=== PATIENT | female | born 1955 | race Caucasian/White ===

== ENCOUNTER 2016-04-13 15:11 | Outpatient (RCR) | payer BC ==
--- OUTSIDE RECORDS SUMMARY | 2016-02-01 15:46 | XMS REPORT | Continuity of Care Document ---
Author Author [facility] Organization [facility] Address Unknown Phone Unavailable Care Team Providers Care Wastewater Design Engineer Name Role Phone POOJA STRINGER MD PCP Insurance Providers Payer Name Policy Number Subscriber Name Relationship [facility] [id number] [place] Advance Directives Directive Response Recorded Date/Time Advance Directives Yes 12/15/15 8:12am Health Care Power of Staple Side Laster Yes 12/15/15 8:12am Organ Donor No 12/15/15 8:12am Resuscitation Status Full Code 12/15/15 8:12am Problems No problem information available. Medications Current Home Medications Medication Dose Units Route Directions Days/Qty Instructions Start Date Cholecalciferol 400 Unit 400 Unit Oral Daily 12/25/12 Meloxicam (Mobic) 15 Mg 15 Mg Oral Daily 12/25/12 Omeprazole 40 Mg 40 Mg Oral Daily 12/25/12 Levothyroxine Sodium (Levothroid) 50 Mcg 50 Mcg Oral Daily 12/25/12 Triamterene/Hydrochlorothiazid 1 Each 1 Tab Oral Daily 37.5-25 MG TABLET 12/25/12 Metformin Hcl (Glucophage) 500 Mg 500 Mg Oral Daily 12/25/12 Estrogen,Alannah/Me-Testosterone 1 Each 1 Each Oral Daily 12/15/15 Multivitamin 1 Each 1 Each Oral Daily 12/15/15 Past Home Medications Medication Directions Ordered Status Cyanocobalamin (Vitamin B-12) 250 Mcg Lozenge, 250 Mcg Oral Daily 12/25/12 Discontinued [Estratest] , 2 Tab Oral Daily 12/25/12 Discontinued Acetaminophen/Hydrocodone Bitart 1 Tab Tablet, 1 - 2 Tab Oral Q3hr From Start Time as needed 12/28/12 Discontinued Social History Social History Problem Response Recorded Date/Time Alcohol Use Denies Use 12/15/2015 8:17am Recreational Drug Use No 12/15/2015 8:17am Recent Foreign Travel No 12/15/2015 8:12am Recent Infectious Disease Exposure No 12/15/2015 8:12am Hospitalization with Isolation Denies 12/15/2015 8:17am HIV/AIDS No 12/15/2015 8:17am Smoking Status Former Smoker 12/15/2015 8:13am Recent Hopitalizations No 12/15/2015 8:17am Hospitalization with Isolation Denies 12/15/2015 8:17am Query Response Start Date Stop Date Smoking Status Former Smoker Hospital Discharge Instructions No hospital discharge instructions. Plan of Care Discharge Date 12/15/15 1:24pm Prescriptions See Medication Section Functional Status No functional status results. Allergies, Adverse Reactions, Alerts Allergen Type Severity Reaction Status Last Updated Sulfa (Sulfonamide Antibiotics) ([id number]) Allergy Intermediate RASH Active 12/15/15 amoxicillin ([id number]) Allergy Unknown RASH Active 12/15/15 Immunizations No immunization records. Vital Signs Acute Vital Signs Vital Response Date/Time Pulse Rate (adult) 62 bpm (60 - 90) 12/15/2015 8:15am Respiratory Rate 16 bpm (12 - 24) 12/15/2015 8:15am O2 Sat by Pulse Oximetry 97 % (88 - 100) 12/15/2015 8:15am Blood Pressure 120/78 mm Hg 12/15/2015 8:15am Blood Pressure Mean 92 mm Hg 12/15/2015 8:15am Pain Numeric Pain Scale 2 12/15/2015 8:15am Height (Feet) 5 feet 12/15/2015 8:09am Height (Inches) 3.00 inches 12/15/2015 8:09am Height (Calculated Centimeters) 160.706454 cm 12/15/2015 8:09am Weight (Pounds) 177 pounds 12/15/2015 8:09am Weight (Ounces) 8.0 oz 12/15/2015 8:09am Weight (Calculated Grams) 51529.65 gm 12/15/2015 8:09am Weight (Calculated Kilograms) 80.406376 kilograms 12/15/2015 8:09am Calculated BMI 31.4 12/15/2015 8:09am Results Laboratory Results Test Name Result Units Flags Reference Collection Date/Time Result Date/ Time Comments White Blood Count 6.1 10^3/uL 4.3-11.0 12/15/2015 8:35am 12/15/2015 8: 53am Red Blood Count 4.88 10^6/uL 4.35-5.85 12/15/2015 8:35am 12/15/2015 8: 53am Hemoglobin 15.7 G/DL 11.5-16.0 12/15/2015 8:35am 12/15/2015 8:53am Hematocrit 45 % 35-52 12/15/2015 8:35am 12/15/2015 8:53am Mean Corpuscular Volume 92 FL 80-99 12/15/2015 8:35am 12/15/2015 8: 53am Mean Corpuscular Hemoglobin 32 PG 25-34 12/15/2015 8:35am 12/15/2015 8: 53am Mean Corpuscular Hemoglobin Concent 35 G/DL 32-36 12/15/2015 8:35am 8:53am Red Cell Distribution Width 12.8 % 10.0-14.5 12/15/2015 8:35am 2015 8:53am Platelet Count 265 10^3/uL 130-400 12/15/2015 8:35am 12/15/2015 8:53am Mean Platelet Volume 10.3 FL 7.4-10.4 12/15/2015 8:35am 12/15/2015 8: 53am Neutrophils (%) (Auto) 58 % 42-75 12/15/2015 8:35am 12/15/2015 8:53am Lymphocytes (%) (Auto) 28 % 12-44 12/15/2015 8:35am 12/15/2015 8:53am Monocytes (%) (Auto) 10 % 0-12 12/15/2015 8:35am 12/15/2015 8:53am Eosinophils (%) (Auto) 3 % 0-10 12/15/2015 8:35am 12/15/2015 8:53am Basophils (%) (Auto) 0 % 0-10 12/15/2015 8:35am 12/15/2015 8:53am Neutrophils # (Auto) 3.6 X 10^3 1.8-7.8 12/15/2015 8:35am 12/15/2015 8: 53am Lymphocytes # (Auto) 1.7 X 10^3 1.0-4.0 12/15/2015 8:35am 12/15/2015 8: 53am Monocytes # (Auto) 0.6 X 10^3 0.0-1.0 12/15/2015 8:35am 12/15/2015 8: 53am Eosinophils # (Auto) 0.2 10^3/uL 0.0-0.3 12/15/2015 8:35am 12/15/2015 8 :53am Basophils # (Auto) 0.0 10^3/uL 0.0-0.1 12/15/2015 8:35am 12/15/2015 8: 53am Erythrocyte Sedimentation Rate 4 MM/HR 0-30 12/15/2015 8:35am 2015 10:36am Prothrombin Time 12.5 SEC 12.2-14.7 12/15/2015 8:35am 12/15/2015 9: 18am INR Comment 1.0 0.8-1.4 12/15/2015 8:35am 12/15/2015 9:18am INTERPRETIVE DATA SUGGESTED THERAPEUTIC RANGE FOR INR'S: VENOUS THROMBOSIS, PULMONARY EMBOLISM, OR PREVENTION OF SYSTEMIC EMBOLISM (EG. IN ATRIAL FIBRILLATION): 2.0 - 3.0 MECHANICAL PROSTHETIC HEART VALVES: 2.5 - 3.5* *NOTE: INR'S UP TO 4.5 MAY BE NECESSARY IN SELECTED GROUPS OF HIGH RISK PATIENTS. [employer] [place] COLLEGE OF CHEST PHYSICIANS CONSENSUS CONFERENCE ON ANTITHROMBOTIC THERAPY (2000). Urine Color YELLOW 12/15/2015 8:40am 12/15/2015 9:03am Urine Clarity CLEAR 12/15/2015 8:40am 12/15/2015 9:03am Urine pH 6 5-9 12/15/2015 8:40am 12/15/2015 9:03am Urine Specific [place] 1.015 * 1.016-1.022 12/15/2015 8:40am 2015 9:03am Urine Protein NEGATIVE NEGATIVE 12/15/2015 8:40am 12/15/2015 9:03am Urine Glucose (UA) NEGATIVE NEGATIVE 12/15/2015 8:40am 12/15/2015 9: 03am Urine RBC (Auto) NEGATIVE NEGATIVE 12/15/2015 8:40am 12/15/2015 9: 03am Urine Ketones NEGATIVE NEGATIVE 12/15/2015 8:40am 12/15/2015 9:03am Urine Nitrite NEGATIVE NEGATIVE 12/15/2015 8:40am 12/15/2015 9:03am Urine Bilirubin NEGATIVE NEGATIVE 12/15/2015 8:40am 12/15/2015 9: 03am Urine Urobilinogen 1 MG/DL NORMAL 12/15/2015 8:40am 12/15/2015 9:03am Urine Leukocyte Esterase 2+ * NEGATIVE 12/15/2015 8:40am 12/15/2015 9: 03am Urine RBC NONE /HPF 12/15/2015 8:40am 12/15/2015 9:03am Urine WBC 10-25 /HPF * 12/15/2015 8:40am 12/15/2015 9:03am Urine Bacteria FEW /HPF * 12/15/2015 8:40am 12/15/2015 9:03am Urine Squamous Epithelial Cells 25-50 /HPF * 12/15/2015 8:40am 2015 9:03am Urine Crystals NONE /LPF 12/15/2015 8:40am 12/15/2015 9:03am Urine Casts NONE /LPF 12/15/2015 8:40am 12/15/2015 9:03am Urine Mucus SMALL /LPF * 12/15/2015 8:40am 12/15/2015 9:03am Urine Culture Indicated YES 12/15/2015 8:40am 12/15/2015 9:03am Sodium Level 140 MMOL/L 135-145 12/15/2015 8:35am 12/15/2015 9:12am Potassium Level 3.8 MMOL/L 3.6-5.0 12/15/2015 8:35am 12/15/2015 9:12am Chloride Level 105 MMOL/L 98-107 12/15/2015 8:35am 12/15/2015 9:12am Carbon Dioxide Level 25 MMOL/L 21-32 12/15/2015 8:35am 12/15/2015 9: 12am Anion Gap 10 MMOL/L 5-14 12/15/2015 8:35am 12/15/2015 9:12am Blood Urea Nitrogen 16 MG/DL 7-18 12/15/2015 8:35am 12/15/2015 9:12am Creatinine 0.95 MG/DL 0.60-1.30 12/15/2015 8:35am 12/15/2015 9:12am BUN/Creatinine Ratio 17 12/15/2015 8:35am 12/15/2015 9:12am Estimat Glomerular Filtration Rate 60 12/15/2015 8:35am 12/15/2015 9:12am GFR INTERPRETIVE DATA UNITS FOR ESTIMATED GFR (eGFR): mL/min/1.73 M2 REFERENCE RANGE FOR ESTIMATED GFR (eGFR) eGFR NORMAL eGFR >60 MODERATELY DECREASED eGFR 30-59 SEVERLY DECREASED eGFR 15-29 KIDNEY FAILURE <15 (OR DIALYSIS) Glucose Level 105 MG/DL 70-105 12/15/2015 8:35am 12/15/2015 9:12am Calcium Level 9.4 MG/DL 8.5-10.1 12/15/2015 8:35am 12/15/2015 9:12am Total Bilirubin 0.8 MG/DL 0.1-1.0 12/15/2015 8:35am 12/15/2015 9:12am Alkaline Phosphatase 53 U/L 40-136 12/15/2015 8:35am 12/15/2015 9:12am Aspartate Amino Transf (AST/SGOT) 23 U/L 5-34 12/15/2015 8:35am 2015 9:12am Alanine Aminotransferase (ALT/SGPT) 29 U/L 0-55 12/15/2015 8:35am 12/14 9:12am Total Protein 6.7 G/DL 6.4-8.2 12/15/2015 8:35am 12/15/2015 9:12am Albumin 4.4 G/DL 3.2-4.5 12/15/2015 8:35am 12/15/2015 9:12am Procedures Procedure Status Date Provider(s) Tracing only of electrocardiogram Active 12/15/15 REYMUNDO JIMENEZ MD Encounters Encounter Location Arrival/Admit Date Discharge/Depart Date Attending Provider Registered Clinic [facility] 12/15/15 7:49am REYMUNDO JIMENEZ MD Registered Clinic [facility] 12/15/15 7:29am WILMAN RODRIGUEZ MD
[~2016-04-13 15:11] MED LIST: ACHYD1T PO; ATOR10TA66 PO; CYAN250L PO; ERGO400C PO; ESTR-33 PO; ESTR1TAB37 PO; ESTRATEST PO; LVT.05T PO; MEDR5TAB4 PO; MELO-195 PO; MTF500T PO; MULT-301 PO; OMEP40CA36 PO; OXYC-197 PO; TRIA1TAB3 PO; UBID1CAP53 PO
== END 2016-05-01 | disposition home or self-care (01) ==
PROVIDERS: ATTEND Nurse Practitioner
DX: Z47.1 Aftercare following joint replacement surgery (principal); Z96.653 Presence of artificial knee joint, bilateral

== ENCOUNTER 2016-06-23 15:45 | Outpatient (RCR) | payer BC ==
--- OUTSIDE RECORDS SUMMARY | 2016-05-04 16:00 | XMS REPORT | Continuity of Care Document ---
Author Author [facility] Organization [facility] Address Unknown Phone Unavailable Care Team Providers Care Forming Department End Finder Name Role Phone POOJA STRINGER MD PCP Insurance Providers Payer Name Policy Number Subscriber Name Relationship [facility] [id number] [place] 01 Advance Directives Directive Response Recorded Date/Time Advance Directives Yes 12/15/15 8:12am Health Care Power of Diet Kitchen Cook Yes 12/15/15 8:12am Organ Donor No 12/15/15 [...] Reaction Status Last Updated Sulfa (Sulfonamide Antibiotics) ([id number]) Allergy Intermediate RASH Active 12/15/15 amoxicillin ([id number]) Allergy Unknown RASH Active 12/15/15 Immunizations No [...] 3.00 inches 12/15/2015 8:09am Height (Calculated Centimeters) 160.586728 cm 12/15/2015 8:09am Weight (Pounds) 177 pounds 12/15/2015 8:09am Weight (Ounces) 8.0 oz 12/15/2015 8:09am Weight (Calculated Grams) 40951.65 gm 12/15/2015 8:09am Weight (Calculated Kilograms) 80.287246 kilograms 12/15/2015 8:09am Calculated BMI 31.4 12/15/2015 [...] SELECTED GROUPS OF HIGH RISK PATIENTS. [employer] [place] [employer] CHEST PHYSICIANS CONSENSUS CONFERENCE ON ANTITHROMBOTIC THERAPY (2000). Urine Color YELLOW 12/15/2015 8:40am 12/15/2015 9:03am Urine Clarity CLEAR 12/15/2015 8:40am 12/15/2015 9:03am Urine pH 6 5-9 12/15/2015 8:40am 12/15/2015 9:03am Urine Specific [place] 1.015 * 1.016-1.022 12/15/2015 8:40am 2015 9:03am [...] Provider(s) Tracing only of electrocardiogram Active 12/15/15 REYUMNDO JIMENEZ MD Encounters Encounter Location Arrival/Admit Date Discharge/Depart Date Attending Provider Registered Clinic [facility] 12/15/15 7:49am REYMUNDO JIMENEZ MD Registered Clinic [facility] 12/15/15 7:29am WILMAN RODRIGUEZ MD
== END 2016-06-23 16:40 | disposition home or self-care (01) ==
PROVIDERS: ATTEND Nurse Practitioner
DX: Z47.1 Aftercare following joint replacement surgery (principal); Z96.653 Presence of artificial knee joint, bilateral

== ENCOUNTER → 2016-09-14 | Outpatient (CLI) | payer BC ==
[2016-09-14 11:57] LABS: BASOPHILS % (AUTO) 0 % (0-10); EOSINOPHILS # (AUTO) 0.2 10^3/uL (0.0-0.3); EOSINOPHILS % (AUTO) 3 % (0-10); LYMPHOCYTES # (AUTO) 2.4 X 10^3 (1.0-4.0); LYMPHOCYTES % (AUTO) 34 % (12-44); MEAN CORPUSCULAR HEMOGLOBIN 31 PG (25-34); MEAN CORPUSCULAR HGB CONC 35 G/DL (32-36); MEAN CORPUSCULAR VOLUME 91 FL (80-99); MONOCYTES # (AUTO) 0.6 X 10^3 (0.0-1.0); MONOCYTES % (AUTO) 9 % (0-12); NEUTROPHILS % (AUTO) 55 % (42-75); PLATELET COUNT 267 10^3/uL (130-400); RED BLOOD COUNT 4.56 10^6/uL (4.35-5.85); RED CELL DISTRIBUTION WIDTH 13.3 % (10.0-14.5); WHITE BLOOD COUNT 7.3 10^3/uL (4.3-11.0)
[2016-09-14 12:29] LABS: ERYTHROCYTE SEDIMENTATION RATE 9 MM/HR (0-30)
== END ==
LOC: LAB 11:43
PROVIDERS: ATTEND Orthopaedic Surgery
DX: M25.461 Effusion, right knee (principal); M25.462 Effusion, left knee; Z96.659 Presence of unspecified artificial knee joint
CPT/HCPCS: 36415; 85025; 85652; 86141

== ENCOUNTER 2017-01-04 15:30 | Outpatient (RCR) | payer BC | END 2017-01-04 16:11 | disposition home or self-care (01) | PROVIDERS: ATTEND Orthopaedic Surgery | DX: Z47.1 Aftercare following joint replacement surgery (principal); Z96.652 Presence of left artificial knee joint ==

== ENCOUNTER → 2017-02-22 | Outpatient (CLI) | payer BC ==
--- NOTE | 2017-02-22 19:42 | Diagnostic Imaging Report ---
Bilateral screening mammogram 2D views with tomosynthesis The current study was also evaluated with a Computer Aided Detection (CAD) system. Indication: Screening. No current complaints stated on the questionnaire. COMPARISON: 12/15/15. FINDINGS: The breasts are composed of heterogeneously dense parenchyma which may decrease mammographic sensitivity. Occasional benign-appearing calcifications are seen. Allowing for technique and positional differences, no suspicious change is seen. IMPRESSION: Dense breasts with no definite change. ACR BI-RADS Category 2: Benign findings. Result letter will be mailed to the patient. Note: At least 10% of breast cancer is not imaged by mammography. Dictated by: Dictated on workstation # [id number]
== END ==
LOC: RAD 08:36
PROVIDERS: ATTEND Obstetrics & Gynecology
DX: Z12.31 Encounter for screening mammogram for malignant neoplasm of breast (principal)
CPT/HCPCS: 77067

== ENCOUNTER 2017-03-27 13:03 | Outpatient (CLI) | payer BC ==
[~2017-03-27] VITALS: Ht 160 cm; Wt 88.5 kg
[2017-03-27 13:11] VITALS: BP 152/80
[2017-03-27] MEDS ORDERED: OMEP40CA36 PO (13:21)
[2017-03-27] MEDS ORDERED: TRIA1CAP4 PO (13:21)
[2017-03-27] MEDS ORDERED: MULT1TAB69 PO (13:21)
[2017-03-27] MEDS ORDERED: CHOL10007 PO (13:21)
[2017-03-27] MEDS ORDERED: ASPI-586 PO (13:21)
[2017-03-27] MEDS ORDERED: ESTR2TAB PO (13:21)
[2017-03-27] MEDS ORDERED: ATOR10TA66 PO (13:21)
[2017-03-27] MEDS ORDERED: MELO15TA39 PO (13:21)
[2017-03-27] MEDS ORDERED: LEVO50TA6 PO (13:21)
[2017-03-27] MEDS ORDERED: METF500T4 PO (13:21)
== END 2017-03-27 13:26 | disposition home or self-care (01) ==
LOC: PREOP 13:03
PROVIDERS: ATTEND Obstetrics & Gynecology
DX: Z01.818 Encounter for other preprocedural examination (principal); Z11.2 Encounter for screening for other bacterial diseases; N93.8 Other specified abnormal uterine and vaginal bleeding; N95.0 Postmenopausal bleeding; R19.09 Other intra-abdominal and pelvic swelling, mass and lump; D64.9 Anemia, unspecified
CPT/HCPCS: 87081

== ENCOUNTER 2017-03-31 10:56 | Day surgery (SDC) | payer BC ==
[~2017-03-31] VITALS: Ht 160 cm; Wt 88.5 kg
[~2017-03-31 10:56] MED LIST changes: +ASPI-586 PO; +CHOL10007 PO; +ESTR2TAB PO; +LEVO50TA6 PO; +MELO15TA39 PO; +METF500T4 PO; +MULT1TAB69 PO; +TRIA1CAP4 PO
[2017-03-31] MEDS ORDERED: SEVOFLURANE (ULTANE) 15 ML INHAL SOLN ONE ×2 (11:18→12:09)
[2017-03-31] MEDS ORDERED: ONDANSETRON 4 MG/2 ML (SDV) Z0FRAN ONE (11:18)
[2017-03-31] MEDS ORDERED: LIDOCAINE PF 2% 5 ML (XYLOCAINE) VIAL ONE (11:18)
[2017-03-31] MEDS ORDERED: proPOfol 200 MG/20 ML (DIPRIVAN) VIAL IV ONE (11:18)
[2017-03-31] MEDS ORDERED: MIDAZOLAM 2 MG/2 ML (VERSED) VIAL ONE (11:19)
[2017-03-31] MEDS ORDERED: LACTATED RINGERS 1,000 ML IV PRN (11:19)
[2017-03-31] MEDS ORDERED: fentaNYL INJECTION 100 MCG/2 ML AMP ONE (11:19)
[2017-03-31 11:36] VITALS: BP 143/78
[2017-03-31] MEDS ORDERED: NS (IVPB) 50 ML ONE (12:02)
[2017-03-31] MEDS ORDERED: ceFAZolin 1,000 MG (ANCEF) VIAL ONE (12:02)
--- NOTE | 2017-03-31 12:10 | Progress Note-Pre Operative ---
Pre-Operative Progress Note H&P Reviewed The H&P was reviewed, patient examined and no changes noted. Date Seen by Provider: Mar 31, 2017 Time Seen by Provider: 12:10 Date H&P Reviewed: Mar 31, 2017 Time H&P Reviewed: 12:10 Pre-Operative Diagnosis: TINO/postmenopausal bleeding/intrauterine mass WILMAN RODRIGUEZ MD Mar 31, 2017 12:10 pm
[2017-03-31] MEDS ORDERED: D5 LR IV SOLUTION 1,000 ML IV SCH (12:11)
--- NOTE | 2017-03-31 12:11 | Progress Note-Post Operative ---
Post-Operative Progess Note Surgeon (s)/Passenger Train Braker (s) Surgeon WILMAN RODRIGUEZ MD Passenger Train Braker: none Pre-Operative Diagnosis DUB/postmenopausal bleeding/intrauterine mass Post-Operative Diagnosis same with polypoid endometrial lesions and with pathology pending Procedure & Operative Findings Date of Procedure 03/31/17 Procedure Performed/Findings hhysteroscopy with directed biopsy and D&C with pathology pending Anesthesia Type Gen. Estimated Blood Loss Estimated blood loss (mL): minimal Specimens/Packing Specimens Removed directed biopsy from endometrial mass and endometrial curettings Packing: none WILMAN RODRIGUEZ MD Mar 31, 2017 12:11
[2017-03-31] MEDS ORDERED: OXYC-202 PO (12:13)
--- NOTE | 2017-03-31 12:14 | Discharge Instructions ---
Discharge Instructions Discharge Medications New, Converted or Re-Newed RX: RX on Chart Patient Instructions Patient Instructions: as directed Return to The Hospital For: as directed Activity & Diet Discharge Diet: No Restrictions Activity as Tolerated: No Orders-Post D/C & Referrals Follow Up Appt: return for post op follow-up as scheduled Activity: Rest for 24 hours, than as tolerated. Diet: As tolerated-Clear Liquids only if nauseated. May shower or tub bathe as desired. No driving for 24 hours, no alcoholic beverages for 24 hours, and nothing per vagina (no tampons, douching, or intercourse) for 2 weeks. Patient to return to the clinic as soon as possible for: Temperature greater than 101F, Severe Pain, Foul discharge from incision or vagina, Excessive Bleeding (more than a period). WILMAN RODRIGUEZ MD Mar 31, 2017 12:14 pm
[2017-03-31] MEDS ORDERED: KETOROLAC 30 MG/ML VIAL IVP ONE (12:15)
[2017-03-31] MEDS ORDERED: MEPERIDINE (DEMEROL) INJ 100 MG/ML IM ONE (12:15)
[2017-03-31] MEDS ORDERED: PROMETHAZINE INJ 25 MG/ML (PHENERGAN) AMP IM ONE (12:15)
[2017-03-31] MEDS ORDERED: oxyCODONE/APAP 10/325MG (PERCOCET 10) TABLET PO PRN (12:15)
[2017-03-31] MEDS ORDERED: ceFAZolin 1 GM/NS 50 ML IVPB IV ONE ×2 (12:15)
[2017-03-31] MEDS ORDERED: ONDANSETRON 4 MG/2 ML (SDV) Z0FRAN IVP PRN (12:15)
[2017-03-31] MEDS ORDERED: ESTROGENS CONJ IV 25 MG/5 ML (PREMARIN) VIAL IVP ONE (12:15)
[2017-03-31] MEDS ORDERED: WATER (STERILE) FOR INJECTION 10 ML ONE (13:00)
[2017-03-31 13:50] VITALS: BP 113/69
[2017-03-31 14:20] VITALS: BP 120/75
[2017-03-31 14:50] VITALS: BP 141/83
[2017-03-31 15:00] VITALS: BP 141/83
--- NOTE | 2017-03-31 17:44 | OPERATIVE REPORT ---
DATE OF SERVICE: 03/31/2017 PREOPERATIVE DIAGNOSES: Dysfunctional uterine bleeding, mets/menorrhagia with ultrasound findings of intrauterine mass. POSTOPERATIVE DIAGNOSES: Dysfunctional uterine bleeding, mets/menorrhagia with ultrasound findings of intrauterine mass with pathology pending. OPERATIVE PROCEDURE: Hysteroscopy with directed biopsy and D and C. OPERATIVE DESCRIPTION: With the patient in supine position under satisfactory general anesthesia, she was repositioned in the dorsal lithotomy position in the Dexter stirrups and prepped and draped in the usual fashion for vaginal surgery. The urinary bladder was emptied with a straight catheter. A weighted speculum placed in the posterior fornix of the vagina and the cervix exposed and grasped anteriorly with single tooth tenaculum. The uterus was sounded to 11 cm with the uterine sound. The cervix was then serially dilated with Stepan dilators to accommodate a hysteroscope, which was introduced and using LR as a distending medium, the endometrial cavity was examined. There were multiple polypoid appearing lesions essentially cooperating the endometrial cavity. Extrusion Machine Operator biopsies were taken from 4 of these areas and sent to pathology labeled as directed biopsies and endometrial polypoid lesions. The hysteroscope was removed. The endometrial cavity sharply curettaged in all 4 quadrants to a good uterine cry with removal of an additional aliquot of endometrial appearing and decidual appearing tissue with some polypoid structure appearance as well. The hysteroscope was reintroduced, endometrial cavity was examined. There was no significant bleeding. There was no significant remaining abnormal tissue. The procedure was terminated at this point. The hysteroscope was removed as was the tenaculum. There was no bleeding from the puncture sites from the tenaculum and no bleeding from the cervical os. The sponge and needle counts were correct on completion of the procedure. Estimated blood loss for the procedure was very minimal. The patient tolerated the procedure well and was uneventfully awakened from general anesthesia and transferred to the recovery room in stable condition with plans for discharge home PAR. Job ID: [id number] DocumentID: [id number] Dictated Date: 03/31/2017 12:49:04 Loading Dock Helper Date: 03/31/2017 17:43:35 Dictated By: WILMAN RODRIGUEZ MD
== END 2017-03-31 15:00 | disposition home or self-care (01) ==
LOC: SDC 10:56
PROVIDERS: ATTEND Obstetrics & Gynecology
DX: N84.1 Polyp of cervix uteri (principal); N92.0 Excessive and frequent menstruation with regular cycle; Z96.652 Presence of left artificial knee joint; Z96.651 Presence of right artificial knee joint; I10 Essential (primary) hypertension; E78.5 Hyperlipidemia, unspecified; G47.33 Obstructive sleep apnea (adult) (pediatric); K21.9 Gastro-esophageal reflux disease without esophagitis; E11.9 Type 2 diabetes mellitus without complications; E03.9 Hypothyroidism, unspecified; Z79.82 Long term (current) use of aspirin; Z79.899 Other long term (current) drug therapy; Z79.84 Long term (current) use of oral hypoglycemic drugs; Z88.1 Allergy status to other antibiotic agents; Z88.2 Allergy status to sulfonamides
CPT/HCPCS: 82962

== ENCOUNTER → 2018-03-20 | Outpatient (CLI) | payer BC ==
[~2018-03-20] MED LIST changes: -ESTR-33 PO; +METF-397 PO; -METF500T4 PO; -OXYC-197 PO; +OXYC1TAB12 PO; +OXYC1TAB87 PO; +[UNRECOGNIZED DRUG - CODE] PO
--- NOTE | 2018-03-21 20:29 | Diagnostic Imaging Report ---
INDICATION: Screening. EXAMINATION: Digital mammogram bilateral screening with 3-D tomosynthesis. The current study was also evaluated with a Computer Aided Detection (CAD) system. This study was compared to the prior exams of 02/22/2017, 12/15/2015, and 04/18/2014. At this time, there are no current complaints. FINDINGS: The fibroglandular tissue in both breasts is heterogeneously dense. This does limit the sensitivity of this exam. Overall, there does not appear to have been any significant change when compared to the prior study. No primary or secondary sign of malignancy is noted. 3D tomographic images fail to show any sign of malignancy. IMPRESSION: There is no radiographic evidence for malignancy. ACR BI-RADS Category 1: Negative. Result letter will be mailed to the patient. Note: At least 10% of breast cancer is not imaged by mammography. Dictated on workstation # [id number]
== END ==
LOC: RAD 07:55
PROVIDERS: ATTEND Obstetrics & Gynecology
DX: Z12.31 Encounter for screening mammogram for malignant neoplasm of breast (principal)
CPT/HCPCS: 77067

== ENCOUNTER → 2019-05-24 | Outpatient (CLI) | payer MEDICARE, OTHER ==
[~2019-05-24] MED LIST changes: +OMEP40CA27 PO
--- NOTE | 2019-05-24 13:09 | Diagnostic Imaging Report ---
Digital mammogram. INDICATION: Bilateral screening. The study was compared to the prior exam of 03/20/2018, 02/22/2017 and 12/15/2015. At this time, there are no current complaints. The current study was also evaluated with a Computer Aided Detection (CAD) system. FINDINGS: The fibroglandular tissue in both breasts is heterogeneously dense. This does limit the sensitivity of this exam. Overall, there does not appear to have been any significant change when compared to the prior study. No primary or secondary sign of malignancy is noted. IMPRESSION: There is no radiographic evidence for malignancy. ACR BI-RADS Category 1: Negative. Result letter will be mailed to the patient. Note: At least 10% of breast cancer is not imaged by mammography. Dictated by: Dictated on workstation # [id number]
== END ==
LOC: RAD 10:47
PROVIDERS: ATTEND Obstetrics & Gynecology
DX: Z12.31 Encounter for screening mammogram for malignant neoplasm of breast (principal)
CPT/HCPCS: 77067

== ENCOUNTER 2019-11-28 05:33 | Outpatient (RCR) | payer MEDICARE, OTHER ==
[~2019-11-28] VITALS: Ht 160 cm; Wt 79.5 kg
[~2019-11-28 05:33] MED LIST changes: +ASPI-999 PO; +ESTR1TAB24 PO; +FAMO-144 PO; +MELO7.5T46 PO; +MULT-567 PO; -MULT1TAB69 PO; +RUTI1TAB PO
== END 2019-11-28 10:04 | disposition home or self-care (01) ==
LOC: PREOP 05:33
PROVIDERS: ATTEND Surgery
DX: Z01.812 Encounter for preprocedural laboratory examination (principal); Z12.11 Encounter for screening for malignant neoplasm of colon; Z86.010 Personal history of colon polyps; K21.9 Gastro-esophageal reflux disease without esophagitis; Z20.828 Contact with and (suspected) exposure to other viral communicable diseases
CPT/HCPCS: 87635

== ENCOUNTER 2019-12-03 09:27 | Day surgery (SDC) | payer MEDICARE, OTHER ==
[~2019-12-03] VITALS: Ht 160 cm; Wt 79.5 kg
[2019-12-03] MEDS ORDERED: HURRICAINE EXT TUBE (BENZOCAINE) XX PRN (09:30)
[2019-12-03 09:34] VITALS: BP 141/79
[2019-12-03] MEDS ORDERED: LACTATED RINGERS 1,000 ML IV ONE (09:34)
[2019-12-03] MEDS ORDERED: proPOfol 200 MG/20 ML (DIPRIVAN) VIAL IV ONE (09:50)
[2019-12-03] MEDS ORDERED: MIDAZOLAM 2 MG/2 ML (VERSED) VIAL ONE (09:50)
[2019-12-03] MEDS ORDERED: CLINDAMYCIN 600 MG/50 ML IVPB 50 ML IV ONE (09:55)
--- NOTE | 2019-12-03 09:56 | Progress Note-Pre Operative ---
Pre-Operative Progress Note H&P Reviewed The H&P was reviewed, patient examined and no changes noted. Date Seen by Provider: Dec 03, 2019 Time Seen by Provider: 09:56 Date H&P Reviewed: Dec 03, 2019 Time H&P Reviewed: 09:56 Pre-Operative Diagnosis: epigastric abd pain, gerd, history of polyps DARINEL HAYS DO Dec 03, 2019 09:56
[2019-12-03] MEDS ORDERED: LACTATED RINGERS 1,000 ML IV SCH (10:15)
[2019-12-03 10:40] VITALS: BP 157/84
[2019-12-03 10:45] VITALS: BP 140/72
[2019-12-03 10:50] VITALS: BP 140/72
--- NOTE | 2019-12-03 10:52 | Discharge Inst-Simple/Standard ---
Discharge Inst-Standard Patient Instructions/Follow Up Plan of Care/Instructions/FU: 2-3 weeks Hernan Activity as Tolerated: Yes Discharge Diet: Regular Diet DARINEL HAYS DO Dec 03, 2019 10:52
--- NOTE | 2019-12-03 10:53 | Progress Note-Post Operative ---
Post-Operative Progess Note Surgeon (s)/Ball Warper Tender (s) Surgeon DARINEL HAYS DO Ball Warper Tender: na Pre-Operative Diagnosis epigastric abd pain, gerd, history of polyps Post-Operative Diagnosis diverticulosis, moderate hiatal hernia Procedure & Operative Findings Date of Procedure 12/03/19 Procedure Performed/Findings egd c biopsies, colonoscopy Anesthesia Type per [facility] Estimated Blood Loss Estimated blood loss (mL): none Specimens/Packing Specimens Removed antrum ,ge DARINEL HAYS DO Dec 03, 2019 10:53
[2019-12-03 11:15] VITALS: BP 138/72
--- OUTSIDE RECORDS SUMMARY | 2019-12-03 12:35 | XMS REPORT ---
Author Author Danni CARR Organization [facility] Address [address] [place] [address] Care Team Providers Care Regulator Pin Inserter Name Role Phone BOWEN CARR Unavailable PROBLEMS Type Condition ICD9-CM Code SZV73-NC Code Onset Dates Condition S tatus SNOMED Code Problem Essential hypertension I10 Active 75494284 Problem Obstructive sleep apnea G47.33 Active 13761366 Problem Controlled type 2 diabetes m ellitus without complication, without long- term current use of insulin E11.9 Active 433597877 Problem Insomnia, unspecified type G47.00 Act cheryl 326567844 Problem Hyperlipidemia, unspecified hyperlipidemia type E7 8.5 Active 49676229 ALLERGIES Substance Reaction Event Type Date Status Sulfacet-R vomitting Drug Allergy Oct, Active Amoxicillin hives Drug Allergy Oct, Active ENCOUNTERS Encounter Location Date Diagnosis [facility] [id number] [place] [id number] Nov, Right foot pain M79.671 [facility] [address] [facility] [id number] [address] [place] [id number] Oct, Obstructive sleep apnea G47. 33 ; Essential hypertension I10 ; Insomnia, unspecified type G47.00 and Hyperlipidemia, unspecified hyperlipidemia type E78.5 IMMUNIZATIONS No Known Immunizations SOCIAL HISTORY Never Assessed REASON FOR VISIT Establish Care, pt states that she is "foggy" in the mornings and is having increased confusion at work. also says that she is having trouble with her sinus., pt states that she is also very irritable and cannot control blood surgars.-[place]woods PLAN OF CARE Activity Details Follow Up 3 months Reason: VITAL SIGNS Weight 190.7 lbs 2017-11-10 Temperature 98 degrees Fahrenheit 2017-11-10 Heart Rate 68 bpm 2017-11-10 Respiratory Rate 18 2017-11-10 Blood pressure systolic 128 mmHg 2017-11-10 Blood pressure diastolic 72 mmHg 2017-11-10 MEDICATIONS Medication Instructions Dosage Frequency Start Date End Date Duration S eva Meloxicam 15 MG Orally Once a day 1 tablet 24h Active Levothyroxine Sodium 50 MCG Orally Once a day 1 tablet on an empty stomach in the morning 24h Active Metformin HCl 500 MG Orally Once a day 1 tablet with a meal 24h Active Atorvastatin Calcium 10 MG Orally Once a day 1 tablet 24h Active MedroxyPROGESTERone Acetate 5 MG Orally Once a day 1 tablet with food 24 h Active Estradiol 2 MG Orally Once a day 1 tablet 24h Active Omeprazole 40 MG Orally Once a day 1 capsule 24h Active Triamterene-HCTZ 37.5-25 MG Orally Once a day 1 tablet in the morning 24 h Active RESULTS No Results PROCEDURES Procedure Date Ordered Result Body Site LIPID PANEL November 10, 2017 VENIPUNCT, ROUTINE* November 10, 2017 INSTRUCTIONS MEDICATIONS ADMINISTERED No Known Medications MEDICAL (GENERAL) HISTORY Type Description Date Medical History DMII Medical History thyroiditis Medical History HTN Medical History arthritis Medical History sleep apnea-CPAP Surgical History partial thyroidectomy Surgical History bilateral knee replacement Surgical History carpel tunnel surgery Hospitalization History surgeries
--- OUTSIDE RECORDS SUMMARY | 2019-12-03 12:35 | XMS REPORT ---
Author Author Danni CARR Organization [facility] Address [address] [place] [address] Care Team Providers Care Airborne Electronics Analyst Name Role Phone BOWEN CARR Unavailable PROBLEMS Type Condition ICD9-CM Code [id number] Code Onset Dates Condition S tatus SNOMED Code Problem Essential hypertension I10 Active 45348136 Problem Obstructive sleep apnea G47.33 Active 27444571 Problem Controlled type 2 diabetes m ellitus without complication, without long- term current use of insulin E11.9 Active 384959498 Problem Insomnia, unspecified type G47.00 Act cheryl 584144577 Problem Hyperlipidemia, unspecified hyperlipidemia type E7 8.5 Active 73914226 ALLERGIES Substance Reaction Event Type Date Status Sulfacet-R vomitting Drug Allergy Nov, Active Amoxicillin hives Drug Allergy Nov, Active ENCOUNTERS Encounter Location Date Diagnosis [facility] [address] [id number] [place] [id number] Nov, Right foot pain M79.671 [facility] [address] [id number] [address] [place] [id number] Oct, Obstructive sleep apnea G47. 33 ; Essential hypertension I10 ; Insomnia, unspecified type G47.00 and Hyperlipidemia, unspecified hyperlipidemia type E78.5 IMMUNIZATIONS No Known Immunizations SOCIAL HISTORY Never Assessed REASON FOR VISIT Right foot pain x 1 month. No self-treatment. [email or web address] PLAN OF CARE Activity Details Follow Up prn if not improving and nex t scheduled f/u Reason: VITAL SIGNS Height 62.20 in 2017-12-14 Weight 193.3 lbs 2017-12-14 Temperature 98.3 degrees Fahrenheit 2017-12-14 Heart Rate 76 bpm 2017-12-14 Respiratory Rate 20 2017-12-14 BMI 35.12 kg/m2 2017-12-14 Blood pressure systolic 130 mmHg 2017-12-14 Blood pressure diastolic 70 mmHg 2017-12-14 MEDICATIONS Medication Instructions Dosage Frequency Start Date End Date Duration S eva Meloxicam 15 MG Orally Once a day 1 tablet 24h Active Atorvastatin Calcium 10 MG Orally Once a day 1 tablet 24h Active MedroxyPROGESTERone Acetate 5 MG Orally Once a day 1 tablet with food 24 h Active Omeprazole 40 MG Orally Once a day 1 capsule 24h Active Estradiol 2 MG Orally Once a day 1 tablet 24h Active Triamterene-HCTZ 37.5-25 MG Orally Once a day 1 tablet in the morning 24 h Active Metformin HCl 500 MG Orally Once a day 1 tablet with a meal 24h Active Levothyroxine Sodium 50 MCG Orally Once a day 1 tablet on an empty stomach in the morning 24h Active RESULTS No Results PROCEDURES No Known procedures INSTRUCTIONS MEDICATIONS ADMINISTERED No Known Medications MEDICAL (GENERAL) HISTORY Type Description Date Medical History DMII Medical History thyroiditis Medical History HTN Medical History arthritis Medical History sleep apnea-CPAP Surgical History partial thyroidectomy Surgical History bilateral knee replacement Surgical History carpel tunnel surgery Hospitalization History surgeries
--- OUTSIDE RECORDS SUMMARY | 2019-12-03 12:36 | XMS REPORT | CCD ---
Author Author Danni Ballard Organization Katty Ballard MD, [facility] Address [address] [place] [address] Phone Care Team Providers Care Financial Internship Name Role Phone PP Unavailable CCM Unavailable Summary Purpose Interface Exchange Insurance Providers Payer name Policy type / Coverage type Covered constitution party ID Effective Begin Date Effective End Date WPS Medicare Part B Medicare Part B [id number] 2018 Unknown [employer] [place] [employer] Medicare Part B [id number] Unknown Family history Father Diagnosis Age At Onset Cancer Unknown Mother Diagnosis Age At Onset Diabetes mellitus Type 2 Unknown Stroke Unknown Hypertension Unknown Arthritis Unknown Osteoporosis Unknown kidney disease Unknown Coronary Artery Disease Unknown Social History Social History Element Codes Description Effective Dates Marital status Unknown M chiki Peter 10/09/2014 Number of children Unknown 2 10/09/[address]: 6451426 Quit over 10 years ago 10/09/[address]: 073003944 Never drinks alcohol 10/09/2014 Allergies, Adverse Reactions, Alerts Substance Reaction Codes Entered Date Inactivated Date Status amoxicillin RxNorm: 723 10/09/2014 N o Inactive Date Active SULFA (SULFONAMIDE A NTIBIOTICS) Unknown 10/09/2014 No Inactive Date Active Past Medical History Illness Codes Condition Status Onset Date Resolved Date Acute recurrent maxi llary sinusitis ICD-9: 461.0 ICD-10: J01.01 Active 12/25/2018 Unknown Cough ICD-9: 786.2 ICD-10: R05 Active 12/25/2018 Unknown Essential (primary) hypertension ICD-9: 401.9 ICD-10: I10 Active 10/08/2014 Unknown Other allergic rhinitis ICD-9: 477.8 ICD-10: J30.89 Active 12/13/2015 Unknown Type 2 diabetes lalito itus without complications ICD-9: 250.00 ICD-10: E11.9 Active 10/08/2014 Unknown Acute upper respirat ory infection, unspecified ICD-9: 465.9 ICD-10: J06.9 Active 05/18/2018 Unknown Hypothyroidism, unsp ecified ICD-9: 244.9 ICD-10: E03.9 Active 05/18/2018 Unknown Mixed hyperlipidemia ICD-9: 272.4 ICD-10: E78.2 Active 05/18/2018 Unknown Other obesity due to excess calories ICD-9: 278.00 ICD-10: E66.09 Active 02/16/2017 Unknown Other acute sinusitis ICD-9: 461.8 ICD-10: J01.80 Active 12/13/2015 Unknown Pain in left knee ICD-9: 719.46 ICD-10: M25.562 Active 07/08/2015 Unknown Pain in right knee ICD- 9: 719.46 ICD-10: M25.561 Active 07/08/2015 Unknown Localized edema ICD-9: 782.3 ICD-10: R60.0 Active 05/22/2016 Unknown Shortness of breath ICD- 9: 786.05 ICD-10: R06.02 Active 05/22/2016 Unknown Chronic idiopathic c onstipation ICD-9: 564.00 ICD-10: K59.04 Active 01/11/2016 Unknown Diabetes Unknown Active 10/09/2014 Unknow n Hyperlipidemia Unknown Active 10/09/2014 Unknow n Hypertension Unknown Active 10/09/2014 Unknow n Hypothryroidism Unknown Active 10/09/2014 Unknow n DIABETES TYPE II ICD-9: 250.00 Active 10/08/2014 Unknown ESSENTIAL HYPERTENSION ICD-9: 401.9 Active 10/08/2014 Unknown HYPERLIPIDEMIA ICD-9: 272.4 Active 10/08/2014 Unknown HYPOTHYROIDISM ICD-9: 244.9 Active 10/08/2014 Unknown Problems Condition Codes Effectiv e Dates Condition Status Acute recurrent maxi llary sinusitis ICD-9: 461.0 ICD-10: J01.01 12/25/2018 Active Cough ICD-9: 786.2 ICD-10: R05 12/25/2018 Active Essential (primary) hypertension ICD-9: 401.9 ICD-10: I10 10/08/2014 Active Other allergic rhinitis ICD-9: 477.8 ICD-10: J30.89 12/13/2015 Active Type 2 diabetes lalito itus without complications ICD-9: 250.00 ICD-10: E11.9 10/08/2014 Active Acute upper respirat ory infection, unspecified ICD-9: 465.9 ICD-10: J06.9 05/18/2018 Active Hypothyroidism, unsp ecified ICD-9: 244.9 ICD-10: E03.9 05/18/2018 Active Mixed hyperlipidemia ICD-9: 272.4 ICD-10: E78.2 05/18/2018 Active Other obesity due to excess calories ICD-9: 278.00 ICD-10: E66.09 02/16/2017 Active Other acute sinusitis ICD-9: 461.8 ICD-10: J01.80 12/13/2015 Active Pain in left knee ICD-9: 719.46 ICD-10: M25.562 07/08/2015 Active Pain in right knee ICD- 9: 719.46 ICD-10: M25.561 07/08/2015 Active Localized edema ICD-9: 782.3 ICD-10: R60.0 05/22/2016 Active Shortness of breath ICD- 9: 786.05 ICD-10: R06.02 05/22/2016 Active Chronic idiopathic c onstipation ICD-9: 564.00 ICD-10: K59.04 01/11/2016 Active Diabetes Unknown 10/09/2014 Active Hyperlipidemia Unknown 10/09/2014 Active Hypertension Unknown 10/09/2014 Active Hypothryroidism Unknown 10/09/2014 Active DIABETES TYPE II ICD-9: 250.00 10/08/2014 Active ESSENTIAL HYPERTENSION ICD-9: 401.9 10/08/2014 Active HYPERLIPIDEMIA ICD-9: 272.4 10/08/2014 Active HYPOTHYROIDISM ICD-9: 244.9 10/08/2014 Active Medications Medication Codes Instruc tions Start Date Stop Date Sta tus Fill Instructions Voltaren 1 % topical gel RxNorm: 388366 4 Gram(s) TOP QID - a pply 4 times daily to bilateral knees 01/07/2019 03/07/2019 Active triamterene 37.5 mg- hydrochlorothiazide 25 mg tablet RxNorm: 746630 TAKE 1 TABLET BY MOUTH ONCE DAILY 01/03/2019 07/01/2019 Active 01/03/2019 12:46:39 PM meloxicam 15 mg tablet RxNorm: 071560 TAKE 1 TABLET BY MOUTH ONCE DAILY 01/03/2019 11/28/2019 Ac tive Generic For:MOBIC 15MG 01/03/2019 12:46 :32 PM Lipitor 10 mg tablet RxNorm: 349131 TAKE 1 TABLET BY MOUTH DAILY 01/03/2019 11/28/2019 Active Generic For:LIPITOR 10MG 01/03/2019 12: 46:19 PM levothyroxine 50 mcg tablet RxNorm: 371306 TAKE 1 TABLET BY MOUT H DAILY 01/03/2019 06/01/2019 Ac tive Generic For:SYNTHROID 50MCG TAB 019 12:46:25 PM Kenalog 40 mg/mL reese pension for injection RxNorm: 6949249 Milliliter(s) Inj 12/25/2018 12/25/2018 In active doxycycline hyclate 100 mg tablet RxNorm: 6282949 1 Tablet(s) PO BID 12/25/2018 12/31/2018 Inactive meloxicam 15 mg tablet RxNorm: 226523 TAKE 1 TABLET BY MOUTH ONCE DAILY 07/09/2018 01/02/2019 In active Generic For:MOBIC 15MG 07/07/2018 11:11 :46 AM triamterene 37.5 mg- hydrochlorothiazide 25 mg tablet RxNorm: 363170 TAKE 1 TABLET BY MOUTH ONCE DAILY 07/09/2018 01/02/2019 Inactive 07/07/2018 11:12:05 AM levothyroxine 50 mcg tablet RxNorm: 822552 TAKE 1 TABLET BY MOUT H DAILY 07/09/2018 01/02/2019 In active Generic For:SYNTHROID 50MCG TAB 019 11:12:00 AM omeprazole 40 mg cap betty,delayed release RxNorm: 805936 TAKE 1 CAPSULE BY MACKENZIE TH DAILY 07/09/2018 01/04/2019 Inactive Generic For:PRILOSEC 40MG 07/07/2018 11 :11:38 AM Lipitor 10 mg tablet RxNorm: 928450 TAKE 1 TABLET BY MOUTH DAILY 07/09/2018 01/02/2019 Inactive Generic For:LIPITOR 10MG 07/07/2018 11: 12:19 AM Zithromax Z-Taj 250 mg tablet RxNorm: 328620 1 Tablet(s) PO UD 05/18/2018 05/22/2018 Inactive metformin 500 mg tablet RxNorm: 950179 TAKE 1 TABLET BY MOUTH ONCE DAILY 02/07/2018 05/21/2018 In active Generic For:GLUCOPHAGE 500MG 02/07/2018 9:07:34 AM levothyroxine 50 mcg tablet RxNorm: 957504 TAKE 1 TABLET BY MOUT H DAILY 02/07/2018 06/06/2018 In active Generic For:SYNTHROID 50MCG TAB 9:07:42 AM meloxicam 15 mg tablet RxNorm: 016923 TAKE 1 TABLET BY MOUTH ONCE DAILY 02/07/2018 07/06/2018 In active Generic For:MOBIC 15MG 02/07/2018 9:07: 30 AM omeprazole 40 mg cap betty,delayed release RxNorm: 040263 TAKE 1 CAPSULE BY MACKENZIE TH DAILY 02/07/2018 07/06/2018 Inactive Generic For:PRILOSEC 40MG 02/07/2018 9: 07:37 AM Lipitor 10 mg tablet RxNorm: 188423 TAKE 1 TABLET BY MOUTH DAILY 11/09/2017 06/06/2018 Inactive Generic For:LIPITOR 10MG 11/09/2017 9:0 1:12 AM triamterene 37.5 mg- hydrochlorothiazide 25 mg tablet RxNorm: 192175 TAKE 1 TABLET BY MOUTH ONCE DAILY 11/09/2017 06/06/2018 Inactive 11/09/2017 9:01:09 AM levothyroxine 50 mcg tablet RxNorm: 712294 TAKE 1 TABLET BY MOUT H DAILY 10/10/2017 02/06/2018 In active Generic For:SYNTHROID 50MCG TAB 018 8:57:50 AM omeprazole 40 mg cap betty,delayed release RxNorm: 868840 TAKE 1 CAPSULE BY MACKENZIE TH DAILY 10/10/2017 02/06/2018 Inactive Generic For:PRILOSEC 40MG 10/10/2017 8: 57:46 AM Voltaren 1 % topical gel RxNorm: 932424 4 Gram(s) TOP QID - a pply 4 times daily to bilateral knees 09/13/2017 11/11/2017 Inactive levothyroxine 50 mcg tablet RxNorm: 003025 TAKE 1 TABLET BY MOUT H DAILY 09/11/2017 10/09/2017 In active Generic For:SYNTHROID 50MCG TAB 018 9:04:26 AM metformin 500 mg tablet RxNorm: 901725 TAKE 1 TABLET BY MOUTH ONCE DAILY 08/11/2017 02/06/2018 In active Generic For:GLUCOPHAGE 500MG 08/11/2017 8:56:05 AM meloxicam 15 mg tablet RxNorm: 577392 TAKE 1 TABLET BY MOUTH ONCE DAILY 08/11/2017 02/06/2018 In active Generic For:MOBIC 15MG 08/11/2017 8:56: 02 AM omeprazole 40 mg cap betty,delayed release RxNorm: 526902 TAKE 1 CAPSULE BY MACKENZIE TH DAILY 06/12/2017 10/09/2017 Inactive Generic For:PRILOSEC 40MG 06/12/2017 8: 56:49 AM Lipitor 10 mg tablet RxNorm: 082833 TAKE 1 TABLET BY MOUTH DAILY 2017 11/08/2017 Inactive Generic For:LIPITOR 10MG 2017 9:0 4:16 AM triamterene 37.5 mg- hydrochlorothiazide 25 mg tablet RxNorm: 736552 TAKE 1 TABLET BY MOUTH ONCE DAILY 2017 04/12/2017 Inactive 2017 9:04:19 AM triamterene 37.5 mg- hydrochlorothiazide 25 mg tablet RxNorm: 749536 TAKE 1 TABLET BY MOUTH ONCE DAILY 2017 10/09/2017 Inactive 2017 9:04:19 AM metformin 500 mg tablet RxNorm: 217704 TAKE 1 TABLET BY MOUTH ONCE DAILY 03/14/2017 08/10/2017 In active Generic For:GLUCOPHAGE 500MG 03/14/2017 9:16:18 AM levothyroxine 50 mcg tablet RxNorm: 441875 TAKE 1 TABLET BY MOUT H DAILY 03/14/2017 09/09/2017 In active Generic For:SYNTHROID 50MCG TAB 017 9:16:23 AM Zithromax Z-Taj 250 mg tablet RxNorm: 019356 1 Tablet(s) PO daily 02/16/2017 02/20/2017 Inactive omeprazole 40 mg cap betty,delayed release RxNorm: 797593 TAKE 1 CAPSULE BY MACKENZIE TH DAILY 02/13/2017 06/11/2017 Inactive Generic For:PRILOSEC 40MG 02/13/2017 8: 55:14 AM meloxicam 15 mg tablet RxNorm: 526287 TAKE 1 TABLET BY MOUTH ONCE DAILY 02/13/2017 08/10/2017 In active Generic For:MOBIC 15MG 02/13/2017 8:55: 10 AM levothyroxine 50 mcg tablet RxNorm: 436619 TAKE 1 TABLET BY MOUT H DAILY-- NEED TO GET LABS CHECKED FOR FURTHER REFILLS 01/05/2017 03/05/2017 Inactive Generic For:SYNTHROID 50MCG TAB 01/05/2017 4:36:06 PM levothyroxine 50 mcg tablet RxNorm: 565679 TAKE 1 TABLET BY MOUT H DAILY 12/14/2016 01/04/2017 In active Generic For:SYNTHROID 50MCG TAB 017 9:02:20 AM triamterene 37.5 mg- hydrochlorothiazide 25 mg tablet RxNorm: 669877 TAKE 1 TABLET BY MOUTH ONCE DAILY 11/14/2016 04/12/2017 Inactive 11/14/2016 9:13:26 AM metformin 500 mg tablet RxNorm: 723540 1 Tablet(s) PO daily 10/17/2016 03/13/2017 Inactive Generic For:GLUCOPHAGE 500MG 10/29/2014 9:02:36 AM omeprazole 40 mg cap betty,delayed release RxNorm: 614796 TAKE 1 CAPSULE BY MACKENZIE TH DAILY 10/17/2016 02/12/2017 Inactive Generic For:PRILOSEC 40MG 10/15/2016 8: 56:40 AM meloxicam 15 mg tablet RxNorm: 962574 1 Tablet(s) PO daily TAKE 1 TABLET BY MO UTH ONCE DAILY 09/19/2016 02/12/2017 Inactive Generic For:MOBIC 15MG 9:09:45 AM levothyroxine 50 mcg tablet RxNorm: 900552 TAKE 1 TABLET BY MOUT H DAILY 09/16/2016 12/13/2016 In active Generic For:SYNTHROID 50MCG TAB 017 10:22:07 AM 09/15/2016 9:01:47 AM Lipitor 10 mg tablet RxNorm: 021875 TAKE 1 TABLET BY MOUTH DAILY 09/16/2016 04/12/2017 Inactive Generic For:LIPITOR 10MG 09/16/2016 10: 22:13 AM 09/15/2016 9:01:42 AM [email or web address] Ultra Test strips RxNorm: 1 Miscellaneous daily 09/08/2016 09/02/2017 Inactive Voltaren 1 % topical gel RxNorm: 557202 2 Gram(s) TOP QID 09/08/2016 11/06/2016 Inactive meloxicam 15 mg tablet RxNorm: 759644 TAKE 1 TABLET BY MOUTH ONCE DAILY 08/16/2016 09/18/2016 In active Generic For:MOBIC 15MG 08/16/2016 9:09: 45 AM triamterene 37.5 mg- hydrochlorothiazide 25 mg tablet RxNorm: 471652 TAKE 1 TABLET BY MOUTH ONCE DAILY 07/18/2016 11/13/2016 Inactive 07/18/2016 8:57:50 AM omeprazole 40 mg cap betty,delayed release RxNorm: 949477 TAKE 1 CAPSULE BY MACKENZIE TH DAILY 06/17/2016 10/14/2016 Inactive Generic For:PRILOSEC 40MG 06/17/2016 9: 30:36 AM levothyroxine 50 mcg tablet RxNorm: 462476 TAKE 1 TABLET BY MOUT H DAILY 06/17/2016 09/14/2016 In active Generic For:SYNTHROID 50MCG TAB 017 9:10:49 AM metformin 500 mg tablet RxNorm: 068402 1 Tablet(s) PO daily 05/24/2016 10/16/2016 Inactive Generic For:GLUCOPHAGE 500MG 10/29/2014 9:02:36 AM Lasix 20 mg tablet RxNorm: 190330 1 Tablet(s) PO daily 05/24/2016 05/26/2016 Inactive metformin 500 mg tablet RxNorm: 801129 1 Tablet(s) PO daily 05/23/2016 05/23/2016 Inactive Generic For:GLUCOPHAGE 500MG 10/29/2014 9:02:36 AM Lasix 20 mg tablet RxNorm: 779240 1 Tablet(s) PO daily 05/23/2016 05/23/2016 Inactive potassium chloride E R 10 mEq tablet,extended release RxNorm: 375743 1 Tablet(s) PO daily 05/23/2016 05/25/2016 Inactive meloxicam 15 mg tablet RxNorm: 564822 1 Tablet(s) PO daily 04/18/2016 08/15/2016 Inactive Lipitor 10 mg tablet RxNorm: 550637 TAKE 1 TABLET BY MOUTH DAILY 04/18/2016 08/15/2016 Inactive Generic For:LIPITOR 10MG 04/18/2016 9:1 5:59 AM triamterene 37.5 mg- hydrochlorothiazide 25 mg tablet RxNorm: 121680 TAKE 1 TABLET BY MOUTH ONCE DAILY 03/21/2016 07/17/2016 Inactive 03/19/2016 9:02:10 AM levothyroxine 50 mcg tablet RxNorm: 518336 TAKE 1 TABLET BY MOUT H DAILY 02/18/2016 06/16/2016 In active Generic For:SYNTHROID 50MCG TAB 016 9:03:15 AM omeprazole 40 mg cap betyt,delayed release RxNorm: 280124 TAKE 1 CAPSULE BY MACKENZIE TH DAILY 02/18/2016 06/16/2016 Inactive Generic For:PRILOSEC 40MG 02/18/2016 9: 03:12 AM Movantik 25 mg tablet RxNorm: 7195283 1 Tablet(s) PO QAM with breakfast or sean ch 01/12/2016 09/07/2016 In active Flonase Allergy Reli ef 50 mcg/actuation nasal spray,suspension RxNorm: 9552170 1 [place] NASAL BID 12/14/2015 09/07/2016 Inactive Zithromax Z-Taj 250 mg tablet RxNorm: 201579 Tablet(s) PO UD 12/14/2015 01/11/2016 Inactive Lipitor 10 mg tablet RxNorm: 426602 TAKE 1 TABLET BY MOUTH DAILY 11/20/2015 04/17/2016 Inactive Generic For:LIPITOR 10MG 11/20/2015 9:1 1:10 AM triamterene 37.5 mg- hydrochlorothiazide 25 mg tablet RxNorm: 059346 TAKE 1 TABLET BY MOUTH ONCE DAILY 11/19/2015 03/17/2016 Inactive 11/18/2015 9:06:12 AM meloxicam 15 mg tablet RxNorm: 708223 1 Tablet(s) PO daily 10/21/2015 04/17/2016 Inactive levothyroxine 50 mcg tablet RxNorm: 857020 TAKE 1 TABLET BY MOUT H DAILY 10/21/2015 02/17/2016 In active Generic For:SYNTHROID 50MCG TAB 016 9:06:41 AM omeprazole 40 mg cap betty,delayed release RxNorm: 596968 TAKE 1 CAPSULE BY MACKENZIE TH DAILY 10/21/2015 02/17/2016 Inactive Generic For:PRILOSEC 40MG 10/21/2015 9: 06:53 AM triamterene 37.5 mg- hydrochlorothiazide 25 mg tablet RxNorm: 817785 Tablet(s) 1 Tablet(s) PO daily 07/23/2015 11/18/2015 Inactive [SAVINGS FOR NON-COVERED DR FLOYD -- BIN:[id number], PCN: ASPROD1, Group: XXXXX, ID# XXXXXXX, Questions: . THIS IS NOT INSURANCE.] metformin 500 mg tablet RxNorm: 252903 1 Tablet(s) PO daily 07/10/2015 12/06/2015 Inactive Generic For:GLUCOPHAGE 500MG 10/29/2014 9:02:36 AM Voltaren 1 % topical gel RxNorm: 526431 4 Gram(s) TOP QID 07/09/2015 09/07/2016 Inactive bilateral knees metformin 500 mg tablet RxNorm: 340337 1 Tablet(s) PO daily TAKE 1 TABLET BY MO [facility] TWICE DAILY 07/09/2015 07/09/2015 Inactive Generic For:GLUCOPHAGE 500M G 10/29/2014 9:02:36 AM Lipitor 10 mg tablet RxNorm: 174800 1 Tablet(s) PO daily 06/26/2015 11/19/2015 Inactive metformin 500 mg tablet RxNorm: 742186 1 Tablet(s) PO BID TAKE 1 TABLET BY MOUT H TWICE DAILY 06/26/2015 07/08/2015 Inactive Generic For:GLUCOPHAGE 500M G 10/29/2014 9:02:36 AM omeprazole 40 mg cap betty,delayed release RxNorm: 017035 TAKE 1 CAPSULE BY MACKENZIE TH DAILY 04/27/2015 10/20/2015 Inactive Generic For:PRILOSEC 40MG meloxicam 15 mg tablet RxNorm: 189329 1 Tablet(s) PO daily 03/30/2015 10/20/2015 Inactive triamterene 37.5 mg- hydrochlorothiazide 25 mg tablet RxNorm: 022364 Tablet(s) 1 Tablet(s) PO daily 03/30/2015 07/22/2015 Inactive [SAVINGS FOR NON-COVERED DR UGS -- BIN:[id number], PCN: ASPROD1, Group: XXXXX, ID# [id number], Questions: . THIS IS NOT INSURANCE.] metformin 500 mg tablet RxNorm: 892885 1 Tablet(s) PO BID 02/26/2015 06/25/2015 Inactive levothyroxine 50 mcg tablet RxNorm: 877129 TAKE 1 TABLET BY MOUT H DAILY 02/26/2015 10/20/2015 In active Generic For:SYNTHROID 50MCG TAB 015 2:41:48 PM N O T I C E PRESCRIPTION PREVIOUSLY AUTHORIZED BY DOCTOR:RUFINO LIAO Lipitor 10 mg tablet RxNorm: 058997 1 Tablet(s) PO daily 02/26/2015 06/25/2015 Inactive omeprazole 40 mg cap betty,delayed release RxNorm: 139111 1 Capsule(s) PO 01/01/2015 04/26/2015 In active [SAVINGS FOR NON-COVERED DRUGS -- BIN:00 3585, PCN: ASPROD1, Group: XXXXX, ID# XXXXXXX, Questions: . THIS IS NOT INSURANCE.] triamterene 37.5 mg- hydrochlorothiazide 25 mg tablet RxNorm: 835904 1 Tablet(s) PO daily 12/02/2014 03/29/2015 Inactive [SAVINGS FOR NON-COVERED DR UGS -- BIN:[id number], PCN: ASPROD1, Group: XXXXX, ID# XXXXXXX, Questions: . THIS IS NOT INSURANCE.] metformin 500 mg tablet RxNorm: 271707 1 Tablet(s) PO BID TAKE 1 TABLET BY MOUT H TWICE DAILY 10/29/2014 06/25/2015 Inactive Generic For:GLUCOPHAGE 500M G 10/29/2014 9:02:36 AM metformin 500 mg tablet RxNorm: 423364 1 Tablet(s) PO BID 10/29/2014 10/29/2014 Inactive Lipitor 10 mg tablet RxNorm: 274738 1 Tablet(s) PO daily 10/27/2014 10/26/2014 Inactive Lipitor 10 mg tablet RxNorm: 546071 1 Tablet(s) PO daily 10/27/2014 02/23/2015 Inactive omeprazole 40 mg cap betty,delayed release RxNorm: 041506 1 Capsule(s) PO 09/02/2014 12/30/2014 In active [SAVINGS FOR NON-COVERED DRUGS -- BIN:00 3585, PCN: ASPROD1, Group: XXXXX, ID# [id number], Questions: . THIS IS NOT INSURANCE.] omeprazole 40 mg cap betty,delayed release RxNorm: 991446 1 Capsule(s) PO 09/02/2014 09/01/2014 In active triamterene 37.5 mg- hydrochlorothiazide 25 mg tablet RxNorm: 267373 1 Tablet(s) PO daily 08/27/2014 08/26/2014 Inactive triamterene 37.5 mg- hydrochlorothiazide 25 mg tablet RxNorm: 067306 1 Tablet(s) PO daily 08/27/2014 12/01/2014 Inactive [SAVINGS FOR NON-COVERED DR UGS -- BIN:[id number], PCN: ASPROD1, Group: XXXXX, ID# [id number], Questions: . THIS IS NOT INSURANCE.] Multi Vitamin oral RxNorm: oral No Start Date Active Aspirin Low Dose 81 mg tablet,delayed release RxNorm: 159620 1 Tablet(s) PO daily No Start Date Active estradiol 2 mg tablet RxNorm: 425364 1 Tablet(s) PO daily No Start Date Active Vitamin D (with calc ium) oral RxNorm: 2418 oral No Sta rt Date Active medroxyprogesterone 5 mg tablet RxNorm: 2065906 1 Tablet(s) PO daily No Start Date Active meloxicam 15 mg tablet RxNorm: 610449 1 Tablet(s) PO daily No Start Date 02/06/2018 Inactive metformin 500 mg tablet RxNorm: 549048 1 Tablet(s) PO daily No Start Date 10/28/2014 Inactive Osteo Bi-Flex oral RxNorm: 1532960 oral No Start Date 02/15/2017 Inactive levothyroxine 50 mcg tablet RxNorm: 741554 1 Tablet(s) PO daily No Start Date 02/25/2015 Inactive Medication Administered Medication Codes Instruc tions Start Date Status Kenalog 40 mg/mL suspension for injection RxNorm: 4164013 Milliliter 12/25/2018 No longer Active Immunizations Vaccine Codes Date Status SHINGARIX CVX: 121 06/01 completed Influenza CVX: 141 03/02 completed Assessments Condition Codes Effectiv e Dates Cough ICD-10: R05 ICD-9: 786.2 12/25/2018 Acute recurrent maxillary sinusitis ICD-10: J01.01 ICD-9: 461.0 12/25/2018 Type 2 diabetes mellitus without complications ICD-10: E11.9 ICD-9: 250.00 11/16/2018 Other allergic rhinitis ICD-10: J30. 89 ICD-9: 477.8 11/16/2018 Essential (primary) hypertension ICD -10: I10 ICD-9: 401.9 11/16/2018 Mixed hyperlipidemia ICD-10: E78.2 ICD-9: 272.4 05/18/2018 Hypothyroidism, unspecified ICD-10: E03.9 ICD-9: 244.9 05/18/2018 Acute upper respiratory infection, unspecified ICD-10: J06.9 ICD-9: 465.9 05/18/2018 Other obesity due to excess calories ICD-10: E66.09 ICD-9: 278.00 09/13/2017 Other acute sinusitis ICD-10: J01.80 ICD-9: 461.8 02/16/2017 Pain in left knee ICD-10: M25.562 ICD-9: 719.46 09/08/2016 Pain in right knee ICD-10: M25.561 ICD-9: 719.46 09/08/2016 Shortness of breath ICD-10: R06.02 ICD-9: 786.05 05/23/2016 Localized edema ICD-10: R60.0 ICD-9: 782.3 05/23/2016 Chronic idiopathic constipation ICD- 10: K59.04 ICD-9: 564.00 01/12/2016 DIABETES TYPE II ICD-9: 250.00 10/09/2014 HYPOTHYROIDISM ICD-9: 244.9 10/09/2014 HYPERLIPIDEMIA ICD-9: 272.4 10/09/2014 ESSENTIAL HYPERTENSION ICD-9: 401.9 10/09/2014 Reason For Visit Reason For Visit Effective Dates Notes sinus congestion 12/25/2018 hypertension 11/16/2018 cough 05/18/2018 hypertension 09/13/2017 hypertension 02/16/2017 edema 09/08/2016 edema 05/23/2016 knee pain 01/12/2016 sinus congestion 12/14/2015 knee pain 07/09/2015 diabetes mellitus 10/09/2014 Results Observation Observation Code Item Item Code Result Date Comp Metabolic Piq984 NA 139 mEq/L 11/16/2018 Comp Metabolic Akt541 K 3.9 mEq/L 11/16/2018 Comp Metabolic Lpf267 CL 103 mEq/L 11/16/2018 Comp Metabolic Vba753 CO2 27.0 mEq/L 11/16/2018 Comp Metabolic Pyd462 AN ION GAP 13 11/16/2018 Comp Metabolic Tag009 GL UCOSE 107 mg/dL 11/16/2018 Comp Metabolic Llo445 Cr eat 1.0 mg/dL 11/16/2018 Comp Metabolic Fzj098 eG FR 56 ml/min/1.73m2 11/16 Comp Metabolic Dxm087 BUN 18 mg/dL 11/16/2018 Comp Metabolic Xbp624 B/ C Ratio 17.3 Ratio 11/16/2018 Comp Metabolic Gmn817 CA LCIUM 9.6 mg/dL 11/16/2018 Comp Metabolic Gqd863 AL K PHOS 75 U/L 11/16/2018 Comp Metabolic Yny853 T(SGOT) 16 U/L 11/16/2018 Comp Metabolic Who410 AL T(SGPT) 16 U/L 11/16/2018 Comp Metabolic Hxs062 BI LI T 0.6 mg/dL 11/16/2018 Comp Metabolic Wve066 AL BUMIN 4.1 g/dL 11/16/2018 Comp Metabolic Rfa836 TP RO 6.5 g/dL 11/16/2018 Comp Metabolic Sme903 GL OB 2.4 g/dL 11/16/2018 Comp Metabolic Goj809 A/ G Ratio 1.7 Ratio 11/16/2018 Comp Metabolic Sgv457 Os mo 280 mOsmo 11/16/2018 %Hba1C Lya920 % HbA1c 09582-0 6.5 % 11/16/2018 %Hba1C Vuy569 Gluc Ave 140 mg/dL 11/16/2018 Free T4 Ptq786 FREE T4 1.09 ng/dL 05/18/2018 Lipid Ord30 CHOL 179 mg/dL 05/18/2018 Lipid Ord30 HDL 49.0 mg/dl 05/18/2018 Lipid Ord30 TRIG 138 mg/dL 05/18/2018 Lipid Ord30 LDL 102 mg/dL 05/18/2018 Lipid Ord30 C/HDL 3.7 Ratio 05/18/2018 Tsh Ord6 TSH (3rd IS) 2.60 uIU/mL 05/18/2018 Cbc With Differential Ord2 WBC 6.43 K/ul 05/18/2018 Cbc With Differential Ord2 RBC 4.43 M/ul 05/18/2018 Cbc With Differential Ord2 HGB 13.8 g/dl 05/18/2018 Cbc With Differential Ord2 HCT 40.8 % 05/18/2018 Cbc With Differential Ord2 Neut% 55.8 % 05/18/2018 Cbc With Differential Ord2 MCV 92.1 fl 05/18/2018 Cbc With Differential Ord2 Lymph% 31.1 % 05/18/2018 Cbc With Differential Ord2 MCH 31.2 pg 05/18/2018 Cbc With Differential Ord2 [place]% 9.2 % 05/18/2018 Cbc With Differential Ord2 MCHC 33.8 pg 05/18/2018 Cbc With Differential Ord2 Eos% 3.4 % 05/18/2018 Cbc With Differential Ord2 PLT 326 K/ul 05/18/2018 Cbc With Differential Ord2 Baso% 0.5 % 05/18/2018 Cbc With Differential Ord2 RDW 13.5 % 05/18/2018 Cbc With Differential Ord2 Neut ABS# 3.59 K/ul 05/18/2018 Cbc With Differential Ord2 Lymph ABS# 2.00 K/ul 05/18/2018 Cbc With Differential Ord2 [place] ABS# 0.6 K/ul 05/18/2018 Cbc With Differential Ord2 Eos ABS# 0.2 K/ul 05/18/2018 Cbc With Differential Ord2 Baso ABS# 0.0 K/ul 05/18/2018 %Hba1C Kvj933 % HbA1c 76743-5 6.1 % 05/18/2018 %Hba1C Fxl019 Gluc Ave 128 mg/dL 05/18/2018 Comp Metabolic Uqm848 NA 139 mEq/L 05/18/2018 Comp Metabolic Puz394 K 3.8 mEq/L 05/18/2018 Comp Metabolic Awe377 CL 100 mEq/L 05/18/2018 Comp Metabolic Mdj352 CO2 29.0 mEq/L 05/18/2018 Comp Metabolic Gyr355 AN ION GAP 14 05/18/2018 Comp Metabolic Fpi880 GL UCOSE 100 mg/dL 05/18/2018 Comp Metabolic Wsj088 Cr eat 1.2 mg/dL 05/18/2018 Comp Metabolic Eea937 eG FR 49 ml/min/1.73m2 05/18 Comp Metabolic Tfp371 BUN 17 mg/dL 05/18/2018 Comp Metabolic Nmw496 B/ C Ratio 14.5 Ratio 05/18/2018 Comp Metabolic Mjz596 CA LCIUM 10.0 mg/dL 05/18/2018 Comp Metabolic Tbo889 AL K PHOS 75 U/L 05/18/2018 Comp Metabolic Cnh415 T(SGOT) 16 U/L 05/18/2018 Comp Metabolic Xaf078 AL T(SGPT) 15 U/L 05/18/2018 Comp Metabolic Uvl237 BI LI T 0.7 mg/dL 05/18/2018 Comp Metabolic Dxb020 AL BUMIN 4.4 g/dL 05/18/2018 Comp Metabolic Ybp470 TP RO 6.8 g/dL 05/18/2018 Comp Metabolic Fav755 GL OB 2.4 g/dL 05/18/2018 Comp Metabolic Rhw965 A/ G Ratio 1.8 Ratio 05/18/2018 Comp Metabolic Cos442 Os mo 279 mOsmo 05/18/2018 Comp Metabolic Udr973 NA 138 mEq/L 09/14/2017 Comp Metabolic Mti821 K 3.8 mEq/L 09/14/2017 Comp Metabolic Kwh450 CL 101 mEq/L 09/14/2017 Comp Metabolic Pwg892 CO2 26.0 mEq/L 09/14/2017 Comp Metabolic Cky535 AN ION GAP 15 09/14/2017 Comp Metabolic Pvl946 GL UCOSE 120 mg/dL 09/14/2017 Comp Metabolic Lrf618 Cr eat 1.0 mg/dL 09/14/2017 Comp Metabolic Btl874 eG FR 61 ml/min/1.73m2 09/14 Comp Metabolic Hsd113 BUN 18 mg/dL 09/14/2017 Comp Metabolic Iia363 B/ C Ratio 18.6 Ratio 09/14/2017 Comp Metabolic Xlx401 CA LCIUM 9.7 mg/dL 09/14/2017 Comp Metabolic Vbq564 AL K PHOS 63 U/L 09/14/2017 Comp Metabolic Ikc814 T(SGOT) 18 U/L 09/14/2017 Comp Metabolic Wny770 AL T(SGPT) 20 U/L 09/14/2017 Comp Metabolic Yjc783 BI LI T 0.5 mg/dL 09/14/2017 Comp Metabolic Gwk367 AL BUMIN 4.3 g/dL 09/14/2017 Comp Metabolic Mhy890 TP RO 6.7 g/dL 09/14/2017 Comp Metabolic Yam482 GL OB 2.4 g/dL 09/14/2017 Comp Metabolic Vfs444 A/ G Ratio 1.8 Ratio 09/14/2017 Comp Metabolic Gve707 Os mo 279 mOsmo 09/14/2017 Lipid Ord30 CHOL 180 mg/dL 09/14/2017 Lipid Ord30 HDL 53.0 mg/dl 09/14/2017 Lipid Ord30 TRIG 126 mg/dL 09/14/2017 Lipid Ord30 LDL 102 mg/dL 09/14/2017 Lipid Ord30 C/HDL 3.4 Ratio 09/14/2017 Microalbumin Lja759 Micr oAlb <0.7 mg/dL 09/14/2017 %Hba1C Rhy998 % HbA1c 29073-6 6.0 % 09/14/2017 %Hba1C Iyq615 Gluc Ave 126 mg/dL 09/14/2017 Free T4 Eci941 FREE T4 0.98 ng/dL 09/14/2017 Cbc With Differential Ord2 WBC 7.14 K/ul 09/14/2017 Cbc With Differential Ord2 RBC 4.44 M/ul 09/14/2017 Cbc With Differential Ord2 HGB 13.9 g/dl 09/14/2017 Cbc With Differential Ord2 HCT 41.8 % 09/14/2017 Cbc With Differential Ord2 Neut% 59.6 % 09/14/2017 Cbc With Differential Ord2 MCV 94.1 fl 09/14/2017 Cbc With Differential Ord2 Lymph% 27.2 % 09/14/2017 Cbc With Differential Ord2 MCH 31.3 pg 09/14/2017 Cbc With Differential Ord2 [place]% 9.4 % 09/14/2017 Cbc With Differential Ord2 MCHC 33.3 pg 09/14/2017 Cbc With Differential Ord2 Eos% 3.4 % 09/14/2017 Cbc With Differential Ord2 PLT 333 K/ul 09/14/2017 Cbc With Differential Ord2 Baso% 0.4 % 09/14/2017 Cbc With Differential Ord2 RDW 13.2 % 09/14/2017 Cbc With Differential Ord2 Neut ABS# 4.26 K/ul 09/14/2017 Cbc With Differential Ord2 Lymph ABS# 1.94 K/ul 09/14/2017 Cbc With Differential Ord2 [place] ABS# 0.7 K/ul 09/14/2017 Cbc With Differential Ord2 Eos ABS# 0.2 K/ul 09/14/2017 Cbc With Differential Ord2 Baso ABS# 0.0 K/ul 09/14/2017 Tsh Ord6 TSH (3rd IS) 2.64 uIU/mL 09/14/2017 Comp Metabolic Oze201 NA 138 mEq/L 05/23/2016 Comp Metabolic Uqa436 K 4.0 mEq/L 05/23/2016 Comp Metabolic Vhy229 CL 105 mEq/L 05/23/2016 Comp Metabolic Uly680 CO2 25.0 mEq/L 05/23/2016 Comp Metabolic Ffr722 AN ION GAP 12 05/23/2016 Comp Metabolic Yuv077 GL UCOSE 89 mg/dL 05/23/2016 Comp Metabolic Uwv085 Cr eat 1.0 mg/dL 05/23/2016 Comp Metabolic Osp888 eG FR 63 ml/min/1.73m2 05/23 Comp Metabolic Zgd432 BUN 18 mg/dL 05/23/2016 Comp Metabolic Mcp678 B/ C Ratio 18.9 Ratio 05/23/2016 Comp Metabolic Mmz878 CA LCIUM 9.1 mg/dL 05/23/2016 Comp Metabolic Abu569 AL K PHOS 67 U/L 05/23/2016 Comp Metabolic Czg988 T(SGOT) 26 U/L 05/23/2016 Comp Metabolic Rpw168 AL T(SGPT) 39 U/L 05/23/2016 Comp Metabolic Msu970 BI LI T 0.5 mg/dL 05/23/2016 Comp Metabolic Lwf169 AL BUMIN 3.9 g/dL 05/23/2016 Comp Metabolic Gcm953 TP RO 5.9 g/dL 05/23/2016 Comp Metabolic Gev689 GL OB 2.0 g/dL 05/23/2016 Comp Metabolic Cuh447 A/ G Ratio 2.0 Ratio 05/23/2016 Comp Metabolic Boh354 Os mo 277 mOsmo 05/23/2016 Cbc With Differential Ord2 WBC 7.23 K/ul 05/23/2016 Cbc With Differential Ord2 RBC 3.74 M/ul 05/23/2016 Cbc With Differential Ord2 HGB 11.4 g/dl 05/23/2016 Cbc With Differential Ord2 HCT 35.2 % 05/23/2016 Cbc With Differential Ord2 Neut% 65.0 % 05/23/2016 Cbc With Differential Ord2 MCV 94.1 fl 05/23/2016 Cbc With Differential Ord2 Lymph% 23.2 % 05/23/2016 Cbc With Differential Ord2 MCH 30.5 pg 05/23/2016 Cbc With Differential Ord2 [place]% 10.0 % 05/23/2016 Cbc With Differential Ord2 MCHC 32.4 pg 05/23/2016 Cbc With Differential Ord2 Eos% 1.5 % 05/23/2016 Cbc With Differential Ord2 PLT 245 K/ul 05/23/2016 Cbc With Differential Ord2 Baso% 0.3 % 05/23/2016 Cbc With Differential Ord2 RDW 14.4 % 05/23/2016 Cbc With Differential Ord2 Neut ABS# 4.70 K/ul 05/23/2016 Cbc With Differential Ord2 Lymph ABS# 1.68 K/ul 05/23/2016 Cbc With Differential Ord2 [place] ABS# 0.7 K/ul 05/23/2016 Cbc With Differential Ord2 Eos ABS# 0.1 K/ul 05/23/2016 Cbc With Differential Ord2 Baso ABS# 0.0 K/ul 05/23/2016 B Type Natriuretic Peptide [id number] B-FOOT DRILL OPERATOR 340.00 pg/ml 7 Lipid Ord30 CHOL 117 mg/dL 07/07/2015 Lipid Ord30 HDL 39.0 mg/dl 07/07/2015 Lipid Ord30 TRIG 67 mg/dL 07/07/2015 Lipid Ord30 LDL 65 mg/dL 07/07/2015 Lipid Ord30 C/HDL 3.0 Ratio 07/07/2015 Cbc With Differential Ord2 WBC 5.13 K/ul 07/07/2015 Cbc With Differential Ord2 RBC 4.47 M/ul 07/07/2015 Cbc With Differential Ord2 HGB 14.2 g/dl 07/07/2015 Cbc With Differential Ord2 HCT 42.2 % 07/07/2015 Cbc With Differential Ord2 Neut% 54.8 % 07/07/2015 Cbc With Differential Ord2 MCV 94.4 fl 07/07/2015 Cbc With Differential Ord2 Lymph% 29.8 % 07/07/2015 Cbc With Differential Ord2 MCH 31.8 pg 07/07/2015 Cbc With Differential Ord2 [place]% 11.3 % 07/07/2015 Cbc With Differential Ord2 MCHC 33.6 pg 07/07/2015 Cbc With Differential Ord2 Eos% 3.5 % 07/07/2015 Cbc With Differential Ord2 PLT 307 K/ul 07/07/2015 Cbc With Differential Ord2 Baso% 0.6 % 07/07/2015 Cbc With Differential Ord2 RDW 13.4 % 07/07/2015 Cbc With Differential Ord2 Neut ABS# 2.81 K/ul 07/07/2015 Cbc With Differential Ord2 Lymph ABS# 1.53 K/ul 07/07/2015 Cbc With Differential Ord2 [place] ABS# 0.6 K/ul 07/07/2015 Cbc With Differential Ord2 Eos ABS# 0.2 K/ul 07/07/2015 Cbc With Differential Ord2 Baso ABS# 0.0 K/ul 07/07/2015 Cbc With Differential Ord2 New Analyzer Notice Please note new ref ranges s tarting 05-13-2015 due to implemntation of new five part differential hematolgy analyzer. 07/07/2015 Free T4 Fll478 FREE T4 1.17 ng/dL 07/07/2015 Comp Metabolic Zea604 NA 137 mEq/L 07/07/2015 Comp Metabolic Ter201 K 4.0 mEq/L 07/07/2015 Comp Metabolic Cjc761 CL 100 mEq/L 07/07/2015 Comp Metabolic Psm530 CO2 29.0 mEq/L 07/07/2015 Comp Metabolic Ihj006 AN ION GAP 12 07/07/2015 Comp Metabolic Kpp631 GL UCOSE 98 mg/dL 07/07/2015 Comp Metabolic Fkl261 Cr eat 1.0 mg/dL 07/07/2015 Comp Metabolic Tbt811 eG FR 62 ml/min/1.73m2 07/06 Comp Metabolic Ter905 BUN 16 mg/dL 07/07/2015 Comp Metabolic Pcw871 B/ C Ratio 16.5 Ratio 07/07/2015 Comp Metabolic Qtw881 CA LCIUM 9.5 mg/dL 07/07/2015 Comp Metabolic Lfp716 AL K PHOS 47 U/L 07/07/2015 Comp Metabolic Qlo385 T(SGOT) 18 U/L 07/07/2015 Comp Metabolic Nny146 AL T(SGPT) 22 U/L 07/07/2015 Comp Metabolic Znq937 BI LI T 0.5 mg/dL 07/07/2015 Comp Metabolic Ava671 AL BUMIN 4.2 g/dL 07/07/2015 Comp Metabolic Jrv713 TP RO 6.5 g/dL 07/07/2015 Comp Metabolic Kdv937 GL OB 2.3 g/dL 07/07/2015 Comp Metabolic Jye705 A/ G Ratio 1.8 Ratio 07/07/2015 Comp Metabolic Fql180 Os mo 275 mOsmo 07/07/2015 %Hba1C Gpe114 % HbA1c 66682-2 5.7 % 07/07/2015 %Hba1C Fnc912 Gluc Ave 117 mg/dL 07/07/2015 Tsh Ord6 hTSH II 2.32 uIU/mL 07/07/2015 Review of Systems System Result Effective Dates Constitutional recent illness 12/25/2018 Constitutional No anorexia 12/25/2018 Constitutional No night sweats 12/25/2018 Constitutional No chills 12/25/2018 Constitutional No diaphoresis 12/25/2018 Constitutional fatigue 0 12/25/2018 Constitutional No fever 12/25/2018 Constitutional No insomnia 12/25/2018 Constitutional No malaise 12/25/2018 Constitutional No weight loss 12/25/2018 Constitutional No weight gain 12/25/2018 Eyes No eye discharge Eyes No eye erythema Ears/Nose/Throat/Neck nasal allergies 12/25/2018 Ears/Nose/Throat/Neck nasal discharge 12/25/2018 Ears/Nose/Throat/Neck otalgia 12/25/2018 Ears/Nose/Throat/Neck sinus congestion 12/25/2018 Cardiovascular No chest pain/pressure 12/25/2018 Cardiovascular No dyspnea 12/25/2018 Respiratory cough 2018 Gastrointestinal No vomiting 12/25/2018 Gastrointestinal No nausea 12/25/2018 Musculoskeletal No joint complaint 12/25/2018 Dermatologic No rash Neurologic No alteration of consciousness 12/25/2018 Constitutional recent illness 11/16/2018 Constitutional No anorexia 11/16/2018 Constitutional No night sweats 11/16/2018 Constitutional No chills 11/16/2018 Constitutional No diaphoresis 11/16/2018 Constitutional No fatigue 11/16/2018 Constitutional No fever 11/16/2018 Constitutional No insomnia 11/16/2018 Constitutional No malaise 11/16/2018 Constitutional No weight loss 11/16/2018 Constitutional No weight gain 11/16/2018 Eyes No eye discharge Eyes No eye erythema Ears/Nose/Throat/Neck No headache 11/16/2018 Ears/Nose/Throat/Neck nasal allergies 11/16/2018 Ears/Nose/Throat/Neck nasal discharge 11/16/2018 Ears/Nose/Throat/Neck sinus congestion 11/16/2018 Ears/Nose/Throat/Neck No sore throat 11/16/2018 Cardiovascular No chest pain/pressure 11/16/2018 Cardiovascular No dyspnea 11/16/2018 Cardiovascular No edema 11/16/2018 Gastrointestinal No abdominal pain 11/16/2018 Gastrointestinal No diarrhea 11/16/2018 Gastrointestinal No nausea 11/16/2018 Gastrointestinal No vomiting 11/16/2018 Genitourinary/Nephrology No dysuria 11/16/2018 Musculoskeletal No joint complaint 11/16/2018 Dermatologic No rash Neurologic No alteration of consciousness 11/16/2018 Psychiatric No anxiety 0 11/16/2018 Endocrine No dry or coarse skin 11/16/2018 Constitutional recent illness 05/18/2018 Constitutional No anorexia 05/18/2018 Constitutional No night sweats 05/18/2018 Constitutional No chills 05/18/2018 Constitutional No diaphoresis 05/18/2018 Constitutional No fatigue 05/18/2018 Constitutional No fever 05/18/2018 Constitutional No insomnia 05/18/2018 Constitutional No malaise 05/18/2018 Constitutional No weight loss 05/18/2018 Constitutional No weight gain 05/18/2018 Eyes No eye erythema Eyes No eye discharge Ears/Nose/Throat/Neck nasal allergies 05/18/2018 Ears/Nose/Throat/Neck nasal discharge 05/18/2018 Ears/Nose/Throat/Neck No headache 05/18/2018 Ears/Nose/Throat/Neck sinus congestion 05/18/2018 Ears/Nose/Throat/Neck No sore throat 05/18/2018 Cardiovascular No chest pain/pressure 05/18/2018 Cardiovascular No dyspnea 05/18/2018 Cardiovascular No edema 05/18/2018 Respiratory productive sputum 05/18/2018 Respiratory cough 2018 Gastrointestinal No abdominal pain 05/18/2018 Gastrointestinal No vomiting 05/18/2018 Gastrointestinal No nausea 05/18/2018 Gastrointestinal No diarrhea 05/18/2018 Genitourinary/Nephrology No dysuria 05/18/2018 Musculoskeletal No joint complaint 05/18/2018 Dermatologic No rash Neurologic No alteration of consciousness 05/18/2018 Psychiatric No anxiety 0 05/18/2018 Endocrine No dry or coarse skin 05/18/2018 Constitutional No recent illness 09/13/2017 Constitutional No anorexia 09/13/2017 Constitutional No night sweats 09/13/2017 Constitutional No chills 09/13/2017 Constitutional No diaphoresis 09/13/2017 Constitutional No fatigue 09/13/2017 Constitutional No fever 09/13/2017 Constitutional No insomnia 09/13/2017 Constitutional No malaise 09/13/2017 Eyes No vision change Ears/Nose/Throat/Neck No headache 09/13/2017 Ears/Nose/Throat/Neck No otalgia 09/13/2017 Ears/Nose/Throat/Neck No otitis media 09/13/2017 Cardiovascular No chest pain/pressure 09/13/2017 Cardiovascular No dyspnea 09/13/2017 Cardiovascular No edema 09/13/2017 Respiratory No chest congestion 09/13/2017 Respiratory No chest tightness 09/13/2017 Respiratory No cough Gastrointestinal No constipation 09/13/2017 Gastrointestinal No diarrhea 09/13/2017 Musculoskeletal stiffness 09/13/2017 Musculoskeletal No muscle weakness 09/13/2017 Musculoskeletal No myalgias 09/13/2017 Dermatologic No rash Dermatologic No sores Psychiatric No anxiety 0 09/13/2017 Psychiatric No depression 09/13/2017 Constitutional recent illness 02/16/2017 Constitutional No anorexia 02/16/2017 Constitutional No night sweats 02/16/2017 Constitutional No chills 02/16/2017 Constitutional No diaphoresis 02/16/2017 Constitutional No fatigue 02/16/2017 Constitutional No fever 02/16/2017 Constitutional No insomnia 02/16/2017 Constitutional No malaise 02/16/2017 Eyes No vision change Ears/Nose/Throat/Neck headache 02/16/2017 Ears/Nose/Throat/Neck No otalgia 02/16/2017 Ears/Nose/Throat/Neck No otitis media 02/16/2017 Cardiovascular No chest pain/pressure 02/16/2017 Cardiovascular No dyspnea 02/16/2017 Cardiovascular No edema 02/16/2017 Respiratory No chest congestion 02/16/2017 Respiratory No chest tightness 02/16/2017 Respiratory No cough Gastrointestinal No constipation 02/16/2017 Gastrointestinal No diarrhea 02/16/2017 Musculoskeletal joint complaint 02/16/2017 Musculoskeletal No muscle weakness 02/16/2017 Musculoskeletal No myalgias 02/16/2017 Dermatologic No rash Dermatologic No sores Psychiatric No anxiety 1 Psychiatric No depression 02/16/2017 Constitutional No weight loss 02/16/2017 Constitutional weight gain 02/16/2017 Ears/Nose/Throat/Neck nasal discharge 02/16/2017 Ears/Nose/Throat/Neck sinus congestion 02/16/2017 Neurologic No alteration of consciousness 02/16/2017 Constitutional No recent illness 09/08/2016 Constitutional No anorexia 09/08/2016 Constitutional No night sweats 09/08/2016 Constitutional No chills 09/08/2016 Constitutional No diaphoresis 09/08/2016 Constitutional No fatigue 09/08/2016 Constitutional No fever 09/08/2016 Constitutional No insomnia 09/08/2016 Constitutional No malaise 09/08/2016 Eyes No vision change Ears/Nose/Throat/Neck No headache 09/08/2016 Ears/Nose/Throat/Neck No otalgia 09/08/2016 Ears/Nose/Throat/Neck No otitis media 09/08/2016 Cardiovascular No chest pain/pressure 09/08/2016 Cardiovascular No dyspnea 09/08/2016 Cardiovascular No edema 09/08/2016 Respiratory No chest congestion 09/08/2016 Respiratory No chest tightness 09/08/2016 Respiratory No cough 03/2017 Gastrointestinal No constipation 09/08/2016 Gastrointestinal No diarrhea 09/08/2016 Musculoskeletal No muscle weakness 09/08/2016 Musculoskeletal No myalgias 09/08/2016 Dermatologic No rash 03/2017 Dermatologic No sores Psychiatric No anxiety 0 09/08/2016 Psychiatric No depression 09/08/2016 Musculoskeletal stiffness 09/08/2016 Musculoskeletal swelling 09/08/2016 Musculoskeletal joint complaint 09/08/2016 Constitutional No recent illness 05/23/2016 Constitutional No chills 05/23/2016 Eyes No vision change Cardiovascular No chest pain/pressure 05/23/2016 Respiratory No chest congestion 05/23/2016 Respiratory No cough Gastrointestinal No constipation 05/23/2016 Gastrointestinal No diarrhea 05/23/2016 Dermatologic No rash Constitutional No fever 05/23/2016 Ears/Nose/Throat/Neck No nasal allergies 05/23/2016 Ears/Nose/Throat/Neck No nasal discharge 05/23/2016 Respiratory No productive sputum 05/23/2016 Cardiovascular edema Cardiovascular dyspnea 0 05/23/2016 Gastrointestinal No nausea 05/23/2016 Gastrointestinal No vomiting 05/23/2016 Neurologic No alteration of consciousness 05/23/2016 Neurologic No mental status change 05/23/2016 Constitutional No recent illness 01/12/2016 Constitutional No anorexia 01/12/2016 Constitutional No night sweats 01/12/2016 Constitutional No chills 01/12/2016 Constitutional No diaphoresis 01/12/2016 Constitutional No fatigue 01/12/2016 Constitutional No fever 01/12/2016 Constitutional No insomnia 01/12/2016 Constitutional No malaise 01/12/2016 Eyes No vision change Ears/Nose/Throat/Neck No headache 01/12/2016 Ears/Nose/Throat/Neck nasal allergies 01/12/2016 Ears/Nose/Throat/Neck nasal discharge 01/12/2016 Ears/Nose/Throat/Neck No otalgia 01/12/2016 Ears/Nose/Throat/Neck No otitis media 01/12/2016 Cardiovascular No chest pain/pressure 01/12/2016 Cardiovascular No dyspnea 01/12/2016 Cardiovascular No edema 01/12/2016 Respiratory No chest congestion 01/12/2016 Respiratory No chest tightness 01/12/2016 Respiratory No cough Gastrointestinal No constipation 01/12/2016 Gastrointestinal No diarrhea 01/12/2016 Genitourinary/Nephrology No dysuria 01/12/2016 Musculoskeletal No muscle weakness 01/12/2016 Musculoskeletal No myalgias 01/12/2016 Dermatologic No rash Dermatologic No sores Psychiatric No anxiety 0 01/12/2016 Psychiatric No depression 01/12/2016 Constitutional No recent illness 12/14/2015 Constitutional No chills 12/14/2015 Constitutional No diaphoresis 12/14/2015 Constitutional No fatigue 12/14/2015 Constitutional No fever 12/14/2015 Constitutional No malaise 12/14/2015 Eyes No vision change Ears/Nose/Throat/Neck nasal allergies 12/14/2015 Cardiovascular No chest pain/pressure 12/14/2015 Cardiovascular No dyspnea 12/14/2015 Cardiovascular No edema 12/14/2015 Respiratory No chest congestion 12/14/2015 Respiratory cough 2015 Gastrointestinal No constipation 12/14/2015 Gastrointestinal No diarrhea 12/14/2015 Dermatologic No rash Dermatologic No sores Eyes No eye erythema Ears/Nose/Throat/Neck nasal discharge 12/14/2015 Ears/Nose/Throat/Neck sinus congestion 12/14/2015 Respiratory No dyspnea 0 12/14/2015 Musculoskeletal No joint complaint 12/14/2015 Neurologic No alteration of consciousness 12/14/2015 Neurologic No mental status change 12/14/2015 Constitutional No recent illness 07/09/2015 Constitutional No anorexia 07/09/2015 Constitutional No night sweats 07/09/2015 Constitutional No chills 07/09/2015 Constitutional No diaphoresis 07/09/2015 Constitutional No fatigue 07/09/2015 Constitutional No fever 07/09/2015 Constitutional No insomnia 07/09/2015 Constitutional No malaise 07/09/2015 Constitutional No weight loss 07/09/2015 Constitutional No weight gain 07/09/2015 Constitutional No obesity 07/09/2015 Musculoskeletal arthralgia(s) 07/09/2015 Musculoskeletal joint complaint 07/09/2015 Musculoskeletal No muscle weakness 07/09/2015 Musculoskeletal No myalgias 07/09/2015 Ears/Nose/Throat/Neck nasal allergies 07/09/2015 Ears/Nose/Throat/Neck nasal discharge 07/09/2015 Ears/Nose/Throat/Neck No otalgia 07/09/2015 Ears/Nose/Throat/Neck No otitis media 07/09/2015 Ears/Nose/Throat/Neck No headache 07/09/2015 Cardiovascular No chest pain/pressure 07/09/2015 Cardiovascular No edema 07/09/2015 Cardiovascular No dyspnea 07/09/2015 Respiratory No cough 01/2016 Respiratory No chest tightness 07/09/2015 Respiratory No chest congestion 07/09/2015 Gastrointestinal No constipation 07/09/2015 Gastrointestinal No diarrhea 07/09/2015 Genitourinary/Nephrology No dysuria 07/09/2015 Psychiatric No depression 07/09/2015 Psychiatric No anxiety 0 07/09/2015 Dermatologic No sores Dermatologic No rash 01/2016 Eyes No vision change Constitutional No recent illness 10/09/2014 Constitutional No chills 10/09/2014 Constitutional No fatigue 10/09/2014 Constitutional No fever 10/09/2014 Constitutional No insomnia 10/09/2014 Constitutional No malaise 10/09/2014 Eyes No blindness 2014 Eyes No vision change Ears/Nose/Throat/Neck No dental pain 10/09/2014 Ears/Nose/Throat/Neck No dizziness 10/09/2014 Ears/Nose/Throat/Neck No dysphagia 10/09/2014 Ears/Nose/Throat/Neck No headache 10/09/2014 Ears/Nose/Throat/Neck No hearing loss 10/09/2014 Ears/Nose/Throat/Neck No nasal allergies 10/09/2014 Ears/Nose/Throat/Neck No sore throat 10/09/2014 Ears/Nose/Throat/Neck No postnasal drip 10/09/2014 Ears/Nose/Throat/Neck No sinus congestion 10/09/2014 Cardiovascular No chest pain/pressure 10/09/2014 Cardiovascular No dyspnea 10/09/2014 Cardiovascular No edema 10/09/2014 Cardiovascular No exercise intolerance 10/09/2014 Cardiovascular No fatigue 10/09/2014 Cardiovascular No near-syncope/dizziness 10/09/2014 Respiratory No chest tightness 10/09/2014 Respiratory No cough 03/2015 Respiratory No dyspnea 0 10/09/2014 Respiratory No pedal edema 10/09/2014 Gastrointestinal No abdominal pain 10/09/2014 Gastrointestinal No constipation 10/09/2014 Gastrointestinal No diarrhea 10/09/2014 Gastrointestinal gastroesophageal reflux 10/09/2014 Gastrointestinal No nausea 10/09/2014 Gastrointestinal No vomiting 10/09/2014 Genitourinary/Nephrology No dysuria 10/09/2014 Genitourinary/Nephrology No nocturia 10/09/2014 Genitourinary/Nephrology No urinary incontinence 10/09/2014 Musculoskeletal No stiffness 10/09/2014 Musculoskeletal No swelling 10/09/2014 Musculoskeletal No muscle weakness 10/09/2014 Musculoskeletal No myalgias 10/09/2014 Dermatologic No rash 03/2015 Dermatologic No sores Dermatologic No scar 03/2015 Neurologic No dizziness 10/09/2014 Neurologic No headache 0 10/09/2014 Neurologic No neck pain 10/09/2014 Neurologic No syncope Psychiatric No anxiety 0 10/09/2014 Psychiatric No depression 10/09/2014 Cardiovascular hypertension 10/09/2014 Physical Exam Exam Name System Name It em Name Status Result Effective Dates Notes Full Exam - ENT Constitutional general appearance Overall: well nourished 12/25/2018 None Full Exam - ENT Constitutional general appearance Overall: well developed 12/25/2018 None Full Exam - ENT Constitutional general appearance Overall: in no acute distress 12/25/2018 None Full Exam - ENT Neurologic orientation Overall: oriented to person, place a nd time 12/25/2018 None Full Exam - ENT Integument inspection of skin Overall: no rash, lesions 12/25/2018 None Full Exam - ENT Lymphatic palpation of lymph nodes Overall: anterior cervical chain benign 12/25/2018 None Full Exam - ENT Lymphatic palpation of lymph nodes Overall: posterior cervical chain benign 12/25/2018 None Full Exam - ENT Cardiovascular auscultation of heart Overall: regular rate 12/25/2018 None Full Exam - ENT Cardiovascular auscultation of heart Overall: normal heart sounds 12/25/2018 None Full Exam - ENT Respiratory auscultation Overall: breath sounds clear bilater ally 12/25/2018 None Full Exam - ENT Respiratory inspection Overall: no retractions 12/25/2018 None Full Exam - ENT Respiratory inspection Overall: normal rate None Full Exam - ENT Ears/Nose/Throat otoscopic exam Overall: external auditory canals normal 12/25/2018 None Full Exam - ENT Ears/Nose/Throat otoscopic exam Overall: tympanic membranes normal 12/25/2018 None Full Exam - ENT Face and Head palpation Left maxillary sinus: tender 12/25/2018 None Full Exam - ENT Face and Head palpation Right maxillary sinus: tender 12/25/2018 None Full Exam - ENT Ears/Nose/Throat oropharynx Overall: oral mucosa clear 12/25/2018 None Full Exam - General 1994 Constitutional general appearance Development: well developed 11/16/2018 None Full Exam - General 1994 Constitutional general appearance Development: appears stated age 0711/16/2018 None Full Exam - General 1994 Constitutional general appearance Hygiene/Attention to Grooming: good hygiene 11/16/2018 None Full Exam - General 1994 Eyes conjunctiva/eyelids Overall: conjunctiva clear 11/16/2018 None Full Exam - General 1994 Eyes conjunctiva/eyelids Overall: cornea clear 11/16/2018 None Full Exam - General 1994 Eyes conjunctiva/eyelids Overall: eyelids normal 11/16/2018 None Full Exam - General 1994 Eyes pupils and irises Overall: pupils equal, round, reactive to light and accomodation 11/16/2018 None Full Exam - General 1995 Ears/Nose/Throat otoscopic exam Overall: external auditory canals clear 11/16/2018 None Full Exam - General 1995 Ears/Nose/Throat otoscopic exam Overall: tympanic membranes clear 11/16/2018 None Full Exam - General 1995 Ears/Nose/Throat lips/teeth/gingiva Overall: benign lips 11/16/2018 None Full Exam - General 1995 Ears/Nose/Throat lips/teeth/gingiva Overall: normal dentition 11/16/2018 None Full Exam - General 1995 Ears/Nose/Throat oral cavity/pharynx/larynx Overall: oral mucosa clear 11/16/2018 None Full Exam - General 1995 Ears/Nose/Throat oral cavity/pharynx/larynx Overall: oropharyngeal mucosa clear 11/16/2018 None Full Exam - General 1994 Ears/Nose/Throat oral cavity/pharynx/larynx Overall: hypopharynx benign 11/16/2018 None Full Exam - General 1994 Ears/Nose/Throat oral cavity/pharynx/larynx Overall: no masses 11/16/2018 None Full Exam - General 1994 Respiratory auscultation Overall: breath sounds clear bilaterally 11/16/2018 None Full Exam - General 1994 Respiratory respiratory effort/rhythm Overall: no retractions 11/16/2018 None Full Exam - General 1994 Respiratory respiratory effort/rhythm Overall: normal rate 11/16/2018 None Full Exam - General 1994 Cardiovascular extremities Overall: no clubbing 11/16/2018 None Full Exam - General 1994 Cardiovascular auscultation of heart Overall: regular rate 11/16/2018 None Full Exam - General 1994 Cardiovascular auscultation of heart Overall: normal heart sounds 11/16/2018 None Full Exam - General 1994 Abdomen abdominal exam Overall: no tenderness 11/16/2018 None Full Exam - General 1994 Abdomen abdominal exam Overall: normal bowel sounds 11/16/2018 None Full Exam - General 1994 Lymphatic neck nodes Overall: anterior cervical chain benign 11/16/2018 None Full Exam - General 1994 Lymphatic neck nodes Overall: posterior cervical chain benign 11/16/2018 None Full Exam - General 1994 Musculoskeletal spine, ribs and pelvis Overall: spine benign 11/16/2018 None Full Exam - General 1994 Musculoskeletal spine, ribs and pelvis Overall: sacroiliac joint benign 11/16/2018 None Full Exam - General 1994 Musculoskeletal spine, ribs and pelvis Overall: good posture 11/16/2018 None Full Exam - General 1994 Musculoskeletal head and neck Overall: head atraumatic 11/16/2018 None Full Exam - General 1994 Musculoskeletal head and neck Overall: cervical spine benign 11/16/2018 None Full Exam - General 1994 Integument inspection of skin Overall: few scattered moles, no gross abnormalities 11/16/2018 None Full Exam - General 1994 Neurologic deep tendon reflexes Overall: deep tendon reflexes intact 11/16/2018 None Full Exam - General 1994 Neurologic cranial nerves Overall: crainial nerves 2 - 12 grossly intact 11/16/2018 None Full Exam - General 1994 Psychiatric orientation/consciousness Overall: oriented to person, place and time 11/16/2018 None Full Exam - General 1994 Psychiatric mood and affect Overall: normal mood and affect 11/16/2018 None Full Exam - General 1994 Constitutional general appearance Development: well developed 05/18/2018 None Full Exam - General 1994 Constitutional general appearance Development: appears stated age 0105/18/2018 None Full Exam - General 1994 Constitutional general appearance Hygiene/Attention to Grooming: good hygiene 05/18/2018 None Full Exam - General 1994 Eyes conjunctiva/eyelids Overall: conjunctiva clear 05/18/2018 None Full Exam - General 1994 Eyes conjunctiva/eyelids Overall: cornea clear 05/18/2018 None Full Exam - General 1994 Eyes conjunctiva/eyelids Overall: eyelids normal 05/18/2018 None Full Exam - General 1994 Eyes pupils and irises Overall: pupils equal, round, reactive to light and accomodation 05/18/2018 None Full Exam - General 1994 Ears/Nose/Throat otoscopic exam Overall: external auditory canals clear 05/18/2018 None Full Exam - General 1994 Ears/Nose/Throat otoscopic exam Overall: tympanic membranes clear 05/18/2018 None Full Exam - General 1994 Ears/Nose/Throat lips/teeth/gingiva Overall: benign lips 05/18/2018 None Full Exam - General 1994 Ears/Nose/Throat lips/teeth/gingiva Overall: normal dentition 05/18/2018 None Full Exam - General 1994 Ears/Nose/Throat oral cavity/pharynx/larynx Overall: oral mucosa clear 05/18/2018 None Full Exam - General 1994 Ears/Nose/Throat oral cavity/pharynx/larynx Overall: oropharyngeal mucosa clear 05/18/2018 None Full Exam - General 1994 Ears/Nose/Throat oral cavity/pharynx/larynx Overall: hypopharynx benign 05/18/2018 None Full Exam - General 1994 Ears/Nose/Throat oral cavity/pharynx/larynx Overall: no masses 05/18/2018 None Full Exam - General 1994 Respiratory auscultation Overall: breath sounds clear bilaterally 05/18/2018 None Full Exam - General 1994 Respiratory respiratory effort/rhythm Overall: no retractions 05/18/2018 None Full Exam - General 1994 Respiratory respiratory effort/rhythm Overall: normal rate 05/18/2018 None Full Exam - General 1994 Cardiovascular extremities Overall: no clubbing 05/18/2018 None Full Exam - General 1994 Cardiovascular auscultation of heart Overall: regular rate 05/18/2018 None Full Exam - General 1994 Cardiovascular auscultation of heart Overall: normal heart sounds 05/18/2018 None Full Exam - General 1994 Abdomen abdominal exam Overall: no tenderness 05/18/2018 None Full Exam - General 1994 Abdomen abdominal exam Overall: normal bowel sounds 05/18/2018 None Full Exam - General 1994 Lymphatic neck nodes Overall: anterior cervical chain benign 05/18/2018 None Full Exam - General 1994 Lymphatic neck nodes Overall: posterior cervical chain benign 05/18/2018 None Full Exam - General 1994 Musculoskeletal spine, ribs and pelvis Overall: spine benign 05/18/2018 None Full Exam - General 1994 Musculoskeletal spine, ribs and pelvis Overall: sacroiliac joint benign 05/18/2018 None Full Exam - General 1994 Musculoskeletal spine, ribs and pelvis Overall: good posture 05/18/2018 None Full Exam - General 1994 Musculoskeletal head and neck Overall: head atraumatic 05/18/2018 None Full Exam - General 1994 Musculoskeletal head and neck Overall: cervical spine benign 05/18/2018 None Full Exam - General 1994 Integument inspection of skin Overall: few scattered moles, no gross abnormalities 05/18/2018 None Full Exam - General 1994 Neurologic deep tendon reflexes Overall: deep tendon reflexes intact 05/18/2018 None Full Exam - General 1994 Neurologic cranial nerves Overall: crainial nerves 2 - 12 grossly intact 05/18/2018 None Full Exam - General 1994 Psychiatric orientation/consciousness Overall: oriented to person, place and time 05/18/2018 None Full Exam - General 1994 Psychiatric mood and affect Overall: normal mood and affect 05/18/2018 None Full Exam - General 1994 Constitutional general appearance Development: well developed 09/13/2017 None Full Exam - General 1994 Constitutional general appearance Development: appears stated age 0509/13/2017 None Full Exam - General 1994 Constitutional general appearance Hygiene/Attention to Grooming: good hygiene 09/13/2017 None Full Exam - General 1994 Eyes conjunctiva/eyelids Overall: conjunctiva clear 09/13/2017 None Full Exam - General 1994 Eyes conjunctiva/eyelids Overall: cornea clear 09/13/2017 None Full Exam - General 1994 Eyes conjunctiva/eyelids Overall: eyelids normal 09/13/2017 None Full Exam - General 1994 Eyes pupils and irises Overall: pupils equal, round, reactive to light and accomodation 09/13/2017 None Full Exam - General 1994 Ears/Nose/Throat otoscopic exam Overall: external auditory canals clear 09/13/2017 None Full Exam - General 1994 Ears/Nose/Throat otoscopic exam Overall: tympanic membranes clear 09/13/2017 None Full Exam - General 1994 Ears/Nose/Throat lips/teeth/gingiva Overall: benign lips 09/13/2017 None Full Exam - General 1994 Ears/Nose/Throat lips/teeth/gingiva Overall: normal dentition 09/13/2017 None Full Exam - General 1994 Ears/Nose/Throat oral cavity/pharynx/larynx Overall: oral mucosa clear 09/13/2017 None Full Exam - General 1994 Ears/Nose/Throat oral cavity/pharynx/larynx Overall: oropharyngeal mucosa clear 09/13/2017 None Full Exam - General 1994 Ears/Nose/Throat oral cavity/pharynx/larynx Overall: hypopharynx benign 09/13/2017 None Full Exam - General 1994 Ears/Nose/Throat oral cavity/pharynx/larynx Overall: no masses 09/13/2017 None Full Exam - General 1994 Respiratory auscultation Overall: breath sounds clear bilaterally 09/13/2017 None Full Exam - General 1994 Respiratory respiratory effort/rhythm Overall: no retractions 09/13/2017 None Full Exam - General 1994 Respiratory respiratory effort/rhythm Overall: normal rate 09/13/2017 None Full Exam - General 1994 Cardiovascular extremities Overall: no clubbing 09/13/2017 None Full Exam - General 1994 Cardiovascular auscultation of heart Overall: regular rate 09/13/2017 None Full Exam - General 1994 Cardiovascular auscultation of heart Overall: normal heart sounds 09/13/2017 None Full Exam - General 1994 Abdomen abdominal exam Overall: no tenderness 09/13/2017 None Full Exam - General 1994 Abdomen abdominal exam Overall: normal bowel sounds 09/13/2017 None Full Exam - General 1994 Lymphatic neck nodes Overall: anterior cervical chain benign 09/13/2017 None Full Exam - General 1994 Lymphatic neck nodes Overall: posterior cervical chain benign 09/13/2017 None Full Exam - General 1994 Musculoskeletal lower extremity Palpation - knee: warm 09/13/2017 None Full Exam - General 1994 Musculoskeletal lower extremity Palpation - knee: tender joint line 09/13/2017 None Full Exam - General 1994 Musculoskeletal spine, ribs and pelvis Overall: spine benign 09/13/2017 None Full Exam - General 1994 Musculoskeletal spine, ribs and pelvis Overall: sacroiliac joint benign 09/13/2017 None Full Exam - General 1994 Musculoskeletal spine, ribs and pelvis Overall: good posture 09/13/2017 None Full Exam - General 1994 Musculoskeletal head and neck Overall: head atraumatic 09/13/2017 None Full Exam - General 1994 Musculoskeletal head and neck Overall: cervical spine benign 09/13/2017 None Full Exam - General 1994 Integument inspection of skin Overall: few scattered moles, no gross abnormalities 09/13/2017 None Full Exam - General 1994 Neurologic deep tendon reflexes Overall: deep tendon reflexes intact 09/13/2017 None Full Exam - General 1994 Neurologic cranial nerves Overall: crainial nerves 2 - 12 grossly intact 09/13/2017 None Full Exam - General 1994 Psychiatric orientation/consciousness Overall: oriented to person, place and time 09/13/2017 None Full Exam - General 1994 Psychiatric mood and affect Overall: normal mood and affect 09/13/2017 None Full Exam - General 1994 Constitutional general appearance Development: well developed 02/16/2017 None Full Exam - General 1994 Constitutional general appearance Development: appears stated age 1002/16/2017 None Full Exam - General 1994 Constitutional general appearance Hygiene/Attention to Grooming: good hygiene 02/16/2017 None Full Exam - General 1994 Eyes conjunctiva/eyelids Overall: conjunctiva clear 02/16/2017 None Full Exam - General 1994 Eyes conjunctiva/eyelids Overall: cornea clear 02/16/2017 None Full Exam - General 1994 Eyes conjunctiva/eyelids Overall: eyelids normal 02/16/2017 None Full Exam - General 1994 Eyes pupils and irises Overall: pupils equal, round, reactive to light and accomodation 02/16/2017 None Full Exam - General 1994 Ears/Nose/Throat otoscopic exam Overall: external auditory canals clear 02/16/2017 None Full Exam - General 1994 Ears/Nose/Throat otoscopic exam Overall: tympanic membranes clear 02/16/2017 None Full Exam - General 1994 Ears/Nose/Throat lips/teeth/gingiva Overall: benign lips 02/16/2017 None Full Exam - General 1994 Ears/Nose/Throat lips/teeth/gingiva Overall: normal dentition 02/16/2017 None Full Exam - General 1994 Ears/Nose/Throat oral cavity/pharynx/larynx Overall: oral mucosa clear 02/16/2017 None Full Exam - General 1994 Ears/Nose/Throat oral cavity/pharynx/larynx Overall: oropharyngeal mucosa clear 02/16/2017 None Full Exam - General 1994 Ears/Nose/Throat oral cavity/pharynx/larynx Overall: hypopharynx benign 02/16/2017 None Full Exam - General 1994 Ears/Nose/Throat oral cavity/pharynx/larynx Overall: no masses 02/16/2017 None Full Exam - General 1994 Respiratory auscultation Overall: breath sounds clear bilaterally 02/16/2017 None Full Exam - General 1994 Respiratory respiratory effort/rhythm Overall: no retractions 02/16/2017 None Full Exam - General 1994 Respiratory respiratory effort/rhythm Overall: normal rate 02/16/2017 None Full Exam - General 1994 Cardiovascular extremities Overall: no clubbing 02/16/2017 None Full Exam - General 1994 Cardiovascular auscultation of heart Overall: regular rate 02/16/2017 None Full Exam - General 1994 Cardiovascular auscultation of heart Overall: normal heart sounds 02/16/2017 None Full Exam - General 1994 Abdomen abdominal exam Overall: no tenderness 02/16/2017 None Full Exam - General 1994 Abdomen abdominal exam Overall: normal bowel sounds 02/16/2017 None Full Exam - General 1994 Lymphatic neck nodes Overall: anterior cervical chain benign 02/16/2017 None Full Exam - General 1994 Lymphatic neck nodes Overall: posterior cervical chain benign 02/16/2017 None Full Exam - General 1994 Musculoskeletal spine, ribs and pelvis Overall: spine benign 02/16/2017 None Full Exam - General 1994 Musculoskeletal spine, ribs and pelvis Overall: sacroiliac joint benign 02/16/2017 None Full Exam - General 1994 Musculoskeletal spine, ribs and pelvis Overall: good posture 02/16/2017 None Full Exam - General 1994 Musculoskeletal head and neck Overall: head atraumatic 02/16/2017 None Full Exam - General 1994 Musculoskeletal head and neck Overall: cervical spine benign 02/16/2017 None Full Exam - General 1994 Integument inspection of skin Overall: few scattered moles, no gross abnormalities 02/16/2017 None Full Exam - General 1994 Neurologic deep tendon reflexes Overall: deep tendon reflexes intact 02/16/2017 None Full Exam - General 1994 Neurologic cranial nerves Overall: crainial nerves 2 - 12 grossly intact 02/16/2017 None Full Exam - General 1994 Psychiatric orientation/consciousness Overall: oriented to person, place and time 02/16/2017 None Full Exam - General 1994 Psychiatric mood and affect Overall: normal mood and affect 02/16/2017 None Full Exam - General 1994 Constitutional general appearance Development: well developed 09/08/2016 None Full Exam - General 1994 Constitutional general appearance Development: appears stated age 0509/08/2016 None Full Exam - General 1994 Constitutional general appearance Hygiene/Attention to Grooming: good hygiene 09/08/2016 None Full Exam - General 1994 Eyes conjunctiva/eyelids Overall: conjunctiva clear 09/08/2016 None Full Exam - General 1994 Eyes conjunctiva/eyelids Overall: cornea clear 09/08/2016 None Full Exam - General 1994 Eyes conjunctiva/eyelids Overall: eyelids normal 09/08/2016 None Full Exam - General 1994 Eyes pupils and irises Overall: pupils equal, round, reactive to light and accomodation 09/08/2016 None Full Exam - General 1994 Ears/Nose/Throat otoscopic exam Overall: external auditory canals clear 09/08/2016 None Full Exam - General 1994 Ears/Nose/Throat otoscopic exam Overall: tympanic membranes clear 09/08/2016 None Full Exam - General 1994 Ears/Nose/Throat lips/teeth/gingiva Overall: benign lips 09/08/2016 None Full Exam - General 1994 Ears/Nose/Throat lips/teeth/gingiva Overall: normal dentition 09/08/2016 None Full Exam - General 1994 Ears/Nose/Throat oral cavity/pharynx/larynx Overall: oral mucosa clear 09/08/2016 None Full Exam - General 1994 Ears/Nose/Throat oral cavity/pharynx/larynx Overall: oropharyngeal mucosa clear 09/08/2016 None Full Exam - General 1994 Ears/Nose/Throat oral cavity/pharynx/larynx Overall: hypopharynx benign 09/08/2016 None Full Exam - General 1994 Ears/Nose/Throat oral cavity/pharynx/larynx Overall: no masses 09/08/2016 None Full Exam - General 1994 Respiratory auscultation Overall: breath sounds clear bilaterally 09/08/2016 None Full Exam - General 1994 Respiratory respiratory effort/rhythm Overall: no retractions 09/08/2016 None Full Exam - General 1994 Respiratory respiratory effort/rhythm Overall: normal rate 09/08/2016 None Full Exam - General 1994 Cardiovascular extremities Overall: no clubbing 09/08/2016 None Full Exam - General 1994 Cardiovascular auscultation of heart Overall: regular rate 09/08/2016 None Full Exam - General 1994 Cardiovascular auscultation of heart Overall: normal heart sounds 09/08/2016 None Full Exam - General 1994 Abdomen abdominal exam Overall: no tenderness 09/08/2016 None Full Exam - General 1994 Abdomen abdominal exam Overall: normal bowel sounds 09/08/2016 None Full Exam - General 1994 Lymphatic neck nodes Overall: anterior cervical chain benign 09/08/2016 None Full Exam - General 1994 Lymphatic neck nodes Overall: posterior cervical chain benign 09/08/2016 None Full Exam - General 1994 Musculoskeletal spine, ribs and pelvis Overall: spine benign 09/08/2016 None Full Exam - General 1994 Musculoskeletal spine, ribs and pelvis Overall: sacroiliac joint benign 09/08/2016 None Full Exam - General 1994 Musculoskeletal spine, ribs and pelvis Overall: good posture 09/08/2016 None Full Exam - General 1994 Musculoskeletal head and neck Overall: head atraumatic 09/08/2016 None Full Exam - General 1994 Musculoskeletal head and neck Overall: cervical spine benign 09/08/2016 None Full Exam - General 1994 Integument inspection of skin Overall: few scattered moles, no gross abnormalities 09/08/2016 None Full Exam - General 1994 Neurologic deep tendon reflexes Overall: deep tendon reflexes intact 09/08/2016 None Full Exam - General 1994 Neurologic cranial nerves Overall: crainial nerves 2 - 12 grossly intact 09/08/2016 None Full Exam - General 1994 Psychiatric orientation/consciousness Overall: oriented to person, place and time 09/08/2016 None Full Exam - General 1994 Psychiatric mood and affect Overall: normal mood and affect 09/08/2016 None Full Exam - General 1994 Musculoskeletal lower extremity Palpation - knee: warm 09/08/2016 None Full Exam - General 1994 Musculoskeletal lower extremity Palpation - knee: tender joint line 09/08/2016 None Full Exam - General 1994 Constitutional general appearance Hygiene/Attention to Grooming: good hygiene 05/23/2016 None Full Exam - General 1994 Eyes conjunctiva/eyelids Overall: conjunctiva clear 05/23/2016 None Full Exam - General 1994 Eyes conjunctiva/eyelids Overall: eyelids normal 05/23/2016 None Full Exam - General 1994 Ears/Nose/Throat lips/teeth/gingiva Overall: benign lips 05/23/2016 None Full Exam - General 1994 Ears/Nose/Throat lips/teeth/gingiva Overall: normal dentition 05/23/2016 None Full Exam - General 1994 Ears/Nose/Throat oral cavity/pharynx/larynx Overall: oral mucosa clear 05/23/2016 None Full Exam - General 1994 Respiratory auscultation Overall: breath sounds clear bilaterally 05/23/2016 None Full Exam - General 1994 Respiratory respiratory effort/rhythm Overall: no retractions 05/23/2016 None Full Exam - General 1994 Respiratory respiratory effort/rhythm Overall: normal rate 05/23/2016 None Full Exam - General 1994 Cardiovascular auscultation of heart Overall: regular rate 05/23/2016 None Full Exam - General 1994 Cardiovascular auscultation of heart Overall: normal heart sounds 05/23/2016 None Full Exam - General 1994 Musculoskeletal spine, ribs and pelvis Overall: good posture 05/23/2016 None Full Exam - General 1994 Musculoskeletal head and neck Overall: head atraumatic 05/23/2016 None Full Exam - General 1994 Neurologic cranial nerves Overall: crainial nerves 2 - 12 grossly intact 05/23/2016 None Full Exam - General 1994 Psychiatric orientation/consciousness Overall: oriented to person, place and time 05/23/2016 None Full Exam - General 1994 Psychiatric mood and affect Overall: normal mood and affect 05/23/2016 None Full Exam - General 1994 Constitutional general appearance Overall: well developed 05/23/2016 None Full Exam - General 1994 Constitutional general appearance Overall: in no acute distress 05/23/2016 None Full Exam - General 1994 Constitutional general appearance Overall: well nourished 05/23/2016 None Full Exam - General 1994 Cardiovascular extremities Edema present: pitting 05/23/2016 None Full Exam - General 1994 Cardiovascular extremities Edema present: severity 1+ - 4+: 2+ 05/23/2016 None Full Exam - General 1994 Cardiovascular extremities Edema present: bilateral 05/23/2016 None Full Exam - General 1994 Cardiovascular extremities Edema present: to leg 05/23/2016 None Full Exam - General 1994 Integument inspection of skin Location: right leg 05/23/2016 knee Full Exam - General 1994 Integument inspection of skin Location: left leg 05/23/2016 knee Full Exam - General 1994 Integument inspection of skin Rash/Lesions: surgical site 05/23/2016 well healed Full Exam - General 1994 Psychiatric appearance Overall: well-groomed, good eye contact 05/23/2016 None Full Exam - General 1994 Constitutional general appearance Development: well developed 01/12/2016 None Full Exam - General 1994 Constitutional general appearance Development: appears stated age 0901/12/2016 None Full Exam - General 1994 Constitutional general appearance Hygiene/Attention to Grooming: good hygiene 01/12/2016 None Full Exam - General 1994 Eyes conjunctiva/eyelids Overall: conjunctiva clear 01/12/2016 None Full Exam - General 1994 Eyes conjunctiva/eyelids Overall: cornea clear 01/12/2016 None Full Exam - General 1994 Eyes conjunctiva/eyelids Overall: eyelids normal 01/12/2016 None Full Exam - General 1994 Eyes pupils and irises Overall: pupils equal, round, reactive to light and accomodation 01/12/2016 None Full Exam - General 1994 Ears/Nose/Throat otoscopic exam Overall: external auditory canals clear 01/12/2016 None Full Exam - General 1994 Ears/Nose/Throat otoscopic exam Overall: tympanic membranes clear 01/12/2016 None Full Exam - General 1994 Ears/Nose/Throat lips/teeth/gingiva Overall: benign lips 01/12/2016 None Full Exam - General 1994 Ears/Nose/Throat lips/teeth/gingiva Overall: normal dentition 01/12/2016 None Full Exam - General 1994 Ears/Nose/Throat oral cavity/pharynx/larynx Overall: oral mucosa clear 01/12/2016 None Full Exam - General 1994 Ears/Nose/Throat oral cavity/pharynx/larynx Overall: oropharyngeal mucosa clear 01/12/2016 None Full Exam - General 1994 Ears/Nose/Throat oral cavity/pharynx/larynx Overall: hypopharynx benign 01/12/2016 None Full Exam - General 1994 Ears/Nose/Throat oral cavity/pharynx/larynx Overall: no masses 01/12/2016 None Full Exam - General 1994 Respiratory auscultation Overall: breath sounds clear bilaterally 01/12/2016 None Full Exam - General 1994 Respiratory respiratory effort/rhythm Overall: no retractions 01/12/2016 None Full Exam - General 1994 Respiratory respiratory effort/rhythm Overall: normal rate 01/12/2016 None Full Exam - General 1994 Cardiovascular extremities Overall: no clubbing 01/12/2016 None Full Exam - General 1994 Cardiovascular auscultation of heart Overall: regular rate 01/12/2016 None Full Exam - General 1994 Cardiovascular auscultation of heart Overall: normal heart sounds 01/12/2016 None Full Exam - General 1994 Abdomen abdominal exam Overall: no tenderness 01/12/2016 None Full Exam - General 1994 Abdomen abdominal exam Overall: normal bowel sounds 01/12/2016 None Full Exam - General 1994 Lymphatic neck nodes Overall: anterior cervical chain benign 01/12/2016 None Full Exam - General 1994 Lymphatic neck nodes Overall: posterior cervical chain benign 01/12/2016 None Full Exam - General 1994 Musculoskeletal spine, ribs and pelvis Overall: spine benign 01/12/2016 None Full Exam - General 1994 Musculoskeletal spine, ribs and pelvis Overall: sacroiliac joint benign 01/12/2016 None Full Exam - General 1994 Musculoskeletal spine, ribs and pelvis Overall: good posture 01/12/2016 None Full Exam - General 1994 Musculoskeletal head and neck Overall: head atraumatic 01/12/2016 None Full Exam - General 1994 Musculoskeletal head and neck Overall: cervical spine benign 01/12/2016 None Full Exam - General 1994 Integument inspection of skin Overall: few scattered moles, no gross abnormalities 01/12/2016 None Full Exam - General 1994 Neurologic deep tendon reflexes Overall: deep tendon reflexes intact 01/12/2016 None Full Exam - General 1994 Neurologic cranial nerves Overall: crainial nerves 2 - 12 grossly intact 01/12/2016 None Full Exam - General 1994 Psychiatric orientation/consciousness Overall: oriented to person, place and time 01/12/2016 None Full Exam - General 1994 Psychiatric mood and affect Overall: normal mood and affect 01/12/2016 None Full Exam - General 1994 Constitutional general appearance Development: well developed 12/14/2015 None Full Exam - General 1994 Constitutional general appearance Development: appears stated age 0812/14/2015 None Full Exam - General 1994 Constitutional general appearance Hygiene/Attention to Grooming: good hygiene 12/14/2015 None Full Exam - General 1994 Eyes conjunctiva/eyelids Overall: conjunctiva clear 12/14/2015 None Full Exam - General 1994 Eyes conjunctiva/eyelids Overall: cornea clear 12/14/2015 None Full Exam - General 1994 Eyes conjunctiva/eyelids Overall: eyelids normal 12/14/2015 None Full Exam - General 1994 Eyes pupils and irises Overall: pupils equal, round, reactive to light and accomodation 12/14/2015 None Full Exam - General 1994 Ears/Nose/Throat otoscopic exam Overall: external auditory canals clear 12/14/2015 None Full Exam - General 1994 Ears/Nose/Throat lips/teeth/gingiva Overall: benign lips 12/14/2015 None Full Exam - General 1994 Ears/Nose/Throat lips/teeth/gingiva Overall: normal dentition 12/14/2015 None Full Exam - General 1994 Ears/Nose/Throat oral cavity/pharynx/larynx Overall: oral mucosa clear 12/14/2015 None Full Exam - General 1994 Respiratory auscultation Overall: breath sounds clear bilaterally 12/14/2015 None Full Exam - General 1994 Respiratory respiratory effort/rhythm Overall: no retractions 12/14/2015 None Full Exam - General 1994 Respiratory respiratory effort/rhythm Overall: normal rate 12/14/2015 None Full Exam - General 1994 Cardiovascular extremities Overall: no clubbing 12/14/2015 None Full Exam - General 1994 Cardiovascular auscultation of heart Overall: regular rate 12/14/2015 None Full Exam - General 1994 Cardiovascular auscultation of heart Overall: normal heart sounds 12/14/2015 None Full Exam - General 1994 Lymphatic neck nodes Overall: anterior cervical chain benign 12/14/2015 None Full Exam - General 1994 Lymphatic neck nodes Overall: posterior cervical chain benign 12/14/2015 None Full Exam - General 1994 Musculoskeletal spine, ribs and pelvis Overall: good posture 12/14/2015 None Full Exam - General 1994 Musculoskeletal head and neck Overall: head atraumatic 12/14/2015 None Full Exam - General 1994 Neurologic cranial nerves Overall: crainial nerves 2 - 12 grossly intact 12/14/2015 None Full Exam - General 1994 Psychiatric orientation/consciousness Overall: oriented to person, place and time 12/14/2015 None Full Exam - General 1994 Psychiatric mood and affect Overall: normal mood and affect 12/14/2015 None Full Exam - General 1994 Ears/Nose/Throat otoscopic exam Tympanic membrane: air-fluid level 12/14/2015 None Full Exam - General 1994 Ears/Nose/Throat oral cavity/pharynx/larynx Posterior Pharynx: clear post nasal drainage 12/14/2015 None Full Exam - General 1994 Ears/Nose/Throat internal nose Sinus tenderness: right maxillary 12/14/2015 None Full Exam - General 1994 Ears/Nose/Throat internal nose Sinus tenderness: left maxillary 12/14/2015 None Full Exam - General 1994 Ears/Nose/Throat internal nose Sinus tenderness: right frontal 12/14/2015 None Full Exam - General 1994 Ears/Nose/Throat internal nose Sinus tenderness: left frontal 12/14/2015 None Full Exam - General 1994 Constitutional general appearance Development: well developed 07/09/2015 None Full Exam - General 1994 Constitutional general appearance Development: appears stated age 0307/09/2015 None Full Exam - General 1994 Constitutional general appearance Hygiene/Attention to Grooming: good hygiene 07/09/2015 None Full Exam - General 1994 Eyes conjunctiva/eyelids Overall: conjunctiva clear 07/09/2015 None Full Exam - General 1994 Eyes conjunctiva/eyelids Overall: cornea clear 07/09/2015 None Full Exam - General 1994 Eyes conjunctiva/eyelids Overall: eyelids normal 07/09/2015 None Full Exam - General 1994 Eyes pupils and irises Overall: pupils equal, round, reactive to light and accomodation 07/09/2015 None Full Exam - General 1994 Ears/Nose/Throat otoscopic exam Overall: external auditory canals clear 07/09/2015 None Full Exam - General 1994 Ears/Nose/Throat otoscopic exam Overall: tympanic membranes clear 07/09/2015 None Full Exam - General 1994 Ears/Nose/Throat lips/teeth/gingiva Overall: benign lips 07/09/2015 None Full Exam - General 1994 Ears/Nose/Throat lips/teeth/gingiva Overall: normal dentition 07/09/2015 None Full Exam - General 1994 Ears/Nose/Throat oral cavity/pharynx/larynx Overall: oral mucosa clear 07/09/2015 None Full Exam - General 1994 Ears/Nose/Throat oral cavity/pharynx/larynx Overall: oropharyngeal mucosa clear 07/09/2015 None Full Exam - General 1994 Ears/Nose/Throat oral cavity/pharynx/larynx Overall: hypopharynx benign 07/09/2015 None Full Exam - General 1994 Ears/Nose/Throat oral cavity/pharynx/larynx Overall: no masses 07/09/2015 None Full Exam - General 1994 Respiratory auscultation Overall: breath sounds clear bilaterally 07/09/2015 None Full Exam - General 1994 Respiratory respiratory effort/rhythm Overall: no retractions 07/09/2015 None Full Exam - General 1994 Respiratory respiratory effort/rhythm Overall: normal rate 07/09/2015 None Full Exam - General 1994 Cardiovascular extremities Overall: no clubbing 07/09/2015 None Full Exam - General 1994 Cardiovascular auscultation of heart Overall: regular rate 07/09/2015 None Full Exam - General 1994 Cardiovascular auscultation of heart Overall: normal heart sounds 07/09/2015 None Full Exam - General 1994 Abdomen abdominal exam Overall: no tenderness 07/09/2015 None Full Exam - General 1994 Abdomen abdominal exam Overall: normal bowel sounds 07/09/2015 None Full Exam - General 1994 Lymphatic neck nodes Overall: anterior cervical chain benign 07/09/2015 None Full Exam - General 1994 Lymphatic neck nodes Overall: posterior cervical chain benign 07/09/2015 None Full Exam - General 1994 Musculoskeletal spine, ribs and pelvis Overall: spine benign 07/09/2015 None Full Exam - General 1994 Musculoskeletal spine, ribs and pelvis Overall: sacroiliac joint benign 07/09/2015 None Full Exam - General 1994 Musculoskeletal spine, ribs and pelvis Overall: good posture 07/09/2015 None Full Exam - General 1994 Musculoskeletal head and neck Overall: head atraumatic 07/09/2015 None Full Exam - General 1994 Musculoskeletal head and neck Overall: cervical spine benign 07/09/2015 None Full Exam - General 1994 Integument inspection of skin Overall: few scattered moles, no gross abnormalities 07/09/2015 None Full Exam - General 1994 Neurologic deep tendon reflexes Overall: deep tendon reflexes intact 07/09/2015 None Full Exam - General 1994 Neurologic cranial nerves Overall: crainial nerves 2 - 12 grossly intact 07/09/2015 None Full Exam - General 1994 Psychiatric orientation/consciousness Overall: oriented to person, place and time 07/09/2015 None Full Exam - General 1994 Psychiatric mood and affect Overall: normal mood and affect 07/09/2015 None Full Exam - General 1994 Constitutional general appearance Development: well developed 10/09/2014 None Full Exam - General 1994 Constitutional general appearance Development: appears stated age 0610/09/2014 None Full Exam - General 1994 Constitutional general appearance Hygiene/Attention to Grooming: good hygiene 10/09/2014 None Full Exam - General 1994 Eyes conjunctiva/eyelids Overall: conjunctiva clear 10/09/2014 None Full Exam - General 1994 Eyes conjunctiva/eyelids Overall: cornea clear 10/09/2014 None Full Exam - General 1994 Eyes conjunctiva/eyelids Overall: eyelids normal 10/09/2014 None Full Exam - General 1994 Eyes pupils and irises Overall: pupils equal, round, reactive to light and accomodation 10/09/2014 None Full Exam - General 1994 Ears/Nose/Throat otoscopic exam Overall: external auditory canals clear 10/09/2014 None Full Exam - General 1994 Ears/Nose/Throat otoscopic exam Overall: tympanic membranes clear 10/09/2014 None Full Exam - General 1994 Ears/Nose/Throat lips/teeth/gingiva Overall: benign lips 10/09/2014 None Full Exam - General 1994 Ears/Nose/Throat lips/teeth/gingiva Overall: normal dentition 10/09/2014 None Full Exam - General 1994 Ears/Nose/Throat oral cavity/pharynx/larynx Overall: oral mucosa clear 10/09/2014 None Full Exam - General 1994 Ears/Nose/Throat oral cavity/pharynx/larynx Overall: oropharyngeal mucosa clear 10/09/2014 None Full Exam - General 1994 Ears/Nose/Throat oral cavity/pharynx/larynx Overall: hypopharynx benign 10/09/2014 None Full Exam - General 1994 Ears/Nose/Throat oral cavity/pharynx/larynx Overall: no masses 10/09/2014 None Full Exam - General 1994 Respiratory auscultation Overall: breath sounds clear bilaterally 10/09/2014 None Full Exam - General 1994 Respiratory respiratory effort/rhythm Overall: no retractions 10/09/2014 None Full Exam - General 1994 Respiratory respiratory effort/rhythm Overall: normal rate 10/09/2014 None Full Exam - General 1994 Cardiovascular extremities Overall: no clubbing 10/09/2014 None Full Exam - General 1994 Cardiovascular auscultation of heart Overall: regular rate 10/09/2014 None Full Exam - General 1994 Cardiovascular auscultation of heart Overall: normal heart sounds 10/09/2014 None Full Exam - General 1994 Abdomen abdominal exam Overall: no tenderness 10/09/2014 None Full Exam - General 1994 Abdomen abdominal exam Overall: normal bowel sounds 10/09/2014 None Full Exam - General 1994 Lymphatic neck nodes Overall: anterior cervical chain benign 10/09/2014 None Full Exam - General 1994 Lymphatic neck nodes Overall: posterior cervical chain benign 10/09/2014 None Full Exam - General 1994 Musculoskeletal spine, ribs and pelvis Overall: spine benign 10/09/2014 None Full Exam - General 1994 Musculoskeletal spine, ribs and pelvis Overall: sacroiliac joint benign 10/09/2014 None Full Exam - General 1994 Musculoskeletal spine, ribs and pelvis Overall: good posture 10/09/2014 None Full Exam - General 1994 Musculoskeletal head and neck Overall: head atraumatic 10/09/2014 None Full Exam - General 1994 Musculoskeletal head and neck Overall: cervical spine benign 10/09/2014 None Full Exam - General 1994 Integument inspection of skin Overall: few scattered moles, no gross abnormalities 10/09/2014 None Full Exam - General 1994 Neurologic deep tendon reflexes Overall: deep tendon reflexes intact 10/09/2014 None Full Exam - General 1994 Neurologic cranial nerves Overall: crainial nerves 2 - 12 grossly intact 10/09/2014 None Full Exam - General 1994 Psychiatric orientation/consciousness Overall: oriented to person, place and time 10/09/2014 None Full Exam - General 1994 Psychiatric mood and affect Overall: normal mood and affect 10/09/2014 None Procedures Procedure Codes Date TRIAMCINOLONE ACET I [place] NOS CPT-4: J3301 12/25/2018 Vital Signs Date Vital 12/25/2018 Blood Pressure 1: 134/72 Code: 8480-6 BMI: 35.1 Code: 54901-7 Heart Rate 1: 72 bpm Height: 5'3" SpO2: 98% Weight: 198 lbs 11/16/2018 Blood Pressure 1: 106/60 Code: 8480-6 BMI: 34.7 Code: 44197-9 Heart Rate 1: 65 bpm Height: 5'3" SpO2: 99% Weight: 196 lbs 05/18/2018 Blood Pressure 1: 128/76 Code: 8480-6 BMI: 34.4 Code: 07206-5 Heart Rate 1: 67 bpm Height: 5'3" SpO2: 97% Temperature: 37.0 (C ) / 98.6 (F) Weight: 194 lbs 09/13/2017 Blood Pressure 1: 140/78 Code: 8480-6 BMI: 35.4 Code: 76130-8 Heart Rate 1: 71 bpm Height: 5'3" SpO2: 97% Weight: 200 lbs 02/16/2017 Blood Pressure 1: 138/76 Code: 8480-6 BMI: 34.4 Code: 66573-1 Heart Rate 1: 66 bpm Height: 5'3" SpO2: 99% Weight: 194 lbs 09/08/2016 Blood Pressure 1: 138/86 Code: 8480-6 BMI: 32.2 Code: 94650-5 Heart Rate 1: 69 bpm Height: 5'3" SpO2: 99% Weight: 182 lbs 05/23/2016 Blood Pressure 1: 126/70 Code: 8480-6 BMI: 30.8 Code: 62176-8 Heart Rate 1: 63 bpm Height: 5'3" SpO2: 98% Weight: 174 lbs 01/12/2016 Blood Pressure 1: 140/72 Code: 8480-6 BMI: 29.8 Code: 02302-5 Heart Rate 1: 82 bpm Height: 5'3" SpO2: 97% Weight: 168 lbs 12/14/2015 Blood Pressure 1: 132/78 Code: 8480-6 BMI: 31.5 Code: 76547-4 Heart Rate 1: 71 bpm Height: 5'3" SpO2: 98% Weight: 178 lbs 07/09/2015 Blood Pressure 1: 128/80 Code: 8480-6 BMI: 30.6 Code: 18948-4 Heart Rate 1: 71 bpm Height: 5'3" SpO2: 99% Weight: 173 lbs 10/09/2014 Blood Pressure 1: 120/70 Code: 8480-6 BMI: 29.1 Code: 59146-5 Heart Rate 1: 68 bpm Height: 5'3" Weight: 164 lbs Functional Status No Functional Status data History of Present Illness Symptom Name Status Resu lt Effective Date Notes Onset and Resolution g radual in onset 12/25/2018 None Onset of Symptom 1 wee ks ago 12/25/2018 None Severity moderate 12/25/2018 None Frequency of Episodes increasing 12/25/2018 None Significant Medical Conditions allergic rhinitis 12/25/2018 None Triggers allergens 12/25/2018 None Pertinent Findings cough 12/25/2018 None Pertinent Findings Den ies fever 12/25/2018 None Pertinent Findings dec reased energy level 12/25/2018 None Pertinent Findings Den ies vomiting 12/25/2018 None Location on both sides 12/25/2018 None Quality Denies acute 12/25/2018 None Quality chronic 11/16/2018 None Quality primary hypert ension 11/16/2018 None Onset and Resolution o ngoing 11/16/2018 None Onset of Symptom durin g adulthood 11/16/2018 None Blood Pressure Values not checking blood pressure at home 11/16/2018 None Alleviating Factors me dication 11/16/2018 None Pertinent Findings Den ies dizziness 11/16/2018 None Pertinent Findings Den ies dyspnea 11/16/2018 None Pertinent Findings edema 11/16/2018 None Quality non-insulin de pendent 11/16/2018 None Quality chronic 11/16/2018 None Alleviating Factors me dication 11/16/2018 None Exacerbating Factors d iet 11/16/2018 None Pertinent Findings Den ies nausea 11/16/2018 None Quality chronic 11/16/2018 None Onset and Resolution o ngoing 11/16/2018 None Alleviating Factors me dication 11/16/2018 None Severity not consisten tly severe symptoms, the symptoms fluctuate from no symptoms to anxiety and headaches 11/16/2018 None Frequency of Episodes unchanged 11/16/2018 None Location in the throat 05/18/2018 None Quality dry 05/18/2018 None Onset and Resolution g radual in onset 05/18/2018 None Onset of Symptom 3 wee ks ago 05/18/2018 None Pertinent Findings Den ies chest discomfort 05/18/2018 None Pertinent Findings Den ies fever 05/18/2018 None Limitation on Activities does not limit activities 05/18/2018 None Frequency of Episodes unchanged 05/18/2018 None Triggers ill contacts 05/18/2018 None hypertension Quality elvi heena hypertension 09/13/2017 None hypertension Onset and Resolution ongoing 09/13/2017 None hypertension Onset of Symptom during adulthood 09/13/2017 None hypertension Blood Pressure Values not checking blood pressure at home 09/13/2017 None hypertension Alleviating Factors medication 09/13/2017 None hypertension Pertinent Findings Denies dizziness 09/13/2017 None hypertension Pertinent Findings Denies dyspnea 09/13/2017 None hypertension Pertinent Findings edema 09/13/2017 None diabetes mellitus Quality non-insulin dependent 09/13/2017 None diabetes mellitus Alleviating Factors medication 09/13/2017 None diabetes mellitus Exacerbating Factors diet 09/13/2017 None diabetes mellitus Pertinent Findings Denies nausea 09/13/2017 None hypothyroid Onset and Resolution ongoing 09/13/2017 None hypothyroid Alleviating Factors medication 09/13/2017 None hypertension Quality chr onic 09/13/2017 None diabetes mellitus Quality chronic 09/13/2017 None hypothyroid Quality chronic 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 09/13/2017 None diabetes mellitus Glucose monitoring occasional glucose testing 09/13/2017 (once or twice a week) diabetes mellitus Test results Pt checking blood glucose readings, did not bring results to clinic 09/13/2017 None hypertension Quality elvi heena hypertension 02/16/2017 None hypertension Onset and Resolution ongoing 02/16/2017 None hypertension Onset of Symptom during adulthood 02/16/2017 None hypertension Blood Pressure Values not checking blood pressure at home 02/16/2017 None hypertension Alleviating Factors medication 02/16/2017 None hypertension Pertinent Findings Denies dizziness 02/16/2017 None hypertension Pertinent Findings Denies dyspnea 02/16/2017 None hypertension Pertinent Findings edema 02/16/2017 "a little bit" after her bilateral knee replacement diabetes mellitus Quality non-insulin dependent 02/16/2017 None diabetes mellitus Alleviating Factors medication 02/16/2017 None diabetes mellitus Exacerbating Factors diet 02/16/2017 None diabetes mellitus Pertinent Findings Denies nausea 02/16/2017 None hypothyroid Onset and Resolution ongoing 02/16/2017 None hypothyroid Alleviating Factors medication 02/16/2017 None diabetes mellitus Test results Pt checking blood glucose readings, did not bring results to clinic 02/16/2017 None diabetes mellitus Glucose monitoring occasional glucose testing 02/16/2017 (3-4 times weekly) sinus congestion Onset of Symptom 2 months ago 02/16/2017 None sinus congestion Quality acute 02/16/2017 None sinus congestion Quality pain 02/16/2017 None sinus congestion Quality fullness 02/16/2017 None sinus congestion Location on both sides 02/16/2017 None sinus congestion Pertinent Findings cough 02/16/2017 None sinus congestion Pertinent Findings Denies fever 02/16/2017 None sinus congestion Pertinent Findings facial pain 02/16/2017 None sinus congestion Triggers allergens 02/16/2017 None sinus congestion Onset and Resolution ongoing 02/16/2017 None hypertension Severity no t consistently severe symptoms, the symptoms fluctuate from no symptoms to anxiety and headaches 02/16/2017 None hypertension Frequency of Episodes unchanged 02/16/2017 None hypertension Triggers no known associated factors 02/16/2017 None edema Onset and Resolution ongoing 09/08/2016 None edema Alleviating Factors recumbency 09/08/2016 None edema Exacerbating Factors standing 09/08/2016 None edema Pertinent Findings Denies dyspnea 09/08/2016 None edema Pertinent Findings Denies lightheadedness 09/08/2016 None edema Pertinent Findings Denies nausea 09/08/2016 None edema Location on both l egs 09/08/2016 None hypertension Onset and Resolution ongoing 09/08/2016 None hypertension Onset of Symptom during adulthood 09/08/2016 None hypertension Blood Pressure Values not checking blood pressure at home 09/08/2016 None hypertension Alleviating Factors medication 09/08/2016 None hypertension Pertinent Findings Denies dizziness 09/08/2016 None hypertension Pertinent Findings Denies dyspnea 09/08/2016 None hypertension Pertinent Findings edema 09/08/2016 bilateral legs diabetes mellitus Quality non-insulin dependent 09/08/2016 None diabetes mellitus Test results Pt checking blood glucose readings, did not bring results to clinic 09/08/2016 None diabetes mellitus Glucose monitoring occasional glucose testing 09/08/2016 (once or twice weekly) diabetes mellitus Alleviating Factors medication 09/08/2016 None diabetes mellitus Exacerbating Factors diet 09/08/2016 None diabetes mellitus Pertinent Findings Denies nausea 09/08/2016 None edema Quality intermitte nt 09/08/2016 None edema Onset of Symptom months ago 09/08/2016 since her bilateral knee replacement edema Exacerbating Factors activity 09/08/2016 None edema Alleviating Factors rest 09/08/2016 None hypertension Quality elvi heena hypertension 09/08/2016 None edema Onset and Resolution gradual in onset 05/23/2016 None edema Onset and Resolution ongoing 05/23/2016 None edema Onset of Symptom 5 months ago 05/23/2016 None edema Pertinent Findings dyspnea 05/23/2016 None edema Pertinent Findings Denies nausea 05/23/2016 None edema Pertinent Findings Denies lightheadedness 05/23/2016 None edema Pertinent Findings Denies palpitations 05/23/2016 None edema Location on the le ft leg 05/23/2016 None edema Location on both l egs 05/23/2016 None edema Quality pitting 05/23/2016 None edema Exacerbating Factors salty foods 05/23/2016 None edema Exacerbating Factors standing 05/23/2016 None edema Alleviating Factors recumbency 05/23/2016 None knee pain Location on th e left 01/12/2016 None knee pain Location on th e right 01/12/2016 None knee pain Onset of Symptom years ago 01/12/2016 None knee pain Limitation on Activities allows weight bearing activity 01/12/2016 None knee pain Severity moder ate 01/12/2016 None knee pain Significant Medical Conditions degenerative joint disease 01/12/2016 None knee pain Significant Medical Conditions prior history of meniscal tear 01/12/2016 None knee pain Pertinent Findings pain with movement 01/12/2016 None knee pain Pertinent Findings swelling 01/12/2016 None hypertension Onset and Resolution ongoing 01/12/2016 None hypertension Onset of Symptom during adulthood 01/12/2016 None hypertension Blood Pressure Values not checking blood pressure at home 01/12/2016 None hypertension Alleviating Factors medication 01/12/2016 None hypertension Pertinent Findings Denies dizziness 01/12/2016 None hypertension Pertinent Findings Denies dyspnea 01/12/2016 None diabetes mellitus Quality non-insulin dependent 01/12/2016 None diabetes mellitus Test results Pt checking blood glucose readings, did not bring results to clinic 01/12/2016 - she cannot remember for sure - but th inks it is in the 115-130 range on average. diabetes mellitus Glucose monitoring occasional glucose testing 01/12/2016 None diabetes mellitus Alleviating Factors medication 01/12/2016 None diabetes mellitus Exacerbating Factors diet 01/12/2016 None knee pain Quality chronic 01/12/2016 None sinus congestion Location on both sides 12/14/2015 None sinus congestion Quality fullness 12/14/2015 None sinus congestion Quality pressure 12/14/2015 None sinus congestion Quality pain 12/14/2015 None sinus congestion Onset and Resolution sudden in onset 12/14/2015 None sinus congestion Onset of Symptom 4 days ago 12/14/2015 None sinus congestion Frequency of Episodes daily 12/14/2015 None sinus congestion Pertinent Findings cough 12/14/2015 None sinus congestion Pertinent Findings facial pain 12/14/2015 None knee pain Location on th e left 07/09/2015 None knee pain Location on th e right 07/09/2015 None knee pain Onset of Symptom _ years ago 07/09/2015 None knee pain Pertinent Findings pain with movement 07/09/2015 None knee pain Pertinent Findings swelling 07/09/2015 None medication follow up Additional Comments medication use 07/09/2015 None knee pain Quality chronic 07/09/2015 None knee pain Onset and Resolution worse during the day 07/09/2015 None knee pain Frequency of Episodes increasing 07/09/2015 None knee pain Limitation on Activities allows weight bearing activity 07/09/2015 None knee pain Severity moder ate 07/09/2015 None knee pain Significant Medical Conditions degenerative joint disease 07/09/2015 None knee pain Significant Medical Conditions prior history of meniscal tear 07/09/2015 None knee pain Sports Participation not significant 07/09/2015 None diabetes mellitus Quality NIDDM 10/09/2014 None diabetes mellitus Test results Pt checking blood glucose readings, did not bring results to clinic 10/09/2014 pt reports that FSBS runs in the 90's us ually - but this morning her FSBS was in the 140's diabetes mellitus Glucose monitoring occasional glucose testing 10/09/2014 2x per week diabetes mellitus Pertinent Findings dizziness 10/09/2014 None diabetes mellitus Pertinent Findings dyspnea 10/09/2014 None hypertension Quality int ermittent 10/09/2014 None hypertension Onset and Resolution ongoing 10/09/2014 None hypertension Blood Pressure Values not checking blood pressure at home 10/09/2014 None hypertension Pertinent Findings Denies dizziness 10/09/2014 None hypertension Pertinent Findings Denies dyspnea 10/09/2014 None hypertension Pertinent Findings Denies edema 10/09/2014 None gastroesophageal reflux Quality stable 10/09/2014 None gastroesophageal reflux Pertinent Findings Denies emesis 10/09/2014 None Advance Directives No Advance Directive data Encounters Encounter Performer Loca tion Codes Date [phone]) [id number] EST. P ATIENT, LEVEL III Diagnosis: Acute recurrent maxillary sinusitis[ICD10: J01.01] Diagnosis: Cough[ICD10: R05] Asha Ballard MD, [facility] CPT-4: 62203 12/25/2018 [id number] EST. P ATIENT, LEVEL IV Diagnosis: Type 2 diabetes mellitus without complications[ICD10: E11.9] Diagnosis: Essential (primary) hypertension[ICD10: I10] Diagnosis: Other allergic rhinitis[ICD10: J30.89] Asha Ballard MD, [facility] CPT-4: 61302 11/16/2018 [id number] EST. P ATIENT, LEVEL IV Diagnosis: Essential (primary) hypertension[ICD10: I10] Diagnosis: Acute upper respiratory infection, unspecified[ICD10: J06.9] Diagnosis: Mixed hyperlipidemia[ICD10: E78.2] Diagnosis: Hypothyroidism, unspecified[ICD10: E03.9] Diagnosis: Type 2 diabetes mellitus without complications[ICD10: E11.9] Asha Ballard MD, [facility] CPT-4: 61459 05/18/2018 [id number] EST. P ATIENT, LEVEL IV Diagnosis: Type 2 diabetes mellitus without complications[ICD10: E11.9] Diagnosis: Essential (primary) hypertension[ICD10: I10] Diagnosis: Other obesity due to excess calories[ICD10: E66.09] Katty Ballard MD, [facility] CPT-4: 02621 09/13/2017 [id number]) [id number] EST. P ATIENT, LEVEL IV Diagnosis: Type 2 diabetes mellitus without complications[ICD10: E11.9] Diagnosis: Essential (primary) hypertension[ICD10: I10] Diagnosis: Other acute sinusitis[ICD10: J01.80] Diagnosis: Other obesity due to excess calories[ICD10: E66.09] Asha Ballard MD, [facility] CPT-4: 02104 02/16/2017 ([id number]) [id number] EST. P ATIENT, LEVEL IV Diagnosis: Type 2 diabetes mellitus without complications[ICD10: E11.9] Diagnosis: Essential (primary) hypertension[ICD10: I10] Diagnosis: Pain in right knee[ICD10: M25.561] Diagnosis: Pain in left knee[ICD10: M25.562] Katty Ballard MD, [facility] CPT-4: 28455 09/08/2016 [id number] EST. PATIENT, LEVEL IV Diagnosis: Localized edema[ICD10: R60.0] Diagnosis: Shortness of breath[ICD10: R06.02] Salma Ballard MD, [facility] CPT-4: 64788 05/23/2016 ([id number]) [id number] EST. P ATIENT, LEVEL IV Diagnosis: Type 2 diabetes mellitus without complications[ICD10: E11.9] Diagnosis: Essential (primary) hypertension[ICD10: I10] Diagnosis: Chronic idiopathic constipation[ICD10: K59.04] Katty Ballard MD, [facility] CPT-4: 43191 01/12/2016 [id number] EST. PATIENT, LEVEL IV Diagnosis: Other acute sinusitis[ICD10: J01.80] Diagnosis: Other allergic rhinitis[ICD10: J30.89] Salma Ballard MD, [facility] CPT-4: 55522 12/14/2015 ([id number]) [id number] EST. P ATIENT, LEVEL IV Diagnosis: Essential (primary) hypertension[ICD10: I10] Diagnosis: Type 2 diabetes mellitus without complications[ICD10: E11.9] Diagnosis: Pain in right knee[ICD10: M25.561] Diagnosis: Pain in left knee[ICD10: M25.562] [facility] CPT- 4: 87559 07/09/2015 ([id number]) [facility] - LEVEL 4 Diagnosis: ESSENTIAL HYPERTENSION[ICD9: 401.9] Diagnosis: DIABETES TYPE II[ICD9: 250.00] Diagnosis: HYPERLIPIDEMIA[ICD9: 272.4] Diagnosis: HYPOTHYROIDISM[ICD9: 244.9] [facility] CPT-4: 55933 10/09/2014 Plan of Care Planned Activity Notes C odes Status Date Visit Plan: Sinusitis - Pt has acut e infection - pain in face, maxillary region, Pt informed to use decongestant, RX given to patient, sinus rinses also recommended. Call if symptoms do not show improvement. 12/25/2018 Appointment: Asha Bernstein WPtel: [facility] [place] [address] (30 min) Complex 12/25/2018 Patient Education: Patient Medication Summary Completed 12/25/2018 Visit Plan: DM-stopped metformin du e to renal function - repeat labs today Hypertension - well controlled - continue with current medications, continue with no added salt diet. Pt has been encouraged to exercise daily. The pt has been advised to call the office if there are any acute concerns about change in blood pressure readings at home. Allergies - chronic - recommended pt to use allergy medication as prescribed. Pt has been counseled as to the appropriate use of the medication. Pt to call if allergy symptoms are not controlled with the medication. If using nasal spray, instructions as follows: Nasal spray- use twice daily, one spray per nostril twice daily, after 30 minutes, rinse out nose with saline spray.. Use opposite hand per nostril to spray in the nasal steroid allergy spray. 11/16/2018 Appointment: Asha Bernstein WPtel: [facility] [place] [place] [phone] (30 min) Complex 11/16/2018 Patient Education: Patient Medication Summary Completed 11/16/2018 Patient Education: Diabetes Completed 11/16/2018 Patient Education: Hypertension Completed 11/16/2018 Visit Plan: Hypertension - well con trolled - continue with current medications, continue with no added salt diet. Pt has been encouraged to exercise daily. The pt has been advised to call the office if there are any acute concerns about change in blood pressure readings at home. URI - Pt advised to increase fluids, vitamin C. Discussed natural and expected course of this diagnosis and need to alert me if symptoms do not follow expected course, or if any worse. RX sent to patient's pharmacy. Hyperlipidemia-check labs DM-due for hgb a1c -continue current treatment 05/18/2018 Patient Education: Patient Medication Summary Completed 05/18/2018 Patient Education: Hypertension Completed 05/18/2018 Patient Education: Diabetes Completed 05/18/2018 Visit Plan: Hypertension - well con trolled - continue with current medications, continue with no added salt diet. Pt has been encouraged to exercise daily. The pt has been advised to call the office if there are any acute concerns about change in blood pressure readings at home. Diabetes Mellitus - not optimally controlled per pt - she would like a referral to [facility] for diabetic education. Knee pain - post operative still with swelling - continue with current management. 09/13/2017 Appointment: Katty Ballard WPtel: [address] [place], [place] [id number] (15 min) Moderate 09/13/2017 Patient Education: Patient Medication Summary Completed 09/13/2017 Visit Plan: Diabetes Mellitus - con trolled - per recent FSBS reports. I have recommended for the patient to have follow up labs prior to the next office visit. The patient has been instructed to continue with current medications as previously directed, continue with regular FSBS monitoring to assure continued control of diabetes. Pt to call for any acute concerns, complaints, or if the blood glucose readings are starting to become less controlled. Hypertension - well controlled - continue with current medications, continue with no added salt diet. Pt has been encouraged to exercise daily. The pt has been advised to call the office if there are any acute concerns about change in blood pressure readings at home. Sinusitis - Pt has acute infection - pain in face, maxillary region, Pt informed to use decongestant, RX given to patient, sinus rinses also recommended. Call if symptoms do not show improvement. Obesity - chronic issue with this patient. The pt has been counseled about diet changes, calorie restriction, and need to exercise. Pt will RTC in one month for weight check. 02/16/2017 Appointment: [facility] Bernstein [facility]el[facility] [phone] [phone] [place] (15 min) Moderate 02/16/2017 Patient Education: Patient Medication Summary Completed 02/16/2017 Patient Education: Obesity Completed 02/16/2017 Care Plan: BMI Above normal followup [facility] F-MGMT EDUC & TRAIN 1 PT Pending 02/16/2017 Visit Plan: Hypertension - well con trolled - continue with current medications, continue with no added salt diet. Pt has been encouraged to exercise daily. The pt has been advised to call the office if there are any acute concerns about change in blood pressure readings at home. Diabetes Mellitus - controlled - per recent FSBS reports. I have recommended for the patient to have follow up labs prior to the next office visit. The patient has been instructed to continue with current medications as previously directed, continue with regular FSBS monitoring to assure continued control of diabetes. Pt to call for any acute concerns, complaints, or if the blood glucose readings are starting to become less controlled. Knee pain - post operatively still with swelling - recommended changing meloxicam to 1/2 pill twice daily and start on voltaren gel - rx sent to pharmacy 09/08/2016 [facility]ment: [facility] [phone] [facility] ([facility] min) Moderate 09/08/2016 Patient Education: Patient Medication Summary Completed 09/08/2016 Patient Education: Obesity Completed 09/08/2016 Patient Education: Hypertension Completed 09/08/2016 Visit Plan: Edema/intermittent shor tness of breath - will check labs - pt has been advised to elevate legs to prevent dependent edema, compression has been recommended to help to naturally decrease peripheral edema. Diuretic use has been discussed and pt has been instructed in appropriate use of such medication as necessary to further attempt to reduce peripheral edema. 05/23/2016 Appointment: Salma Garay [facility]Ptel[facility] [phone] [facility] (30 min) Complex 05/23/2016 Patient Education: Patient Medication Summary Completed 05/23/2016 Patient Education: Obesity Completed 05/23/2016 Appointment: Katty Ballard WPtel: [phone] [facility] [place] (15 min) Moderate 01/13/2016 Visit Plan: Hypertension - well con trolled - continue with current medications, continue with no added salt diet. Pt has been encouraged to exercise daily. The pt has been advised to call the office if there are any acute concerns about change in blood pressure readings at home. Diabetes Mellitus - controlled - per recent FSBS reports. I have recommended for the patient to have follow up labs prior to the next office visit. The patient has been instructed to continue with current medications as previously directed, continue with regular FSBS monitoring to assure continued control of diabetes. Pt to call for any acute concerns, complaints, or if the blood glucose readings are starting to become less controlled. Chronic constipation from narcotic use - rx for movantik given to patient. 01/12/2016 Patient Education: Patient Medication Summary Completed 01/12/2016 Patient Education: Obesity Completed 01/12/2016 Patient Education: Hypertension Completed 01/12/2016 Visit Plan: Sinusitis - Pt has acut e infection - pain in face, maxillary region, Pt informed to use decongestant, RX given to patient, sinus rinses also recommended. Call if symptoms do not show improvement. Allerg ies - chronic - recommended pt to use allergy medication as prescribed. Pt has been counseled as to the appropriate use of the medication. Pt to call if allergy symptoms are not controlled with the medication. If using nasal spray, instructions as follows: Nasal spray- use twice daily, one spray per nostril twice daily, after 30 minutes, rinse out nose with saline spray.. Use opposite hand per nostril to spray in the nasal steroid allergy spray. 12/14/2015 Patient Education: Patient Medication Summary Completed 12/14/2015 Patient Education: Obesity Completed 12/14/2015 Visit Plan: Hypertension - well con trolled - continue with current medications, continue with no added salt diet. Pt has been encouraged to exercise daily. The pt has been advised to call the office if there are any acute concerns about change in blood pressure readings at home. Diabetes Mellitus - controlled - per recent FSBS reports. I have recommended for the patient to have follow up labs prior to the next office visit. The patient has been instructed to continue with current medications as previously directed, continue with regular FSBS monitoring to assure continued control of diabetes. Pt to call for any acute concerns, complaints, or if the blood glucose readings are starting to become less controlled. OA knees-RX for voltaren gel to use as directed 07/09/2015 Appointment: (30 min) Complex 07/09/2015 Patient Education: Patient Medication Summary Completed 07/09/2015 Patient Education: Obesity Completed 07/09/2015 Patient Education: Hypertension Completed 07/09/2015 Visit Plan: Hypertension - soo aguillon - continue with current medications, continue with no added salt diet. Pt has been encouraged to exercise daily. The pt has been advised to call the office if there are any acute concerns about change in blood pressure readings at home. Diabetes Mellitus - controlled - per recent FSBS reports. I have recommended for the patient to have follow up labs prior to the next office visit. The patient has been instructed to continue with current medications as previously directed, continue with regular FSBS monitoring to assure continued control of diabetes. Pt to call for any acute concerns, complaints, or if the blood glucose readings are starting to become less controlled. Hypothyroidism - pt with chronic hypothyroidism, continue with current medication, will monitor pt to signs or symptoms of lack of adequate supplementation. Pt is to continue with current dose of medication unless directed otherwise. Check labs at regular intervals wither q 3 months or q 6 months based on previous levels of control. Esophageal Reflux - the patient has been counseled against excessive intake of caffeine, spicy foods, peppermint, and cinnamon - all of which can exacerbate esophageal r eflux. The patient is to take medications as prescribed and call the office if the symptoms are not improving. 10/09/2014 Appointment: Katty Ballard WPtel: [address] [place], [place] [id number] [place] (S) New Patient 10/09/2014 Patient Education: Patient Medication Summary Completed 10/09/2014 Patient Education: Hypertension Completed 10/09/2014 Care Plan: MICROALBUMIN QUANTITATIVE LOINC : 97272-8 Ordered 10/09/2014 Care Plan: COMPLETE CBC AUTOMATED LOINC : 49877-1 Ordered 10/09/2014 Instructions Comment . Sinusitis - Pt has acute infection - pain in face, maxillary region, Pt informed to use decongestant, RX given to patient, sinus rinses also recommended. Call if symptoms do not show improvement. Allergies - chronic - recommended pt to use allergy medication as prescribed. Pt has been counseled as to the appropriate use of the medication. Pt to call if allergy symptoms are not controlled with the medication. If using nasal spray, instructions as follows: Nasal spray- use twice daily, one spray per nostril twice daily, after 30 minutes, rinse out nose with saline spray.. Use opposite hand per nostril to spray in the nasal steroid allergy spray. . Edema/intermittent shortness of breath - will check labs - pt has been advised to elevate legs to prevent dependent edema, compression has been recommended to help to naturally decrease peripheral edema. Diuretic use has been discussed and pt has been instructed in appropriate use of such medication as necessary to further attempt to reduce peripheral edema. salonpas Lidocaine 4 % patches - apply to painful area and leave on for 12 hours.. Hypertension - well controlled - continue with current medications, continue with no added salt diet. Pt has been encouraged to exercise daily. The pt has been advised to call the office if there are any acute concerns about change in blood pressure readings at home. Diabetes Mellitus - not optimally controlled per pt - she would like a referral to [facility] for diabetic education. Knee pain - post operative still with swelling - continue with current management. . Hypertension - wel l controlled - continue with current medications, continue with no added salt diet. Pt has been encouraged to exercise daily. The pt has been advised to call the office if there are any acute concerns about change in blood pressure readings at home. URI - Pt advised to increase fluids, vitamin C. Discussed natural and expected course of this diagnosis and need to alert me if symptoms do not follow expected course, or if any worse. RX sent to patient's pharmacy. Hyperlipidemia-check labs DM-due for hgb a1c -continue current treatment KENALOG START ANTIBIOTIC IF SYMPTOMS DO NOT IMPROVE . Sinusitis - Pt has acute infection - p ain in face, maxillary region, Pt informed to use decongestant, RX given to patient, sinus rinses also recommended. Call if symptoms do not show improvement. . Hypertension - wel l controlled - continue with current medications, continue with no added salt diet. Pt has been encouraged to exercise daily. The pt has been advised to call the office if there are any acute concerns about change in blood pressure readings at home. Diabetes Mellitus - controlled - per recent FSBS reports. I have recommended for the patient to have follow up labs prior to the next office visit. The patient has been instructed to continue with current medications as previously directed, continue with regular FSBS monitoring to assure continued control of diabetes. Pt to call for any acute concerns, complaints, or if the blood glucose readings are starting to become less controlled. Hypothyroidism - pt with chronic hypothyroidism, continue with current medication, will monitor pt to signs or symptoms of lack of adequate supplementation. Pt is to continue with current dose of medication unless directed otherwise. Check labs at regular intervals wither q 3 months or q 6 months based on previous levels of control. Esophageal Reflux - the patient has been counseled against excessive intake of caffeine, spicy foods, peppermint, and cinnamon - all of which can exacerbate esophageal reflux. The patient is to take medications as prescribed and call the office if the symptoms are not improving. . Diabetes Mellitus - controlled - per recent FSBS reports. I have recommended for the patient to have follow up labs prior to the next office visit. The patient has been instructed to continue with current medications as previously directed, continue with regular FSBS monitoring to assure continued control of diabetes. Pt to call for any acute concerns, complaints, or if the blood glucose readings are starting to become less controlled. Hypertension - well controlled - continue with current medications, continue with no added salt diet. Pt has been encouraged to exercise daily. The pt has been advised to call the office if there are any acute concerns about change in blood pressure readings at home. Sinusitis - Pt has acute infection - pain in face, maxillary region, Pt informed to use decongestant, RX given to patient, sinus rinses also recommended. Call if symptoms do not show improvement. Obesity - chronic issue with this patient. The pt has been counseled about diet changes, calorie restriction, and need to exercise. Pt will RTC in one month for weight check. . Hypertension - wel l controlled - continue with current medications, continue with no added salt diet. Pt has been encouraged to exercise daily. The pt has been advised to call the office if there are any acute concerns about change in blood pressure readings at home. Diabetes Mellitus - controlled - per recent FSBS reports. I have recommended for the patient to have follow up labs prior to the next office visit. The patient has been instructed to continue with current medications as previously directed, continue with regular FSBS monitoring to assure continued control of diabetes. Pt to call for any acute concerns, complaints, or if the blood glucose readings are starting to become less controlled. Knee pain - post operatively still with swelling - recommended changing meloxicam to 1/2 pill twice daily and start on voltaren gel - rx sent to pharmacy . Hypertension - wel l controlled - continue with current medications, continue with no added salt diet. Pt has been encouraged to exercise daily. The pt has been advised to call the office if there are any acute concerns about change in blood pressure readings at home. Diabetes Mellitus - controlled - per recent FSBS reports. I have recommended for the patient to have follow up labs prior to the next office visit. The patient has been instructed to continue with current medications as previously directed, continue with regular FSBS monitoring to assure continued control of diabetes. Pt to call for any acute concerns, complaints, or if the blood glucose readings are starting to become less controlled. Chronic constipation from narcotic use - rx for movantik given to patient. NASAL SALINE RINSES . DM-stopped metformin due to renal function -repeat labs today Hypertension - well controlled - continue with current medications, continue with no added salt diet. Pt has been encouraged to exercise daily. The pt has been advised to call the office if there are any acute concerns about change in blood pressure readings at home. Allergies - chronic - recommended pt to use allergy medication as prescribed. Pt has been counseled as to the appropriate use of the medication. Pt to call if allergy symptoms are not controlled with the medication. If using nasal spray, instructions as follows: Nasal spray- use twice daily, one spray per nostril twice daily, after 30 minutes, rinse out nose with saline spray.. Use opposite hand per nostril to spray in the nasal steroid allergy spray. . Hypertension - wel l controlled - continue with current medications, continue with no added salt diet. Pt has been encouraged to exercise daily. The pt has been advised to call the office if there are any acute concerns about change in blood pressure readings at home. Diabetes Mellitus - controlled - per recent FSBS reports. I have recommended for the patient to have follow up labs prior to the next office visit. The patient has been instructed to continue with current medications as previously directed, continue with regular FSBS monitoring to assure continued control of diabetes. Pt to call for any acute concerns, complaints, or if the blood glucose readings are starting to become less controlled. OA knees-RX for voltaren gel to use as directed
--- OUTSIDE RECORDS SUMMARY | 2019-12-03 12:38 | XMS REPORT | CCD ---
Author Author Danni Ballard Organization Katty Ballard MD, [facility] Address [address] [place] [address] Phone Care Team Providers Care Assistant Paralegal Name Role Phone PP Unavailable CCM Unavailable Summary Purpose Interface Exchange Insurance Providers Payer name Policy type / Coverage type Covered republican ID Effective Begin Date Effective End Date WPS Medicare Part B Medicare Part B [id number] 2018 Unknown [employer] [place] Medicare Part B [id number] Unknown Family history Father Diagnosis Age At Onset Cancer Unknown Mother Diagnosis Age At Onset Diabetes mellitus Type 2 Unknown Stroke Unknown Hypertension Unknown Arthritis Unknown Osteoporosis Unknown kidney disease Unknown Coronary Artery Disease Unknown Social History Social History Element Codes Description Effective Dates Marital status Unknown M chiki Peter 10/09/2014 Number of children Unknown 2 10/09/[address]: 3892673 Quit over 10 years ago 10/09/[address]: 147551871 Never drinks alcohol 10/09/2014 Allergies, Adverse Reactions, [...] Date Stop Date Sta tus Fill Instructions triamterene 37.5 mg- hydrochlorothiazide 25 mg tablet RxNorm: 962124 TAKE 1 TABLET BY MOUTH ONCE DAILY 01/03/2019 07/01/2019 Active 01/03/2019 12:46:39 PM Lipitor 10 mg tablet RxNorm: 361144 TAKE 1 TABLET BY MOUTH DAILY 01/03/2019 11/28/2019 Active Generic For:LIPITOR 10MG 01/03/2019 12: 46:19 PM levothyroxine 50 mcg tablet RxNorm: 065436 TAKE 1 TABLET BY MOUT H DAILY 01/03/2019 06/01/2019 Ac tive Generic For:SYNTHROID 50MCG TAB 019 12:46:25 PM Kenalog 40 mg/mL reese pension for injection RxNorm: 4815184 Milliliter(s) Inj 12/25/2018 12/25/2018 In active doxycycline hyclate 100 mg tablet RxNorm: 7224357 1 Tablet(s) PO BID 12/25/2018 12/31/2018 Inactive meloxicam 15 mg tablet RxNorm: 095711 TAKE 1 TABLET BY MOUTH ONCE DAILY 07/09/2018 01/04/2019 Ac tive Generic For:MOBIC 15MG 07/07/2018 11:11 :46 AM omeprazole 40 mg cap betty,delayed release RxNorm: 569490 TAKE 1 CAPSULE BY MACKENZIE TH DAILY 07/09/2018 01/04/2019 Ac tive Generic For:PRILOSEC 40MG 07/07/2018 11 :11:38 AM triamterene 37.5 mg- hydrochlorothiazide 25 mg tablet RxNorm: 425766 TAKE 1 TABLET BY MOUTH ONCE DAILY 07/09/2018 01/02/2019 Inactive 07/07/2018 11:12:05 AM levothyroxine 50 mcg tablet RxNorm: 593637 TAKE 1 TABLET BY MOUT H DAILY 07/09/2018 01/02/2019 In active Generic For:SYNTHROID 50MCG TAB 11:12:00 AM Lipitor 10 mg tablet RxNorm: 695650 TAKE 1 TABLET BY MOUTH DAILY 07/09/2018 01/02/2019 Inactive Generic For:LIPITOR 10MG 07/07/2018 11: 12:19 AM Zithromax Z-Taj 250 mg tablet RxNorm: 923115 1 Tablet(s) PO UD 05/18/2018 05/22/2018 Inactive metformin 500 mg tablet RxNorm: 169737 TAKE 1 TABLET BY MOUTH ONCE DAILY 02/07/2018 05/21/2018 In active Generic For:GLUCOPHAGE 500MG 02/07/2018 9:07:34 AM levothyroxine 50 mcg tablet RxNorm: 561685 TAKE 1 TABLET BY MOUT H DAILY 02/07/2018 06/06/2018 In active Generic For:SYNTHROID 50MCG TAB 018 9:07:42 AM meloxicam 15 mg tablet RxNorm: 322161 TAKE 1 TABLET BY MOUTH ONCE DAILY 02/07/2018 07/06/2018 In active Generic For:MOBIC 15MG 02/07/2018 9:07: 30 AM omeprazole 40 mg cap betty,delayed release RxNorm: 181739 TAKE 1 CAPSULE BY MACKENZIE TH DAILY 02/07/2018 07/06/2018 Inactive Generic For:PRILOSEC 40MG 02/07/2018 9: 07:37 AM Lipitor 10 mg tablet RxNorm: 393194 TAKE 1 TABLET BY MOUTH DAILY 11/09/2017 06/06/2018 Inactive Generic For:LIPITOR 10MG 11/09/2017 9:0 1:12 AM triamterene 37.5 mg- hydrochlorothiazide 25 mg tablet RxNorm: 214484 TAKE 1 TABLET BY MOUTH ONCE DAILY 11/09/2017 06/06/2018 Inactive 11/09/2017 9:01:09 AM levothyroxine 50 mcg tablet RxNorm: 684550 TAKE 1 TABLET BY MOUT H DAILY 10/10/2017 02/06/2018 In active Generic For:SYNTHROID 50MCG TAB 018 8:57:50 AM omeprazole 40 mg cap betty,delayed release RxNorm: 215744 TAKE 1 CAPSULE BY MACKENZIE TH DAILY 10/10/2017 02/06/2018 Inactive Generic For:PRILOSEC 40MG 10/10/2017 8: 57:46 AM Voltaren 1 % topical gel RxNorm: 161124 4 Gram(s) TOP QID - a pply 4 times daily to bilateral knees 09/13/2017 11/11/2017 Inactive levothyroxine 50 mcg tablet RxNorm: 101325 TAKE 1 TABLET BY MOUT H DAILY 09/11/2017 10/09/2017 In active Generic For:SYNTHROID 50MCG TAB 018 9:04:26 AM metformin 500 mg tablet RxNorm: 151111 TAKE 1 TABLET BY MOUTH ONCE DAILY 08/11/2017 02/06/2018 In active Generic For:GLUCOPHAGE 500MG 08/11/2017 8:56:05 AM meloxicam 15 mg tablet RxNorm: 235406 TAKE 1 TABLET BY MOUTH ONCE DAILY 08/11/2017 02/06/2018 In active Generic For:MOBIC 15MG 08/11/2017 8:56: 02 AM omeprazole 40 mg cap betty,delayed release RxNorm: 616332 TAKE 1 CAPSULE BY MACKENZIE TH DAILY 06/12/2017 10/09/2017 Inactive Generic For:PRILOSEC 40MG 06/12/2017 8: 56:49 AM Lipitor 10 mg tablet RxNorm: 264914 TAKE 1 TABLET BY MOUTH DAILY 2017 11/08/2017 Inactive Generic For:LIPITOR 10MG 2017 9:0 4:16 AM triamterene 37.5 mg- hydrochlorothiazide 25 mg tablet RxNorm: 192268 TAKE 1 TABLET BY MOUTH ONCE DAILY 2017 04/12/2017 Inactive 2017 9:04:19 AM triamterene 37.5 mg- hydrochlorothiazide 25 mg tablet RxNorm: 483978 TAKE 1 TABLET BY MOUTH ONCE DAILY 2017 10/09/2017 Inactive 2017 9:04:19 AM metformin 500 mg tablet RxNorm: 068323 TAKE 1 TABLET BY MOUTH ONCE DAILY 03/14/2017 08/10/2017 In active Generic For:GLUCOPHAGE 500MG 03/14/2017 9:16:18 AM levothyroxine 50 mcg tablet RxNorm: 899990 TAKE 1 TABLET BY MOUT H DAILY 03/14/2017 09/09/2017 In active Generic For:SYNTHROID 50MCG TAB 017 9:16:23 AM Zithromax Z-Taj 250 mg tablet RxNorm: 876211 1 Tablet(s) PO daily 02/16/2017 02/20/2017 Inactive omeprazole 40 mg cap betty,delayed release RxNorm: 303964 TAKE 1 CAPSULE BY MACKENZIE TH DAILY 02/13/2017 06/11/2017 Inactive Generic For:PRILOSEC 40MG 02/13/2017 8: 55:14 AM meloxicam 15 mg tablet RxNorm: 474663 TAKE 1 TABLET BY MOUTH ONCE DAILY 02/13/2017 08/10/2017 In active Generic For:MOBIC 15MG 02/13/2017 8:55: 10 AM levothyroxine 50 mcg tablet RxNorm: 732963 TAKE 1 TABLET BY MOUT H DAILY-- NEED TO GET LABS CHECKED FOR FURTHER REFILLS 01/05/2017 03/05/2017 Inactive Generic For:SYNTHROID 50MCG TAB 01/05/2017 4:36:06 PM levothyroxine 50 mcg tablet RxNorm: 619544 TAKE 1 TABLET BY MOUT H DAILY 12/14/2016 01/04/2017 In active Generic For:SYNTHROID 50MCG TAB 017 9:02:20 AM triamterene 37.5 mg- hydrochlorothiazide 25 mg tablet RxNorm: 407410 TAKE 1 TABLET BY MOUTH ONCE DAILY 11/14/2016 04/12/2017 Inactive 11/14/2016 9:13:26 AM metformin 500 mg tablet RxNorm: 578707 1 Tablet(s) PO daily 10/17/2016 03/13/2017 Inactive Generic For:GLUCOPHAGE 500MG 10/29/2014 9:02:36 AM omeprazole 40 mg cap betty,delayed release RxNorm: 098282 TAKE 1 CAPSULE BY MACKENZIE TH DAILY 10/17/2016 02/12/2017 Inactive Generic For:PRILOSEC 40MG 10/15/2016 8: 56:40 AM meloxicam 15 mg tablet RxNorm: 525637 1 Tablet(s) PO daily TAKE 1 TABLET BY MO UTH ONCE DAILY 09/19/2016 02/12/2017 Inactive Generic For:MOBIC 15MG 9:09:45 AM levothyroxine 50 mcg tablet RxNorm: 119514 TAKE 1 TABLET BY MOUT H DAILY 09/16/2016 12/13/2016 In active Generic For:SYNTHROID 50MCG TAB 017 10:22:07 AM 09/15/2016 9:01:47 AM Lipitor 10 mg tablet RxNorm: 190272 TAKE 1 TABLET BY MOUTH DAILY 09/16/2016 04/12/2017 Inactive Generic For:LIPITOR 10MG 09/16/2016 10: 22:13 AM 09/15/2016 9:01:42 AM AlticastTouch Ultra Test strips RxNorm: 1 Miscellaneous daily 09/08/2016 09/02/2017 Inactive Voltaren 1 % topical gel RxNorm: 765134 2 Gram(s) TOP QID 09/08/2016 11/06/2016 Inactive meloxicam 15 mg tablet RxNorm: 249289 TAKE 1 TABLET BY MOUTH ONCE DAILY 08/16/2016 09/18/2016 In active Generic For:MOBIC 15MG 08/16/2016 9:09: 45 AM triamterene 37.5 mg- hydrochlorothiazide 25 mg tablet RxNorm: 448002 TAKE 1 TABLET BY MOUTH ONCE DAILY 07/18/2016 11/13/2016 Inactive 07/18/2016 8:57:50 AM omeprazole 40 mg cap betty,delayed release RxNorm: 773137 TAKE 1 CAPSULE BY MACKENZIE TH DAILY 06/17/2016 10/14/2016 Inactive Generic For:PRILOSEC 40MG 06/17/2016 9: 30:36 AM levothyroxine 50 mcg tablet RxNorm: 579754 TAKE 1 TABLET BY MOUT H DAILY 06/17/2016 09/14/2016 In active Generic For:SYNTHROID 50MCG TAB 017 9:10:49 AM metformin 500 mg tablet RxNorm: 538388 1 Tablet(s) PO daily 05/24/2016 10/16/2016 Inactive Generic For:GLUCOPHAGE 500MG 10/29/2014 9:02:36 AM Lasix 20 mg tablet RxNorm: 126502 1 Tablet(s) PO daily 05/24/2016 05/26/2016 Inactive metformin 500 mg tablet RxNorm: 187235 1 Tablet(s) PO daily 05/23/2016 05/23/2016 Inactive Generic For:GLUCOPHAGE 500MG 10/29/2014 9:02:36 AM Lasix 20 mg tablet RxNorm: 047357 1 Tablet(s) PO daily 05/23/2016 05/23/2016 Inactive potassium chloride E R 10 mEq tablet,extended release RxNorm: 823526 1 Tablet(s) PO daily 05/23/2016 05/25/2016 Inactive meloxicam 15 mg tablet RxNorm: 160902 1 Tablet(s) PO daily 04/18/2016 08/15/2016 Inactive Lipitor 10 mg tablet RxNorm: 060140 TAKE 1 TABLET BY MOUTH DAILY 04/18/2016 08/15/2016 Inactive Generic For:LIPITOR 10MG 04/18/2016 9:1 5:59 AM triamterene 37.5 mg- hydrochlorothiazide 25 mg tablet RxNorm: 420180 TAKE 1 TABLET BY MOUTH ONCE DAILY 03/21/2016 07/17/2016 Inactive 03/19/2016 9:02:10 AM levothyroxine 50 mcg tablet RxNorm: 965560 TAKE 1 TABLET BY MOUT H DAILY 02/18/2016 06/16/2016 In active Generic For:SYNTHROID 50MCG TAB 016 9:03:15 AM omeprazole 40 mg cap betty,delayed release RxNorm: 021533 TAKE 1 CAPSULE BY MACKENZIE TH DAILY 02/18/2016 06/16/2016 Inactive Generic For:PRILOSEC 40MG 02/18/2016 9: 03:12 AM Movantik 25 mg tablet RxNorm: 0735180 1 Tablet(s) PO QAM with breakfast or sean ch 01/12/2016 09/07/2016 In active Flonase Allergy Reli ef 50 mcg/actuation nasal spray,suspension RxNorm: 2828173 1 [place] NASAL BID 12/14/2015 09/07/2016 Inactive Zithromax Z-Taj 250 mg tablet RxNorm: 469616 Tablet(s) PO UD 12/14/2015 01/11/2016 Inactive Lipitor 10 mg tablet RxNorm: 208440 TAKE 1 TABLET BY MOUTH DAILY 11/20/2015 04/17/2016 Inactive Generic For:LIPITOR 10MG 11/20/2015 9:1 1:10 AM triamterene 37.5 mg- hydrochlorothiazide 25 mg tablet RxNorm: 552292 TAKE 1 TABLET BY MOUTH ONCE DAILY 11/19/2015 03/17/2016 Inactive 11/18/2015 9:06:12 AM meloxicam 15 mg tablet RxNorm: 280532 1 Tablet(s) PO daily 10/21/2015 04/17/2016 Inactive levothyroxine 50 mcg tablet RxNorm: 034816 TAKE 1 TABLET BY MOUT H DAILY 10/21/2015 02/17/2016 In active Generic For:SYNTHROID 50MCG TAB 016 9:06:41 AM omeprazole 40 mg cap betty,delayed release RxNorm: 388919 TAKE 1 CAPSULE BY MACKENZIE TH DAILY 10/21/2015 02/17/2016 Inactive Generic For:PRILOSEC 40MG 10/21/2015 9: 06:53 AM triamterene 37.5 mg- hydrochlorothiazide 25 mg tablet RxNorm: 580189 Tablet(s) 1 Tablet(s) PO daily 07/23/2015 11/18/2015 Inactive [SAVINGS FOR NON-COVERED DR BARRIENTOS -- BIN:[id number], PCN: ASPROD1, Group: XXXXX, ID# XXXXXXX, Questions: . THIS IS NOT INSURANCE.] metformin 500 mg tablet RxNorm: 735017 1 Tablet(s) PO daily 07/10/2015 12/06/2015 Inactive Generic For:GLUCOPHAGE 500MG 10/29/2014 9:02:36 AM Voltaren 1 % topical gel RxNorm: 444282 4 Gram(s) TOP QID 07/09/2015 09/07/2016 Inactive bilateral knees metformin 500 mg tablet RxNorm: 356990 1 Tablet(s) PO daily TAKE 1 TABLET BY MO [facility] TWICE DAILY 07/09/2015 07/09/2015 Inactive Generic For:GLUCOPHAGE 500M G 10/29/2014 9:02:36 AM Lipitor 10 mg tablet RxNorm: 191270 1 Tablet(s) PO daily 06/26/2015 11/19/2015 Inactive metformin 500 mg tablet RxNorm: 161490 1 Tablet(s) PO BID TAKE 1 TABLET BY MOUT TWICE DAILY 06/26/2015 07/08/2015 Inactive Generic For:GLUCOPHAGE 500M G 10/29/2014 9:02:36 AM omeprazole 40 mg cap betty,delayed release RxNorm: 879971 TAKE 1 CAPSULE BY MACKENZIE TH DAILY 04/27/2015 10/20/2015 Inactive Generic For:PRILOSEC 40MG meloxicam 15 mg tablet RxNorm: 837757 1 Tablet(s) PO daily 03/30/2015 10/20/2015 Inactive triamterene 37.5 mg- hydrochlorothiazide 25 mg tablet RxNorm: 493968 Tablet(s) 1 Tablet(s) PO daily 03/30/2015 07/22/2015 Inactive [SAVINGS FOR NON-COVERED DR BARRIENTOS -- BIN:[id number], PCN: ASPROD1, Group: XXXXX, ID# XXXXXXX, Questions: . THIS IS NOT INSURANCE.] metformin 500 mg tablet RxNorm: 186799 1 Tablet(s) PO BID 02/26/2015 06/25/2015 Inactive levothyroxine 50 mcg tablet RxNorm: 422992 TAKE 1 TABLET BY MOUT H DAILY 02/26/2015 10/20/2015 In active Generic For:SYNTHROID 50MCG TAB 015 2:41:48 PM N O T I C E PRESCRIPTION PREVIOUSLY AUTHORIZED BY DOCTOR:RUFINO LIAO Lipitor 10 mg tablet RxNorm: 668604 1 Tablet(s) PO daily 02/26/2015 06/25/2015 Inactive omeprazole 40 mg cap betty,delayed release RxNorm: 20020609 1 Capsule(s) PO 01/01/2015 04/26/2015 In active [SAVINGS FOR NON-COVERED DRUGS -- BIN: 3585, PCN: ASPROD1, Group: XXXXX, ID# XXXXXXX, Questions: . THIS IS NOT INSURANCE.] triamterene 37.5 mg- hydrochlorothiazide 25 mg tablet RxNorm: 852243 1 Tablet(s) PO daily 12/02/2014 03/29/2015 Inactive [SAVINGS FOR NON-COVERED DR UGS -- BIN:[id number], PCN: ASPROD1, Group: XXXXX, ID# XXXXXXX, Questions: . THIS IS NOT INSURANCE.] metformin 500 mg tablet RxNorm: 566532 1 Tablet(s) PO BID TAKE 1 TABLET BY MOUT H TWICE DAILY 10/29/2014 06/25/2015 Inactive Generic For:GLUCOPHAGE 500M G 10/29/2014 9:02:36 AM metformin 500 mg tablet RxNorm: 357396 1 Tablet(s) PO BID 10/29/2014 10/29/2014 Inactive Lipitor 10 mg tablet RxNorm: 492138 1 Tablet(s) PO daily 10/27/2014 10/26/2014 Inactive Lipitor 10 mg tablet RxNorm: 997786 1 Tablet(s) PO daily 10/27/2014 02/23/2015 Inactive omeprazole 40 mg cap betty,delayed release RxNorm: 393595 1 Capsule(s) PO 09/02/2014 12/30/2014 In active [SAVINGS FOR NON-COVERED DRUGS -- BIN: 3585, PCN: ASPROD1, Group: XXXXX, ID# XXXXXXX, Questions: . THIS IS NOT INSURANCE.] omeprazole 40 mg cap betty,delayed release RxNorm: 922261 1 Capsule(s) PO 09/02/2014 09/01/2014 In active triamterene 37.5 mg- hydrochlorothiazide 25 mg tablet RxNorm: 632770 1 Tablet(s) PO daily 08/27/2014 08/26/2014 Inactive triamterene 37.5 mg- hydrochlorothiazide 25 mg tablet RxNorm: 306911 1 Tablet(s) PO daily 08/27/2014 12/01/2014 Inactive [SAVINGS FOR NON-COVERED DR BARRIENTOS -- BIN:[id number], PCN: ASPROD1, Group: XXXXX, ID# [id number], Questions: . THIS IS NOT INSURANCE.] Multi Vitamin oral RxNorm: oral No Start Date Active Aspirin Low Dose 81 mg tablet,delayed release RxNorm: 264370 1 Tablet(s) PO daily No Start Date Active estradiol 2 mg tablet RxNorm: 442368 1 Tablet(s) PO daily No Start Date Active Vitamin D (with calc ium) oral RxNorm: 2418 oral No Sta rt Date Active medroxyprogesterone 5 mg tablet RxNorm: 3169406 1 Tablet(s) PO daily No Start Date Active meloxicam 15 mg tablet RxNorm: 553236 1 Tablet(s) PO daily No Start Date 02/06/2018 Inactive metformin 500 mg tablet RxNorm: 557582 1 Tablet(s) PO daily No Start Date 10/28/2014 Inactive Osteo Bi-Flex oral RxNorm: 1896933 oral No Start Date 02/15/2017 Inactive levothyroxine 50 mcg tablet RxNorm: 664902 1 Tablet(s) PO daily No Start Date 02/25/2015 Inactive Medication Administered Medication Codes Instruc tions Start Date Status Kenalog 40 mg/mL suspension for injection RxNorm: 0379653 Milliliter 12/25/2018 No longer Active Immunizations Vaccine [...] Item Item Code Result Date Comp Metabolic Hxy623 NA 139 mEq/L 11/16/2018 Comp Metabolic Mhb068 K 3.9 mEq/L 11/16/2018 Comp Metabolic Eit827 CL 103 mEq/L 11/16/2018 Comp Metabolic Rtu078 CO2 27.0 mEq/L 11/16/2018 Comp Metabolic Swh736 AN ION GAP 13 11/16/2018 Comp Metabolic Mfb486 GL UCOSE 107 mg/dL 11/16/2018 Comp Metabolic Fgb493 Cr eat 1.0 mg/dL 11/16/2018 Comp Metabolic Evh144 eG FR 56 ml/min/1.73m2 11/16 Comp Metabolic Wok962 BUN 18 mg/dL 11/16/2018 Comp Metabolic Ipj848 B/ C Ratio 17.3 Ratio 11/16/2018 Comp Metabolic Rjz005 CA LCIUM 9.6 mg/dL 11/16/2018 Comp Metabolic Yvy580 AL K PHOS 75 U/L 11/16/2018 Comp Metabolic Pue785 T(SGOT) 16 U/L 11/16/2018 Comp Metabolic Fvu713 AL T(SGPT) 16 U/L 11/16/2018 Comp Metabolic Tgf528 BI LI T 0.6 mg/dL 11/16/2018 Comp Metabolic Svb709 AL BUMIN 4.1 g/dL 11/16/2018 Comp Metabolic Npf462 TP RO 6.5 g/dL 11/16/2018 Comp Metabolic Xqc863 GL OB 2.4 g/dL 11/16/2018 Comp Metabolic Wdt562 A/ G Ratio 1.7 Ratio 11/16/2018 Comp Metabolic Heb162 Os mo 280 mOsmo 11/16/2018 %Hba1C Hjk628 % HbA1c 93654-6 6.5 % 11/16/2018 %Hba1C Wiv429 Gluc Ave 140 mg/dL 11/16/2018 Free T4 Cja750 FREE T4 1.09 ng/dL 05/18/2018 Lipid Ord30 [...] 31.2 pg 05/18/2018 Cbc With Differential Ord2 [place]% 9.2 % 05/18/2018 Cbc With Differential Ord2 [...] 2.00 K/ul 05/18/2018 Cbc With Differential Ord2 [place] ABS# 0.6 K/ul 05/18/2018 Cbc With Differential Ord2 Eos ABS# 0.2 K/ul 05/18/2018 Cbc With Differential Ord2 Baso ABS# 0.0 K/ul 05/18/2018 %Hba1C Xis259 % HbA1c 58184-5 6.1 % 05/18/2018 %Hba1C Tbf715 Gluc Ave 128 mg/dL 05/18/2018 Comp Metabolic Zsv311 NA 139 mEq/L 05/18/2018 Comp Metabolic Tub175 K 3.8 mEq/L 05/18/2018 Comp Metabolic Lkd751 CL 100 mEq/L 05/18/2018 Comp Metabolic Odp141 CO2 29.0 mEq/L 05/18/2018 Comp Metabolic Lua800 AN ION GAP 14 05/18/2018 Comp Metabolic Knz952 GL UCOSE 100 mg/dL 05/18/2018 Comp Metabolic Psw994 Cr eat 1.2 mg/dL 05/18/2018 Comp Metabolic Dqa029 eG FR 49 ml/min/1.73m2 05/18 Comp Metabolic Bdz107 BUN 17 mg/dL 05/18/2018 Comp Metabolic Hty501 B/ C Ratio 14.5 Ratio 05/18/2018 Comp Metabolic Kpy391 CA LCIUM 10.0 mg/dL 05/18/2018 Comp Metabolic Fwc448 AL K PHOS 75 U/L 05/18/2018 Comp Metabolic Nck042 T(SGOT) 16 U/L 05/18/2018 Comp Metabolic Han688 AL T(SGPT) 15 U/L 05/18/2018 Comp Metabolic Nhl809 BI LI T 0.7 mg/dL 05/18/2018 Comp Metabolic Ppe851 AL BUMIN 4.4 g/dL 05/18/2018 Comp Metabolic Kpk777 TP RO 6.8 g/dL 05/18/2018 Comp Metabolic Lsy092 GL OB 2.4 g/dL 05/18/2018 Comp Metabolic Kar474 A/ G Ratio 1.8 Ratio 05/18/2018 Comp Metabolic Krx084 Os mo 279 mOsmo 05/18/2018 Comp Metabolic Gmf073 NA 138 mEq/L 09/14/2017 Comp Metabolic Mzg465 K 3.8 mEq/L 09/14/2017 Comp Metabolic Bqv200 CL 101 mEq/L 09/14/2017 Comp Metabolic Pcv561 CO2 26.0 mEq/L 09/14/2017 Comp Metabolic Fbb582 AN ION GAP 15 09/14/2017 Comp Metabolic Ecb907 GL UCOSE 120 mg/dL 09/14/2017 Comp Metabolic Rhd336 Cr eat 1.0 mg/dL 09/14/2017 Comp Metabolic Ixk120 eG FR 61 ml/min/1.73m2 09/14 Comp Metabolic Vdv068 BUN 18 mg/dL 09/14/2017 Comp Metabolic Xwt074 B/ C Ratio 18.6 Ratio 09/14/2017 Comp Metabolic Tex529 CA LCIUM 9.7 mg/dL 09/14/2017 Comp Metabolic Hvi194 AL K PHOS 63 U/L 09/14/2017 Comp Metabolic Zpo049 T(SGOT) 18 U/L 09/14/2017 Comp Metabolic Vhs981 AL T(SGPT) 20 U/L 09/14/2017 Comp Metabolic Wbs571 BI LI T 0.5 mg/dL 09/14/2017 Comp Metabolic Xhj688 AL BUMIN 4.3 g/dL 09/14/2017 Comp Metabolic Bha289 TP RO 6.7 g/dL 09/14/2017 Comp Metabolic Wbu409 GL OB 2.4 g/dL 09/14/2017 Comp Metabolic Nph301 A/ G Ratio 1.8 Ratio 09/14/2017 Comp Metabolic Qyd408 Os mo 279 mOsmo 09/14/2017 Lipid Ord30 CHOL 180 mg/dL 09/14/2017 Lipid Ord30 HDL 53.0 mg/dl 09/14/2017 Lipid Ord30 TRIG 126 mg/dL 09/14/2017 Lipid Ord30 LDL 102 mg/dL 09/14/2017 Lipid Ord30 C/HDL 3.4 Ratio 09/14/2017 Microalbumin Fzi373 Micr oAlb <0.7 mg/dL 09/14/2017 %Hba1C Ipw887 % HbA1c 04315-0 6.0 % 09/14/2017 %Hba1C Yof699 Gluc Ave 126 mg/dL 09/14/2017 Free T4 Yjm678 FREE T4 0.98 ng/dL 09/14/2017 Cbc With [...] 31.3 pg 09/14/2017 Cbc With Differential Ord2 [place]% 9.4 % 09/14/2017 Cbc With Differential Ord2 [...] 1.94 K/ul 09/14/2017 Cbc With Differential Ord2 [place] ABS# 0.7 K/ul 09/14/2017 Cbc With Differential Ord2 Eos ABS# 0.2 K/ul 09/14/2017 Cbc With Differential Ord2 Baso ABS# 0.0 K/ul 09/14/2017 Tsh Ord6 TSH (3rd IS) 2.64 uIU/mL 09/14/2017 Comp Metabolic Fsu067 NA 138 mEq/L 05/23/2016 Comp Metabolic Vxz249 K 4.0 mEq/L 05/23/2016 Comp Metabolic Iqp449 CL 105 mEq/L 05/23/2016 Comp Metabolic Kgn445 CO2 25.0 mEq/L 05/23/2016 Comp Metabolic Mmc028 AN ION GAP 12 05/23/2016 Comp Metabolic Iqh084 GL UCOSE 89 mg/dL 05/23/2016 Comp Metabolic Icb850 Cr eat 1.0 mg/dL 05/23/2016 Comp Metabolic Igz085 eG FR 63 ml/min/1.73m2 05/23 Comp Metabolic Vly070 BUN 18 mg/dL 05/23/2016 Comp Metabolic Gxb603 B/ C Ratio 18.9 Ratio 05/23/2016 Comp Metabolic Mjo865 CA LCIUM 9.1 mg/dL 05/23/2016 Comp Metabolic Rja663 AL K PHOS 67 U/L 05/23/2016 Comp Metabolic Nop333 T(SGOT) 26 U/L 05/23/2016 Comp Metabolic Fdy595 AL T(SGPT) 39 U/L 05/23/2016 Comp Metabolic Hqx346 BI LI T 0.5 mg/dL 05/23/2016 Comp Metabolic Gcm919 AL BUMIN 3.9 g/dL 05/23/2016 Comp Metabolic Xlj212 TP RO 5.9 g/dL 05/23/2016 Comp Metabolic Mmw138 GL OB 2.0 g/dL 05/23/2016 Comp Metabolic Lcd046 A/ G Ratio 2.0 Ratio 05/23/2016 Comp Metabolic Rhs658 Os mo 277 mOsmo 05/23/2016 Cbc With [...] 30.5 pg 05/23/2016 Cbc With Differential Ord2 [place]% 10.0 % 05/23/2016 Cbc With Differential Ord2 [...] 1.68 K/ul 05/23/2016 Cbc With Differential Ord2 [place] ABS# 0.7 K/ul 05/23/2016 Cbc With Differential Ord2 Eos ABS# 0.1 K/ul 05/23/2016 Cbc With Differential Ord2 Baso ABS# 0.0 K/ul 05/23/2016 B Type Natriuretic Peptide Mdn5611 B-RACE STEWARD 340.00 pg/ml 7 Lipid Ord30 CHOL 117 [...] 31.8 pg 07/07/2015 Cbc With Differential Ord2 [place]% 11.3 % 07/07/2015 Cbc With Differential Ord2 [...] 1.53 K/ul 07/07/2015 Cbc With Differential Ord2 [place] ABS# 0.6 K/ul 07/07/2015 Cbc With Differential Ord2 Eos ABS# 0.2 K/ul 07/07/2015 Cbc With Differential Ord2 Baso ABS# 0.0 K/ul 07/07/2015 Cbc With Differential Ord2 New Analyzer Notice Please note new ref ranges s tarting 05-13-2015 due to implemntation of new five part differential hematolgy analyzer. 07/07/2015 Free T4 Vne120 FREE T4 1.17 ng/dL 07/07/2015 Comp Metabolic Eyv750 NA 137 mEq/L 07/07/2015 Comp Metabolic Kcf299 K 4.0 mEq/L 07/07/2015 Comp Metabolic Lgr974 CL 100 mEq/L 07/07/2015 Comp Metabolic Qcr093 CO2 29.0 mEq/L 07/07/2015 Comp Metabolic Doh344 AN ION GAP 12 07/07/2015 Comp Metabolic Bxv040 GL UCOSE 98 mg/dL 07/07/2015 Comp Metabolic Qyf020 Cr eat 1.0 mg/dL 07/07/2015 Comp Metabolic Mci883 eG FR 62 ml/min/1.73m2 07/06 Comp Metabolic Ahh080 BUN 16 mg/dL 07/07/2015 Comp Metabolic Iah158 B/ C Ratio 16.5 Ratio 07/07/2015 Comp Metabolic Jlf753 CA LCIUM 9.5 mg/dL 07/07/2015 Comp Metabolic Sze653 AL K PHOS 47 U/L 07/07/2015 Comp Metabolic Hbi813 T(SGOT) 18 U/L 07/07/2015 Comp Metabolic Xmp394 AL T(SGPT) 22 U/L 07/07/2015 Comp Metabolic Hdw430 BI LI T 0.5 mg/dL 07/07/2015 Comp Metabolic Edf519 AL BUMIN 4.2 g/dL 07/07/2015 Comp Metabolic Qrw116 TP RO 6.5 g/dL 07/07/2015 Comp Metabolic Hcm549 GL OB 2.3 g/dL 07/07/2015 Comp Metabolic Slz760 A/ G Ratio 1.8 Ratio 07/07/2015 Comp Metabolic Fej523 Os mo 275 mOsmo 07/07/2015 %Hba1C Mlk954 % HbA1c 59656-6 5.7 % 07/07/2015 %Hba1C Qjd640 Gluc Ave 117 mg/dL 07/07/2015 Tsh Ord6 [...] accomodation 11/16/2018 None Full Exam - General 1994 Ears/Nose/Throat otoscopic exam Overall: external auditory canals clear 11/16/2018 None Full Exam - General 1994 Ears/Nose/Throat otoscopic exam Overall: tympanic membranes clear 11/16/2018 None Full Exam - General 1994 Ears/Nose/Throat lips/teeth/gingiva Overall: benign lips 11/16/2018 None Full Exam - General 1995 Ears/Nose/Throat lips/teeth/gingiva Overall: normal dentition 11/16/2018 None Full Exam - General 1994 [...] 1: 134/72 Code: 8480-6 BMI: 35.1 Code: 16644-1 Heart Rate 1: 72 bpm Height: 5'3" SpO2: 98% Weight: 198 lbs 11/16/2018 Blood Pressure 1: 106/60 Code: 8480-6 BMI: 34.7 Code: 57100-7 Heart Rate 1: 65 bpm Height: 5'3" SpO2: 99% Weight: 196 lbs 05/18/2018 Blood Pressure 1: 128/76 Code: 8480-6 BMI: 34.4 Code: 07533-2 Heart Rate 1: 67 bpm Height: 5'3" SpO2: 97% Temperature: 37.0 (C ) / 98.6 (F) Weight: 194 lbs 09/13/2017 Blood Pressure 1: 140/78 Code: 8480-6 BMI: 35.4 Code: 27253-2 Heart Rate 1: 71 bpm Height: 5'3" SpO2: 97% Weight: 200 lbs 02/16/2017 Blood Pressure 1: 138/76 Code: 8480-6 BMI: 34.4 Code: 78182-4 Heart Rate 1: 66 bpm Height: 5'3" SpO2: 99% Weight: 194 lbs 09/08/2016 Blood Pressure 1: 138/86 Code: 8480-6 BMI: 32.2 Code: 12358-5 Heart Rate 1: 69 bpm Height: 5'3" SpO2: 99% Weight: 182 lbs 05/23/2016 Blood Pressure 1: 126/70 Code: 8480-6 BMI: 30.8 Code: 40488-0 Heart Rate 1: 63 bpm Height: 5'3" SpO2: 98% Weight: 174 lbs 01/12/2016 Blood Pressure 1: 140/72 Code: 8480-6 BMI: 29.8 Code: 04876-9 Heart Rate 1: 82 bpm Height: 5'3" SpO2: 97% Weight: 168 lbs 12/14/2015 Blood Pressure 1: 132/78 Code: 8480-6 BMI: 31.5 Code: 95847-5 Heart Rate 1: 71 bpm Height: 5'3" SpO2: 98% Weight: 178 lbs 07/09/2015 Blood Pressure 1: 128/80 Code: 8480-6 BMI: 30.6 Code: 39301-5 Heart Rate 1: 71 bpm Height: 5'3" SpO2: 99% Weight: 173 lbs 10/09/2014 Blood Pressure 1: 120/70 Code: 8480-6 BMI: 29.1 Code: 47499-9 Heart Rate 1: 68 bpm Height: 5'3" [...] ill contacts 05/18/2018 None hypertension Quality elvi naik hypertension 09/13/2017 None hypertension Onset and Resolution [...] mellitus Quality chronic 09/13/2017 None hypothyroid Quality director of cath lab marie 09/13/2017 None diabetes mellitus Glucose monitoring occasional glucose testing 09/13/2017 (once or twice a week) diabetes mellitus Test results Pt checking blood glucose readings, did not bring results to clinic 09/13/2017 None hypertension Quality elvi naik hypertension 02/16/2017 None hypertension Onset and Resolution [...] Encounters Encounter Performer Loca tion Codes Date ([id number]) [id number] EST. P ATIENT, LEVEL III Diagnosis: Acute recurrent maxillary sinusitis[ICD10: J01.01] Diagnosis: Cough[ICD10: R05] Asha Ballard MD, [facility] CPT-4: 85619 12/25/2018 ([id number]) [id number] EST. P ATIENT, LEVEL IV Diagnosis: Type 2 diabetes mellitus without complications[ICD10: E11.9] Diagnosis: Essential (primary) hypertension[ICD10: I10] Diagnosis: Other allergic rhinitis[ICD10: J30.89] Asha Ballard MD, [facility] CPT-4: 17309 11/16/2018 ([id number]) [id number] EST. P ATIENT, LEVEL IV Diagnosis: Essential (primary) hypertension[ICD10: I10] Diagnosis: Acute upper respiratory infection, unspecified[ICD10: J06.9] Diagnosis: Mixed hyperlipidemia[ICD10: E78.2] Diagnosis: Hypothyroidism, unspecified[ICD10: E03.9] Diagnosis: Type 2 diabetes mellitus without complications[ICD10: E11.9] Asha Ballard MD, [facility] CPT-4: 63015 05/18/2018 ([id number]) 66319 EST. P ATIENT, LEVEL IV Diagnosis: Type 2 diabetes mellitus without complications[ICD10: E11.9] Diagnosis: Essential (primary) hypertension[ICD10: I10] Diagnosis: Other obesity due to excess calories[ICD10: E66.09] Katty Ballard MD, [facility] CPT-4: 89978 09/13/2017 ([id number]) 05883 EST. P ATIENT, LEVEL IV Diagnosis: Type 2 diabetes mellitus without complications[ICD10: E11.9] Diagnosis: Essential (primary) hypertension[ICD10: I10] Diagnosis: Other acute sinusitis[ICD10: J01.80] Diagnosis: Other obesity due to excess calories[ICD10: E66.09] Asha Ballard MD, [facility] CPT-4: 15484 02/16/2017 ([id number]) 05670 EST. P ATIENT, LEVEL IV Diagnosis: Type 2 diabetes mellitus without complications[ICD10: E11.9] Diagnosis: Essential (primary) hypertension[ICD10: I10] Diagnosis: Pain in right knee[ICD10: M25.561] Diagnosis: Pain in left knee[ICD10: M25.562] Katty Ballard MD, [facility] CPT-4: 78158 09/08/2016 74487 EST. PATIENT, LEVEL IV Diagnosis: Localized edema[ICD10: R60.0] Diagnosis: Shortness of breath[ICD10: R06.02] Salma Ballard MD, [facility] CPT-4: 63709 05/23/2016 ([id number]) 44848 EST. P ATIENT, LEVEL IV Diagnosis: Type 2 diabetes mellitus without complications[ICD10: E11.9] Diagnosis: Essential (primary) hypertension[ICD10: I10] Diagnosis: Chronic idiopathic constipation[ICD10: K59.04] Katty Ballard MD, [facility] CPT-4: 28616 01/12/2016 80111 EST. PATIENT, LEVEL IV Diagnosis: Other acute sinusitis[ICD10: J01.80] Diagnosis: Other allergic rhinitis[ICD10: J30.89] Salma Ballard MD, [facility] CPT-4: 67039 12/14/2015 ([id number]) 76027 EST. P ATIENT, LEVEL IV Diagnosis: Essential (primary) hypertension[ICD10: I10] Diagnosis: Type 2 diabetes mellitus without complications[ICD10: E11.9] Diagnosis: Pain in right knee[ICD10: M25.561] Diagnosis: Pain in left knee[ICD10: M25.562] Asha Ballard MD, [facility] CPT- 4: 71195 07/09/2015 ([id number]) [facility], [facility] - LEVEL 4 Diagnosis: ESSENTIAL HYPERTENSION[ICD9: 401.9] Diagnosis: DIABETES TYPE II[ICD9: 250.00] Diagnosis: HYPERLIPIDEMIA[ICD9: 272.4] Diagnosis: HYPOTHYROIDISM[ICD9: 244.9] [facility] CPT-4: 63861 10/09/2014 Plan of Care Planned Activity Notes C odes Status Date Visit Plan: Sinusitis - Pt has acut e infection - pain in face, maxillary region, Pt informed to use decongestant, RX given to patient, sinus rinses also recommended. Call if symptoms do not show improvement. 12/25/2018 Appointment: Asha Bernstein WPtel: [facility]5 [facility] [place] [address] (30 min) Complex 12/25/2018 Patient Education: Patient [...] allergy spray. 11/16/2018 Appointment: Asha Bernstein WPtel: [facility]5 [phone] (30 min) Complex 11/16/2018 Patient Education: Patient [...] - she would like a referral to [facility] for diabetic education. Knee pain - post operative still with swelling - continue with current management. 09/13/2017 [facility]ment[phone] (15 min) Moderate 09/13/2017 Patient Education: Patient [...] weight check. 02/16/2017 [phone] [place] (15 min) Moderate 02/16/2017 Patient Education: [...] to pharmacy 09/08/2016 Appointment: Katty Ballard WPtel: [facility]5 [facility] (15 min) Moderate 09/08/2016 Patient Education: Patient [...] peripheral edema. 05/23/2016 Appointment: Salma Garay WPtel: [facility]5 [facility] (30 min) Complex 05/23/2016 Patient Education: Patient Medication Summary Completed 05/23/2016 Patient Education: Obesity Completed 05/23/2016 Appointment: Katty Ballard WPtel: [facility] (15 min) Moderate 01/13/2016 Visit Plan: Hypertension [...] Hypertension Completed 07/09/2015 Visit Plan: Hypertension - well con trolled [...] not improving. 10/09/2014 Appointment: Katty Ballard WPtel: [phone] [place] ([place] New Patient 10/09/2014 Patient Education: Patient Medication Summary Completed 10/09/2014 Patient Education: Hypertension Completed 10/09/2014 Care Plan: MICROALBUMIN QUANTITATIVE LOINC : 23971-1 Ordered 10/09/2014 Care Plan: COMPLETE CBC AUTOMATED LOINC : 02777-8 Ordered 10/09/2014 Instructions Comment . Sinusitis - [...] - she would like a referral to [facility] for diabetic education. Knee pain - post [...]
--- OUTSIDE RECORDS SUMMARY | 2019-12-03 12:39 | XMS REPORT | CCD ---
Author Author Danni Ballard Organization Katty Ballard MD, [facility] Address [address] [place] [address] Phone Care Team Providers Care Rn Trauma Name Role Phone PP Unavailable CCM Unavailable Summary Purpose Interface Exchange Insurance Providers Payer name Policy type / Coverage type Covered green party ID Effective Begin Date Effective End Date WPS Medicare Part B Medicare Part B [id number] 2018 Unknown [employer] Medicare Part B [id number] Unknown Family history Father Diagnosis Age At Onset Cancer Unknown Mother Diagnosis Age At Onset Diabetes mellitus Type 2 Unknown Stroke Unknown Hypertension Unknown Arthritis Unknown Osteoporosis Unknown kidney disease Unknown Coronary Artery Disease Unknown Social History Social History Element Codes Description Effective Dates Marital status Unknown M chiki Peter 10/09/2014 Number of children Unknown 2 10/09/[address]: 8322389 Quit over 10 years ago 10/09/[address]: 188019320 Never drinks alcohol 10/09/2014 Allergies, Adverse Reactions, [...] 37.5 mg- hydrochlorothiazide 25 mg tablet RxNorm: 808088 TAKE 1 TABLET BY MOUTH ONCE DAILY 01/03/2019 07/01/2019 Active 01/03/2019 12:46:39 PM Lipitor 10 mg tablet RxNorm: 169178 TAKE 1 TABLET BY MOUTH DAILY 01/03/2019 11/28/2019 Active Generic For:LIPITOR 10MG 01/03/2019 12: 46:19 PM Kenalog 40 mg/mL reese pension for injection RxNorm: 9381215 Milliliter(s) Inj 12/25/2018 12/25/2018 In active doxycycline hyclate 100 mg tablet RxNorm: 6401487 1 Tablet(s) PO BID 12/25/2018 12/31/2018 Inactive meloxicam 15 mg tablet RxNorm: 681914 TAKE 1 TABLET BY MOUTH ONCE DAILY 07/09/2018 01/04/2019 Ac tive Generic For:MOBIC 15MG 07/07/2018 11:11 :46 AM levothyroxine 50 mcg tablet RxNorm: 663681 TAKE 1 TABLET BY MOUT H DAILY 07/09/2018 01/04/2019 Ac tive Generic For:SYNTHROID 50MCG TAB 019 11:12:00 AM omeprazole 40 mg cap betty,delayed release RxNorm: 583045 TAKE 1 CAPSULE BY MACKENZIE TH DAILY 07/09/2018 01/04/2019 Ac tive Generic For:PRILOSEC 40MG 07/07/2018 11 :11:38 AM triamterene 37.5 mg- hydrochlorothiazide 25 mg tablet RxNorm: 479043 TAKE 1 TABLET BY MOUTH ONCE DAILY 07/09/2018 01/02/2019 Inactive 07/07/2018 11:12:05 AM Lipitor 10 mg tablet RxNorm: 727365 TAKE 1 TABLET BY MOUTH DAILY 07/09/2018 01/02/2019 Inactive Generic For:LIPITOR 10MG 07/07/2018 11: 12:19 AM Zithromax Z-Taj 250 mg tablet RxNorm: 323624 1 Tablet(s) PO UD 05/18/2018 05/22/2018 Inactive metformin 500 mg tablet RxNorm: 881831 TAKE 1 TABLET BY MOUTH ONCE DAILY 02/07/2018 05/21/2018 In active Generic For:GLUCOPHAGE 500MG 02/07/2018 9:07:34 AM levothyroxine 50 mcg tablet RxNorm: 187631 TAKE 1 TABLET BY MOUT H DAILY 02/07/2018 06/06/2018 In active Generic For:SYNTHROID 50MCG TAB 018 9:07:42 AM meloxicam 15 mg tablet RxNorm: 460705 TAKE 1 TABLET BY MOUTH ONCE DAILY 02/07/2018 07/06/2018 In active Generic For:MOBIC 15MG 02/07/2018 9:07: 30 AM omeprazole 40 mg cap betty,delayed release RxNorm: 400113 TAKE 1 CAPSULE BY MACKENZIE TH DAILY 02/07/2018 07/06/2018 Inactive Generic For:PRILOSEC 40MG 02/07/2018 9: 07:37 AM Lipitor 10 mg tablet RxNorm: 055204 TAKE 1 TABLET BY MOUTH DAILY 11/09/2017 06/06/2018 Inactive Generic For:LIPITOR 10MG 11/09/2017 9:0 1:12 AM triamterene 37.5 mg- hydrochlorothiazide 25 mg tablet RxNorm: 864435 TAKE 1 TABLET BY MOUTH ONCE DAILY 11/09/2017 06/06/2018 Inactive 11/09/2017 9:01:09 AM levothyroxine 50 mcg tablet RxNorm: 405234 TAKE 1 TABLET BY MOUT H DAILY 10/10/2017 02/06/2018 In active Generic For:SYNTHROID 50MCG TAB 018 8:57:50 AM omeprazole 40 mg cap betty,delayed release RxNorm: 253711 TAKE 1 CAPSULE BY MACKENZIE TH DAILY 10/10/2017 02/06/2018 Inactive Generic For:PRILOSEC 40MG 10/10/2017 8: 57:46 AM Voltaren 1 % topical gel RxNorm: 454759 4 Gram(s) TOP QID - a pply 4 times daily to bilateral knees 09/13/2017 11/11/2017 Inactive levothyroxine 50 mcg tablet RxNorm: 839615 TAKE 1 TABLET BY MOUT H DAILY 09/11/2017 10/09/2017 In active Generic For:SYNTHROID 50MCG TAB 018 9:04:26 AM metformin 500 mg tablet RxNorm: 896186 TAKE 1 TABLET BY MOUTH ONCE DAILY 08/11/2017 02/06/2018 In active Generic For:GLUCOPHAGE 500MG 08/11/2017 8:56:05 AM meloxicam 15 mg tablet RxNorm: 102180 TAKE 1 TABLET BY MOUTH ONCE DAILY 08/11/2017 02/06/2018 In active Generic For:MOBIC 15MG 08/11/2017 8:56: 02 AM omeprazole 40 mg cap betty,delayed release RxNorm: 322243 TAKE 1 CAPSULE BY MACKENZIE TH DAILY 06/12/2017 10/09/2017 Inactive Generic For:PRILOSEC 40MG 06/12/2017 8: 56:49 AM Lipitor 10 mg tablet RxNorm: 341132 TAKE 1 TABLET BY MOUTH DAILY 2017 11/08/2017 Inactive Generic For:LIPITOR 10MG 2017 9:0 4:16 AM triamterene 37.5 mg- hydrochlorothiazide 25 mg tablet RxNorm: 100016 TAKE 1 TABLET BY MOUTH ONCE DAILY 2017 04/12/2017 Inactive 2017 9:04:19 AM triamterene 37.5 mg- hydrochlorothiazide 25 mg tablet RxNorm: 200352 TAKE 1 TABLET BY MOUTH ONCE DAILY 2017 10/09/2017 Inactive 2017 9:04:19 AM metformin 500 mg tablet RxNorm: 133980 TAKE 1 TABLET BY MOUTH ONCE DAILY 03/14/2017 08/10/2017 In active Generic For:GLUCOPHAGE 500MG 03/14/2017 9:16:18 AM levothyroxine 50 mcg tablet RxNorm: 120628 TAKE 1 TABLET BY MOUT H DAILY 03/14/2017 09/09/2017 In active Generic For:SYNTHROID 50MCG TAB 017 9:16:23 AM Zithromax Z-Taj 250 mg tablet RxNorm: 579910 1 Tablet(s) PO daily 02/16/2017 02/20/2017 Inactive omeprazole 40 mg cap betty,delayed release RxNorm: 460775 TAKE 1 CAPSULE BY MACKENZIE TH DAILY 02/13/2017 06/11/2017 Inactive Generic For:PRILOSEC 40MG 02/13/2017 8: 55:14 AM meloxicam 15 mg tablet RxNorm: 847832 TAKE 1 TABLET BY MOUTH ONCE DAILY 02/13/2017 08/10/2017 In active Generic For:MOBIC 15MG 02/13/2017 8:55: 10 AM levothyroxine 50 mcg tablet RxNorm: 280336 TAKE 1 TABLET BY MOUT H DAILY-- NEED TO GET LABS CHECKED FOR FURTHER REFILLS 01/05/2017 03/05/2017 Inactive Generic For:SYNTHROID 50MCG TAB 01/05/2017 4:36:06 PM levothyroxine 50 mcg tablet RxNorm: 002088 TAKE 1 TABLET BY MOUT H DAILY 12/14/2016 01/04/2017 In active Generic For:SYNTHROID 50MCG TAB 017 9:02:20 AM triamterene 37.5 mg- hydrochlorothiazide 25 mg tablet RxNorm: 118919 TAKE 1 TABLET BY MOUTH ONCE DAILY 11/14/2016 04/12/2017 Inactive 11/14/2016 9:13:26 AM metformin 500 mg tablet RxNorm: 504902 1 Tablet(s) PO daily 10/17/2016 03/13/2017 Inactive Generic For:GLUCOPHAGE 500MG 10/29/2014 9:02:36 AM omeprazole 40 mg cap betty,delayed release RxNorm: 345666 TAKE 1 CAPSULE BY MACKENZIE TH DAILY 10/17/2016 02/12/2017 Inactive Generic For:PRILOSEC 40MG 10/15/2016 8: 56:40 AM meloxicam 15 mg tablet RxNorm: 584402 1 Tablet(s) PO daily TAKE 1 TABLET BY MO UTH ONCE DAILY 09/19/2016 02/12/2017 Inactive Generic For:MOBIC 15MG 9:09:45 AM levothyroxine 50 mcg tablet RxNorm: 600532 TAKE 1 TABLET BY MOUT H DAILY 09/16/2016 12/13/2016 In active Generic For:SYNTHROID 50MCG TAB 017 10:22:07 AM 09/15/2016 9:01:47 AM Lipitor 10 mg tablet RxNorm: 540279 TAKE 1 TABLET BY MOUTH DAILY 09/16/2016 04/12/2017 Inactive Generic For:LIPITOR 10MG 09/16/2016 10: 22:13 AM 09/15/2016 9:01:42 AM KeepsafeTouch Ultra Test strips RxNorm: 1 Miscellaneous daily 09/08/2016 09/02/2017 Inactive Voltaren 1 % topical gel RxNorm: 328031 2 Gram(s) TOP QID 09/08/2016 11/06/2016 Inactive meloxicam 15 mg tablet RxNorm: 056542 TAKE 1 TABLET BY MOUTH ONCE DAILY 08/16/2016 09/18/2016 In active Generic For:MOBIC 15MG 08/16/2016 9:09: 45 AM triamterene 37.5 mg- hydrochlorothiazide 25 mg tablet RxNorm: 373048 TAKE 1 TABLET BY MOUTH ONCE DAILY 07/18/2016 11/13/2016 Inactive 07/18/2016 8:57:50 AM omeprazole 40 mg cap betty,delayed release RxNorm: 681451 TAKE 1 CAPSULE BY MACKENZIE TH DAILY 06/17/2016 10/14/2016 Inactive Generic For:PRILOSEC 40MG 06/17/2016 9: 30:36 AM levothyroxine 50 mcg tablet RxNorm: 016452 TAKE 1 TABLET BY MOUT H DAILY 06/17/2016 09/14/2016 In active Generic For:SYNTHROID 50MCG TAB 017 9:10:49 AM metformin 500 mg tablet RxNorm: 631084 1 Tablet(s) PO daily 05/24/2016 10/16/2016 Inactive Generic For:GLUCOPHAGE 500MG 10/29/2014 9:02:36 AM Lasix 20 mg tablet RxNorm: 302001 1 Tablet(s) PO daily 05/24/2016 05/26/2016 Inactive metformin 500 mg tablet RxNorm: 336407 1 Tablet(s) PO daily 05/23/2016 05/23/2016 Inactive Generic For:GLUCOPHAGE 500MG 10/29/2014 9:02:36 AM Lasix 20 mg tablet RxNorm: 019806 1 Tablet(s) PO daily 05/23/2016 05/23/2016 Inactive potassium chloride E R 10 mEq tablet,extended release RxNorm: 129456 1 Tablet(s) PO daily 05/23/2016 05/25/2016 Inactive meloxicam 15 mg tablet RxNorm: 464743 1 Tablet(s) PO daily 04/18/2016 08/15/2016 Inactive Lipitor 10 mg tablet RxNorm: 329306 TAKE 1 TABLET BY MOUTH DAILY 04/18/2016 08/15/2016 Inactive Generic For:LIPITOR 10MG 04/18/2016 9:1 5:59 AM triamterene 37.5 mg- hydrochlorothiazide 25 mg tablet RxNorm: 506221 TAKE 1 TABLET BY MOUTH ONCE DAILY 03/21/2016 07/17/2016 Inactive 03/19/2016 9:02:10 AM levothyroxine 50 mcg tablet RxNorm: 351481 TAKE 1 TABLET BY MOUT H DAILY 02/18/2016 06/16/2016 In active Generic For:SYNTHROID 50MCG TAB 016 9:03:15 AM omeprazole 40 mg cap betty,delayed release RxNorm: 508077 TAKE 1 CAPSULE BY MACKENZIE TH DAILY 02/18/2016 06/16/2016 Inactive Generic For:PRILOSEC 40MG 02/18/2016 9: 03:12 AM Movantik 25 mg tablet RxNorm: 6620307 1 Tablet(s) PO QAM with breakfast or sean ch 01/12/2016 09/07/2016 In active Flonase Allergy Reli ef 50 mcg/actuation nasal spray,suspension RxNorm: 1484210 1 [place] NASAL BID 12/14/2015 09/07/2016 Inactive Zithromax Z-Taj 250 mg tablet RxNorm: 169894 Tablet(s) PO UD 12/14/2015 01/11/2016 Inactive Lipitor 10 mg tablet RxNorm: 099365 TAKE 1 TABLET BY MOUTH DAILY 11/20/2015 04/17/2016 Inactive Generic For:LIPITOR 10MG 11/20/2015 9:1 1:10 AM triamterene 37.5 mg- hydrochlorothiazide 25 mg tablet RxNorm: 066138 TAKE 1 TABLET BY MOUTH ONCE DAILY 11/19/2015 03/17/2016 Inactive 11/18/2015 9:06:12 AM meloxicam 15 mg tablet RxNorm: 402424 1 Tablet(s) PO daily 10/21/2015 04/17/2016 Inactive levothyroxine 50 mcg tablet RxNorm: 736892 TAKE 1 TABLET BY MOUT H DAILY 10/21/2015 02/17/2016 In active Generic For:SYNTHROID 50MCG TAB 016 9:06:41 AM omeprazole 40 mg cap betty,delayed release RxNorm: 054147 TAKE 1 CAPSULE BY MACKENZIE TH DAILY 10/21/2015 02/17/2016 Inactive Generic For:PRILOSEC 40MG 10/21/2015 9: 06:53 AM triamterene 37.5 mg- hydrochlorothiazide 25 mg tablet RxNorm: 609011 Tablet(s) 1 Tablet(s) PO daily 07/23/2015 11/18/2015 Inactive [SAVINGS FOR NON-COVERED DR BARRIENTOS -- BIN:[id number], PCN: ASPROD1, Group: XXXXX, ID# XXXXXXX, Questions: . THIS IS NOT INSURANCE.] metformin 500 mg tablet RxNorm: 548436 1 Tablet(s) PO daily 07/10/2015 12/06/2015 Inactive Generic For:GLUCOPHAGE 500MG 10/29/2014 9:02:36 AM Voltaren 1 % topical gel RxNorm: 777737 4 Gram(s) TOP QID 07/09/2015 09/07/2016 Inactive bilateral knees metformin 500 mg tablet RxNorm: 812990 1 Tablet(s) PO daily TAKE 1 TABLET BY MO UTH TWICE DAILY 07/09/2015 07/09/2015 Inactive Generic For:GLUCOPHAGE 500M G 10/29/2014 9:02:36 AM Lipitor 10 mg tablet RxNorm: 755497 1 Tablet(s) PO daily 06/26/2015 11/19/2015 Inactive metformin 500 mg tablet RxNorm: 629589 1 Tablet(s) PO BID TAKE 1 TABLET BY MOUT H TWICE DAILY 06/26/2015 07/08/2015 Inactive Generic For:GLUCOPHAGE 500M G 10/29/2014 9:02:36 AM omeprazole 40 mg cap betty,delayed release RxNorm: 581322 TAKE 1 CAPSULE BY MACKENZIE TH DAILY 04/27/2015 10/20/2015 Inactive Generic For:PRILOSEC 40MG meloxicam 15 mg tablet RxNorm: 654725 1 Tablet(s) PO daily 03/30/2015 10/20/2015 Inactive triamterene 37.5 mg- hydrochlorothiazide 25 mg tablet RxNorm: 331606 Tablet(s) 1 Tablet(s) PO daily 03/30/2015 07/22/2015 Inactive [SAVINGS FOR NON-COVERED DR BARRIETNOS -- BIN:338071, PCN: ASPROD1, Group: XXXXX, ID# XXXXXXX, Questions: . THIS IS NOT INSURANCE.] metformin 500 mg tablet RxNorm: 648139 1 Tablet(s) PO BID 02/26/2015 06/25/2015 Inactive levothyroxine 50 mcg tablet RxNorm: 199464 TAKE 1 TABLET BY MOUT H DAILY 02/26/2015 10/20/2015 In active Generic For:SYNTHROID 50MCG TAB 015 2:41:48 PM N O T I C E PRESCRIPTION PREVIOUSLY AUTHORIZED BY DOCTOR:RUFINO LIAO Lipitor 10 mg tablet RxNorm: 050189 1 Tablet(s) PO daily 02/26/2015 06/25/2015 Inactive omeprazole 40 mg cap betty,delayed release RxNorm: 20020609 1 Capsule(s) PO 01/01/2015 04/26/2015 In active [SAVINGS FOR NON-COVERED DRUGS -- BIN: 3585, PCN: ASPROD1, Group: XXXXX, ID# XXXXXXX, Questions: . THIS IS NOT INSURANCE.] triamterene 37.5 mg- hydrochlorothiazide 25 mg tablet RxNorm: 590512 1 Tablet(s) PO daily 12/02/2014 03/29/2015 Inactive [SAVINGS FOR NON-COVERED DR UGS -- BIN:418995, PCN: ASPROD1, Group: XXXXX, ID# XXXXXXX, Questions: . THIS IS NOT INSURANCE.] metformin 500 mg tablet RxNorm: 579612 1 Tablet(s) PO BID TAKE 1 TABLET BY MOUT H TWICE DAILY 10/29/2014 06/25/2015 Inactive Generic For:GLUCOPHAGE 500M G 10/29/2014 9:02:36 AM metformin 500 mg tablet RxNorm: 199137 1 Tablet(s) PO BID 10/29/2014 10/29/2014 Inactive Lipitor 10 mg tablet RxNorm: 579764 1 Tablet(s) PO daily 10/27/2014 10/26/2014 Inactive Lipitor 10 mg tablet RxNorm: 089006 1 Tablet(s) PO daily 10/27/2014 02/23/2015 Inactive omeprazole 40 mg cap betty,delayed release RxNorm: 414462 1 Capsule(s) PO 09/02/2014 12/30/2014 In active [SAVINGS FOR NON-COVERED DRUGS -- BIN: 3585, PCN: ASPROD1, Group: XXXXX, ID# XXXXXXX, Questions: . THIS IS NOT INSURANCE.] omeprazole 40 mg cap betty,delayed release RxNorm: 20020609 1 Capsule(s) PO 09/02/2014 09/01/2014 In active triamterene 37.5 mg- hydrochlorothiazide 25 mg tablet RxNorm: 266324 1 Tablet(s) PO daily 08/27/2014 08/26/2014 Inactive triamterene 37.5 mg- hydrochlorothiazide 25 mg tablet RxNorm: 952150 1 Tablet(s) PO daily 08/27/2014 12/01/2014 Inactive [SAVINGS FOR NON-COVERED DR BARRIENTOS -- BIN:307512, PCN: ASPROD1, Group: XXXXX, ID# XXXXXXX, Questions: . THIS IS NOT INSURANCE.] Multi Vitamin oral RxNorm: oral No Start Date Active Aspirin Low Dose 81 mg tablet,delayed release RxNorm: 105739 1 Tablet(s) PO daily No Start Date Active estradiol 2 mg tablet RxNorm: 649634 1 Tablet(s) PO daily No Start Date Active Vitamin D (with calc ium) oral RxNorm: 2418 oral No Sta rt Date Active medroxyprogesterone 5 mg tablet RxNorm: 1492537 1 Tablet(s) PO daily No Start Date Active meloxicam 15 mg tablet RxNorm: 298877 1 Tablet(s) PO daily No Start Date 02/06/2018 Inactive metformin 500 mg tablet RxNorm: 867832 1 Tablet(s) PO daily No Start Date 10/28/2014 Inactive Osteo Bi-Flex oral RxNorm: 0327073 oral No Start Date 02/15/2017 Inactive levothyroxine 50 mcg tablet RxNorm: 102543 1 Tablet(s) PO daily No Start Date 02/25/2015 Inactive Medication Administered Medication Codes Instruc tions Start Date Status Kenalog 40 mg/mL suspension for injection RxNorm: 3486985 Milliliter 12/25/2018 No longer Active Immunizations Vaccine [...] Item Item Code Result Date Comp Metabolic Hkz718 NA 139 mEq/L 11/16/2018 Comp Metabolic Atz906 K 3.9 mEq/L 11/16/2018 Comp Metabolic Wbb406 CL 103 mEq/L 11/16/2018 Comp Metabolic Lks379 CO2 27.0 mEq/L 11/16/2018 Comp Metabolic Kek889 AN ION GAP 13 11/16/2018 Comp Metabolic Ldp463 GL UCOSE 107 mg/dL 11/16/2018 Comp Metabolic Lld307 Cr eat 1.0 mg/dL 11/16/2018 Comp Metabolic Ehj024 eG FR 56 ml/min/1.73m2 11/16 Comp Metabolic Ztr909 BUN 18 mg/dL 11/16/2018 Comp Metabolic Xws125 B/ C Ratio 17.3 Ratio 11/16/2018 Comp Metabolic Bbh131 CA LCIUM 9.6 mg/dL 11/16/2018 Comp Metabolic Djj960 AL K PHOS 75 U/L 11/16/2018 Comp Metabolic Uut951 T(SGOT) 16 U/L 11/16/2018 Comp Metabolic Fgl048 AL T(SGPT) 16 U/L 11/16/2018 Comp Metabolic Vsw279 BI LI T 0.6 mg/dL 11/16/2018 Comp Metabolic Tjw868 AL BUMIN 4.1 g/dL 11/16/2018 Comp Metabolic Dwk033 TP RO 6.5 g/dL 11/16/2018 Comp Metabolic Yyu284 GL OB 2.4 g/dL 11/16/2018 Comp Metabolic Ilb416 A/ G Ratio 1.7 Ratio 11/16/2018 Comp Metabolic Qcn737 Os mo 280 mOsmo 11/16/2018 %Hba1C Mgy028 % HbA1c 25786-0 6.5 % 11/16/2018 %Hba1C Jzt760 Gluc Ave 140 mg/dL 11/16/2018 Free T4 Dre482 FREE T4 1.09 ng/dL 05/18/2018 Lipid Ord30 [...] 31.2 pg 05/18/2018 Cbc With Differential Ord2 [place]% 9.2 % 05/18/2018 Cbc With Differential Ord2 [...] 2.00 K/ul 05/18/2018 Cbc With Differential Ord2 [place] ABS# 0.6 K/ul 05/18/2018 Cbc With Differential Ord2 Eos ABS# 0.2 K/ul 05/18/2018 Cbc With Differential Ord2 Baso ABS# 0.0 K/ul 05/18/2018 %Hba1C Ocf220 % HbA1c 41205-9 6.1 % 05/18/2018 %Hba1C Fkz724 Gluc Ave 128 mg/dL 05/18/2018 Comp Metabolic Fuf159 NA 139 mEq/L 05/18/2018 Comp Metabolic Tsa922 K 3.8 mEq/L 05/18/2018 Comp Metabolic Xwj247 CL 100 mEq/L 05/18/2018 Comp Metabolic Woc097 CO2 29.0 mEq/L 05/18/2018 Comp Metabolic Tsc271 AN ION GAP 14 05/18/2018 Comp Metabolic Nhh242 GL UCOSE 100 mg/dL 05/18/2018 Comp Metabolic Sln043 Cr eat 1.2 mg/dL 05/18/2018 Comp Metabolic Agz871 eG FR 49 ml/min/1.73m2 05/18 Comp Metabolic Ohw874 BUN 17 mg/dL 05/18/2018 Comp Metabolic Sqt594 B/ C Ratio 14.5 Ratio 05/18/2018 Comp Metabolic Yxg832 CA LCIUM 10.0 mg/dL 05/18/2018 Comp Metabolic Ldo298 AL K PHOS 75 U/L 05/18/2018 Comp Metabolic Vmo949 T(SGOT) 16 U/L 05/18/2018 Comp Metabolic Coq748 AL T(SGPT) 15 U/L 05/18/2018 Comp Metabolic Qvv327 BI LI T 0.7 mg/dL 05/18/2018 Comp Metabolic Cky342 AL BUMIN 4.4 g/dL 05/18/2018 Comp Metabolic Unt428 TP RO 6.8 g/dL 05/18/2018 Comp Metabolic Clj776 GL OB 2.4 g/dL 05/18/2018 Comp Metabolic Yry126 A/ G Ratio 1.8 Ratio 05/18/2018 Comp Metabolic Kqh410 Os mo 279 mOsmo 05/18/2018 Comp Metabolic Duk081 NA 138 mEq/L 09/14/2017 Comp Metabolic Pdb464 K 3.8 mEq/L 09/14/2017 Comp Metabolic Lxt509 CL 101 mEq/L 09/14/2017 Comp Metabolic Fxk083 CO2 26.0 mEq/L 09/14/2017 Comp Metabolic Qsd108 AN ION GAP 15 09/14/2017 Comp Metabolic Flt917 GL UCOSE 120 mg/dL 09/14/2017 Comp Metabolic Wby257 Cr eat 1.0 mg/dL 09/14/2017 Comp Metabolic Flj482 eG FR 61 ml/min/1.73m2 09/14 Comp Metabolic Ymh784 BUN 18 mg/dL 09/14/2017 Comp Metabolic Cmm935 B/ C Ratio 18.6 Ratio 09/14/2017 Comp Metabolic Yft885 CA LCIUM 9.7 mg/dL 09/14/2017 Comp Metabolic Mnn231 AL K PHOS 63 U/L 09/14/2017 Comp Metabolic Qxb120 T(SGOT) 18 U/L 09/14/2017 Comp Metabolic Hws956 AL T(SGPT) 20 U/L 09/14/2017 Comp Metabolic Ctz112 BI LI T 0.5 mg/dL 09/14/2017 Comp Metabolic Hlp043 AL BUMIN 4.3 g/dL 09/14/2017 Comp Metabolic Uax588 TP RO 6.7 g/dL 09/14/2017 Comp Metabolic Ivw915 GL OB 2.4 g/dL 09/14/2017 Comp Metabolic Nmk259 A/ G Ratio 1.8 Ratio 09/14/2017 Comp Metabolic Dvg972 Os mo 279 mOsmo 09/14/2017 Lipid Ord30 CHOL 180 mg/dL 09/14/2017 Lipid Ord30 HDL 53.0 mg/dl 09/14/2017 Lipid Ord30 TRIG 126 mg/dL 09/14/2017 Lipid Ord30 LDL 102 mg/dL 09/14/2017 Lipid Ord30 C/HDL 3.4 Ratio 09/14/2017 Microalbumin All896 Micr oAlb <0.7 mg/dL 09/14/2017 %Hba1C Fea267 % HbA1c 24878-5 6.0 % 09/14/2017 %Hba1C Czv501 Gluc Ave 126 mg/dL 09/14/2017 Free T4 Njk426 FREE T4 0.98 ng/dL 09/14/2017 Cbc With [...] 31.3 pg 09/14/2017 Cbc With Differential Ord2 [place]% 9.4 % 09/14/2017 Cbc With Differential Ord2 [...] 1.94 K/ul 09/14/2017 Cbc With Differential Ord2 [place] ABS# 0.7 K/ul 09/14/2017 Cbc With Differential Ord2 Eos ABS# 0.2 K/ul 09/14/2017 Cbc With Differential Ord2 Baso ABS# 0.0 K/ul 09/14/2017 Tsh Ord6 TSH (3rd IS) 2.64 uIU/mL 09/14/2017 Comp Metabolic Slq009 NA 138 mEq/L 05/23/2016 Comp Metabolic Kgx374 K 4.0 mEq/L 05/23/2016 Comp Metabolic Qxu648 CL 105 mEq/L 05/23/2016 Comp Metabolic Ooq476 CO2 25.0 mEq/L 05/23/2016 Comp Metabolic Xfu891 AN ION GAP 12 05/23/2016 Comp Metabolic Bwg155 GL UCOSE 89 mg/dL 05/23/2016 Comp Metabolic Pqs931 Cr eat 1.0 mg/dL 05/23/2016 Comp Metabolic Vjo856 eG FR 63 ml/min/1.73m2 05/23 Comp Metabolic Xpa307 BUN 18 mg/dL 05/23/2016 Comp Metabolic Iir591 B/ C Ratio 18.9 Ratio 05/23/2016 Comp Metabolic Osc290 CA LCIUM 9.1 mg/dL 05/23/2016 Comp Metabolic Shz575 AL K PHOS 67 U/L 05/23/2016 Comp Metabolic Brt698 T(SGOT) 26 U/L 05/23/2016 Comp Metabolic Ixc507 AL T(SGPT) 39 U/L 05/23/2016 Comp Metabolic Dyd428 BI LI T 0.5 mg/dL 05/23/2016 Comp Metabolic Rwc296 AL BUMIN 3.9 g/dL 05/23/2016 Comp Metabolic Ybw677 TP RO 5.9 g/dL 05/23/2016 Comp Metabolic Dri670 GL OB 2.0 g/dL 05/23/2016 Comp Metabolic Pcy846 A/ G Ratio 2.0 Ratio 05/23/2016 Comp Metabolic Bbr607 Os mo 277 mOsmo 05/23/2016 Cbc With [...] 30.5 pg 05/23/2016 Cbc With Differential Ord2 [place]% 10.0 % 05/23/2016 Cbc With Differential Ord2 [...] 1.68 K/ul 05/23/2016 Cbc With Differential Ord2 [place] ABS# 0.7 K/ul 05/23/2016 Cbc With Differential Ord2 Eos ABS# 0.1 K/ul 05/23/2016 Cbc With Differential Ord2 Baso ABS# 0.0 K/ul 05/23/2016 B Type Natriuretic Peptide Dkw3506 B-MELTER SUPERVISOR 340.00 pg/ml 7 Lipid Ord30 CHOL 117 [...] 31.8 pg 07/07/2015 Cbc With Differential Ord2 [place]% 11.3 % 07/07/2015 Cbc With Differential Ord2 [...] 1.53 K/ul 07/07/2015 Cbc With Differential Ord2 [place] ABS# 0.6 K/ul 07/07/2015 Cbc With Differential Ord2 Eos ABS# 0.2 K/ul 07/07/2015 Cbc With Differential Ord2 Baso ABS# 0.0 K/ul 07/07/2015 Cbc With Differential Ord2 New Analyzer Notice Please note new ref ranges s tarting 05-13-2015 due to implemntation of new five part differential hematolgy analyzer. 07/07/2015 Free T4 Yml888 FREE T4 1.17 ng/dL 07/07/2015 Comp Metabolic Nzo760 NA 137 mEq/L 07/07/2015 Comp Metabolic Dip826 K 4.0 mEq/L 07/07/2015 Comp Metabolic Aqa779 CL 100 mEq/L 07/07/2015 Comp Metabolic Nki236 CO2 29.0 mEq/L 07/07/2015 Comp Metabolic Pzy599 AN ION GAP 12 07/07/2015 Comp Metabolic Eux100 GL UCOSE 98 mg/dL 07/07/2015 Comp Metabolic Trv976 Cr eat 1.0 mg/dL 07/07/2015 Comp Metabolic Eil254 eG FR 62 ml/min/1.73m2 07/06 Comp Metabolic Pxo985 BUN 16 mg/dL 07/07/2015 Comp Metabolic Bcg075 B/ C Ratio 16.5 Ratio 07/07/2015 Comp Metabolic Utu621 CA LCIUM 9.5 mg/dL 07/07/2015 Comp Metabolic Tbt251 AL K PHOS 47 U/L 07/07/2015 Comp Metabolic Pdg553 T(SGOT) 18 U/L 07/07/2015 Comp Metabolic Ici015 AL T(SGPT) 22 U/L 07/07/2015 Comp Metabolic Cql263 BI LI T 0.5 mg/dL 07/07/2015 Comp Metabolic Rxp598 AL BUMIN 4.2 g/dL 07/07/2015 Comp Metabolic Utc665 TP RO 6.5 g/dL 07/07/2015 Comp Metabolic Bkd354 GL OB 2.3 g/dL 07/07/2015 Comp Metabolic Wws992 A/ G Ratio 1.8 Ratio 07/07/2015 Comp Metabolic Zsa237 Os mo 275 mOsmo 07/07/2015 %Hba1C Yxg512 % HbA1c 64430-0 5.7 % 07/07/2015 %Hba1C Fts726 Gluc Ave 117 mg/dL 07/07/2015 Tsh Ord6 [...] 1: 134/72 Code: 8480-6 BMI: 35.1 Code: 93900-3 Heart Rate 1: 72 bpm Height: 5'3" SpO2: 98% Weight: 198 lbs 11/16/2018 Blood Pressure 1: 106/60 Code: 8480-6 BMI: 34.7 Code: 67493-4 Heart Rate 1: 65 bpm Height: 5'3" SpO2: 99% Weight: 196 lbs 05/18/2018 Blood Pressure 1: 128/76 Code: 8480-6 BMI: 34.4 Code: 82428-2 Heart Rate 1: 67 bpm Height: 5'3" SpO2: 97% Temperature: 37.0 (C ) / 98.6 (F) Weight: 194 lbs 09/13/2017 Blood Pressure 1: 140/78 Code: 8480-6 BMI: 35.4 Code: 09271-3 Heart Rate 1: 71 bpm Height: 5'3" SpO2: 97% Weight: 200 lbs 02/16/2017 Blood Pressure 1: 138/76 Code: 8480-6 BMI: 34.4 Code: 49799-3 Heart Rate 1: 66 bpm Height: 5'3" SpO2: 99% Weight: 194 lbs 09/08/2016 Blood Pressure 1: 138/86 Code: 8480-6 BMI: 32.2 Code: 41167-9 Heart Rate 1: 69 bpm Height: 5'3" SpO2: 99% Weight: 182 lbs 05/23/2016 Blood Pressure 1: 126/70 Code: 8480-6 BMI: 30.8 Code: 12323-0 Heart Rate 1: 63 bpm Height: 5'3" SpO2: 98% Weight: 174 lbs 01/12/2016 Blood Pressure 1: 140/72 Code: 8480-6 BMI: 29.8 Code: 47371-1 Heart Rate 1: 82 bpm Height: 5'3" SpO2: 97% Weight: 168 lbs 12/14/2015 Blood Pressure 1: 132/78 Code: 8480-6 BMI: 31.5 Code: 24916-2 Heart Rate 1: 71 bpm Height: 5'3" SpO2: 98% Weight: 178 lbs 07/09/2015 Blood Pressure 1: 128/80 Code: 8480-6 BMI: 30.6 Code: 59126-4 Heart Rate 1: 71 bpm Height: 5'3" SpO2: 99% Weight: 173 lbs 10/09/2014 Blood Pressure 1: 120/70 Code: 8480-6 BMI: 29.1 Code: 76677-5 Heart Rate 1: 68 bpm Height: 5'3" [...] mellitus Quality chronic 09/13/2017 None hypothyroid Quality stroke program coordinator marie 09/13/2017 None diabetes mellitus Glucose monitoring [...] Encounters Encounter Performer Loca tion Codes Date ([id number]) [id number] EST. P ATIENT, LEVEL III Diagnosis: Acute recurrent maxillary sinusitis[ICD10: J01.01] Diagnosis: Cough[ICD10: R05] Asha Ballard MD, [facility] CPT-4: 80455 12/25/2018 ([id number]) [id number] EST. P ATIENT, LEVEL IV Diagnosis: Type 2 diabetes mellitus without complications[ICD10: E11.9] Diagnosis: Essential (primary) hypertension[ICD10: I10] Diagnosis: Other allergic rhinitis[ICD10: J30.89] Asha Ballard MD, [facility] CPT-4: 40578 11/16/2018 ([id number]) 21784 EST. P ATIENT, LEVEL IV Diagnosis: Essential (primary) hypertension[ICD10: I10] Diagnosis: Acute upper respiratory infection, unspecified[ICD10: J06.9] Diagnosis: Mixed hyperlipidemia[ICD10: E78.2] Diagnosis: Hypothyroidism, unspecified[ICD10: E03.9] Diagnosis: Type 2 diabetes mellitus without complications[ICD10: E11.9] Asha Ballard MD, [facility] CPT-4: 95959 05/18/2018 ([id number] 09165 EST. P ATIENT, LEVEL IV Diagnosis: Type 2 diabetes mellitus without complications[ICD10: E11.9] Diagnosis: Essential (primary) hypertension[ICD10: I10] Diagnosis: Other obesity due to excess calories[ICD10: E66.09] Katty Ballard MD, [facility] CPT-4: 56735 09/13/2017 ([id number]) 07262 EST. P ATIENT, LEVEL IV Diagnosis: Type 2 diabetes mellitus without complications[ICD10: E11.9] Diagnosis: Essential (primary) hypertension[ICD10: I10] Diagnosis: Other acute sinusitis[ICD10: J01.80] Diagnosis: Other obesity due to excess calories[ICD10: E66.09] Asha Ballard MD, [facility] CPT-4: 40870 02/16/2017 ([id number]) 76157 EST. P ATIENT, LEVEL IV Diagnosis: Type 2 diabetes mellitus without complications[ICD10: E11.9] Diagnosis: Essential (primary) hypertension[ICD10: I10] Diagnosis: Pain in right knee[ICD10: M25.561] Diagnosis: Pain in left knee[ICD10: M25.562] Katty Ballard MD, [facility] CPT-4: 45027 09/08/2016 [id number] EST. PATIENT, LEVEL IV Diagnosis: Localized edema[ICD10: R60.0] Diagnosis: Shortness of breath[ICD10: R06.02] Salma Ballard MD, [facility] CPT-4: 77624 05/23/2016 ([id number]) 11952 EST. P ATIENT, LEVEL IV Diagnosis: Type 2 diabetes mellitus without complications[ICD10: E11.9] Diagnosis: Essential (primary) hypertension[ICD10: I10] Diagnosis: Chronic idiopathic constipation[ICD10: K59.04] Katty Ballard MD, [facility] CPT-4: 55822 01/12/2016 91522 EST. PATIENT, LEVEL IV Diagnosis: Other acute sinusitis[ICD10: J01.80] Diagnosis: Other allergic rhinitis[ICD10: J30.89] Salma Ballard MD, [facility] CPT-4: 49070 12/14/2015 ([id number]) 41911 EST. P ATIENT, LEVEL IV Diagnosis: Essential (primary) hypertension[ICD10: I10] Diagnosis: Type 2 diabetes mellitus without complications[ICD10: E11.9] Diagnosis: Pain in right knee[ICD10: M25.561] Diagnosis: Pain in left knee[ICD10: M25.562] Asha Ballard MD, [facility] CPT- 4: 40181 07/09/2015 ([id number]) OFFICE [facility], [facility] - LEVEL 4 Diagnosis: ESSENTIAL HYPERTENSION[ICD9: 401.9] Diagnosis: DIABETES TYPE II[ICD9: 250.00] Diagnosis: HYPERLIPIDEMIA[ICD9: 272.4] Diagnosis: HYPOTHYROIDISM[ICD9: 244.9] Katty Ballard MD, [facility] CPT-4: 48174 10/09/2014 Plan of Care Planned Activity Notes C odes Status Date Visit Plan: Sinusitis - Pt has acut e infection - pain in face, maxillary region, Pt informed to use decongestant, RX given to patient, sinus rinses also recommended. Call if symptoms do not show improvement. 12/25/2018 Appointment: Asha Bernstein WPtel: [phone] (30 min) Complex 12/25/2018 Patient Education: Patient [...] allergy spray. 11/16/2018 [facility]ment[phone] [phone] (30 min) Complex 11/16/2018 Patient Education: Patient [...] - she would like a referral to [facility] for diabetic education. Knee pain - post operative still with swelling - continue with current management. 09/13/2017 App[facility]ment: [phone] (15 min) Moderate 09/13/2017 Patient Education: Patient [...] weight check. 02/16/2017 [facility] [phone] [phone] [place] (15 min) Moderate 02/16/2017 Patient Education: [...] to pharmacy 09/08/2016 Appointment: Katty Ballard WPtel: [phone] [facility] (15 min) Moderate 09/08/2016 Patient Education: Patient [...] peripheral edema. 05/23/2016 App[facility]ment[facility] [phone] [facility] ([facility] min) Complex 05/23/2016 Patient Education: Patient Medication Summary Completed 05/23/2016 Patient Education: Obesity Completed 05/23/2016 Appointment: [facility] Ball[facility] [phone] [facility] (15 min) Moderate 01/13/2016 Visit Plan: Hypertension [...] not improving. 10/09/2014 Appointment: [phone] [facility] [place] ([place] New Patient 10/09/2014 Patient Education: Patient Medication Summary Completed 10/09/2014 Patient Education: Hypertension Completed 10/09/2014 Care Plan: MICROALBUMIN QUANTITATIVE LOINC : 31425-0 Ordered 10/09/2014 Care Plan: COMPLETE CBC AUTOMATED LOINC : 91718-0 Ordered 10/09/2014 Instructions Comment . Sinusitis - [...] - she would like a referral to [facility] for diabetic education. Knee pain - [...]
--- OUTSIDE RECORDS SUMMARY | 2019-12-03 12:40 | XMS REPORT | CCD ---
Author Author Danni Ballard Organization Katty Ballard MD, [facility] Address [address] [place] [address] Phone Care Team Providers Care Director Radio News Name Role Phone PP Unavailable CCM Unavailable Summary Purpose Interface Exchange Insurance Providers Payer name Policy type / Coverage type Covered green party ID Effective Begin Date Effective End Date WPS Medicare Part B Medicare Part B [id number] 2018 Unknown [employer] Medicare Part B [id number] Unknown Family history Father Diagnosis Age At Onset Cancer Unknown Mother Diagnosis Age At Onset Diabetes mellitus Type 2 Unknown Stroke Unknown Hypertension Unknown Arthritis Unknown Osteoporosis Unknown kidney disease Unknown Coronary Artery Disease Unknown Social History Social History Element Codes Description Effective Dates Marital status Unknown M chiki Peter 10/09/2014 Number of children Unknown 2 10/09/[address]: 4660712 Quit over 10 years ago 10/09/[address]: 243105270 Never drinks alcohol 10/09/2014 Allergies, Adverse Reactions, [...] 37.5 mg- hydrochlorothiazide 25 mg tablet RxNorm: 170689 TAKE 1 TABLET BY MOUTH ONCE DAILY 01/03/2019 07/01/2019 Active 01/03/2019 12:46:39 PM Kenalog 40 mg/mL reese pension for injection RxNorm: 1909128 Milliliter(s) Inj 12/25/2018 12/25/2018 In active doxycycline hyclate 100 mg tablet RxNorm: 2842899 1 Tablet(s) PO BID 12/25/2018 12/31/2018 Inactive meloxicam 15 mg tablet RxNorm: 929804 TAKE 1 TABLET BY MOUTH ONCE DAILY 07/09/2018 01/04/2019 Ac tive Generic For:MOBIC 15MG 07/07/2018 11:11 :46 AM levothyroxine 50 mcg tablet RxNorm: 469272 TAKE 1 TABLET BY MOUT H DAILY 07/09/2018 01/04/2019 Ac tive Generic For:SYNTHROID 50MCG TAB 019 11:12:00 AM omeprazole 40 mg cap betty,delayed release RxNorm: 506070 TAKE 1 CAPSULE BY MACKENZIE TH DAILY 07/09/2018 01/04/2019 Ac tive Generic For:PRILOSEC 40MG 07/07/2018 11 :11:38 AM Lipitor 10 mg tablet RxNorm: 989121 TAKE 1 TABLET BY MOUTH DAILY 07/09/2018 01/04/2019 Active Generic For:LIPITOR 10MG 07/07/2018 11: 12:19 AM triamterene 37.5 mg- hydrochlorothiazide 25 mg tablet RxNorm: 182988 TAKE 1 TABLET BY MOUTH ONCE DAILY 07/09/2018 01/02/2019 Inactive 07/07/2018 11:12:05 AM Zithromax Z-Taj 250 mg tablet RxNorm: 769838 1 Tablet(s) PO UD 05/18/2018 05/22/2018 Inactive metformin 500 mg tablet RxNorm: 683752 TAKE 1 TABLET BY MOUTH ONCE DAILY 02/07/2018 05/21/2018 In active Generic For:GLUCOPHAGE 500MG 02/07/2018 9:07:34 AM levothyroxine 50 mcg tablet RxNorm: 696146 TAKE 1 TABLET BY MOUT H DAILY 02/07/2018 06/06/2018 In active Generic For:SYNTHROID 50MCG TAB 018 9:07:42 AM meloxicam 15 mg tablet RxNorm: 392817 TAKE 1 TABLET BY MOUTH ONCE DAILY 02/07/2018 07/06/2018 In active Generic For:MOBIC 15MG 02/07/2018 9:07: 30 AM omeprazole 40 mg cap betty,delayed release RxNorm: 730585 TAKE 1 CAPSULE BY MACKENZIE TH DAILY 02/07/2018 07/06/2018 Inactive Generic For:PRILOSEC 40MG 02/07/2018 9: 07:37 AM Lipitor 10 mg tablet RxNorm: 514746 TAKE 1 TABLET BY MOUTH DAILY 11/09/2017 06/06/2018 Inactive Generic For:LIPITOR 10MG 11/09/2017 9:0 1:12 AM triamterene 37.5 mg- hydrochlorothiazide 25 mg tablet RxNorm: 777543 TAKE 1 TABLET BY MOUTH ONCE DAILY 11/09/2017 06/06/2018 Inactive 11/09/2017 9:01:09 AM levothyroxine 50 mcg tablet RxNorm: 962194 TAKE 1 TABLET BY MOUT H DAILY 10/10/2017 02/06/2018 In active Generic For:SYNTHROID 50MCG TAB 018 8:57:50 AM omeprazole 40 mg cap betty,delayed release RxNorm: 127594 TAKE 1 CAPSULE BY MACKENZIE TH DAILY 10/10/2017 02/06/2018 Inactive Generic For:PRILOSEC 40MG 10/10/2017 8: 57:46 AM Voltaren 1 % topical gel RxNorm: 989437 4 Gram(s) TOP QID - a pply 4 times daily to bilateral knees 09/13/2017 11/11/2017 Inactive levothyroxine 50 mcg tablet RxNorm: 418968 TAKE 1 TABLET BY MOUT H DAILY 09/11/2017 10/09/2017 In active Generic For:SYNTHROID 50MCG TAB 018 9:04:26 AM metformin 500 mg tablet RxNorm: 216041 TAKE 1 TABLET BY MOUTH ONCE DAILY 08/11/2017 02/06/2018 In active Generic For:GLUCOPHAGE 500MG 08/11/2017 8:56:05 AM meloxicam 15 mg tablet RxNorm: 223370 TAKE 1 TABLET BY MOUTH ONCE DAILY 08/11/2017 02/06/2018 In active Generic For:MOBIC 15MG 08/11/2017 8:56: 02 AM omeprazole 40 mg cap betty,delayed release RxNorm: 456465 TAKE 1 CAPSULE BY MACKENZIE TH DAILY 06/12/2017 10/09/2017 Inactive Generic For:PRILOSEC 40MG 06/12/2017 8: 56:49 AM Lipitor 10 mg tablet RxNorm: 175611 TAKE 1 TABLET BY MOUTH DAILY 2017 11/08/2017 Inactive Generic For:LIPITOR 10MG 2017 9:0 4:16 AM triamterene 37.5 mg- hydrochlorothiazide 25 mg tablet RxNorm: 142806 TAKE 1 TABLET BY MOUTH ONCE DAILY 2017 04/12/2017 Inactive 2017 9:04:19 AM triamterene 37.5 mg- hydrochlorothiazide 25 mg tablet RxNorm: 439035 TAKE 1 TABLET BY MOUTH ONCE DAILY 2017 10/09/2017 Inactive 2017 9:04:19 AM metformin 500 mg tablet RxNorm: 772773 TAKE 1 TABLET BY MOUTH ONCE DAILY 03/14/2017 08/10/2017 In active Generic For:GLUCOPHAGE 500MG 03/14/2017 9:16:18 AM levothyroxine 50 mcg tablet RxNorm: 023285 TAKE 1 TABLET BY MOUT H DAILY 03/14/2017 09/09/2017 In active Generic For:SYNTHROID 50MCG TAB 017 9:16:23 AM Zithromax Z-Taj 250 mg tablet RxNorm: 327542 1 Tablet(s) PO daily 02/16/2017 02/20/2017 Inactive omeprazole 40 mg cap betty,delayed release RxNorm: 493376 TAKE 1 CAPSULE BY MACKENZIE TH DAILY 02/13/2017 06/11/2017 Inactive Generic For:PRILOSEC 40MG 02/13/2017 8: 55:14 AM meloxicam 15 mg tablet RxNorm: 434102 TAKE 1 TABLET BY MOUTH ONCE DAILY 02/13/2017 08/10/2017 In active Generic For:MOBIC 15MG 02/13/2017 8:55: 10 AM levothyroxine 50 mcg tablet RxNorm: 500739 TAKE 1 TABLET BY MOUT H DAILY-- NEED TO GET LABS CHECKED FOR FURTHER REFILLS 01/05/2017 03/05/2017 Inactive Generic For:SYNTHROID 50MCG TAB 01/05/2017 4:36:06 PM levothyroxine 50 mcg tablet RxNorm: 168165 TAKE 1 TABLET BY MOUT H DAILY 12/14/2016 01/04/2017 In active Generic For:SYNTHROID 50MCG TAB 017 9:02:20 AM triamterene 37.5 mg- hydrochlorothiazide 25 mg tablet RxNorm: 771412 TAKE 1 TABLET BY MOUTH ONCE DAILY 11/14/2016 04/12/2017 Inactive 11/14/2016 9:13:26 AM metformin 500 mg tablet RxNorm: 283018 1 Tablet(s) PO daily 10/17/2016 03/13/2017 Inactive Generic For:GLUCOPHAGE 500MG 10/29/2014 9:02:36 AM omeprazole 40 mg cap betty,delayed release RxNorm: 189596 TAKE 1 CAPSULE BY MACKENZIE TH DAILY 10/17/2016 02/12/2017 Inactive Generic For:PRILOSEC 40MG 10/15/2016 8: 56:40 AM meloxicam 15 mg tablet RxNorm: 267481 1 Tablet(s) PO daily TAKE 1 TABLET BY MO UTH ONCE DAILY 09/19/2016 02/12/2017 Inactive Generic For:MOBIC 15MG 9:09:45 AM levothyroxine 50 mcg tablet RxNorm: 940688 TAKE 1 TABLET BY MOUT H DAILY 09/16/2016 12/13/2016 In active Generic For:SYNTHROID 50MCG TAB 017 10:22:07 AM 09/15/2016 9:01:47 AM Lipitor 10 mg tablet RxNorm: 787132 TAKE 1 TABLET BY MOUTH DAILY 09/16/2016 04/12/2017 Inactive Generic For:LIPITOR 10MG 09/16/2016 10: 22:13 AM 09/15/2016 9:01:42 AM ScreenzTouch Ultra Test strips RxNorm: 1 Miscellaneous daily 09/08/2016 09/02/2017 Inactive Voltaren 1 % topical gel RxNorm: 726584 2 Gram(s) TOP QID 09/08/2016 11/06/2016 Inactive meloxicam 15 mg tablet RxNorm: 083395 TAKE 1 TABLET BY MOUTH ONCE DAILY 08/16/2016 09/18/2016 In active Generic For:MOBIC 15MG 08/16/2016 9:09: 45 AM triamterene 37.5 mg- hydrochlorothiazide 25 mg tablet RxNorm: 018257 TAKE 1 TABLET BY MOUTH ONCE DAILY 07/18/2016 11/13/2016 Inactive 07/18/2016 8:57:50 AM omeprazole 40 mg cap betty,delayed release RxNorm: 960806 TAKE 1 CAPSULE BY MACKENZIE TH DAILY 06/17/2016 10/14/2016 Inactive Generic For:PRILOSEC 40MG 06/17/2016 9: 30:36 AM levothyroxine 50 mcg tablet RxNorm: 547852 TAKE 1 TABLET BY MOUT H DAILY 06/17/2016 09/14/2016 In active Generic For:SYNTHROID 50MCG TAB 017 9:10:49 AM metformin 500 mg tablet RxNorm: 328289 1 Tablet(s) PO daily 05/24/2016 10/16/2016 Inactive Generic For:GLUCOPHAGE 500MG 10/29/2014 9:02:36 AM Lasix 20 mg tablet RxNorm: 968846 1 Tablet(s) PO daily 05/24/2016 05/26/2016 Inactive metformin 500 mg tablet RxNorm: 765686 1 Tablet(s) PO daily 05/23/2016 05/23/2016 Inactive Generic For:GLUCOPHAGE 500MG 10/29/2014 9:02:36 AM Lasix 20 mg tablet RxNorm: 636927 1 Tablet(s) PO daily 05/23/2016 05/23/2016 Inactive potassium chloride E R 10 mEq tablet,extended release RxNorm: 619464 1 Tablet(s) PO daily 05/23/2016 05/25/2016 Inactive meloxicam 15 mg tablet RxNorm: 182176 1 Tablet(s) PO daily 04/18/2016 08/15/2016 Inactive Lipitor 10 mg tablet RxNorm: 691069 TAKE 1 TABLET BY MOUTH DAILY 04/18/2016 08/15/2016 Inactive Generic For:LIPITOR 10MG 04/18/2016 9:1 5:59 AM triamterene 37.5 mg- hydrochlorothiazide 25 mg tablet RxNorm: 145182 TAKE 1 TABLET BY MOUTH ONCE DAILY 03/21/2016 07/17/2016 Inactive 03/19/2016 9:02:10 AM levothyroxine 50 mcg tablet RxNorm: 421559 TAKE 1 TABLET BY MOUT H DAILY 02/18/2016 06/16/2016 In active Generic For:SYNTHROID 50MCG TAB 016 9:03:15 AM omeprazole 40 mg cap betty,delayed release RxNorm: 281062 TAKE 1 CAPSULE BY MACKENZIE TH DAILY 02/18/2016 06/16/2016 Inactive Generic For:PRILOSEC 40MG 02/18/2016 9: 03:12 AM Movantik 25 mg tablet RxNorm: 1023030 1 Tablet(s) PO QAM with breakfast or sean ch 01/12/2016 09/07/2016 In active Flonase Allergy Reli ef 50 mcg/actuation nasal spray,suspension RxNorm: 6257016 1 Curtis NASAL BID 12/14/2015 09/07/2016 Inactive Zithromax Z-Taj 250 mg tablet RxNorm: 989435 Tablet(s) PO UD 12/14/2015 01/11/2016 Inactive Lipitor 10 mg tablet RxNorm: 593058 TAKE 1 TABLET BY MOUTH DAILY 11/20/2015 04/17/2016 Inactive Generic For:LIPITOR 10MG 11/20/2015 9:1 1:10 AM triamterene 37.5 mg- hydrochlorothiazide 25 mg tablet RxNorm: 341530 TAKE 1 TABLET BY MOUTH ONCE DAILY 11/19/2015 03/17/2016 Inactive 11/18/2015 9:06:12 AM meloxicam 15 mg tablet RxNorm: 976874 1 Tablet(s) PO daily 10/21/2015 04/17/2016 Inactive levothyroxine 50 mcg tablet RxNorm: 129559 TAKE 1 TABLET BY MOUT H DAILY 10/21/2015 02/17/2016 In active Generic For:SYNTHROID 50MCG TAB 016 9:06:41 AM omeprazole 40 mg cap betty,delayed release RxNorm: 974193 TAKE 1 CAPSULE BY MACKENZIE TH DAILY 10/21/2015 02/17/2016 Inactive Generic For:PRILOSEC 40MG 10/21/2015 9: 06:53 AM triamterene 37.5 mg- hydrochlorothiazide 25 mg tablet RxNorm: 562447 Tablet(s) 1 Tablet(s) PO daily 07/23/2015 11/18/2015 Inactive [SAVINGS FOR NON-COVERED DR BARRIENTOS -- BIN:243634, PCN: ASPROD1, Group: XXXXX, ID# XXXXXXX, Questions: . THIS IS NOT INSURANCE.] metformin 500 mg tablet RxNorm: 336447 1 Tablet(s) PO daily 07/10/2015 12/06/2015 Inactive Generic For:GLUCOPHAGE 500MG 10/29/2014 9:02:36 AM Voltaren 1 % topical gel RxNorm: 595802 4 Gram(s) TOP QID 07/09/2015 09/07/2016 Inactive bilateral knees metformin 500 mg tablet RxNorm: 678923 1 Tablet(s) PO daily TAKE 1 TABLET BY MO UTH TWICE DAILY 07/09/2015 07/09/2015 Inactive Generic For:GLUCOPHAGE 500M G 10/29/2014 9:02:36 AM Lipitor 10 mg tablet RxNorm: 905119 1 Tablet(s) PO daily 06/26/2015 11/19/2015 Inactive metformin 500 mg tablet RxNorm: 270704 1 Tablet(s) PO BID TAKE 1 TABLET BY MOUT H TWICE DAILY 06/26/2015 07/08/2015 Inactive Generic For:GLUCOPHAGE 500M G 10/29/2014 9:02:36 AM omeprazole 40 mg cap betty,delayed release RxNorm: 024928 TAKE 1 CAPSULE BY MACKENZIE TH DAILY 04/27/2015 10/20/2015 Inactive Generic For:PRILOSEC 40MG meloxicam 15 mg tablet RxNorm: 938273 1 Tablet(s) PO daily 03/30/2015 10/20/2015 Inactive triamterene 37.5 mg- hydrochlorothiazide 25 mg tablet RxNorm: 712245 Tablet(s) 1 Tablet(s) PO daily 03/30/2015 07/22/2015 Inactive [SAVINGS FOR NON-COVERED DR BARRIENTOS -- BIN:341777, PCN: ASPROD1, Group: XXXXX, ID# XXXXXXX, Questions: . THIS IS NOT INSURANCE.] metformin 500 mg tablet RxNorm: 082252 1 Tablet(s) PO BID 02/26/2015 06/25/2015 Inactive levothyroxine 50 mcg tablet RxNorm: 724836 TAKE 1 TABLET BY MOUT H DAILY 02/26/2015 10/20/2015 In active Generic For:SYNTHROID 50MCG TAB 015 2:41:48 PM N O T I C E PRESCRIPTION PREVIOUSLY AUTHORIZED BY DOCTOR:RUFINO LIAO Lipitor 10 mg tablet RxNorm: 365086 1 Tablet(s) PO daily 02/26/2015 06/25/2015 Inactive omeprazole 40 mg cap betty,delayed release RxNorm: 586468 1 Capsule(s) PO 01/01/2015 04/26/2015 In active [SAVINGS FOR NON-COVERED DRUGS -- BIN:3584, PCN: ASPROD1, Group: XXXXX, ID# XXXXXXX, Questions: . THIS IS NOT INSURANCE.] triamterene 37.5 mg- hydrochlorothiazide 25 mg tablet RxNorm: 837664 1 Tablet(s) PO daily 12/02/2014 03/29/2015 Inactive [SAVINGS FOR NON-COVERED DR UGS -- BIN:[id number], PCN: ASPROD1, Group: XXXXX, ID# XXXXXXX, Questions: . THIS IS NOT INSURANCE.] metformin 500 mg tablet RxNorm: 207659 1 Tablet(s) PO BID TAKE 1 TABLET BY MOUT H TWICE DAILY 10/29/2014 06/25/2015 Inactive Generic For:GLUCOPHAGE 500M G 10/29/2014 9:02:36 AM metformin 500 mg tablet RxNorm: 837555 1 Tablet(s) PO BID 10/29/2014 10/29/2014 Inactive Lipitor 10 mg tablet RxNorm: 140163 1 Tablet(s) PO daily 10/27/2014 10/26/2014 Inactive Lipitor 10 mg tablet RxNorm: 476801 1 Tablet(s) PO daily 10/27/2014 02/23/2015 Inactive omeprazole 40 mg cap betty,delayed release RxNorm: 183626 1 Capsule(s) PO 09/02/2014 12/30/2014 In active [SAVINGS FOR NON-COVERED DRUGS -- BIN:3584, PCN: ASPROD1, Group: XXXXX, ID# XXXXXXX, Questions: . THIS IS NOT INSURANCE.] omeprazole 40 mg cap betty,delayed release RxNorm: 115149 1 Capsule(s) PO 09/02/2014 09/01/2014 In active triamterene 37.5 mg- hydrochlorothiazide 25 mg tablet RxNorm: 942951 1 Tablet(s) PO daily 08/27/2014 08/26/2014 Inactive triamterene 37.5 mg- hydrochlorothiazide 25 mg tablet RxNorm: 871613 1 Tablet(s) PO daily 08/27/2014 12/01/2014 Inactive [SAVINGS FOR NON-COVERED DR BARRIENTOS -- BIN:758886, PCN: ASPROD1, Group: XXXXX, ID# XXXXXXX, Questions: . THIS IS NOT INSURANCE.] Multi Vitamin oral RxNorm: oral No Start Date Active Aspirin Low Dose 81 mg tablet,delayed release RxNorm: 399502 1 Tablet(s) PO daily No Start Date Active estradiol 2 mg tablet RxNorm: 896718 1 Tablet(s) PO daily No Start Date Active Vitamin D (with calc ium) oral RxNorm: 2418 oral No Sta rt Date Active medroxyprogesterone 5 mg tablet RxNorm: 5429901 1 Tablet(s) PO daily No Start Date Active meloxicam 15 mg tablet RxNorm: 924621 1 Tablet(s) PO daily No Start Date 02/06/2018 Inactive metformin 500 mg tablet RxNorm: 216875 1 Tablet(s) PO daily No Start Date 10/28/2014 Inactive Osteo Bi-Flex oral RxNorm: 0435795 oral No Start Date 02/15/2017 Inactive levothyroxine 50 mcg tablet RxNorm: 052955 1 Tablet(s) PO daily No Start Date 02/25/2015 Inactive Medication Administered Medication Codes Instruc tions Start Date Status Kenalog 40 mg/mL suspension for injection RxNorm: 3563716 Milliliter 12/25/2018 No longer Active Immunizations Vaccine [...] Item Item Code Result Date Comp Metabolic Qjv973 NA 139 mEq/L 11/16/2018 Comp Metabolic Sjg930 K 3.9 mEq/L 11/16/2018 Comp Metabolic Mht539 CL 103 mEq/L 11/16/2018 Comp Metabolic Pnp573 CO2 27.0 mEq/L 11/16/2018 Comp Metabolic Qwn592 AN ION GAP 13 11/16/2018 Comp Metabolic Eid155 GL UCOSE 107 mg/dL 11/16/2018 Comp Metabolic Jbc288 Cr eat 1.0 mg/dL 11/16/2018 Comp Metabolic Maz589 eG FR 56 ml/min/1.73m2 11/16 Comp Metabolic Vmg236 BUN 18 mg/dL 11/16/2018 Comp Metabolic Xza840 B/ C Ratio 17.3 Ratio 11/16/2018 Comp Metabolic Oac764 CA LCIUM 9.6 mg/dL 11/16/2018 Comp Metabolic Ybu477 AL K PHOS 75 U/L 11/16/2018 Comp Metabolic Fzx846 T(SGOT) 16 U/L 11/16/2018 Comp Metabolic Hoe451 AL T(SGPT) 16 U/L 11/16/2018 Comp Metabolic Kxe830 BI LI T 0.6 mg/dL 11/16/2018 Comp Metabolic Zhu323 AL BUMIN 4.1 g/dL 11/16/2018 Comp Metabolic Lpe649 TP RO 6.5 g/dL 11/16/2018 Comp Metabolic Hvi613 GL OB 2.4 g/dL 11/16/2018 Comp Metabolic Ohm728 A/ G Ratio 1.7 Ratio 11/16/2018 Comp Metabolic Ekz105 Os mo 280 mOsmo 11/16/2018 %Hba1C Ygf248 % HbA1c 32822-8 6.5 % 11/16/2018 %Hba1C Een894 Gluc Ave 140 mg/dL 11/16/2018 Free T4 Qaa095 FREE T4 1.09 ng/dL 05/18/2018 Lipid Ord30 [...] 31.2 pg 05/18/2018 Cbc With Differential Ord2 [place]% 9.2 % 05/18/2018 Cbc With Differential Ord2 [...] 2.00 K/ul 05/18/2018 Cbc With Differential Ord2 [place] ABS# 0.6 K/ul 05/18/2018 Cbc With Differential Ord2 Eos ABS# 0.2 K/ul 05/18/2018 Cbc With Differential Ord2 Baso ABS# 0.0 K/ul 05/18/2018 %Hba1C Hhe932 % HbA1c 18696-0 6.1 % 05/18/2018 %Hba1C Vmm857 Gluc Ave 128 mg/dL 05/18/2018 Comp Metabolic Zjb317 NA 139 mEq/L 05/18/2018 Comp Metabolic Qqg962 K 3.8 mEq/L 05/18/2018 Comp Metabolic Trn302 CL 100 mEq/L 05/18/2018 Comp Metabolic Rna232 CO2 29.0 mEq/L 05/18/2018 Comp Metabolic Tqv558 AN ION GAP 14 05/18/2018 Comp Metabolic Mka295 GL UCOSE 100 mg/dL 05/18/2018 Comp Metabolic Cwz056 Cr eat 1.2 mg/dL 05/18/2018 Comp Metabolic Jwh987 eG FR 49 ml/min/1.73m2 05/18 Comp Metabolic Mai666 BUN 17 mg/dL 05/18/2018 Comp Metabolic Msl718 B/ C Ratio 14.5 Ratio 05/18/2018 Comp Metabolic Bsc964 CA LCIUM 10.0 mg/dL 05/18/2018 Comp Metabolic Rfl875 AL K PHOS 75 U/L 05/18/2018 Comp Metabolic Gva245 T(SGOT) 16 U/L 05/18/2018 Comp Metabolic Hxa043 AL T(SGPT) 15 U/L 05/18/2018 Comp Metabolic Syc876 BI LI T 0.7 mg/dL 05/18/2018 Comp Metabolic Qcf952 AL BUMIN 4.4 g/dL 05/18/2018 Comp Metabolic Iqg364 TP RO 6.8 g/dL 05/18/2018 Comp Metabolic Kop946 GL OB 2.4 g/dL 05/18/2018 Comp Metabolic Pqa267 A/ G Ratio 1.8 Ratio 05/18/2018 Comp Metabolic Nwj785 Os mo 279 mOsmo 05/18/2018 Comp Metabolic Mtn277 NA 138 mEq/L 09/14/2017 Comp Metabolic Lbl889 K 3.8 mEq/L 09/14/2017 Comp Metabolic Dkc887 CL 101 mEq/L 09/14/2017 Comp Metabolic Grp772 CO2 26.0 mEq/L 09/14/2017 Comp Metabolic Zzu181 AN ION GAP 15 09/14/2017 Comp Metabolic Gpe931 GL UCOSE 120 mg/dL 09/14/2017 Comp Metabolic Zja110 Cr eat 1.0 mg/dL 09/14/2017 Comp Metabolic Qaz910 eG FR 61 ml/min/1.73m2 09/14 Comp Metabolic Ldi996 BUN 18 mg/dL 09/14/2017 Comp Metabolic Csb026 B/ C Ratio 18.6 Ratio 09/14/2017 Comp Metabolic Jjk708 CA LCIUM 9.7 mg/dL 09/14/2017 Comp Metabolic Fvu430 AL K PHOS 63 U/L 09/14/2017 Comp Metabolic Ync562 T(SGOT) 18 U/L 09/14/2017 Comp Metabolic Djd043 AL T(SGPT) 20 U/L 09/14/2017 Comp Metabolic Iai184 BI LI T 0.5 mg/dL 09/14/2017 Comp Metabolic Foy857 AL BUMIN 4.3 g/dL 09/14/2017 Comp Metabolic Dzv778 TP RO 6.7 g/dL 09/14/2017 Comp Metabolic Wno492 GL OB 2.4 g/dL 09/14/2017 Comp Metabolic Tcr859 A/ G Ratio 1.8 Ratio 09/14/2017 Comp Metabolic Nca208 Os mo 279 mOsmo 09/14/2017 Lipid Ord30 CHOL 180 mg/dL 09/14/2017 Lipid Ord30 HDL 53.0 mg/dl 09/14/2017 Lipid Ord30 TRIG 126 mg/dL 09/14/2017 Lipid Ord30 LDL 102 mg/dL 09/14/2017 Lipid Ord30 C/HDL 3.4 Ratio 09/14/2017 Microalbumin Dax088 Micr oAlb <0.7 mg/dL 09/14/2017 %Hba1C Sqa807 % HbA1c 99633-8 6.0 % 09/14/2017 %Hba1C Vgy992 Gluc Ave 126 mg/dL 09/14/2017 Free T4 Tdr516 FREE T4 0.98 ng/dL 09/14/2017 Cbc With [...] 31.3 pg 09/14/2017 Cbc With Differential Ord2 [place]% 9.4 % 09/14/2017 Cbc With Differential Ord2 [...] 1.94 K/ul 09/14/2017 Cbc With Differential Ord2 [place] ABS# 0.7 K/ul 09/14/2017 Cbc With Differential Ord2 Eos ABS# 0.2 K/ul 09/14/2017 Cbc With Differential Ord2 Baso ABS# 0.0 K/ul 09/14/2017 Tsh Ord6 TSH (3rd IS) 2.64 uIU/mL 09/14/2017 Comp Metabolic Zpz021 NA 138 mEq/L 05/23/2016 Comp Metabolic Jnt076 K 4.0 mEq/L 05/23/2016 Comp Metabolic Fyw662 CL 105 mEq/L 05/23/2016 Comp Metabolic Qmn517 CO2 25.0 mEq/L 05/23/2016 Comp Metabolic Nig548 AN ION GAP 12 05/23/2016 Comp Metabolic Yxs412 GL UCOSE 89 mg/dL 05/23/2016 Comp Metabolic Ycu664 Cr eat 1.0 mg/dL 05/23/2016 Comp Metabolic Nmg033 eG FR 63 ml/min/1.73m2 05/23 Comp Metabolic Msh645 BUN 18 mg/dL 05/23/2016 Comp Metabolic Jbw596 B/ C Ratio 18.9 Ratio 05/23/2016 Comp Metabolic Znp010 CA LCIUM 9.1 mg/dL 05/23/2016 Comp Metabolic Pyk429 AL K PHOS 67 U/L 05/23/2016 Comp Metabolic Lex891 T(SGOT) 26 U/L 05/23/2016 Comp Metabolic Uzd138 AL T(SGPT) 39 U/L 05/23/2016 Comp Metabolic Mfm147 BI LI T 0.5 mg/dL 05/23/2016 Comp Metabolic Hnt005 AL BUMIN 3.9 g/dL 05/23/2016 Comp Metabolic Tha468 TP RO 5.9 g/dL 05/23/2016 Comp Metabolic Ikc015 GL OB 2.0 g/dL 05/23/2016 Comp Metabolic Rky480 A/ G Ratio 2.0 Ratio 05/23/2016 Comp Metabolic Neg915 Os mo 277 mOsmo 05/23/2016 Cbc With [...] 30.5 pg 05/23/2016 Cbc With Differential Ord2 [place]% 10.0 % 05/23/2016 Cbc With Differential Ord2 [...] 1.68 K/ul 05/23/2016 Cbc With Differential Ord2 [place] ABS# 0.7 K/ul 05/23/2016 Cbc With Differential Ord2 Eos ABS# 0.1 K/ul 05/23/2016 Cbc With Differential Ord2 Baso ABS# 0.0 K/ul 05/23/2016 B Type Natriuretic Peptide Iwa6112 [employer] 340.00 pg/ml 7 Lipid Ord30 CHOL 117 [...] 31.8 pg 07/07/2015 Cbc With Differential Ord2 [place]% 11.3 % 07/07/2015 Cbc With Differential Ord2 [...] 1.53 K/ul 07/07/2015 Cbc With Differential Ord2 [place] ABS# 0.6 K/ul 07/07/2015 Cbc With Differential Ord2 Eos ABS# 0.2 K/ul 07/07/2015 Cbc With Differential Ord2 Baso ABS# 0.0 K/ul 07/07/2015 Cbc With Differential Ord2 New Analyzer Notice Please note new ref ranges s tarting 05-13-2015 due to implemntation of new five part differential hematolgy analyzer. 07/07/2015 Free T4 Tvf540 FREE T4 1.17 ng/dL 07/07/2015 Comp Metabolic Zit718 NA 137 mEq/L 07/07/2015 Comp Metabolic Icx759 K 4.0 mEq/L 07/07/2015 Comp Metabolic Tlc151 CL 100 mEq/L 07/07/2015 Comp Metabolic Rfl954 CO2 29.0 mEq/L 07/07/2015 Comp Metabolic Ydc143 AN ION GAP 12 07/07/2015 Comp Metabolic Hwx003 GL UCOSE 98 mg/dL 07/07/2015 Comp Metabolic Syv668 Cr eat 1.0 mg/dL 07/07/2015 Comp Metabolic Pbf098 eG FR 62 ml/min/1.73m2 07/06 Comp Metabolic Bwe275 BUN 16 mg/dL 07/07/2015 Comp Metabolic Aob603 B/ C Ratio 16.5 Ratio 07/07/2015 Comp Metabolic Xyz548 CA LCIUM 9.5 mg/dL 07/07/2015 Comp Metabolic Xgw398 AL K PHOS 47 U/L 07/07/2015 Comp Metabolic Htm743 T(SGOT) 18 U/L 07/07/2015 Comp Metabolic Zgy562 AL T(SGPT) 22 U/L 07/07/2015 Comp Metabolic Oex116 BI LI T 0.5 mg/dL 07/07/2015 Comp Metabolic Lue640 AL BUMIN 4.2 g/dL 07/07/2015 Comp Metabolic Aym177 TP RO 6.5 g/dL 07/07/2015 Comp Metabolic Puj253 GL OB 2.3 g/dL 07/07/2015 Comp Metabolic Rdt027 A/ G Ratio 1.8 Ratio 07/07/2015 Comp Metabolic Rcc085 Os mo 275 mOsmo 07/07/2015 %Hba1C Pqx877 % HbA1c 73466-4 5.7 % 07/07/2015 %Hba1C Iwd396 Gluc Ave 117 mg/dL 07/07/2015 Tsh Ord6 [...] lips 11/16/2018 None Full Exam - General 1994 Ears/Nose/Throat lips/teeth/gingiva Overall: normal dentition 11/16/2018 None Full Exam - General 1995 Ears/Nose/Throat oral cavity/pharynx/larynx Overall: oral mucosa clear 11/16/2018 None Full Exam - General 1995 Ears/Nose/Throat oral cavity/pharynx/larynx Overall: oropharyngeal mucosa clear 11/16/2018 None Full Exam - General 1995 Ears/Nose/Throat oral cavity/pharynx/larynx Overall: hypopharynx benign 11/16/2018 [...] 1: 134/72 Code: 8480-6 BMI: 35.1 Code: 56353-0 Heart Rate 1: 72 bpm Height: 5'3" SpO2: 98% Weight: 198 lbs 11/16/2018 Blood Pressure 1: 106/60 Code: 8480-6 BMI: 34.7 Code: 12233-5 Heart Rate 1: 65 bpm Height: 5'3" SpO2: 99% Weight: 196 lbs 05/18/2018 Blood Pressure 1: 128/76 Code: 8480-6 BMI: 34.4 Code: 96101-6 Heart Rate 1: 67 bpm Height: 5'3" SpO2: 97% Temperature: 37.0 (C ) / 98.6 (F) Weight: 194 lbs 09/13/2017 Blood Pressure 1: 140/78 Code: 8480-6 BMI: 35.4 Code: 69374-2 Heart Rate 1: 71 bpm Height: 5'3" SpO2: 97% Weight: 200 lbs 02/16/2017 Blood Pressure 1: 138/76 Code: 8480-6 BMI: 34.4 Code: 53620-6 Heart Rate 1: 66 bpm Height: 5'3" SpO2: 99% Weight: 194 lbs 09/08/2016 Blood Pressure 1: 138/86 Code: 8480-6 BMI: 32.2 Code: 06796-9 Heart Rate 1: 69 bpm Height: 5'3" SpO2: 99% Weight: 182 lbs 05/23/2016 Blood Pressure 1: 126/70 Code: 8480-6 BMI: 30.8 Code: 88447-1 Heart Rate 1: 63 bpm Height: 5'3" SpO2: 98% Weight: 174 lbs 01/12/2016 Blood Pressure 1: 140/72 Code: 8480-6 BMI: 29.8 Code: 82806-8 Heart Rate 1: 82 bpm Height: 5'3" SpO2: 97% Weight: 168 lbs 12/14/2015 Blood Pressure 1: 132/78 Code: 8480-6 BMI: 31.5 Code: 64119-0 Heart Rate 1: 71 bpm Height: 5'3" SpO2: 98% Weight: 178 lbs 07/09/2015 Blood Pressure 1: 128/80 Code: 8480-6 BMI: 30.6 Code: 19254-2 Heart Rate 1: 71 bpm Height: 5'3" SpO2: 99% Weight: 173 lbs 10/09/2014 Blood Pressure 1: 120/70 Code: 8480-6 BMI: 29.1 Code: 34869-1 Heart Rate 1: 68 bpm Height: 5'3" [...] mellitus Quality chronic 09/13/2017 None hypothyroid Quality chronometer adjuster marie 09/13/2017 None diabetes mellitus Glucose monitoring [...] Encounters Encounter Performer Loca tion Codes Date ([id number]) [id number] EST. P ATIENT, LEVEL III Diagnosis: Acute recurrent maxillary sinusitis[ICD10: J01.01] Diagnosis: Cough[ICD10: R05] Asha Ballard MD, [facility] CPT-4: 03709 12/25/2018 ([id number]) 73561 EST. P ATIENT, LEVEL IV Diagnosis: Type 2 diabetes mellitus without complications[ICD10: E11.9] Diagnosis: Essential (primary) hypertension[ICD10: I10] Diagnosis: Other allergic rhinitis[ICD10: J30.89] Asha Ballard MD, [facility] CPT-4: 02177 11/16/2018 ([id number]) 43187 EST. P ATIENT, LEVEL IV Diagnosis: Essential (primary) hypertension[ICD10: I10] Diagnosis: Acute upper respiratory infection, unspecified[ICD10: J06.9] Diagnosis: Mixed hyperlipidemia[ICD10: E78.2] Diagnosis: Hypothyroidism, unspecified[ICD10: E03.9] Diagnosis: Type 2 diabetes mellitus without complications[ICD10: E11.9] Asha Ballard MD, [facility] CPT-4: 58127 05/18/2018 ([id number]) 29715 EST. P ATIENT, LEVEL IV Diagnosis: Type 2 diabetes mellitus without complications[ICD10: E11.9] Diagnosis: Essential (primary) hypertension[ICD10: I10] Diagnosis: Other obesity due to excess calories[ICD10: E66.09] Katty Ballard MD, [facility] CPT-4: 34569 09/13/2017 ([id number]) 16235 EST. P ATIENT, LEVEL IV Diagnosis: Type 2 diabetes mellitus without complications[ICD10: E11.9] Diagnosis: Essential (primary) hypertension[ICD10: I10] Diagnosis: Other acute sinusitis[ICD10: J01.80] Diagnosis: Other obesity due to excess calories[ICD10: E66.09] Asha Ballard MD, [facility] CPT-4: 75516 02/16/2017 ([id number]) 36646 EST. P ATIENT, LEVEL IV Diagnosis: Type 2 diabetes mellitus without complications[ICD10: E11.9] Diagnosis: Essential (primary) hypertension[ICD10: I10] Diagnosis: Pain in right knee[ICD10: M25.561] Diagnosis: Pain in left knee[ICD10: M25.562] Katty Ballard MD, [facility] CPT-4: 46587 09/08/2016 23777 EST. PATIENT, LEVEL IV Diagnosis: Localized edema[ICD10: R60.0] Diagnosis: Shortness of breath[ICD10: R06.02] Salma Ballard MD, [facility] CPT-4: 62588 05/23/2016 ([id number]) 27849 EST. P ATIENT, LEVEL IV Diagnosis: Type 2 diabetes mellitus without complications[ICD10: E11.9] Diagnosis: Essential (primary) hypertension[ICD10: I10] Diagnosis: Chronic idiopathic constipation[ICD10: K59.04] Katty Ballard MD, [facility] CPT-4: 02867 01/12/2016 [id number] EST. PATIENT, LEVEL IV Diagnosis: Other acute sinusitis[ICD10: J01.80] Diagnosis: Other allergic rhinitis[ICD10: J30.89] Salma Ballard MD, [facility] CPT-4: 13880 12/14/2015 ([id number]) 93967 EST. P ATIENT, LEVEL IV Diagnosis: Essential (primary) hypertension[ICD10: I10] Diagnosis: Type 2 diabetes mellitus without complications[ICD10: E11.9] Diagnosis: Pain in right knee[ICD10: M25.561] Diagnosis: Pain in left knee[ICD10: M25.562] Asha Ballard MD, [facility] CPT- 4: 45455 07/09/2015 ([id number]) [facility] - LEVEL 4 Diagnosis: ESSENTIAL HYPERTENSION[ICD9: 401.9] Diagnosis: DIABETES TYPE II[ICD9: 250.00] Diagnosis: HYPERLIPIDEMIA[ICD9: 272.4] Diagnosis: HYPOTHYROIDISM[ICD9: 244.9] Katty Ballard MD, [facility] CPT-4: 03409 10/09/2014 Plan of Care Planned Activity Notes C odes Status Date Visit Plan: Sinusitis - Pt has acut e infection - pain in face, maxillary region, Pt informed to use decongestant, RX given to patient, sinus rinses also recommended. Call if symptoms do not show improvement. 12/25/2018 Appointment: Asha Bernstein WPtel: [address] [place], [place] [phone] (30 min) Complex 12/25/2018 Patient Education: Patient [...] allergy spray. 11/16/2018 Appointment: Asha Bernstein WPtel: [phone] [phone] (30 min) Complex 11/16/2018 Patient Education: Patient [...] - she would like a referral to [facility] for diabetic education. Knee pain - post operative still with swelling - continue with current management. 09/13/2017 App[facility]ment[facility] [phone] [phone] ([facility] min) Moderate 09/13/2017 Patient Education: Patient [...] weight check. 02/16/2017 [phone] [phone] ([facility] min) Moderate 02/16/2017 Patient Education: Patient [...] pharmacy 09/08/2016 Appointment: Katty Ballard WPtel: [phone] [facility] (15 min) Moderate 09/08/2016 Patient Education: Patient [...] peripheral edema. 05/23/2016 Appointment: Salma Garay WPtel: [phone] (30 min) Complex 05/23/2016 Patient Education: Patient Medication Summary Completed 05/23/2016 Patient Education: Obesity Completed 05/23/2016 Appointment: Katty Ballard WPtel: [phone] (15 min) Moderate 01/13/2016 Visit Plan: Hypertension [...] improving. 10/09/2014 Appointment: [facility] [phone] [phone] [place] New Patient 10/09/2014 Patient Education: Patient Medication Summary Completed 10/09/2014 Patient Education: Hypertension Completed 10/09/2014 Care Plan: MICROALBUMIN QUANTITATIVE LOINC : 33109-4 Ordered 10/09/2014 Care Plan: COMPLETE CBC AUTOMATED LOINC : 66427-7 Ordered 10/09/2014 Instructions Comment . Sinusitis - [...] - she would like a referral to [facility] for diabetic education. Knee pain - post [...]
--- OUTSIDE RECORDS SUMMARY | 2019-12-03 12:41 | XMS REPORT | CCD ---
Author Author Danni Ballard Organization Katty Ballard MD, [facility] Address [address] [place] [address] Phone Care Team Providers Care Track Leader Name Role Phone PP Unavailable CCM Unavailable Summary Purpose Interface Exchange Insurance Providers Payer name Policy type / Coverage type Covered democrat ID Effective Begin Date Effective End Date WPS Medicare Part B Medicare Part B [id number] 2018 Unknown [employer] [place] Medicare Part B [id number] Unknown Family history Father Diagnosis Age At Onset Cancer Unknown Mother Diagnosis Age At Onset Diabetes mellitus Type 2 Unknown Stroke Unknown Hypertension Unknown Arthritis Unknown Osteoporosis Unknown kidney disease Unknown Coronary Artery Disease Unknown Social History Social History Element Codes Description Effective Dates Marital status Unknown M chiki Peter 10/09/2014 Number of children Unknown 2 10/09/[address]: 2301038 Quit over 10 years ago 10/09/[address]: 409791056 Never drinks alcohol 10/09/2014 Allergies, Adverse Reactions, [...] Date Stop Date Sta tus Fill Instructions doxycycline hyclate 100 mg tablet RxNorm: 2632822 1 Tablet(s) PO BID 12/25/2018 12/31/2018 Active Kenalog 40 mg/mL reese pension for injection RxNorm: 5495567 Milliliter(s) Inj 12/25/2018 12/25/2018 In active meloxicam 15 mg tablet RxNorm: 719484 TAKE 1 TABLET BY MOUTH ONCE DAILY 07/09/2018 01/04/2019 Ac tive Generic For:MOBIC 15MG 07/07/2018 11:11 :46 AM triamterene 37.5 mg- hydrochlorothiazide 25 mg tablet RxNorm: 592241 TAKE 1 TABLET BY MOUTH ONCE DAILY 07/09/2018 01/04/2019 Active 07/07/2018 11:12:05 AM levothyroxine 50 mcg tablet RxNorm: 920001 TAKE 1 TABLET BY MOUT H DAILY 07/09/2018 01/04/2019 Ac tive Generic For:SYNTHROID 50MCG TAB 019 11:12:00 AM omeprazole 40 mg cap betty,delayed release RxNorm: 953852 TAKE 1 CAPSULE BY MACKENZIE TH DAILY 07/09/2018 01/04/2019 Ac tive Generic For:PRILOSEC 40MG 07/07/2018 11 :11:38 AM Lipitor 10 mg tablet RxNorm: 106118 TAKE 1 TABLET BY MOUTH DAILY 07/09/2018 01/04/2019 Active Generic For:LIPITOR 10MG 07/07/2018 11: 12:19 AM Zithromax Z-Taj 250 mg tablet RxNorm: 907783 1 Tablet(s) PO UD 05/18/2018 05/22/2018 Inactive metformin 500 mg tablet RxNorm: 167993 TAKE 1 TABLET BY MOUTH ONCE DAILY 02/07/2018 05/21/2018 In active Generic For:GLUCOPHAGE 500MG 02/07/2018 9:07:34 AM levothyroxine 50 mcg tablet RxNorm: 933355 TAKE 1 TABLET BY MOUT H DAILY 02/07/2018 06/06/2018 In active Generic For:SYNTHROID 50MCG TAB 018 9:07:42 AM meloxicam 15 mg tablet RxNorm: 271169 TAKE 1 TABLET BY MOUTH ONCE DAILY 02/07/2018 07/06/2018 In active Generic For:MOBIC 15MG 02/07/2018 9:07: 30 AM omeprazole 40 mg cap betty,delayed release RxNorm: 793691 TAKE 1 CAPSULE BY MACKENZIE TH DAILY 02/07/2018 07/06/2018 Inactive Generic For:PRILOSEC 40MG 02/07/2018 9: 07:37 AM Lipitor 10 mg tablet RxNorm: 254420 TAKE 1 TABLET BY MOUTH DAILY 11/09/2017 06/06/2018 Inactive Generic For:LIPITOR 10MG 11/09/2017 9:0 1:12 AM triamterene 37.5 mg- hydrochlorothiazide 25 mg tablet RxNorm: 174541 TAKE 1 TABLET BY MOUTH ONCE DAILY 11/09/2017 06/06/2018 Inactive 11/09/2017 9:01:09 AM levothyroxine 50 mcg tablet RxNorm: 851471 TAKE 1 TABLET BY MOUT H DAILY 10/10/2017 02/06/2018 In active Generic For:SYNTHROID 50MCG TAB 018 8:57:50 AM omeprazole 40 mg cap betty,delayed release RxNorm: 647635 TAKE 1 CAPSULE BY MACKENZIE TH DAILY 10/10/2017 02/06/2018 Inactive Generic For:PRILOSEC 40MG 10/10/2017 8: 57:46 AM Voltaren 1 % topical gel RxNorm: 281249 4 Gram(s) TOP QID - a pply 4 times daily to bilateral knees 09/13/2017 11/11/2017 Inactive levothyroxine 50 mcg tablet RxNorm: 986359 TAKE 1 TABLET BY MOUT H DAILY 09/11/2017 10/09/2017 In active Generic For:SYNTHROID 50MCG TAB 018 9:04:26 AM metformin 500 mg tablet RxNorm: 547047 TAKE 1 TABLET BY MOUTH ONCE DAILY 08/11/2017 02/06/2018 In active Generic For:GLUCOPHAGE 500MG 08/11/2017 8:56:05 AM meloxicam 15 mg tablet RxNorm: 342837 TAKE 1 TABLET BY MOUTH ONCE DAILY 08/11/2017 02/06/2018 In active Generic For:MOBIC 15MG 08/11/2017 8:56: 02 AM omeprazole 40 mg cap betty,delayed release RxNorm: 144924 TAKE 1 CAPSULE BY MACKENZIE TH DAILY 06/12/2017 10/09/2017 Inactive Generic For:PRILOSEC 40MG 06/12/2017 8: 56:49 AM Lipitor 10 mg tablet RxNorm: 334257 TAKE 1 TABLET BY MOUTH DAILY 2017 11/08/2017 Inactive Generic For:LIPITOR 10MG 2017 9:0 4:16 AM triamterene 37.5 mg- hydrochlorothiazide 25 mg tablet RxNorm: 190717 TAKE 1 TABLET BY MOUTH ONCE DAILY 2017 04/12/2017 Inactive 2017 9:04:19 AM triamterene 37.5 mg- hydrochlorothiazide 25 mg tablet RxNorm: 979989 TAKE 1 TABLET BY MOUTH ONCE DAILY 2017 10/09/2017 Inactive 2017 9:04:19 AM metformin 500 mg tablet RxNorm: 004911 TAKE 1 TABLET BY MOUTH ONCE DAILY 03/14/2017 08/10/2017 In active Generic For:GLUCOPHAGE 500MG 03/14/2017 9:16:18 AM levothyroxine 50 mcg tablet RxNorm: 187382 TAKE 1 TABLET BY MOUT H DAILY 03/14/2017 09/09/2017 In active Generic For:SYNTHROID 50MCG TAB 017 9:16:23 AM Zithromax Z-Taj 250 mg tablet RxNorm: 382082 1 Tablet(s) PO daily 02/16/2017 02/20/2017 Inactive omeprazole 40 mg cap betty,delayed release RxNorm: 036376 TAKE 1 CAPSULE BY MACKENZIE TH DAILY 02/13/2017 06/11/2017 Inactive Generic For:PRILOSEC 40MG 02/13/2017 8: 55:14 AM meloxicam 15 mg tablet RxNorm: 279291 TAKE 1 TABLET BY MOUTH ONCE DAILY 02/13/2017 08/10/2017 In active Generic For:MOBIC 15MG 02/13/2017 8:55: 10 AM levothyroxine 50 mcg tablet RxNorm: 008186 TAKE 1 TABLET BY MOUT H DAILY-- NEED TO GET LABS CHECKED FOR FURTHER REFILLS 01/05/2017 03/05/2017 Inactive Generic For:SYNTHROID 50MCG TAB 01/05/2017 4:36:06 PM levothyroxine 50 mcg tablet RxNorm: 472412 TAKE 1 TABLET BY MOUT H DAILY 12/14/2016 01/04/2017 In active Generic For:SYNTHROID 50MCG TAB 017 9:02:20 AM triamterene 37.5 mg- hydrochlorothiazide 25 mg tablet RxNorm: 684910 TAKE 1 TABLET BY MOUTH ONCE DAILY 11/14/2016 04/12/2017 Inactive 11/14/2016 9:13:26 AM metformin 500 mg tablet RxNorm: 992786 1 Tablet(s) PO daily 10/17/2016 03/13/2017 Inactive Generic For:GLUCOPHAGE 500MG 10/29/2014 9:02:36 AM omeprazole 40 mg cap betty,delayed release RxNorm: 774793 TAKE 1 CAPSULE BY MACKENZIE TH DAILY 10/17/2016 02/12/2017 Inactive Generic For:PRILOSEC 40MG 10/15/2016 8: 56:40 AM meloxicam 15 mg tablet RxNorm: 649535 1 Tablet(s) PO daily TAKE 1 TABLET BY MO UTH ONCE DAILY 09/19/2016 02/12/2017 Inactive Generic For:MOBIC 15MG 9:09:45 AM levothyroxine 50 mcg tablet RxNorm: 877874 TAKE 1 TABLET BY MOUT H DAILY 09/16/2016 12/13/2016 In active Generic For:SYNTHROID 50MCG TAB 017 10:22:07 AM 09/15/2016 9:01:47 AM Lipitor 10 mg tablet RxNorm: 670532 TAKE 1 TABLET BY MOUTH DAILY 09/16/2016 04/12/2017 Inactive Generic For:LIPITOR 10MG 09/16/2016 10: 22:13 AM 09/15/2016 9:01:42 AM Adly Ultra Test strips RxNorm: 1 Miscellaneous daily 09/08/2016 09/02/2017 Inactive Voltaren 1 % topical gel RxNorm: 296349 2 Gram(s) TOP QID 09/08/2016 11/06/2016 Inactive meloxicam 15 mg tablet RxNorm: 606028 TAKE 1 TABLET BY MOUTH ONCE DAILY 08/16/2016 09/18/2016 In active Generic For:MOBIC 15MG 08/16/2016 9:09: 45 AM triamterene 37.5 mg- hydrochlorothiazide 25 mg tablet RxNorm: 677409 TAKE 1 TABLET BY MOUTH ONCE DAILY 07/18/2016 11/13/2016 Inactive 07/18/2016 8:57:50 AM omeprazole 40 mg cap betty,delayed release RxNorm: 799486 TAKE 1 CAPSULE BY MACKENZIE TH DAILY 06/17/2016 10/14/2016 Inactive Generic For:PRILOSEC 40MG 06/17/2016 9: 30:36 AM levothyroxine 50 mcg tablet RxNorm: 784344 TAKE 1 TABLET BY MOUT H DAILY 06/17/2016 09/14/2016 In active Generic For:SYNTHROID 50MCG TAB 017 9:10:49 AM metformin 500 mg tablet RxNorm: 293523 1 Tablet(s) PO daily 05/24/2016 10/16/2016 Inactive Generic For:GLUCOPHAGE 500MG 10/29/2014 9:02:36 AM Lasix 20 mg tablet RxNorm: 961800 1 Tablet(s) PO daily 05/24/2016 05/26/2016 Inactive metformin 500 mg tablet RxNorm: 339066 1 Tablet(s) PO daily 05/23/2016 05/23/2016 Inactive Generic For:GLUCOPHAGE 500MG 10/29/2014 9:02:36 AM Lasix 20 mg tablet RxNorm: 203671 1 Tablet(s) PO daily 05/23/2016 05/23/2016 Inactive potassium chloride E R 10 mEq tablet,extended release RxNorm: 601791 1 Tablet(s) PO daily 05/23/2016 05/25/2016 Inactive meloxicam 15 mg tablet RxNorm: 351353 1 Tablet(s) PO daily 04/18/2016 08/15/2016 Inactive Lipitor 10 mg tablet RxNorm: 077580 TAKE 1 TABLET BY MOUTH DAILY 04/18/2016 08/15/2016 Inactive Generic For:LIPITOR 10MG 04/18/2016 9:1 5:59 AM triamterene 37.5 mg- hydrochlorothiazide 25 mg tablet RxNorm: 183985 TAKE 1 TABLET BY MOUTH ONCE DAILY 03/21/2016 07/17/2016 Inactive 03/19/2016 9:02:10 AM levothyroxine 50 mcg tablet RxNorm: 283770 TAKE 1 TABLET BY MOUT H DAILY 02/18/2016 06/16/2016 In active Generic For:SYNTHROID 50MCG TAB 016 9:03:15 AM omeprazole 40 mg cap betty,delayed release RxNorm: 055742 TAKE 1 CAPSULE BY MACKENZIE TH DAILY 02/18/2016 06/16/2016 Inactive Generic For:PRILOSEC 40MG 02/18/2016 9: 03:12 AM Movantik 25 mg tablet RxNorm: 8424697 1 Tablet(s) PO QAM with breakfast or sean ch 01/12/2016 09/07/2016 In active Flonase Allergy Reli ef 50 mcg/actuation nasal spray,suspension RxNorm: 3214043 1 Sultan NASAL BID 12/14/2015 09/07/2016 Inactive Zithromax Z-Taj 250 mg tablet RxNorm: 159294 Tablet(s) PO UD 12/14/2015 01/11/2016 Inactive Lipitor 10 mg tablet RxNorm: 030347 TAKE 1 TABLET BY MOUTH DAILY 11/20/2015 04/17/2016 Inactive Generic For:LIPITOR 10MG 11/20/2015 9:1 1:10 AM triamterene 37.5 mg- hydrochlorothiazide 25 mg tablet RxNorm: 915209 TAKE 1 TABLET BY MOUTH ONCE DAILY 11/19/2015 03/17/2016 Inactive 11/18/2015 9:06:12 AM meloxicam 15 mg tablet RxNorm: 751790 1 Tablet(s) PO daily 10/21/2015 04/17/2016 Inactive levothyroxine 50 mcg tablet RxNorm: 279669 TAKE 1 TABLET BY MOUT H DAILY 10/21/2015 02/17/2016 In active Generic For:SYNTHROID 50MCG TAB 016 9:06:41 AM omeprazole 40 mg cap betty,delayed release RxNorm: 160951 TAKE 1 CAPSULE BY MACKENZIE TH DAILY 10/21/2015 02/17/2016 Inactive Generic For:PRILOSEC 40MG 10/21/2015 9: 06:53 AM triamterene 37.5 mg- hydrochlorothiazide 25 mg tablet RxNorm: 790681 Tablet(s) 1 Tablet(s) PO daily 07/23/2015 11/18/2015 Inactive [SAVINGS FOR NON-COVERED DR BARRIENTOS -- BIN:[id number], PCN: ASPROD1, Group: XXXXX, ID# XXXXXXX, Questions: . THIS IS NOT INSURANCE.] metformin 500 mg tablet RxNorm: 162196 1 Tablet(s) PO daily 07/10/2015 12/06/2015 Inactive Generic For:GLUCOPHAGE 500MG 10/29/2014 9:02:36 AM Voltaren 1 % topical gel RxNorm: 094050 4 Gram(s) TOP QID 07/09/2015 09/07/2016 Inactive bilateral knees metformin 500 mg tablet RxNorm: 089970 1 Tablet(s) PO daily TAKE 1 TABLET BY MO UTH TWICE DAILY 07/09/2015 07/09/2015 Inactive Generic For:GLUCOPHAGE 500M G 10/29/2014 9:02:36 AM Lipitor 10 mg tablet RxNorm: 023032 1 Tablet(s) PO daily 06/26/2015 11/19/2015 Inactive metformin 500 mg tablet RxNorm: 460702 1 Tablet(s) PO BID TAKE 1 TABLET BY MOUT H TWICE DAILY 06/26/2015 07/08/2015 Inactive Generic For:GLUCOPHAGE 500M G 10/29/2014 9:02:36 AM omeprazole 40 mg cap betty,delayed release RxNorm: 900069 TAKE 1 CAPSULE BY MACKENZIE TH DAILY 04/27/2015 10/20/2015 Inactive Generic For:PRILOSEC 40MG meloxicam 15 mg tablet RxNorm: 539098 1 Tablet(s) PO daily 03/30/2015 10/20/2015 Inactive triamterene 37.5 mg- hydrochlorothiazide 25 mg tablet RxNorm: 040522 Tablet(s) 1 Tablet(s) PO daily 03/30/2015 07/22/2015 Inactive [SAVINGS FOR NON-COVERED DR BARRIENTOS -- BIN:[id number], PCN: ASPROD1, Group: XXXXX, ID# XXXXXXX, Questions: . THIS IS NOT INSURANCE.] metformin 500 mg tablet RxNorm: 392515 1 Tablet(s) PO BID 02/26/2015 06/25/2015 Inactive levothyroxine 50 mcg tablet RxNorm: 496441 TAKE 1 TABLET BY MOUT H DAILY 02/26/2015 10/20/2015 In active Generic For:SYNTHROID 50MCG TAB 015 2:41:48 PM N O T I C E PRESCRIPTION PREVIOUSLY AUTHORIZED BY DOCTOR:RUFINO LIAO Lipitor 10 mg tablet RxNorm: 527027 1 Tablet(s) PO daily 02/26/2015 06/25/2015 Inactive omeprazole 40 mg cap betty,delayed release RxNorm: 810342 1 Capsule(s) PO 01/01/2015 04/26/2015 In active [SAVINGS FOR NON-COVERED DRUGS -- BIN:00 [id number], PCN: ASPROD1, Group: XXXXX, ID# XXXXXXX, Questions: . THIS IS NOT INSURANCE.] triamterene 37.5 mg- hydrochlorothiazide 25 mg tablet RxNorm: 000075 1 Tablet(s) PO daily 12/02/2014 03/29/2015 Inactive [SAVINGS FOR NON-COVERED DR UGS -- BIN:[id number], PCN: ASPROD1, Group: XXXXX, ID# XXXXXXX, Questions: . THIS IS NOT INSURANCE.] metformin 500 mg tablet RxNorm: 639227 1 Tablet(s) PO BID TAKE 1 TABLET BY MOUT H TWICE DAILY 10/29/2014 06/25/2015 Inactive Generic For:GLUCOPHAGE 500M G 10/29/2014 9:02:36 AM metformin 500 mg tablet RxNorm: 712206 1 Tablet(s) PO BID 10/29/2014 10/29/2014 Inactive Lipitor 10 mg tablet RxNorm: 015868 1 Tablet(s) PO daily 10/27/2014 10/26/2014 Inactive Lipitor 10 mg tablet RxNorm: 165653 1 Tablet(s) PO daily 10/27/2014 02/23/2015 Inactive omeprazole 40 mg cap betty,delayed release RxNorm: 114032 1 Capsule(s) PO 09/02/2014 12/30/2014 In active [SAVINGS FOR NON-COVERED DRUGS -- BIN:00 3585, PCN: ASPROD1, Group: XXXXX, ID# XXXXXXX, Questions: . THIS IS NOT INSURANCE.] omeprazole 40 mg cap betty,delayed release RxNorm: 649541 1 Capsule(s) PO 09/02/2014 09/01/2014 In active triamterene 37.5 mg- hydrochlorothiazide 25 mg tablet RxNorm: 673951 1 Tablet(s) PO daily 08/27/2014 08/26/2014 Inactive triamterene 37.5 mg- hydrochlorothiazide 25 mg tablet RxNorm: 696262 1 Tablet(s) PO daily 08/27/2014 12/01/2014 Inactive [SAVINGS FOR NON-COVERED DR UGS -- BIN:825692, PCN: ASPROD1, Group: XXXXX, ID# XXXXXXX, Questions: . THIS IS NOT INSURANCE.] Multi Vitamin oral RxNorm: oral No Start Date Active Aspirin Low Dose 81 mg tablet,delayed release RxNorm: 062673 1 Tablet(s) PO daily No Start Date Active estradiol 2 mg tablet RxNorm: 512805 1 Tablet(s) PO daily No Start Date Active Vitamin D (with calc ium) oral RxNorm: 2418 oral No Sta rt Date Active medroxyprogesterone 5 mg tablet RxNorm: 6997358 1 Tablet(s) PO daily No Start Date Active meloxicam 15 mg tablet RxNorm: 901892 1 Tablet(s) PO daily No Start Date 02/06/2018 Inactive metformin 500 mg tablet RxNorm: 323177 1 Tablet(s) PO daily No Start Date 10/28/2014 Inactive Osteo Bi-Flex oral RxNorm: 2711801 oral No Start Date 02/15/2017 Inactive levothyroxine 50 mcg tablet RxNorm: 321648 1 Tablet(s) PO daily No Start Date 02/25/2015 Inactive Medication Administered Medication Codes Instruc tions Start Date Status Kenalog 40 mg/mL suspension for injection RxNorm: 7862000 Milliliter 12/25/2018 No longer Active Immunizations Vaccine [...] Item Item Code Result Date Comp Metabolic Lda833 NA 139 mEq/L 11/16/2018 Comp Metabolic Rtr635 K 3.9 mEq/L 11/16/2018 Comp Metabolic Tsd883 CL 103 mEq/L 11/16/2018 Comp Metabolic Sci850 CO2 27.0 mEq/L 11/16/2018 Comp Metabolic Kkj435 AN ION GAP 13 11/16/2018 Comp Metabolic Ivn421 GL UCOSE 107 mg/dL 11/16/2018 Comp Metabolic Ndo310 Cr eat 1.0 mg/dL 11/16/2018 Comp Metabolic Cmr210 eG FR 56 ml/min/1.73m2 11/16 Comp Metabolic Gxz399 BUN 18 mg/dL 11/16/2018 Comp Metabolic Cgr605 B/ C Ratio 17.3 Ratio 11/16/2018 Comp Metabolic Amj230 CA LCIUM 9.6 mg/dL 11/16/2018 Comp Metabolic Rce233 AL K PHOS 75 U/L 11/16/2018 Comp Metabolic Jcl318 T(SGOT) 16 U/L 11/16/2018 Comp Metabolic Fnz385 AL T(SGPT) 16 U/L 11/16/2018 Comp Metabolic Sgz307 BI LI T 0.6 mg/dL 11/16/2018 Comp Metabolic Yyn898 AL BUMIN 4.1 g/dL 11/16/2018 Comp Metabolic Pdi536 TP RO 6.5 g/dL 11/16/2018 Comp Metabolic Fyq328 GL OB 2.4 g/dL 11/16/2018 Comp Metabolic Zvx600 A/ G Ratio 1.7 Ratio 11/16/2018 Comp Metabolic Tmj431 Os mo 280 mOsmo 11/16/2018 %Hba1C Ofr412 % HbA1c 46226-7 6.5 % 11/16/2018 %Hba1C Pnj258 Gluc Ave 140 mg/dL 11/16/2018 Free T4 Kzd592 FREE T4 1.09 ng/dL 05/18/2018 Lipid Ord30 [...] 31.2 pg 05/18/2018 Cbc With Differential Ord2 Stevens% 9.2 % 05/18/2018 Cbc With Differential Ord2 [...] 2.00 K/ul 05/18/2018 Cbc With Differential Ord2 Stevens ABS# 0.6 K/ul 05/18/2018 Cbc With Differential Ord2 Eos ABS# 0.2 K/ul 05/18/2018 Cbc With Differential Ord2 Baso ABS# 0.0 K/ul 05/18/2018 %Hba1C Pzg524 % HbA1c 08445-2 6.1 % 05/18/2018 %Hba1C Wyu589 Gluc Ave 128 mg/dL 05/18/2018 Comp Metabolic Gfl245 NA 139 mEq/L 05/18/2018 Comp Metabolic Aly371 K 3.8 mEq/L 05/18/2018 Comp Metabolic Qke272 CL 100 mEq/L 05/18/2018 Comp Metabolic Qiq697 CO2 29.0 mEq/L 05/18/2018 Comp Metabolic Vfu778 AN ION GAP 14 05/18/2018 Comp Metabolic Yuj982 GL UCOSE 100 mg/dL 05/18/2018 Comp Metabolic Fnn294 Cr eat 1.2 mg/dL 05/18/2018 Comp Metabolic Jby514 eG FR 49 ml/min/1.73m2 05/18 Comp Metabolic Hiu780 BUN 17 mg/dL 05/18/2018 Comp Metabolic Dww380 B/ C Ratio 14.5 Ratio 05/18/2018 Comp Metabolic Nqn049 CA LCIUM 10.0 mg/dL 05/18/2018 Comp Metabolic Luh249 AL K PHOS 75 U/L 05/18/2018 Comp Metabolic Tkh780 T(SGOT) 16 U/L 05/18/2018 Comp Metabolic Yxe782 AL T(SGPT) 15 U/L 05/18/2018 Comp Metabolic Ivj921 BI LI T 0.7 mg/dL 05/18/2018 Comp Metabolic Imo090 AL BUMIN 4.4 g/dL 05/18/2018 Comp Metabolic Dfo465 TP RO 6.8 g/dL 05/18/2018 Comp Metabolic Odp573 GL OB 2.4 g/dL 05/18/2018 Comp Metabolic Fku455 A/ G Ratio 1.8 Ratio 05/18/2018 Comp Metabolic Zcv842 Os mo 279 mOsmo 05/18/2018 Comp Metabolic Cnk865 NA 138 mEq/L 09/14/2017 Comp Metabolic Gvk159 K 3.8 mEq/L 09/14/2017 Comp Metabolic Dzn573 CL 101 mEq/L 09/14/2017 Comp Metabolic Mlh580 CO2 26.0 mEq/L 09/14/2017 Comp Metabolic Unw460 AN ION GAP 15 09/14/2017 Comp Metabolic Tjs691 GL UCOSE 120 mg/dL 09/14/2017 Comp Metabolic Lgd146 Cr eat 1.0 mg/dL 09/14/2017 Comp Metabolic Tmq342 eG FR 61 ml/min/1.73m2 09/14 Comp Metabolic Iif198 BUN 18 mg/dL 09/14/2017 Comp Metabolic Qwj851 B/ C Ratio 18.6 Ratio 09/14/2017 Comp Metabolic Kcg763 CA LCIUM 9.7 mg/dL 09/14/2017 Comp Metabolic Jdz283 AL K PHOS 63 U/L 09/14/2017 Comp Metabolic Xkj978 T(SGOT) 18 U/L 09/14/2017 Comp Metabolic Jjt266 AL T(SGPT) 20 U/L 09/14/2017 Comp Metabolic Pmn219 BI LI T 0.5 mg/dL 09/14/2017 Comp Metabolic Xoz007 AL BUMIN 4.3 g/dL 09/14/2017 Comp Metabolic Rmr843 TP RO 6.7 g/dL 09/14/2017 Comp Metabolic Mee099 GL OB 2.4 g/dL 09/14/2017 Comp Metabolic Qev162 A/ G Ratio 1.8 Ratio 09/14/2017 Comp Metabolic Iqt190 Os mo 279 mOsmo 09/14/2017 Lipid Ord30 CHOL 180 mg/dL 09/14/2017 Lipid Ord30 HDL 53.0 mg/dl 09/14/2017 Lipid Ord30 TRIG 126 mg/dL 09/14/2017 Lipid Ord30 LDL 102 mg/dL 09/14/2017 Lipid Ord30 C/HDL 3.4 Ratio 09/14/2017 Microalbumin Yoj251 Micr oAlb <0.7 mg/dL 09/14/2017 %Hba1C Bfp535 % HbA1c 22488-2 6.0 % 09/14/2017 %Hba1C Rej842 Gluc Ave 126 mg/dL 09/14/2017 Free T4 Zcf858 FREE T4 0.98 ng/dL 09/14/2017 Cbc With [...] 31.3 pg 09/14/2017 Cbc With Differential Ord2 Stevens% 9.4 % 09/14/2017 Cbc With Differential Ord2 [...] 1.94 K/ul 09/14/2017 Cbc With Differential Ord2 Stevens ABS# 0.7 K/ul 09/14/2017 Cbc With Differential Ord2 Eos ABS# 0.2 K/ul 09/14/2017 Cbc With Differential Ord2 Baso ABS# 0.0 K/ul 09/14/2017 Tsh Ord6 TSH (3rd IS) 2.64 uIU/mL 09/14/2017 Comp Metabolic Fwl234 NA 138 mEq/L 05/23/2016 Comp Metabolic Ukl791 K 4.0 mEq/L 05/23/2016 Comp Metabolic Wwy658 CL 105 mEq/L 05/23/2016 Comp Metabolic Yab670 CO2 25.0 mEq/L 05/23/2016 Comp Metabolic Mvx872 AN ION GAP 12 05/23/2016 Comp Metabolic Nvx039 GL UCOSE 89 mg/dL 05/23/2016 Comp Metabolic Hdd556 Cr eat 1.0 mg/dL 05/23/2016 Comp Metabolic Sqf573 eG FR 63 ml/min/1.73m2 05/23 Comp Metabolic Oha665 BUN 18 mg/dL 05/23/2016 Comp Metabolic Vcm775 B/ C Ratio 18.9 Ratio 05/23/2016 Comp Metabolic Don921 CA LCIUM 9.1 mg/dL 05/23/2016 Comp Metabolic Ppf112 AL K PHOS 67 U/L 05/23/2016 Comp Metabolic Tsg229 T(SGOT) 26 U/L 05/23/2016 Comp Metabolic Dbi759 AL T(SGPT) 39 U/L 05/23/2016 Comp Metabolic Mfr249 BI LI T 0.5 mg/dL 05/23/2016 Comp Metabolic Otp292 AL BUMIN 3.9 g/dL 05/23/2016 Comp Metabolic Xea315 TP RO 5.9 g/dL 05/23/2016 Comp Metabolic Wdy024 GL OB 2.0 g/dL 05/23/2016 Comp Metabolic Nlm153 A/ G Ratio 2.0 Ratio 05/23/2016 Comp Metabolic Rll793 Os mo 277 mOsmo 05/23/2016 Cbc With [...] 30.5 pg 05/23/2016 Cbc With Differential Ord2 Stevens% 10.0 % 05/23/2016 Cbc With Differential Ord2 [...] 1.68 K/ul 05/23/2016 Cbc With Differential Ord2 Stevens ABS# 0.7 K/ul 05/23/2016 Cbc With Differential Ord2 Eos ABS# 0.1 K/ul 05/23/2016 Cbc With Differential Ord2 Baso ABS# 0.0 K/ul 05/23/2016 B Type Natriuretic Peptide Rco8878 B-LINUX [employer] 340.00 pg/ml 7 Lipid Ord30 CHOL 117 [...] 31.8 pg 07/07/2015 Cbc With Differential Ord2 Stevens% 11.3 % 07/07/2015 Cbc With Differential Ord2 [...] 1.53 K/ul 07/07/2015 Cbc With Differential Ord2 Stevens ABS# 0.6 K/ul 07/07/2015 Cbc With Differential Ord2 Eos ABS# 0.2 K/ul 07/07/2015 Cbc With Differential Ord2 Baso ABS# 0.0 K/ul 07/07/2015 Cbc With Differential Ord2 New Analyzer Notice Please note new ref ranges s tarting 05-13-2015 due to implemntation of new five part differential hematolgy analyzer. 07/07/2015 Free T4 Tqx726 FREE T4 1.17 ng/dL 07/07/2015 Comp Metabolic Gbh079 NA 137 mEq/L 07/07/2015 Comp Metabolic Tac542 K 4.0 mEq/L 07/07/2015 Comp Metabolic Ojo747 CL 100 mEq/L 07/07/2015 Comp Metabolic Bns877 CO2 29.0 mEq/L 07/07/2015 Comp Metabolic Eku823 AN ION GAP 12 07/07/2015 Comp Metabolic Piw873 GL UCOSE 98 mg/dL 07/07/2015 Comp Metabolic Mws463 Cr eat 1.0 mg/dL 07/07/2015 Comp Metabolic Bas810 eG FR 62 ml/min/1.73m2 07/06 Comp Metabolic Wci891 BUN 16 mg/dL 07/07/2015 Comp Metabolic Oyk384 B/ C Ratio 16.5 Ratio 07/07/2015 Comp Metabolic Uwu374 CA LCIUM 9.5 mg/dL 07/07/2015 Comp Metabolic Aom898 AL K PHOS 47 U/L 07/07/2015 Comp Metabolic Xva690 T(SGOT) 18 U/L 07/07/2015 Comp Metabolic Ghk879 AL T(SGPT) 22 U/L 07/07/2015 Comp Metabolic Jxr060 BI LI T 0.5 mg/dL 07/07/2015 Comp Metabolic Jpj156 AL BUMIN 4.2 g/dL 07/07/2015 Comp Metabolic Zbl581 TP RO 6.5 g/dL 07/07/2015 Comp Metabolic Vti162 GL OB 2.3 g/dL 07/07/2015 Comp Metabolic Vwb896 A/ G Ratio 1.8 Ratio 07/07/2015 Comp Metabolic Mpu094 Os mo 275 mOsmo 07/07/2015 %Hba1C Xbd244 % HbA1c 02554-1 5.7 % 07/07/2015 %Hba1C Vtl328 Gluc Ave 117 mg/dL 07/07/2015 Tsh Ord6 [...] clear 05/18/2018 None Full Exam - General 1995 Ears/Nose/Throat lips/teeth/gingiva Overall: benign lips 05/18/2018 None [...] 1: 134/72 Code: 8480-6 BMI: 35.1 Code: 64842-1 Heart Rate 1: 72 bpm Height: 5'3" SpO2: 98% Weight: 198 lbs 11/16/2018 Blood Pressure 1: 106/60 Code: 8480-6 BMI: 34.7 Code: 19569-4 Heart Rate 1: 65 bpm Height: 5'3" SpO2: 99% Weight: 196 lbs 05/18/2018 Blood Pressure 1: 128/76 Code: 8480-6 BMI: 34.4 Code: 42550-5 Heart Rate 1: 67 bpm Height: 5'3" SpO2: 97% Temperature: 37.0 (C ) / 98.6 (F) Weight: 194 lbs 09/13/2017 Blood Pressure 1: 140/78 Code: 8480-6 BMI: 35.4 Code: 48651-8 Heart Rate 1: 71 bpm Height: 5'3" SpO2: 97% Weight: 200 lbs 02/16/2017 Blood Pressure 1: 138/76 Code: 8480-6 BMI: 34.4 Code: 05462-0 Heart Rate 1: 66 bpm Height: 5'3" SpO2: 99% Weight: 194 lbs 09/08/2016 Blood Pressure 1: 138/86 Code: 8480-6 BMI: 32.2 Code: 27734-1 Heart Rate 1: 69 bpm Height: 5'3" SpO2: 99% Weight: 182 lbs 05/23/2016 Blood Pressure 1: 126/70 Code: 8480-6 BMI: 30.8 Code: 15244-9 Heart Rate 1: 63 bpm Height: 5'3" SpO2: 98% Weight: 174 lbs 01/12/2016 Blood Pressure 1: 140/72 Code: 8480-6 BMI: 29.8 Code: 13692-3 Heart Rate 1: 82 bpm Height: 5'3" SpO2: 97% Weight: 168 lbs 12/14/2015 Blood Pressure 1: 132/78 Code: 8480-6 BMI: 31.5 Code: 96788-0 Heart Rate 1: 71 bpm Height: 5'3" SpO2: 98% Weight: 178 lbs 07/09/2015 Blood Pressure 1: 128/80 Code: 8480-6 BMI: 30.6 Code: 76763-3 Heart Rate 1: 71 bpm Height: 5'3" SpO2: 99% Weight: 173 lbs 10/09/2014 Blood Pressure 1: 120/70 Code: 8480-6 BMI: 29.1 Code: 09360-0 Heart Rate 1: 68 bpm Height: 5'3" [...] mellitus Quality chronic 09/13/2017 None hypothyroid Quality 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 P ATIENT, LEVEL III Diagnosis: Acute recurrent maxillary sinusitis[ICD10: J01.01] Diagnosis: Cough[ICD10: R05] Asha Ballard MD, [facility] CPT-4: 90403 12/25/2018 ([id number]) [id number] EST. P ATIENT, LEVEL IV Diagnosis: Type 2 diabetes mellitus without complications[ICD10: E11.9] Diagnosis: Essential (primary) hypertension[ICD10: I10] Diagnosis: Other allergic rhinitis[ICD10: J30.89] Asha Ballard MD, [facility] CPT-4: 50397 11/16/2018 ([id number]) [id number] EST. P ATIENT, LEVEL IV Diagnosis: Essential (primary) hypertension[ICD10: I10] Diagnosis: Acute upper respiratory infection, unspecified[ICD10: J06.9] Diagnosis: Mixed hyperlipidemia[ICD10: E78.2] Diagnosis: Hypothyroidism, unspecified[ICD10: E03.9] Diagnosis: Type 2 diabetes mellitus without complications[ICD10: E11.9] Asha Ballard MD, [facility] CPT-4: 94735 05/18/2018 ([id number]) 98584 EST. P ATIENT, LEVEL IV Diagnosis: Type 2 diabetes mellitus without complications[ICD10: E11.9] Diagnosis: Essential (primary) hypertension[ICD10: I10] Diagnosis: Other obesity due to excess calories[ICD10: E66.09] Katty Ballard MD, [facility] CPT-4: 85894 09/13/2017 ([id number]) 27752 EST. P ATIENT, LEVEL IV Diagnosis: Type 2 diabetes mellitus without complications[ICD10: E11.9] Diagnosis: Essential (primary) hypertension[ICD10: I10] Diagnosis: Other acute sinusitis[ICD10: J01.80] Diagnosis: Other obesity due to excess calories[ICD10: E66.09] Asha Ballard MD, [facility] CPT-4: 04326 02/16/2017 ([id number]) 37873 EST. P ATIENT, LEVEL IV Diagnosis: Type 2 diabetes mellitus without complications[ICD10: E11.9] Diagnosis: Essential (primary) hypertension[ICD10: I10] Diagnosis: Pain in right knee[ICD10: M25.561] Diagnosis: Pain in left knee[ICD10: M25.562] Katty Ballard MD, [facility] CPT-4: 45709 09/08/2016 [id number] EST. PATIENT, LEVEL IV Diagnosis: Localized edema[ICD10: R60.0] Diagnosis: Shortness of breath[ICD10: R06.02] Salma Ballard MD, [facility] CPT-4: 06569 05/23/2016 ([id number]) 82425 EST. P ATIENT, LEVEL IV Diagnosis: Type 2 diabetes mellitus without complications[ICD10: E11.9] Diagnosis: Essential (primary) hypertension[ICD10: I10] Diagnosis: Chronic idiopathic constipation[ICD10: K59.04] Katty Ballard MD, [facility] CPT-4: 17131 01/12/2016 [id number] EST. PATIENT, LEVEL IV Diagnosis: Other acute sinusitis[ICD10: J01.80] Diagnosis: Other allergic rhinitis[ICD10: J30.89] Salma Ballard MD, [facility] CPT-4: 62792 12/14/2015 ([id number]) 62741 EST. P ATIENT, LEVEL IV Diagnosis: Essential (primary) hypertension[ICD10: I10] Diagnosis: Type 2 diabetes mellitus without complications[ICD10: E11.9] Diagnosis: Pain in right knee[ICD10: M25.561] Diagnosis: Pain in left knee[ICD10: M25.562] Asha Ballard MD, [facility] CPT- 4: 01425 07/09/2015 ([id number]) OFFICE VISI , [facility] - LEVEL 4 Diagnosis: ESSENTIAL HYPERTENSION[ICD9: 401.9] Diagnosis: DIABETES TYPE II[ICD9: 250.00] Diagnosis: HYPERLIPIDEMIA[ICD9: 272.4] Diagnosis: HYPOTHYROIDISM[ICD9: 244.9] Katty Ballard MD, [facility] CPT-4: 57039 10/09/2014 Plan of Care Planned Activity Notes C odes Status Date Visit Plan: Sinusitis - Pt has acut e infection - pain in face, maxillary region, Pt informed to use decongestant, RX given to patient, sinus rinses also recommended. Call if symptoms do not show improvement. 12/25/2018 Appointment: Asha Bernstein WPtel: [address] [place], [place] [phone] (30 min) [facility] 12/25/2018 Patient Education: Patient Medication Summary Completed [...] spray. 11/16/2018 Appointment: Asha Bernstein WPtel: [phone] [phone] (30 min) Complex 11/16/2018 Patient Education: Patient [...] - she would like a referral to [facility] for diabetic education. Knee pain - post operative still with swelling - continue with current management. 09/13/2017 App[facility]ment[phone] [phone] [place] ([facility] min) Moderate 09/13/2017 Patient Education: Patient [...] check. 02/16/2017 Appointment: [phone] [phone] [place] (15 min) Moderate 02/16/2017 Patient Education: [...] pharmacy 09/08/2016 Appointment: Katty Ballard WPtel: [phone] [phone] (15 min) Moderate 09/08/2016 Patient Education: [...] peripheral edema. 05/23/2016 Appointment: Salma Garay WPtel: [phone] [phone] (30 min) Complex 05/23/2016 Patient Education: Patient Medication Summary Completed 05/23/2016 Patient Education: Obesity Completed 05/23/2016 Appointment: Katty Ballard WPtel: [phone] [phone] (15 min) Moderate 01/13/2016 Visit Plan: [...] the symptoms are not improving. 10/09/2014 Appointment: ElioKatty WPtel: [phone] [place] ([place] New Patient 10/09/2014 Patient Education: Patient Medication Summary Completed 10/09/2014 Patient Education: Hypertension Completed 10/09/2014 Care Plan: MICROALBUMIN QUANTITATIVE LOINC : 94992-5 Ordered 10/09/2014 Care Plan: COMPLETE CBC AUTOMATED LOINC : 10010-4 Ordered 10/09/2014 Instructions Comment . Sinusitis - [...] - she would like a referral to [facility] for diabetic education. Knee pain [...]
--- OUTSIDE RECORDS SUMMARY | 2019-12-03 12:43 | XMS REPORT | CCD ---
Author Author Danni Ballard Organization Katty Ballard MD, [facility] Address [address] [place] [address] Phone Care Team Providers Care Home Care Music Therapist Name Role Phone PP Unavailable CCM Unavailable Summary Purpose Interface Exchange Insurance Providers Payer name Policy type / Coverage type Covered libertarian ID Effective Begin Date Effective End Date WPS Medicare Part B Medicare Part B [id number] 2018 Unknown [employer] Medicare Part B [id number] Unknown Family history Father Diagnosis Age At Onset Cancer Unknown Mother Diagnosis Age At Onset Diabetes mellitus Type 2 Unknown Stroke Unknown Hypertension Unknown Arthritis Unknown Osteoporosis Unknown kidney disease Unknown Coronary Artery Disease Unknown Social History Social History Element Codes Description Effective Dates Marital status Unknown M chiki Peter 10/09/2014 Number of children Unknown 2 10/09/[address]: 6300637 Quit over 10 years ago 10/09/[address]: 481111131 Never drinks alcohol 10/09/2014 Allergies, Adverse Reactions, [...] Date Stop Date Sta tus Fill Instructions Kenalog 40 mg/mL reese pension for injection RxNorm: 0236238 Milliliter(s) Inj 12/25/2018 12/25/2018 In active doxycycline hyclate 100 mg tablet RxNorm: 1051730 1 Tablet(s) PO BID 12/25/2018 12/31/2018 Active meloxicam 15 mg tablet RxNorm: 829236 TAKE 1 TABLET BY MOUTH ONCE DAILY 07/09/2018 01/04/2019 Ac tive Generic For:MOBIC 15MG 07/07/2018 11:11 :46 AM triamterene 37.5 mg- hydrochlorothiazide 25 mg tablet RxNorm: 602539 TAKE 1 TABLET BY MOUTH ONCE DAILY 07/09/2018 01/04/2019 Active 07/07/2018 11:12:05 AM levothyroxine 50 mcg tablet RxNorm: 139896 TAKE 1 TABLET BY MOUT H DAILY 07/09/2018 01/04/2019 Ac tive Generic For:SYNTHROID 50MCG TAB 019 11:12:00 AM omeprazole 40 mg cap betty,delayed release RxNorm: 769795 TAKE 1 CAPSULE BY MACKENZIE TH DAILY 07/09/2018 01/04/2019 Ac tive Generic For:PRILOSEC 40MG 07/07/2018 11 :11:38 AM Lipitor 10 mg tablet RxNorm: 314081 TAKE 1 TABLET BY MOUTH DAILY 07/09/2018 01/04/2019 Active Generic For:LIPITOR 10MG 07/07/2018 11: 12:19 AM Zithromax Z-Taj 250 mg tablet RxNorm: 185579 1 Tablet(s) PO UD 05/18/2018 05/22/2018 Inactive metformin 500 mg tablet RxNorm: 184593 TAKE 1 TABLET BY MOUTH ONCE DAILY 02/07/2018 05/21/2018 In active Generic For:GLUCOPHAGE 500MG 02/07/2018 9:07:34 AM levothyroxine 50 mcg tablet RxNorm: 762175 TAKE 1 TABLET BY MOUT H DAILY 02/07/2018 06/06/2018 In active Generic For:SYNTHROID 50MCG TAB 018 9:07:42 AM meloxicam 15 mg tablet RxNorm: 390352 TAKE 1 TABLET BY MOUTH ONCE DAILY 02/07/2018 07/06/2018 In active Generic For:MOBIC 15MG 02/07/2018 9:07: 30 AM omeprazole 40 mg cap betty,delayed release RxNorm: 684481 TAKE 1 CAPSULE BY MACKENZIE TH DAILY 02/07/2018 07/06/2018 Inactive Generic For:PRILOSEC 40MG 02/07/2018 9: 07:37 AM Lipitor 10 mg tablet RxNorm: 378089 TAKE 1 TABLET BY MOUTH DAILY 11/09/2017 06/06/2018 Inactive Generic For:LIPITOR 10MG 11/09/2017 9:0 1:12 AM triamterene 37.5 mg- hydrochlorothiazide 25 mg tablet RxNorm: 608021 TAKE 1 TABLET BY MOUTH ONCE DAILY 11/09/2017 06/06/2018 Inactive 11/09/2017 9:01:09 AM levothyroxine 50 mcg tablet RxNorm: 194499 TAKE 1 TABLET BY MOUT H DAILY 10/10/2017 02/06/2018 In active Generic For:SYNTHROID 50MCG TAB 018 8:57:50 AM omeprazole 40 mg cap betty,delayed release RxNorm: 150980 TAKE 1 CAPSULE BY MACKENZIE TH DAILY 10/10/2017 02/06/2018 Inactive Generic For:PRILOSEC 40MG 10/10/2017 8: 57:46 AM Voltaren 1 % topical gel RxNorm: 575911 4 Gram(s) TOP QID - a pply 4 times daily to bilateral knees 09/13/2017 11/11/2017 Inactive levothyroxine 50 mcg tablet RxNorm: 864178 TAKE 1 TABLET BY MOUT H DAILY 09/11/2017 10/09/2017 In active Generic For:SYNTHROID 50MCG TAB 018 9:04:26 AM metformin 500 mg tablet RxNorm: 206665 TAKE 1 TABLET BY MOUTH ONCE DAILY 08/11/2017 02/06/2018 In active Generic For:GLUCOPHAGE 500MG 08/11/2017 8:56:05 AM meloxicam 15 mg tablet RxNorm: 897053 TAKE 1 TABLET BY MOUTH ONCE DAILY 08/11/2017 02/06/2018 In active Generic For:MOBIC 15MG 08/11/2017 8:56: 02 AM omeprazole 40 mg cap betty,delayed release RxNorm: 949314 TAKE 1 CAPSULE BY MACKENZIE TH DAILY 06/12/2017 10/09/2017 Inactive Generic For:PRILOSEC 40MG 06/12/2017 8: 56:49 AM Lipitor 10 mg tablet RxNorm: 368196 TAKE 1 TABLET BY MOUTH DAILY 2017 11/08/2017 Inactive Generic For:LIPITOR 10MG 2017 9:0 4:16 AM triamterene 37.5 mg- hydrochlorothiazide 25 mg tablet RxNorm: 844272 TAKE 1 TABLET BY MOUTH ONCE DAILY 2017 04/12/2017 Inactive 2017 9:04:19 AM triamterene 37.5 mg- hydrochlorothiazide 25 mg tablet RxNorm: 330676 TAKE 1 TABLET BY MOUTH ONCE DAILY 2017 10/09/2017 Inactive 2017 9:04:19 AM metformin 500 mg tablet RxNorm: 664492 TAKE 1 TABLET BY MOUTH ONCE DAILY 03/14/2017 08/10/2017 In active Generic For:GLUCOPHAGE 500MG 03/14/2017 9:16:18 AM levothyroxine 50 mcg tablet RxNorm: 233507 TAKE 1 TABLET BY MOUT H DAILY 03/14/2017 09/09/2017 In active Generic For:SYNTHROID 50MCG TAB 017 9:16:23 AM Zithromax Z-Taj 250 mg tablet RxNorm: 124050 1 Tablet(s) PO daily 02/16/2017 02/20/2017 Inactive omeprazole 40 mg cap betty,delayed release RxNorm: 638355 TAKE 1 CAPSULE BY MACKENZIE TH DAILY 02/13/2017 06/11/2017 Inactive Generic For:PRILOSEC 40MG 02/13/2017 8: 55:14 AM meloxicam 15 mg tablet RxNorm: 624981 TAKE 1 TABLET BY MOUTH ONCE DAILY 02/13/2017 08/10/2017 In active Generic For:MOBIC 15MG 02/13/2017 8:55: 10 AM levothyroxine 50 mcg tablet RxNorm: 459825 TAKE 1 TABLET BY MOUT H DAILY-- NEED TO GET LABS CHECKED FOR FURTHER REFILLS 01/05/2017 03/05/2017 Inactive Generic For:SYNTHROID 50MCG TAB 01/05/2017 4:36:06 PM levothyroxine 50 mcg tablet RxNorm: 434543 TAKE 1 TABLET BY MOUT H DAILY 12/14/2016 01/04/2017 In active Generic For:SYNTHROID 50MCG TAB 017 9:02:20 AM triamterene 37.5 mg- hydrochlorothiazide 25 mg tablet RxNorm: 075137 TAKE 1 TABLET BY MOUTH ONCE DAILY 11/14/2016 04/12/2017 Inactive 11/14/2016 9:13:26 AM metformin 500 mg tablet RxNorm: 836860 1 Tablet(s) PO daily 10/17/2016 03/13/2017 Inactive Generic For:GLUCOPHAGE 500MG 10/29/2014 9:02:36 AM omeprazole 40 mg cap betty,delayed release RxNorm: 908242 TAKE 1 CAPSULE BY MACKENZIE TH DAILY 10/17/2016 02/12/2017 Inactive Generic For:PRILOSEC 40MG 10/15/2016 8: 56:40 AM meloxicam 15 mg tablet RxNorm: 979380 1 Tablet(s) PO daily TAKE 1 TABLET BY MO UTH ONCE DAILY 09/19/2016 02/12/2017 Inactive Generic For:MOBIC 15MG 9:09:45 AM levothyroxine 50 mcg tablet RxNorm: 353492 TAKE 1 TABLET BY MOUT H DAILY 09/16/2016 12/13/2016 In active Generic For:SYNTHROID 50MCG TAB 017 10:22:07 AM 09/15/2016 9:01:47 AM Lipitor 10 mg tablet RxNorm: 447857 TAKE 1 TABLET BY MOUTH DAILY 09/16/2016 04/12/2017 Inactive Generic For:LIPITOR 10MG 09/16/2016 10: 22:13 AM 09/15/2016 9:01:42 AM Honey Ultra Test strips RxNorm: 1 Miscellaneous daily 09/08/2016 09/02/2017 Inactive Voltaren 1 % topical gel RxNorm: 553281 2 Gram(s) TOP QID 09/08/2016 11/06/2016 Inactive meloxicam 15 mg tablet RxNorm: 147856 TAKE 1 TABLET BY MOUTH ONCE DAILY 08/16/2016 09/18/2016 In active Generic For:MOBIC 15MG 08/16/2016 9:09: 45 AM triamterene 37.5 mg- hydrochlorothiazide 25 mg tablet RxNorm: 938554 TAKE 1 TABLET BY MOUTH ONCE DAILY 07/18/2016 11/13/2016 Inactive 07/18/2016 8:57:50 AM omeprazole 40 mg cap betty,delayed release RxNorm: 752652 TAKE 1 CAPSULE BY MACKENZIE TH DAILY 06/17/2016 10/14/2016 Inactive Generic For:PRILOSEC 40MG 06/17/2016 9: 30:36 AM levothyroxine 50 mcg tablet RxNorm: 867582 TAKE 1 TABLET BY MOUT H DAILY 06/17/2016 09/14/2016 In active Generic For:SYNTHROID 50MCG TAB 017 9:10:49 AM metformin 500 mg tablet RxNorm: 765585 1 Tablet(s) PO daily 05/24/2016 10/16/2016 Inactive Generic For:GLUCOPHAGE 500MG 10/29/2014 9:02:36 AM Lasix 20 mg tablet RxNorm: 271047 1 Tablet(s) PO daily 05/24/2016 05/26/2016 Inactive metformin 500 mg tablet RxNorm: 793538 1 Tablet(s) PO daily 05/23/2016 05/23/2016 Inactive Generic For:GLUCOPHAGE 500MG 10/29/2014 9:02:36 AM Lasix 20 mg tablet RxNorm: 433659 1 Tablet(s) PO daily 05/23/2016 05/23/2016 Inactive potassium chloride E R 10 mEq tablet,extended release RxNorm: 020132 1 Tablet(s) PO daily 05/23/2016 05/25/2016 Inactive meloxicam 15 mg tablet RxNorm: 261843 1 Tablet(s) PO daily 04/18/2016 08/15/2016 Inactive Lipitor 10 mg tablet RxNorm: 930367 TAKE 1 TABLET BY MOUTH DAILY 04/18/2016 08/15/2016 Inactive Generic For:LIPITOR 10MG 04/18/2016 9:1 5:59 AM triamterene 37.5 mg- hydrochlorothiazide 25 mg tablet RxNorm: 569137 TAKE 1 TABLET BY MOUTH ONCE DAILY 03/21/2016 07/17/2016 Inactive 03/19/2016 9:02:10 AM levothyroxine 50 mcg tablet RxNorm: 050922 TAKE 1 TABLET BY MOUT H DAILY 02/18/2016 06/16/2016 In active Generic For:SYNTHROID 50MCG TAB 016 9:03:15 AM omeprazole 40 mg cap betty,delayed release RxNorm: 150091 TAKE 1 CAPSULE BY MACKENZIE TH DAILY 02/18/2016 06/16/2016 Inactive Generic For:PRILOSEC 40MG 02/18/2016 9: 03:12 AM Movantik 25 mg tablet RxNorm: 5577144 1 Tablet(s) PO QAM with breakfast or sean ch 01/12/2016 09/07/2016 In active Flonase Allergy Reli ef 50 mcg/actuation nasal spray,suspension RxNorm: 3407100 1 [place] NASAL BID 12/14/2015 09/07/2016 Inactive Zithromax Z-Taj 250 mg tablet RxNorm: 183599 Tablet(s) PO UD 12/14/2015 01/11/2016 Inactive Lipitor 10 mg tablet RxNorm: 447005 TAKE 1 TABLET BY MOUTH DAILY 11/20/2015 04/17/2016 Inactive Generic For:LIPITOR 10MG 11/20/2015 9:1 1:10 AM triamterene 37.5 mg- hydrochlorothiazide 25 mg tablet RxNorm: 437334 TAKE 1 TABLET BY MOUTH ONCE DAILY 11/19/2015 03/17/2016 Inactive 11/18/2015 9:06:12 AM meloxicam 15 mg tablet RxNorm: 117555 1 Tablet(s) PO daily 10/21/2015 04/17/2016 Inactive levothyroxine 50 mcg tablet RxNorm: 364972 TAKE 1 TABLET BY MOUT H DAILY 10/21/2015 02/17/2016 In active Generic For:SYNTHROID 50MCG TAB 016 9:06:41 AM omeprazole 40 mg cap betty,delayed release RxNorm: 944586 TAKE 1 CAPSULE BY MACKENZIE TH DAILY 10/21/2015 02/17/2016 Inactive Generic For:PRILOSEC 40MG 10/21/2015 9: 06:53 AM triamterene 37.5 mg- hydrochlorothiazide 25 mg tablet RxNorm: 955106 Tablet(s) 1 Tablet(s) PO daily 07/23/2015 11/18/2015 Inactive [SAVINGS FOR NON-COVERED DR BARRIENTOS -- BIN:[id number], PCN: ASPROD1, Group: XXXXX, ID# [id number], Questions: . THIS IS NOT INSURANCE.] metformin 500 mg tablet RxNorm: 982176 1 Tablet(s) PO daily 07/10/2015 12/06/2015 Inactive Generic For:GLUCOPHAGE 500MG 10/29/2014 9:02:36 AM Voltaren 1 % topical gel RxNorm: 371457 4 Gram(s) TOP QID 07/09/2015 09/07/2016 Inactive bilateral knees metformin 500 mg tablet RxNorm: 637882 1 Tablet(s) PO daily TAKE 1 TABLET BY MO UTH TWICE DAILY 07/09/2015 07/09/2015 Inactive Generic For:GLUCOPHAGE 500M G 10/29/2014 9:02:36 AM Lipitor 10 mg tablet RxNorm: 317070 1 Tablet(s) PO daily 06/26/2015 11/19/2015 Inactive metformin 500 mg tablet RxNorm: 538964 1 Tablet(s) PO BID TAKE 1 TABLET BY MOUT H TWICE DAILY 06/26/2015 07/08/2015 Inactive Generic For:GLUCOPHAGE 500M G 10/29/2014 9:02:36 AM omeprazole 40 mg cap betty,delayed release RxNorm: 132763 TAKE 1 CAPSULE BY MACKENZIE TH DAILY 04/27/2015 10/20/2015 Inactive Generic For:PRILOSEC 40MG meloxicam 15 mg tablet RxNorm: 609808 1 Tablet(s) PO daily 03/30/2015 10/20/2015 Inactive triamterene 37.5 mg- hydrochlorothiazide 25 mg tablet RxNorm: 948023 Tablet(s) 1 Tablet(s) PO daily 03/30/2015 07/22/2015 Inactive [SAVINGS FOR NON-COVERED DR BARRIENTOS -- BIN:[id number], PCN: ASPROD1, Group: XXXXX, ID# [id number], Questions: . THIS IS NOT INSURANCE.] metformin 500 mg tablet RxNorm: 584091 1 Tablet(s) PO BID 02/26/2015 06/25/2015 Inactive levothyroxine 50 mcg tablet RxNorm: 169734 TAKE 1 TABLET BY MOUT H DAILY 02/26/2015 10/20/2015 In active Generic For:SYNTHROID 50MCG TAB 015 2:41:48 PM N O T I C E PRESCRIPTION PREVIOUSLY AUTHORIZED BY DOCTOR:RUFINO LIAO Lipitor 10 mg tablet RxNorm: 526721 1 Tablet(s) PO daily 02/26/2015 06/25/2015 Inactive omeprazole 40 mg cap betty,delayed release RxNorm: 525345 1 Capsule(s) PO 01/01/2015 04/26/2015 In active [SAVINGS FOR NON-COVERED DRUGS -- BIN:00 3585, PCN: ASPROD1, Group: XXXXX, ID# [id number], Questions: . THIS IS NOT INSURANCE.] triamterene 37.5 mg- hydrochlorothiazide 25 mg tablet RxNorm: 467383 1 Tablet(s) PO daily 12/02/2014 03/29/2015 Inactive [SAVINGS FOR NON-COVERED DR UGS -- BIN:[id number], PCN: ASPROD1, Group: XXXXX, ID# XXXXXXX, Questions: . THIS IS NOT INSURANCE.] metformin 500 mg tablet RxNorm: 508329 1 Tablet(s) PO BID TAKE 1 TABLET BY MOUT H TWICE DAILY 10/29/2014 06/25/2015 Inactive Generic For:GLUCOPHAGE 500M G 10/29/2014 9:02:36 AM metformin 500 mg tablet RxNorm: 830529 1 Tablet(s) PO BID 10/29/2014 10/29/2014 Inactive Lipitor 10 mg tablet RxNorm: 282210 1 Tablet(s) PO daily 10/27/2014 10/26/2014 Inactive Lipitor 10 mg tablet RxNorm: 934568 1 Tablet(s) PO daily 10/27/2014 02/23/2015 Inactive omeprazole 40 mg cap betty,delayed release RxNorm: 597097 1 Capsule(s) PO 09/02/2014 12/30/2014 In active [SAVINGS FOR NON-COVERED DRUGS -- BIN:00 [id number], PCN: ASPROD1, Group: XXXXX, ID# [id number], Questions: . THIS IS NOT INSURANCE.] omeprazole 40 mg cap betty,delayed release RxNorm: 009997 1 Capsule(s) PO 09/02/2014 09/01/2014 In active triamterene 37.5 mg- hydrochlorothiazide 25 mg tablet RxNorm: 673200 1 Tablet(s) PO daily 08/27/2014 08/26/2014 Inactive triamterene 37.5 mg- hydrochlorothiazide 25 mg tablet RxNorm: 679869 1 Tablet(s) PO daily 08/27/2014 12/01/2014 Inactive [SAVINGS FOR NON-COVERED DR UGS -- BIN:232405, PCN: ASPROD1, Group: XXXXX, ID# [id number], Questions: . THIS IS NOT INSURANCE.] Multi Vitamin oral RxNorm: oral No Start Date Active Aspirin Low Dose 81 mg tablet,delayed release RxNorm: 100448 1 Tablet(s) PO daily No Start Date Active estradiol 2 mg tablet RxNorm: 723785 1 Tablet(s) PO daily No Start Date Active Vitamin D (with calc ium) oral RxNorm: 2418 oral No Sta rt Date Active medroxyprogesterone 5 mg tablet RxNorm: 6001880 1 Tablet(s) PO daily No Start Date Active meloxicam 15 mg tablet RxNorm: 647284 1 Tablet(s) PO daily No Start Date 02/06/2018 Inactive metformin 500 mg tablet RxNorm: 608031 1 Tablet(s) PO daily No Start Date 10/28/2014 Inactive Osteo Bi-Flex oral RxNorm: 4591339 oral No Start Date 02/15/2017 Inactive levothyroxine 50 mcg tablet RxNorm: 927418 1 Tablet(s) PO daily No Start Date 02/25/2015 Inactive Medication Administered Medication Codes Instruc tions Start Date Status Kenalog 40 mg/mL suspension for injection RxNorm: 0211747 Milliliter 12/25/2018 Ac tive Immunizations Vaccine Codes Date Status SHINGARIX CVX: [...] Item Item Code Result Date Comp Metabolic Dzv429 NA 139 mEq/L 11/16/2018 Comp Metabolic Kxg346 K 3.9 mEq/L 11/16/2018 Comp Metabolic Gbi394 CL 103 mEq/L 11/16/2018 Comp Metabolic Gyp193 CO2 27.0 mEq/L 11/16/2018 Comp Metabolic Wsc424 AN ION GAP 13 11/16/2018 Comp Metabolic Smg050 GL UCOSE 107 mg/dL 11/16/2018 Comp Metabolic Jws712 Cr eat 1.0 mg/dL 11/16/2018 Comp Metabolic Qaf603 eG FR 56 ml/min/1.73m2 11/16 Comp Metabolic Qmh236 BUN 18 mg/dL 11/16/2018 Comp Metabolic Lti521 B/ C Ratio 17.3 Ratio 11/16/2018 Comp Metabolic Xje071 CA LCIUM 9.6 mg/dL 11/16/2018 Comp Metabolic Mbk654 AL K PHOS 75 U/L 11/16/2018 Comp Metabolic Cat528 T(SGOT) 16 U/L 11/16/2018 Comp Metabolic Pbn864 AL T(SGPT) 16 U/L 11/16/2018 Comp Metabolic Eme337 BI LI T 0.6 mg/dL 11/16/2018 Comp Metabolic Cpl816 AL BUMIN 4.1 g/dL 11/16/2018 Comp Metabolic Kzx034 TP RO 6.5 g/dL 11/16/2018 Comp Metabolic Lhk393 GL OB 2.4 g/dL 11/16/2018 Comp Metabolic Eck931 A/ G Ratio 1.7 Ratio 11/16/2018 Comp Metabolic Fll068 Os mo 280 mOsmo 11/16/2018 %Hba1C Njq504 % HbA1c 25748-9 6.5 % 11/16/2018 %Hba1C Rpx424 Gluc Ave 140 mg/dL 11/16/2018 Free T4 Jzc215 FREE T4 1.09 ng/dL 05/18/2018 Lipid Ord30 [...] 31.2 pg 05/18/2018 Cbc With Differential Ord2 [place]% 9.2 % 05/18/2018 Cbc With Differential Ord2 [...] 2.00 K/ul 05/18/2018 Cbc With Differential Ord2 [place] ABS# 0.6 K/ul 05/18/2018 Cbc With Differential Ord2 Eos ABS# 0.2 K/ul 05/18/2018 Cbc With Differential Ord2 Baso ABS# 0.0 K/ul 05/18/2018 %Hba1C Jnc620 % HbA1c 32028-2 6.1 % 05/18/2018 %Hba1C Lpg144 Gluc Ave 128 mg/dL 05/18/2018 Comp Metabolic Bjb216 NA 139 mEq/L 05/18/2018 Comp Metabolic Nxl691 K 3.8 mEq/L 05/18/2018 Comp Metabolic Uea843 CL 100 mEq/L 05/18/2018 Comp Metabolic Ygt402 CO2 29.0 mEq/L 05/18/2018 Comp Metabolic Cvj957 AN ION GAP 14 05/18/2018 Comp Metabolic Gcu487 GL UCOSE 100 mg/dL 05/18/2018 Comp Metabolic Koc994 Cr eat 1.2 mg/dL 05/18/2018 Comp Metabolic Cce248 eG FR 49 ml/min/1.73m2 05/18 Comp Metabolic Aku081 BUN 17 mg/dL 05/18/2018 Comp Metabolic Zac052 B/ C Ratio 14.5 Ratio 05/18/2018 Comp Metabolic Ogh803 CA LCIUM 10.0 mg/dL 05/18/2018 Comp Metabolic Wmc799 AL K PHOS 75 U/L 05/18/2018 Comp Metabolic Ckw634 T(SGOT) 16 U/L 05/18/2018 Comp Metabolic Goz217 AL T(SGPT) 15 U/L 05/18/2018 Comp Metabolic Olj548 BI LI T 0.7 mg/dL 05/18/2018 Comp Metabolic Wlt844 AL BUMIN 4.4 g/dL 05/18/2018 Comp Metabolic Rcv382 TP RO 6.8 g/dL 05/18/2018 Comp Metabolic Qtq068 GL OB 2.4 g/dL 05/18/2018 Comp Metabolic Jtf626 A/ G Ratio 1.8 Ratio 05/18/2018 Comp Metabolic Ysk686 Os mo 279 mOsmo 05/18/2018 Comp Metabolic Clu300 NA 138 mEq/L 09/14/2017 Comp Metabolic Ymx802 K 3.8 mEq/L 09/14/2017 Comp Metabolic Ywk689 CL 101 mEq/L 09/14/2017 Comp Metabolic Rnq652 CO2 26.0 mEq/L 09/14/2017 Comp Metabolic Pjp043 AN ION GAP 15 09/14/2017 Comp Metabolic Wjf540 GL UCOSE 120 mg/dL 09/14/2017 Comp Metabolic Hod728 Cr eat 1.0 mg/dL 09/14/2017 Comp Metabolic Jpl436 eG FR 61 ml/min/1.73m2 09/14 Comp Metabolic Kpp680 BUN 18 mg/dL 09/14/2017 Comp Metabolic Bsq547 B/ C Ratio 18.6 Ratio 09/14/2017 Comp Metabolic Sxf972 CA LCIUM 9.7 mg/dL 09/14/2017 Comp Metabolic Lwa623 AL K PHOS 63 U/L 09/14/2017 Comp Metabolic Dwy098 T(SGOT) 18 U/L 09/14/2017 Comp Metabolic Pfj972 AL T(SGPT) 20 U/L 09/14/2017 Comp Metabolic Wmg766 BI LI T 0.5 mg/dL 09/14/2017 Comp Metabolic Wav265 AL BUMIN 4.3 g/dL 09/14/2017 Comp Metabolic Dwr999 TP RO 6.7 g/dL 09/14/2017 Comp Metabolic Jtm245 GL OB 2.4 g/dL 09/14/2017 Comp Metabolic Bav670 A/ G Ratio 1.8 Ratio 09/14/2017 Comp Metabolic Bel747 Os mo 279 mOsmo 09/14/2017 Lipid Ord30 CHOL 180 mg/dL 09/14/2017 Lipid Ord30 HDL 53.0 mg/dl 09/14/2017 Lipid Ord30 TRIG 126 mg/dL 09/14/2017 Lipid Ord30 LDL 102 mg/dL 09/14/2017 Lipid Ord30 C/HDL 3.4 Ratio 09/14/2017 Microalbumin Isb877 Micr oAlb <0.7 mg/dL 09/14/2017 %Hba1C Car109 % HbA1c 35249-2 6.0 % 09/14/2017 %Hba1C Myd363 Gluc Ave 126 mg/dL 09/14/2017 Free T4 Zoa811 FREE T4 0.98 ng/dL 09/14/2017 Cbc With [...] 31.3 pg 09/14/2017 Cbc With Differential Ord2 [place]% 9.4 % 09/14/2017 Cbc With Differential Ord2 [...] 1.94 K/ul 09/14/2017 Cbc With Differential Ord2 [place] ABS# 0.7 K/ul 09/14/2017 Cbc With Differential Ord2 Eos ABS# 0.2 K/ul 09/14/2017 Cbc With Differential Ord2 Baso ABS# 0.0 K/ul 09/14/2017 Tsh Ord6 TSH (3rd IS) 2.64 uIU/mL 09/14/2017 Comp Metabolic Zcl917 NA 138 mEq/L 05/23/2016 Comp Metabolic Udb037 K 4.0 mEq/L 05/23/2016 Comp Metabolic Dls999 CL 105 mEq/L 05/23/2016 Comp Metabolic Izx112 CO2 25.0 mEq/L 05/23/2016 Comp Metabolic Jdi203 AN ION GAP 12 05/23/2016 Comp Metabolic Vta396 GL UCOSE 89 mg/dL 05/23/2016 Comp Metabolic Ytl329 Cr eat 1.0 mg/dL 05/23/2016 Comp Metabolic Ciq272 eG FR 63 ml/min/1.73m2 05/23 Comp Metabolic Pti506 BUN 18 mg/dL 05/23/2016 Comp Metabolic Qgc185 B/ C Ratio 18.9 Ratio 05/23/2016 Comp Metabolic Uby368 CA LCIUM 9.1 mg/dL 05/23/2016 Comp Metabolic Rpg236 AL K PHOS 67 U/L 05/23/2016 Comp Metabolic Qhv982 T(SGOT) 26 U/L 05/23/2016 Comp Metabolic Wwf152 AL T(SGPT) 39 U/L 05/23/2016 Comp Metabolic Klz144 BI LI T 0.5 mg/dL 05/23/2016 Comp Metabolic Ege894 AL BUMIN 3.9 g/dL 05/23/2016 Comp Metabolic Ofx089 TP RO 5.9 g/dL 05/23/2016 Comp Metabolic Tco719 GL OB 2.0 g/dL 05/23/2016 Comp Metabolic Ndw928 A/ G Ratio 2.0 Ratio 05/23/2016 Comp Metabolic Xmd587 Os mo 277 mOsmo 05/23/2016 Cbc With [...] 30.5 pg 05/23/2016 Cbc With Differential Ord2 [place]% 10.0 % 05/23/2016 Cbc With Differential Ord2 [...] 1.68 K/ul 05/23/2016 Cbc With Differential Ord2 [place] ABS# 0.7 K/ul 05/23/2016 Cbc With Differential Ord2 Eos ABS# 0.1 K/ul 05/23/2016 Cbc With Differential Ord2 Baso ABS# 0.0 K/ul 05/23/2016 B Type Natriuretic Peptide Kmf7595 B-BARBER TOOL SHARPENER 340.00 pg/ml 7 Lipid Ord30 CHOL 117 [...] 31.8 pg 07/07/2015 Cbc With Differential Ord2 [place]% 11.3 % 07/07/2015 Cbc With Differential Ord2 [...] 1.53 K/ul 07/07/2015 Cbc With Differential Ord2 [place] ABS# 0.6 K/ul 07/07/2015 Cbc With Differential Ord2 Eos ABS# 0.2 K/ul 07/07/2015 Cbc With Differential Ord2 Baso ABS# 0.0 K/ul 07/07/2015 Cbc With Differential Ord2 New Analyzer Notice Please note new ref ranges s tarting 05-13-2015 due to implemntation of new five part differential hematolgy analyzer. 07/07/2015 Free T4 Hbr222 FREE T4 1.17 ng/dL 07/07/2015 Comp Metabolic Uko194 NA 137 mEq/L 07/07/2015 Comp Metabolic Sue512 K 4.0 mEq/L 07/07/2015 Comp Metabolic Bub342 CL 100 mEq/L 07/07/2015 Comp Metabolic Bsj611 CO2 29.0 mEq/L 07/07/2015 Comp Metabolic Qjb496 AN ION GAP 12 07/07/2015 Comp Metabolic Ifm465 GL UCOSE 98 mg/dL 07/07/2015 Comp Metabolic Xtb343 Cr eat 1.0 mg/dL 07/07/2015 Comp Metabolic Plv776 eG FR 62 ml/min/1.73m2 07/06 Comp Metabolic Yoy809 BUN 16 mg/dL 07/07/2015 Comp Metabolic Sab996 B/ C Ratio 16.5 Ratio 07/07/2015 Comp Metabolic Upj084 CA LCIUM 9.5 mg/dL 07/07/2015 Comp Metabolic Bal961 AL K PHOS 47 U/L 07/07/2015 Comp Metabolic Rso201 T(SGOT) 18 U/L 07/07/2015 Comp Metabolic Bgk097 AL T(SGPT) 22 U/L 07/07/2015 Comp Metabolic Jeo349 BI LI T 0.5 mg/dL 07/07/2015 Comp Metabolic Nyo555 AL BUMIN 4.2 g/dL 07/07/2015 Comp Metabolic Vwz838 TP RO 6.5 g/dL 07/07/2015 Comp Metabolic Won838 GL OB 2.3 g/dL 07/07/2015 Comp Metabolic Pdc524 A/ G Ratio 1.8 Ratio 07/07/2015 Comp Metabolic Xok115 Os mo 275 mOsmo 07/07/2015 %Hba1C Zdi170 % HbA1c 07498-7 5.7 % 07/07/2015 %Hba1C Yqa943 Gluc Ave 117 mg/dL 07/07/2015 Tsh Ord6 [...] 1: 134/72 Code: 8480-6 BMI: 35.1 Code: 56034-9 Heart Rate 1: 72 bpm Height: 5'3" SpO2: 98% Weight: 198 lbs 11/16/2018 Blood Pressure 1: 106/60 Code: 8480-6 BMI: 34.7 Code: 78975-6 Heart Rate 1: 65 bpm Height: 5'3" SpO2: 99% Weight: 196 lbs 05/18/2018 Blood Pressure 1: 128/76 Code: 8480-6 BMI: 34.4 Code: 96386-3 Heart Rate 1: 67 bpm Height: 5'3" SpO2: 97% Temperature: 37.0 (C ) / 98.6 (F) Weight: 194 lbs 09/13/2017 Blood Pressure 1: 140/78 Code: 8480-6 BMI: 35.4 Code: 28171-0 Heart Rate 1: 71 bpm Height: 5'3" SpO2: 97% Weight: 200 lbs 02/16/2017 Blood Pressure 1: 138/76 Code: 8480-6 BMI: 34.4 Code: 16730-0 Heart Rate 1: 66 bpm Height: 5'3" SpO2: 99% Weight: 194 lbs 09/08/2016 Blood Pressure 1: 138/86 Code: 8480-6 BMI: 32.2 Code: 86756-3 Heart Rate 1: 69 bpm Height: 5'3" SpO2: 99% Weight: 182 lbs 05/23/2016 Blood Pressure 1: 126/70 Code: 8480-6 BMI: 30.8 Code: 83128-9 Heart Rate 1: 63 bpm Height: 5'3" SpO2: 98% Weight: 174 lbs 01/12/2016 Blood Pressure 1: 140/72 Code: 8480-6 BMI: 29.8 Code: 08680-7 Heart Rate 1: 82 bpm Height: 5'3" SpO2: 97% Weight: 168 lbs 12/14/2015 Blood Pressure 1: 132/78 Code: 8480-6 BMI: 31.5 Code: 97513-6 Heart Rate 1: 71 bpm Height: 5'3" SpO2: 98% Weight: 178 lbs 07/09/2015 Blood Pressure 1: 128/80 Code: 8480-6 BMI: 30.6 Code: 22305-4 Heart Rate 1: 71 bpm Height: 5'3" SpO2: 99% Weight: 173 lbs 10/09/2014 Blood Pressure 1: 120/70 Code: 8480-6 BMI: 29.1 Code: 33530-7 Heart Rate 1: 68 bpm Height: 5'3" [...] mellitus Quality chronic 09/13/2017 None hypothyroid 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 P ATIENT, LEVEL III Diagnosis: Acute recurrent maxillary sinusitis[ICD10: J01.01] Diagnosis: Cough[ICD10: R05] Asha Ballard MD, [facility] CPT-4: 03785 12/25/2018 ([id number]) [id number] EST. P ATIENT, LEVEL IV Diagnosis: Type 2 diabetes mellitus without complications[ICD10: E11.9] Diagnosis: Essential (primary) hypertension[ICD10: I10] Diagnosis: Other allergic rhinitis[ICD10: J30.89] Asha Ballard MD, [facility] CPT-4: 01566 11/16/2018 ([id number]) [id number] EST. P ATIENT, LEVEL IV Diagnosis: Essential (primary) hypertension[ICD10: I10] Diagnosis: Acute upper respiratory infection, unspecified[ICD10: J06.9] Diagnosis: Mixed hyperlipidemia[ICD10: E78.2] Diagnosis: Hypothyroidism, unspecified[ICD10: E03.9] Diagnosis: Type 2 diabetes mellitus without complications[ICD10: E11.9] Asha Ballard MD, [facility] CPT-4: 61630 05/18/2018 ([id number]) [id number] EST. P ATIENT, LEVEL IV Diagnosis: Type 2 diabetes mellitus without complications[ICD10: E11.9] Diagnosis: Essential (primary) hypertension[ICD10: I10] Diagnosis: Other obesity due to excess calories[ICD10: E66.09] Katty Ballard MD, [facility] CPT-4: 33856 09/13/2017 ([id number]) 82301 EST. P ATIENT, LEVEL IV Diagnosis: Type 2 diabetes mellitus without complications[ICD10: E11.9] Diagnosis: Essential (primary) hypertension[ICD10: I10] Diagnosis: Other acute sinusitis[ICD10: J01.80] Diagnosis: Other obesity due to excess calories[ICD10: E66.09] Asha Ballard MD, [facility] CPT-4: 00901 02/16/2017 ([id number]) 43297 EST. P ATIENT, LEVEL IV Diagnosis: Type 2 diabetes mellitus without complications[ICD10: E11.9] Diagnosis: Essential (primary) hypertension[ICD10: I10] Diagnosis: Pain in right knee[ICD10: M25.561] Diagnosis: Pain in left knee[ICD10: M25.562] Katty Ballard MD, [facility] CPT-4: 37378 09/08/2016 [id number] EST. PATIENT, LEVEL IV Diagnosis: Localized edema[ICD10: R60.0] Diagnosis: Shortness of breath[ICD10: R06.02] Salma Ballard MD, [facility] CPT-4: 45605 05/23/2016 ([id number]) 29967 EST. P ATIENT, LEVEL IV Diagnosis: Type 2 diabetes mellitus without complications[ICD10: E11.9] Diagnosis: Essential (primary) hypertension[ICD10: I10] Diagnosis: Chronic idiopathic constipation[ICD10: K59.04] Katty Ballard MD, [facility] CPT-4: 51924 01/12/2016 [id number] EST. PATIENT, LEVEL IV Diagnosis: Other acute sinusitis[ICD10: J01.80] Diagnosis: Other allergic rhinitis[ICD10: J30.89] Salma Ballard MD, [facility] CPT-4: 13276 12/14/2015 ([id number]) 93016 EST. P ATIENT, LEVEL IV Diagnosis: Essential (primary) hypertension[ICD10: I10] Diagnosis: Type 2 diabetes mellitus without complications[ICD10: E11.9] Diagnosis: Pain in right knee[ICD10: M25.561] Diagnosis: Pain in left knee[ICD10: M25.562] Asha Balladr MD, [facility] CPT- 4: 68113 07/09/2015 ([id number]) OFFICE VISI , [facility] - LEVEL 4 Diagnosis: ESSENTIAL HYPERTENSION[ICD9: 401.9] Diagnosis: DIABETES TYPE II[ICD9: 250.00] Diagnosis: HYPERLIPIDEMIA[ICD9: 272.4] Diagnosis: HYPOTHYROIDISM[ICD9: 244.9] Katty Ballard MD, [facility] CPT-4: 83644 10/09/2014 Plan of Care Planned Activity Notes C odes Status Date Visit Plan: Sinusitis - Pt has acut e infection - pain in face, maxillary region, Pt informed to use decongestant, RX given to patient, sinus rinses also recommended. Call if symptoms do not show improvement. 12/25/2018 Patient Education: Patient Medication Summary Completed [...] spray. 11/16/2018 Appointment: Asha Bernstein WPtel: [phone] [phone] (30 min) Complex 11/16/2018 Patient Education: [...] - she would like a referral to critical access [facility] for diabetic education. Knee pain - post operative still with swelling - continue with current management. 09/13/2017 Appointment: Katty Ballard WPtel: [phone] [facility] [place] (15 min) Moderate 09/13/2017 Patient Education: [...] check. 02/16/2017 [phone] [place] (15 min) Moderate 02/16/2017 Patient [...] to pharmacy 09/08/2016 Appointment: Kat[facility] Ballard [facility]el[facility] [phone] [facility] [address] [place] (15 min) Moderate 09/08/2016 Patient Education: Patient [...] attempt to reduce peripheral edema. 05/23/2016 [facility]ment[phone] ([facility]) Complex 05/23/2016 Patient Education: Patient Medication Summary Completed 05/23/2016 Patient Education: Obesity Completed 05/23/2016 Appointment: Katty Ballard WPtel[facility] [phone] [facility] [address] (15 min) Moderate 01/13/2016 Visit Plan: Hypertension [...] not improving. 10/09/2014 Appointment: Katty Ballard WPtel: [address] [place], [place] [phone] [place] ([place]) New Patient 10/09/2014 Patient Education: Patient Medication Summary Completed 10/09/2014 Patient Education: Hypertension Completed 10/09/2014 Care Plan: MICROALBUMIN QUANTITATIVE LOINC : 74318-6 Ordered 10/09/2014 Care Plan: COMPLETE CBC AUTOMATED LOINC : 46697-4 Ordered 10/09/2014 Instructions Comment . Sinusitis - [...] - she would like a referral to critical access hospital for diabetic education. Knee pain - [...]
--- OUTSIDE RECORDS SUMMARY | 2019-12-03 12:44 | XMS REPORT | CCD ---
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 Name Role Phone PP Unavailable CCM Unavailable Summary Purpose Interface Exchange Insurance Providers Payer name Policy type / Coverage type Covered constitution party ID Effective Begin Date Effective End Date WPS Medicare Part B Medicare Part B [id number] 2018 Unknown [employer] [place] Medicare Part B [id number] 2018 Unknown Family history Father Diagnosis Age At Onset Cancer Unknown Mother Diagnosis Age At Onset Diabetes mellitus Type 2 Unknown Stroke Unknown Hypertension Unknown Arthritis Unknown Osteoporosis Unknown kidney disease Unknown Coronary Artery Disease Unknown Social History Social History Element Codes Description Effective Dates Marital status Unknown M chiki Peter 10/09/2014 Number of children Unknown 2 10/09/[address]: 3059711 Quit over 10 years ago 10/09/[address]: 086362446 Never drinks alcohol 10/09/2014 Allergies, Adverse Reactions, Alerts Substance Reaction Codes Entered Date Inactivated Date Status amoxicillin RxNorm: 723 10/09/2014 N o Inactive Date Active SULFA (SULFONAMIDE A NTIBIOTICS) Unknown 10/09/2014 No Inactive Date Active Past Medical History Illness Codes Condition Status Onset Date Resolved Date Essential (primary) hypertension ICD-9: 401.9 ICD-10: I10 [...] Condition Codes Effectiv e Dates Condition Status Essential (primary) hypertension ICD-9: 401.9 ICD-10: I10 [...] Date Stop Date Sta tus Fill Instructions meloxicam 15 mg tablet RxNorm: 935588 TAKE 1 TABLET BY MOUTH ONCE DAILY 07/09/2018 01/04/2019 Ac tive Generic For:MOBIC 15MG 07/07/2018 11:11 :46 AM triamterene 37.5 mg- hydrochlorothiazide 25 mg tablet RxNorm: 272944 TAKE 1 TABLET BY MOUTH ONCE DAILY 07/09/2018 01/04/2019 Active 07/07/2018 11:12:05 AM levothyroxine 50 mcg tablet RxNorm: 914236 TAKE 1 TABLET BY MOUT H DAILY 07/09/2018 01/04/2019 Ac tive Generic For:SYNTHROID 50MCG TAB 019 11:12:00 AM omeprazole 40 mg cap betty,delayed release RxNorm: 703426 TAKE 1 CAPSULE BY MACKENZIE TH DAILY 07/09/2018 01/04/2019 Ac tive Generic For:PRILOSEC 40MG 07/07/2018 11 :11:38 AM Lipitor 10 mg tablet RxNorm: 509946 TAKE 1 TABLET BY MOUTH DAILY 07/09/2018 01/04/2019 Active Generic For:LIPITOR 10MG 07/07/2018 11: 12:19 AM Zithromax Z-Taj 250 mg tablet RxNorm: 423155 1 Tablet(s) PO UD 05/18/2018 05/22/2018 Inactive metformin 500 mg tablet RxNorm: 837110 TAKE 1 TABLET BY MOUTH ONCE DAILY 02/07/2018 05/21/2018 In active Generic For:GLUCOPHAGE 500MG 02/07/2018 9:07:34 AM levothyroxine 50 mcg tablet RxNorm: 167274 TAKE 1 TABLET BY MOUT H DAILY 02/07/2018 06/06/2018 In active Generic For:SYNTHROID 50MCG TAB 018 9:07:42 AM meloxicam 15 mg tablet RxNorm: 714224 TAKE 1 TABLET BY MOUTH ONCE DAILY 02/07/2018 07/06/2018 In active Generic For:MOBIC 15MG 02/07/2018 9:07: 30 AM omeprazole 40 mg cap betty,delayed release RxNorm: 915352 TAKE 1 CAPSULE BY MACKENZIE TH DAILY 02/07/2018 07/06/2018 Inactive Generic For:PRILOSEC 40MG 02/07/2018 9: 07:37 AM Lipitor 10 mg tablet RxNorm: 685176 TAKE 1 TABLET BY MOUTH DAILY 11/09/2017 06/06/2018 Inactive Generic For:LIPITOR 10MG 11/09/2017 9:0 1:12 AM triamterene 37.5 mg- hydrochlorothiazide 25 mg tablet RxNorm: 399605 TAKE 1 TABLET BY MOUTH ONCE DAILY 11/09/2017 06/06/2018 Inactive 11/09/2017 9:01:09 AM levothyroxine 50 mcg tablet RxNorm: 150640 TAKE 1 TABLET BY MOUT H DAILY 10/10/2017 02/06/2018 In active Generic For:SYNTHROID 50MCG TAB 018 8:57:50 AM omeprazole 40 mg cap betty,delayed release RxNorm: 775692 TAKE 1 CAPSULE BY MACKENZIE TH DAILY 10/10/2017 02/06/2018 Inactive Generic For:PRILOSEC 40MG 10/10/2017 8: 57:46 AM Voltaren 1 % topical gel RxNorm: 772401 4 Gram(s) TOP QID - a pply 4 times daily to bilateral knees 09/13/2017 11/11/2017 Inactive levothyroxine 50 mcg tablet RxNorm: 929652 TAKE 1 TABLET BY MOUT H DAILY 09/11/2017 10/09/2017 In active Generic For:SYNTHROID 50MCG TAB 018 9:04:26 AM metformin 500 mg tablet RxNorm: 071993 TAKE 1 TABLET BY MOUTH ONCE DAILY 08/11/2017 02/06/2018 In active Generic For:GLUCOPHAGE 500MG 08/11/2017 8:56:05 AM meloxicam 15 mg tablet RxNorm: 583240 TAKE 1 TABLET BY MOUTH ONCE DAILY 08/11/2017 02/06/2018 In active Generic For:MOBIC 15MG 08/11/2017 8:56: 02 AM omeprazole 40 mg cap betty,delayed release RxNorm: 184124 TAKE 1 CAPSULE BY MACKENZIE TH DAILY 06/12/2017 10/09/2017 Inactive Generic For:PRILOSEC 40MG 06/12/2017 8: 56:49 AM Lipitor 10 mg tablet RxNorm: 232397 TAKE 1 TABLET BY MOUTH DAILY 2017 11/08/2017 Inactive Generic For:LIPITOR 10MG 2017 9:0 4:16 AM triamterene 37.5 mg- hydrochlorothiazide 25 mg tablet RxNorm: 460270 TAKE 1 TABLET BY MOUTH ONCE DAILY 2017 04/12/2017 Inactive 2017 9:04:19 AM triamterene 37.5 mg- hydrochlorothiazide 25 mg tablet RxNorm: 690649 TAKE 1 TABLET BY MOUTH ONCE DAILY 2017 10/09/2017 Inactive 2017 9:04:19 AM metformin 500 mg tablet RxNorm: 552372 TAKE 1 TABLET BY MOUTH ONCE DAILY 03/14/2017 08/10/2017 In active Generic For:GLUCOPHAGE 500MG 03/14/2017 9:16:18 AM levothyroxine 50 mcg tablet RxNorm: 888762 TAKE 1 TABLET BY MOUT H DAILY 03/14/2017 09/09/2017 In active Generic For:SYNTHROID 50MCG TAB 017 9:16:23 AM Zithromax Z-Taj 250 mg tablet RxNorm: 402813 1 Tablet(s) PO daily 02/16/2017 02/20/2017 Inactive omeprazole 40 mg cap betty,delayed release RxNorm: 187268 TAKE 1 CAPSULE BY MACKENZIE TH DAILY 02/13/2017 06/11/2017 Inactive Generic For:PRILOSEC 40MG 02/13/2017 8: 55:14 AM meloxicam 15 mg tablet RxNorm: 053346 TAKE 1 TABLET BY MOUTH ONCE DAILY 02/13/2017 08/10/2017 In active Generic For:MOBIC 15MG 02/13/2017 8:55: 10 AM levothyroxine 50 mcg tablet RxNorm: 735191 TAKE 1 TABLET BY MOUT H DAILY-- NEED TO GET LABS CHECKED FOR FURTHER REFILLS 01/05/2017 03/05/2017 Inactive Generic For:SYNTHROID 50MCG TAB 01/05/2017 4:36:06 PM levothyroxine 50 mcg tablet RxNorm: 054230 TAKE 1 TABLET BY MOUT H DAILY 12/14/2016 01/04/2017 In active Generic For:SYNTHROID 50MCG TAB 017 9:02:20 AM triamterene 37.5 mg- hydrochlorothiazide 25 mg tablet RxNorm: 144190 TAKE 1 TABLET BY MOUTH ONCE DAILY 11/14/2016 04/12/2017 Inactive 11/14/2016 9:13:26 AM metformin 500 mg tablet RxNorm: 141598 1 Tablet(s) PO daily 10/17/2016 03/13/2017 Inactive Generic For:GLUCOPHAGE 500MG 10/29/2014 9:02:36 AM omeprazole 40 mg cap betty,delayed release RxNorm: 918696 TAKE 1 CAPSULE BY MACKENZIE TH DAILY 10/17/2016 02/12/2017 Inactive Generic For:PRILOSEC 40MG 10/15/2016 8: 56:40 AM meloxicam 15 mg tablet RxNorm: 714687 1 Tablet(s) PO daily TAKE 1 TABLET BY MO UTH ONCE DAILY 09/19/2016 02/12/2017 Inactive Generic For:MOBIC 15MG 9:09:45 AM levothyroxine 50 mcg tablet RxNorm: 248479 TAKE 1 TABLET BY MOUT H DAILY 09/16/2016 12/13/2016 In active Generic For:SYNTHROID 50MCG TAB 017 10:22:07 AM 09/15/2016 9:01:47 AM Lipitor 10 mg tablet RxNorm: 533452 TAKE 1 TABLET BY MOUTH DAILY 09/16/2016 04/12/2017 Inactive Generic For:LIPITOR 10MG 09/16/2016 10: 22:13 AM 09/15/2016 9:01:42 AM [facility] Ultra Test strips RxNorm: 1 Miscellaneous daily 09/08/2016 09/02/2017 Inactive Voltaren 1 % topical gel RxNorm: 854003 2 Gram(s) TOP QID 09/08/2016 11/06/2016 Inactive meloxicam 15 mg tablet RxNorm: 223396 TAKE 1 TABLET BY MOUTH ONCE DAILY 08/16/2016 09/18/2016 In active Generic For:MOBIC 15MG 08/16/2016 9:09: 45 AM triamterene 37.5 mg- hydrochlorothiazide 25 mg tablet RxNorm: 852727 TAKE 1 TABLET BY MOUTH ONCE DAILY 07/18/2016 11/13/2016 Inactive 07/18/2016 8:57:50 AM omeprazole 40 mg cap betty,delayed release RxNorm: 176270 TAKE 1 CAPSULE BY MACKENZIE TH DAILY 06/17/2016 10/14/2016 Inactive Generic For:PRILOSEC 40MG 06/17/2016 9: 30:36 AM levothyroxine 50 mcg tablet RxNorm: 388030 TAKE 1 TABLET BY MOUT H DAILY 06/17/2016 09/14/2016 In active Generic For:SYNTHROID 50MCG TAB 017 9:10:49 AM metformin 500 mg tablet RxNorm: 112927 1 Tablet(s) PO daily 05/24/2016 10/16/2016 Inactive Generic For:GLUCOPHAGE 500MG 10/29/2014 9:02:36 AM Lasix 20 mg tablet RxNorm: 093794 1 Tablet(s) PO daily 05/24/2016 05/26/2016 Inactive metformin 500 mg tablet RxNorm: 525576 1 Tablet(s) PO daily 05/23/2016 05/23/2016 Inactive Generic For:GLUCOPHAGE 500MG 10/29/2014 9:02:36 AM Lasix 20 mg tablet RxNorm: 918265 1 Tablet(s) PO daily 05/23/2016 05/23/2016 Inactive potassium chloride E R 10 mEq tablet,extended release RxNorm: 587271 1 Tablet(s) PO daily 05/23/2016 05/25/2016 Inactive meloxicam 15 mg tablet RxNorm: 447116 1 Tablet(s) PO daily 04/18/2016 08/15/2016 Inactive Lipitor 10 mg tablet RxNorm: 651434 TAKE 1 TABLET BY MOUTH DAILY 04/18/2016 08/15/2016 Inactive Generic For:LIPITOR 10MG 04/18/2016 9:1 5:59 AM triamterene 37.5 mg- hydrochlorothiazide 25 mg tablet RxNorm: 784356 TAKE 1 TABLET BY MOUTH ONCE DAILY 03/21/2016 07/17/2016 Inactive 03/19/2016 9:02:10 AM levothyroxine 50 mcg tablet RxNorm: 882769 TAKE 1 TABLET BY MOUT H DAILY 02/18/2016 06/16/2016 In active Generic For:SYNTHROID 50MCG TAB 016 9:03:15 AM omeprazole 40 mg cap betty,delayed release RxNorm: 200247 TAKE 1 CAPSULE BY MACKENZIE TH DAILY 02/18/2016 06/16/2016 Inactive Generic For:PRILOSEC 40MG 02/18/2016 9: 03:12 AM Movantik 25 mg tablet RxNorm: 4999890 1 Tablet(s) PO QAM with breakfast or sean ch 01/12/2016 09/07/2016 In active Flonase Allergy Reli ef 50 mcg/actuation nasal spray,suspension RxNorm: 4240721 1 [place] NASAL BID 12/14/2015 09/07/2016 Inactive Zithromax Z-Taj 250 mg tablet RxNorm: 107146 Tablet(s) PO UD 12/14/2015 01/11/2016 Inactive Lipitor 10 mg tablet RxNorm: 393375 TAKE 1 TABLET BY MOUTH DAILY 11/20/2015 04/17/2016 Inactive Generic For:LIPITOR 10MG 11/20/2015 9:1 1:10 AM triamterene 37.5 mg- hydrochlorothiazide 25 mg tablet RxNorm: 353212 TAKE 1 TABLET BY MOUTH ONCE DAILY 11/19/2015 03/17/2016 Inactive 11/18/2015 9:06:12 AM meloxicam 15 mg tablet RxNorm: 159911 1 Tablet(s) PO daily 10/21/2015 04/17/2016 Inactive levothyroxine 50 mcg tablet RxNorm: 634522 TAKE 1 TABLET BY MOUT H DAILY 10/21/2015 02/17/2016 In active Generic For:SYNTHROID 50MCG TAB 016 9:06:41 AM omeprazole 40 mg cap betty,delayed release RxNorm: 620634 TAKE 1 CAPSULE BY MACKENZIE TH DAILY 10/21/2015 02/17/2016 Inactive Generic For:PRILOSEC 40MG 10/21/2015 9: 06:53 AM triamterene 37.5 mg- hydrochlorothiazide 25 mg tablet RxNorm: 863907 Tablet(s) 1 Tablet(s) PO daily 07/23/2015 11/18/2015 Inactive [SAVINGS FOR NON-COVERED DR BARRIENTOS -- BIN:[id number], PCN: ASPROD1, Group: XXXXX, ID# XXXXXXX, Questions: . THIS IS NOT INSURANCE.] metformin 500 mg tablet RxNorm: 857045 1 Tablet(s) PO daily 07/10/2015 12/06/2015 Inactive Generic For:GLUCOPHAGE 500MG 10/29/2014 9:02:36 AM Voltaren 1 % topical gel RxNorm: 578910 4 Gram(s) TOP QID 07/09/2015 09/07/2016 Inactive bilateral knees metformin 500 mg tablet RxNorm: 375428 1 Tablet(s) PO daily TAKE 1 TABLET BY MO UTH TWICE DAILY 07/09/2015 07/09/2015 Inactive Generic For:GLUCOPHAGE 500M G 10/29/2014 9:02:36 AM Lipitor 10 mg tablet RxNorm: 323781 1 Tablet(s) PO daily 06/26/2015 11/19/2015 Inactive metformin 500 mg tablet RxNorm: 860373 1 Tablet(s) PO BID TAKE 1 TABLET BY MOUT H TWICE DAILY 06/26/2015 07/08/2015 Inactive Generic For:GLUCOPHAGE 500M G 10/29/2014 9:02:36 AM omeprazole 40 mg cap betty,delayed release RxNorm: 915060 TAKE 1 CAPSULE BY MACKENZIE TH DAILY 04/27/2015 10/20/2015 Inactive Generic For:PRILOSEC 40MG meloxicam 15 mg tablet RxNorm: 312116 1 Tablet(s) PO daily 03/30/2015 10/20/2015 Inactive triamterene 37.5 mg- hydrochlorothiazide 25 mg tablet RxNorm: 561213 Tablet(s) 1 Tablet(s) PO daily 03/30/2015 07/22/2015 Inactive [SAVINGS FOR NON-COVERED DR UGS -- BIN:075975, PCN: ASPROD1, Group: XXXXX, ID# XXXXXXX, Questions: . THIS IS NOT INSURANCE.] metformin 500 mg tablet RxNorm: 034046 1 Tablet(s) PO BID 02/26/2015 06/25/2015 Inactive levothyroxine 50 mcg tablet RxNorm: 803362 TAKE 1 TABLET BY MOUT H DAILY 02/26/2015 10/20/2015 In active Generic For:SYNTHROID 50MCG TAB 015 2:41:48 PM N O T I C E PRESCRIPTION PREVIOUSLY AUTHORIZED BY DOCTOR:RUFINO LIAO Lipitor 10 mg tablet RxNorm: 657097 1 Tablet(s) PO daily 02/26/2015 06/25/2015 Inactive omeprazole 40 mg cap betty,delayed release RxNorm: 606634 1 Capsule(s) PO 01/01/2015 04/26/2015 In active [SAVINGS FOR NON-COVERED DRUGS -- BIN:00 3585, PCN: ASPROD1, Group: XXXXX, ID# XXXXXXX, Questions: . THIS IS NOT INSURANCE.] triamterene 37.5 mg- hydrochlorothiazide 25 mg tablet RxNorm: 012171 1 Tablet(s) PO daily 12/02/2014 03/29/2015 Inactive [SAVINGS FOR NON-COVERED DR UGS -- BIN:260270, PCN: ASPROD1, Group: XXXXX, ID# XXXXXXX, Questions: . THIS IS NOT INSURANCE.] metformin 500 mg tablet RxNorm: 922622 1 Tablet(s) PO BID TAKE 1 TABLET BY MOUT H TWICE DAILY 10/29/2014 06/25/2015 Inactive Generic For:GLUCOPHAGE 500M G 10/29/2014 9:02:36 AM metformin 500 mg tablet RxNorm: 354826 1 Tablet(s) PO BID 10/29/2014 10/29/2014 Inactive Lipitor 10 mg tablet RxNorm: 810578 1 Tablet(s) PO daily 10/27/2014 10/26/2014 Inactive Lipitor 10 mg tablet RxNorm: 794571 1 Tablet(s) PO daily 10/27/2014 02/23/2015 Inactive omeprazole 40 mg cap betty,delayed release RxNorm: 891290 1 Capsule(s) PO 09/02/2014 12/30/2014 In active [SAVINGS FOR NON-COVERED DRUGS -- BIN:00 3585, PCN: ASPROD1, Group: XXXXX, ID# XXXXXXX, Questions: . THIS IS NOT INSURANCE.] omeprazole 40 mg cap betty,delayed release RxNorm: 359138 1 Capsule(s) PO 09/02/2014 09/01/2014 In active triamterene 37.5 mg- hydrochlorothiazide 25 mg tablet RxNorm: 031518 1 Tablet(s) PO daily 08/27/2014 08/26/2014 Inactive triamterene 37.5 mg- hydrochlorothiazide 25 mg tablet RxNorm: 920618 1 Tablet(s) PO daily 08/27/2014 12/01/2014 Inactive [SAVINGS FOR NON-COVERED DR UGS -- BIN:388541, PCN: ASPROD1, Group: XXXXX, ID# XXXXXXX, Questions: . THIS IS NOT INSURANCE.] Multi Vitamin oral RxNorm: oral No Start Date Active Aspirin Low Dose 81 mg tablet,delayed release RxNorm: 359330 1 Tablet(s) PO daily No Start Date Active estradiol 2 mg tablet RxNorm: 432627 1 Tablet(s) PO daily No Start Date Active Vitamin D (with calc ium) oral RxNorm: 2418 oral No Sta rt Date Active medroxyprogesterone 5 mg tablet RxNorm: 0543607 1 Tablet(s) PO daily No Start Date Active meloxicam 15 mg tablet RxNorm: 674555 1 Tablet(s) PO daily No Start Date 02/06/2018 Inactive metformin 500 mg tablet RxNorm: 936480 1 Tablet(s) PO daily No Start Date 10/28/2014 Inactive Osteo Bi-Flex oral RxNorm: 8605852 oral No Start Date 02/15/2017 Inactive levothyroxine 50 mcg tablet RxNorm: 271232 1 Tablet(s) PO daily No Start Date 02/25/2015 Inactive Medication Administered No Medication Administered data Immunizations Vaccine Codes Date Status SHINGARIX CVX: 121 06/01 completed Influenza CVX: 141 03/02 completed Assessments Condition Codes Effectiv e Dates Type 2 diabetes mellitus without complications ICD-10: [...] Visit Reason For Visit Effective Dates Notes hypertension 11/16/2018 cough 05/18/2018 hypertension 09/13/2017 hypertension 02/16/2017 edema 09/08/2016 edema 05/23/2016 knee pain 01/12/2016 sinus congestion 12/14/2015 knee pain 07/09/2015 diabetes mellitus 10/09/2014 Results Observation Observation Code Item Item Code Result Date Comp Metabolic Xfh112 NA 139 mEq/L 11/16/2018 Comp Metabolic Ssi832 K 3.9 mEq/L 11/16/2018 Comp Metabolic Szd163 CL 103 mEq/L 11/16/2018 Comp Metabolic Wlh464 CO2 27.0 mEq/L 11/16/2018 Comp Metabolic Qmt626 AN ION GAP 13 11/16/2018 Comp Metabolic Yzh241 GL UCOSE 107 mg/dL 11/16/2018 Comp Metabolic Lwy113 Cr eat 1.0 mg/dL 11/16/2018 Comp Metabolic Ghm601 eG FR 56 ml/min/1.73m2 11/16 Comp Metabolic Uth628 BUN 18 mg/dL 11/16/2018 Comp Metabolic Glx520 B/ C Ratio 17.3 Ratio 11/16/2018 Comp Metabolic Cwk696 CA LCIUM 9.6 mg/dL 11/16/2018 Comp Metabolic Adw219 AL K PHOS 75 U/L 11/16/2018 Comp Metabolic Kxl792 T(SGOT) 16 U/L 11/16/2018 Comp Metabolic Tsu235 AL T(SGPT) 16 U/L 11/16/2018 Comp Metabolic Lrg201 BI LI T 0.6 mg/dL 11/16/2018 Comp Metabolic Lin682 AL BUMIN 4.1 g/dL 11/16/2018 Comp Metabolic Mdy685 TP RO 6.5 g/dL 11/16/2018 Comp Metabolic Wwk863 GL OB 2.4 g/dL 11/16/2018 Comp Metabolic Hqo563 A/ G Ratio 1.7 Ratio 11/16/2018 Comp Metabolic Aqp500 Os mo 280 mOsmo 11/16/2018 %Hba1C Iqj445 % HbA1c 97988-5 6.5 % 11/16/2018 %Hba1C Skt075 Gluc Ave 140 mg/dL 11/16/2018 Free T4 Enx446 FREE T4 1.09 ng/dL 05/18/2018 Lipid Ord30 [...] 31.2 pg 05/18/2018 Cbc With Differential Ord2 [place]% 9.2 % 05/18/2018 Cbc With Differential Ord2 [...] 2.00 K/ul 05/18/2018 Cbc With Differential Ord2 [place] ABS# 0.6 K/ul 05/18/2018 Cbc With Differential Ord2 Eos ABS# 0.2 K/ul 05/18/2018 Cbc With Differential Ord2 Baso ABS# 0.0 K/ul 05/18/2018 %Hba1C Wup737 % HbA1c 97043-1 6.1 % 05/18/2018 %Hba1C Jni997 Gluc Ave 128 mg/dL 05/18/2018 Comp Metabolic Vrk825 NA 139 mEq/L 05/18/2018 Comp Metabolic Xsn502 K 3.8 mEq/L 05/18/2018 Comp Metabolic Tkv863 CL 100 mEq/L 05/18/2018 Comp Metabolic Rvk847 CO2 29.0 mEq/L 05/18/2018 Comp Metabolic Ppn366 AN ION GAP 14 05/18/2018 Comp Metabolic Ssi638 GL UCOSE 100 mg/dL 05/18/2018 Comp Metabolic Nai096 Cr eat 1.2 mg/dL 05/18/2018 Comp Metabolic Pww732 eG FR 49 ml/min/1.73m2 05/18 Comp Metabolic Oqj519 BUN 17 mg/dL 05/18/2018 Comp Metabolic Jaw626 B/ C Ratio 14.5 Ratio 05/18/2018 Comp Metabolic Mzu088 CA LCIUM 10.0 mg/dL 05/18/2018 Comp Metabolic Euc398 AL K PHOS 75 U/L 05/18/2018 Comp Metabolic Gsv880 T(SGOT) 16 U/L 05/18/2018 Comp Metabolic Vuo992 AL T(SGPT) 15 U/L 05/18/2018 Comp Metabolic Ruh572 BI LI T 0.7 mg/dL 05/18/2018 Comp Metabolic Qaq179 AL BUMIN 4.4 g/dL 05/18/2018 Comp Metabolic Yjj216 TP RO 6.8 g/dL 05/18/2018 Comp Metabolic Wmr566 GL OB 2.4 g/dL 05/18/2018 Comp Metabolic Dei855 A/ G Ratio 1.8 Ratio 05/18/2018 Comp Metabolic Tag285 Os mo 279 mOsmo 05/18/2018 Comp Metabolic Bqz042 NA 138 mEq/L 09/14/2017 Comp Metabolic Lsi078 K 3.8 mEq/L 09/14/2017 Comp Metabolic Fzh742 CL 101 mEq/L 09/14/2017 Comp Metabolic Oql127 CO2 26.0 mEq/L 09/14/2017 Comp Metabolic Kcl497 AN ION GAP 15 09/14/2017 Comp Metabolic Hzj416 GL UCOSE 120 mg/dL 09/14/2017 Comp Metabolic Euk122 Cr eat 1.0 mg/dL 09/14/2017 Comp Metabolic Hfa651 eG FR 61 ml/min/1.73m2 09/14 Comp Metabolic Fpo051 BUN 18 mg/dL 09/14/2017 Comp Metabolic Bsd754 B/ C Ratio 18.6 Ratio 09/14/2017 Comp Metabolic Itj781 CA LCIUM 9.7 mg/dL 09/14/2017 Comp Metabolic Wsh787 AL K PHOS 63 U/L 09/14/2017 Comp Metabolic Dza255 T(SGOT) 18 U/L 09/14/2017 Comp Metabolic Ckk150 AL T(SGPT) 20 U/L 09/14/2017 Comp Metabolic Wkz002 BI LI T 0.5 mg/dL 09/14/2017 Comp Metabolic Vww491 AL BUMIN 4.3 g/dL 09/14/2017 Comp Metabolic Pwx758 TP RO 6.7 g/dL 09/14/2017 Comp Metabolic Xun800 GL OB 2.4 g/dL 09/14/2017 Comp Metabolic Jfc903 A/ G Ratio 1.8 Ratio 09/14/2017 Comp Metabolic Dcc904 Os mo 279 mOsmo 09/14/2017 Lipid Ord30 CHOL 180 mg/dL 09/14/2017 Lipid Ord30 HDL 53.0 mg/dl 09/14/2017 Lipid Ord30 TRIG 126 mg/dL 09/14/2017 Lipid Ord30 LDL 102 mg/dL 09/14/2017 Lipid Ord30 C/HDL 3.4 Ratio 09/14/2017 Microalbumin Ztq517 Micr oAlb <0.7 mg/dL 09/14/2017 %Hba1C Cge881 % HbA1c 26096-2 6.0 % 09/14/2017 %Hba1C Mva066 Gluc Ave 126 mg/dL 09/14/2017 Free T4 Aax679 FREE T4 0.98 ng/dL 09/14/2017 Cbc With [...] 31.3 pg 09/14/2017 Cbc With Differential Ord2 [place]% 9.4 % 09/14/2017 Cbc With Differential Ord2 [...] 1.94 K/ul 09/14/2017 Cbc With Differential Ord2 [place] ABS# 0.7 K/ul 09/14/2017 Cbc With Differential Ord2 Eos ABS# 0.2 K/ul 09/14/2017 Cbc With Differential Ord2 Baso ABS# 0.0 K/ul 09/14/2017 Tsh Ord6 TSH (3rd IS) 2.64 uIU/mL 09/14/2017 Comp Metabolic Vio937 NA 138 mEq/L 05/23/2016 Comp Metabolic Ovv773 K 4.0 mEq/L 05/23/2016 Comp Metabolic Urb713 CL 105 mEq/L 05/23/2016 Comp Metabolic Siy937 CO2 25.0 mEq/L 05/23/2016 Comp Metabolic Rlt336 AN ION GAP 12 05/23/2016 Comp Metabolic Tcs412 GL UCOSE 89 mg/dL 05/23/2016 Comp Metabolic Mew643 Cr eat 1.0 mg/dL 05/23/2016 Comp Metabolic Aew240 eG FR 63 ml/min/1.73m2 05/23 Comp Metabolic Fbo089 BUN 18 mg/dL 05/23/2016 Comp Metabolic Tfe753 B/ C Ratio 18.9 Ratio 05/23/2016 Comp Metabolic Jau927 CA LCIUM 9.1 mg/dL 05/23/2016 Comp Metabolic Nqn687 AL K PHOS 67 U/L 05/23/2016 Comp Metabolic Tpj037 T(SGOT) 26 U/L 05/23/2016 Comp Metabolic Vjt036 AL T(SGPT) 39 U/L 05/23/2016 Comp Metabolic Wfo042 BI LI T 0.5 mg/dL 05/23/2016 Comp Metabolic Lbw281 AL BUMIN 3.9 g/dL 05/23/2016 Comp Metabolic Syh196 TP RO 5.9 g/dL 05/23/2016 Comp Metabolic Uwf639 GL OB 2.0 g/dL 05/23/2016 Comp Metabolic Tix342 A/ G Ratio 2.0 Ratio 05/23/2016 Comp Metabolic Mco478 Os mo 277 mOsmo 05/23/2016 Cbc With [...] 30.5 pg 05/23/2016 Cbc With Differential Ord2 [place]% 10.0 % 05/23/2016 Cbc With Differential Ord2 [...] 1.68 K/ul 05/23/2016 Cbc With Differential Ord2 [place] ABS# 0.7 K/ul 05/23/2016 Cbc With Differential Ord2 Eos ABS# 0.1 K/ul 05/23/2016 Cbc With Differential Ord2 Baso ABS# 0.0 K/ul 05/23/2016 B Type Natriuretic Peptide Yjt2438 B-POULTRY GRADER 340.00 pg/ml 7 Lipid Ord30 CHOL 117 [...] 31.8 pg 07/07/2015 Cbc With Differential Ord2 [place]% 11.3 % 07/07/2015 Cbc With Differential Ord2 [...] 1.53 K/ul 07/07/2015 Cbc With Differential Ord2 [place] ABS# 0.6 K/ul 07/07/2015 Cbc With Differential Ord2 Eos ABS# 0.2 K/ul 07/07/2015 Cbc With Differential Ord2 Baso ABS# 0.0 K/ul 07/07/2015 Cbc With Differential Ord2 New Analyzer Notice Please note new ref ranges s tarting 05-13-2015 due to implemntation of new five part differential hematolgy analyzer. 07/07/2015 Free T4 Efd590 FREE T4 1.17 ng/dL 07/07/2015 Comp Metabolic Zky246 NA 137 mEq/L 07/07/2015 Comp Metabolic Qco964 K 4.0 mEq/L 07/07/2015 Comp Metabolic Vec664 CL 100 mEq/L 07/07/2015 Comp Metabolic Wqn699 CO2 29.0 mEq/L 07/07/2015 Comp Metabolic Coc528 AN ION GAP 12 07/07/2015 Comp Metabolic Scw107 GL UCOSE 98 mg/dL 07/07/2015 Comp Metabolic Dwp877 Cr eat 1.0 mg/dL 07/07/2015 Comp Metabolic Eue101 eG FR 62 ml/min/1.73m2 07/06 Comp Metabolic Mdx267 BUN 16 mg/dL 07/07/2015 Comp Metabolic Jcn675 B/ C Ratio 16.5 Ratio 07/07/2015 Comp Metabolic Rkr003 CA LCIUM 9.5 mg/dL 07/07/2015 Comp Metabolic Vdc009 AL K PHOS 47 U/L 07/07/2015 Comp Metabolic Amc787 T(SGOT) 18 U/L 07/07/2015 Comp Metabolic Ygo855 AL T(SGPT) 22 U/L 07/07/2015 Comp Metabolic Blp061 BI LI T 0.5 mg/dL 07/07/2015 Comp Metabolic Qni868 AL BUMIN 4.2 g/dL 07/07/2015 Comp Metabolic Gur023 TP RO 6.5 g/dL 07/07/2015 Comp Metabolic Ubd935 GL OB 2.3 g/dL 07/07/2015 Comp Metabolic Ooh394 A/ G Ratio 1.8 Ratio 07/07/2015 Comp Metabolic Mtz844 Os mo 275 mOsmo 07/07/2015 %Hba1C Ile776 % HbA1c 68079-6 5.7 % 07/07/2015 %Hba1C Vmu676 Gluc Ave 117 mg/dL 07/07/2015 Tsh Ord6 hTSH II 2.32 uIU/mL 07/07/2015 Review of Systems System Result Effective Dates Constitutional recent illness 11/16/2018 Constitutional No anorexia [...] Result Effective Dates Notes Full Exam - General 1994 Constitutional general [...] normal mood and affect 10/09/2014 None Procedures No Procedures data Vital Signs Date Vital 11/16/2018 Blood Pressure 1: 106/60 Code: 8480-6 BMI: 34.7 Code: 77947-8 Heart Rate 1: 65 bpm Height: 5'3" SpO2: 99% Weight: 196 lbs 05/18/2018 Blood Pressure 1: 128/76 Code: 8480-6 BMI: 34.4 Code: 21238-7 Heart Rate 1: 67 bpm Height: 5'3" SpO2: 97% Temperature: 37.0 (C ) / 98.6 (F) Weight: 194 lbs 09/13/2017 Blood Pressure 1: 140/78 Code: 8480-6 BMI: 35.4 Code: 42658-2 Heart Rate 1: 71 bpm Height: 5'3" SpO2: 97% Weight: 200 lbs 02/16/2017 Blood Pressure 1: 138/76 Code: 8480-6 BMI: 34.4 Code: 73725-0 Heart Rate 1: 66 bpm Height: 5'3" SpO2: 99% Weight: 194 lbs 09/08/2016 Blood Pressure 1: 138/86 Code: 8480-6 BMI: 32.2 Code: 11400-7 Heart Rate 1: 69 bpm Height: 5'3" SpO2: 99% Weight: 182 lbs 05/23/2016 Blood Pressure 1: 126/70 Code: 8480-6 BMI: 30.8 Code: 03025-2 Heart Rate 1: 63 bpm Height: 5'3" SpO2: 98% Weight: 174 lbs 01/12/2016 Blood Pressure 1: 140/72 Code: 8480-6 BMI: 29.8 Code: 21668-8 Heart Rate 1: 82 bpm Height: 5'3" SpO2: 97% Weight: 168 lbs 12/14/2015 Blood Pressure 1: 132/78 Code: 8480-6 BMI: 31.5 Code: 73247-2 Heart Rate 1: 71 bpm Height: 5'3" SpO2: 98% Weight: 178 lbs 07/09/2015 Blood Pressure 1: 128/80 Code: 8480-6 BMI: 30.6 Code: 11684-9 Heart Rate 1: 71 bpm Height: 5'3" SpO2: 99% Weight: 173 lbs 10/09/2014 Blood Pressure 1: 120/70 Code: 8480-6 BMI: 29.1 Code: 69840-2 Heart Rate 1: 68 bpm Height: 5'3" Weight: 164 lbs Functional Status No Functional Status data History of Present Illness Symptom Name Status Resu lt Effective Date Notes Quality chronic 11/16/2018 None Quality primary hypert [...] mellitus Quality chronic 09/13/2017 None hypothyroid Quality [facility] marie 09/13/2017 None diabetes mellitus Glucose monitoring [...] Encounters Encounter Performer Loca tion Codes Date ([id number]) [id number] EST. P ATIENT, LEVEL IV Diagnosis: Type 2 diabetes mellitus without complications[ICD10: E11.9] Diagnosis: Essential (primary) hypertension[ICD10: I10] Diagnosis: Other allergic rhinitis[ICD10: J30.89] [facility] CPT-4: 10787 11/16/2018 ([id number]) 66810 EST. P ATIENT, LEVEL IV Diagnosis: Essential (primary) hypertension[ICD10: I10] Diagnosis: Acute upper respiratory infection, unspecified[ICD10: J06.9] Diagnosis: Mixed hyperlipidemia[ICD10: E78.2] Diagnosis: Hypothyroidism, unspecified[ICD10: E03.9] Diagnosis: Type 2 diabetes mellitus without complications[ICD10: E11.9] Asha Ballard MD, [facility] CPT-4: 50417 05/18/2018 ([id number]) 03910 EST. P ATIENT, LEVEL IV Diagnosis: Type 2 diabetes mellitus without complications[ICD10: E11.9] Diagnosis: Essential (primary) hypertension[ICD10: I10] Diagnosis: Other obesity due to excess calories[ICD10: E66.09] Katty Ballard MD, C CPT-4: 09146 09/13/2017 ([id number]) 51532 EST. P ATIENT, LEVEL IV Diagnosis: Type 2 diabetes mellitus without complications[ICD10: E11.9] Diagnosis: Essential (primary) hypertension[ICD10: I10] Diagnosis: Other acute sinusitis[ICD10: J01.80] Diagnosis: Other obesity due to excess calories[ICD10: E66.09] Asha Ballard MD, [facility] CPT-4: 31024 02/16/2017 ([id number]) 85018 EST. P ATIENT, LEVEL IV Diagnosis: Type 2 diabetes mellitus without complications[ICD10: E11.9] Diagnosis: Essential (primary) hypertension[ICD10: I10] Diagnosis: Pain in right knee[ICD10: M25.561] Diagnosis: Pain in left knee[ICD10: M25.562] Katty Ballard MD, [facility] CPT-4: 73454 09/08/2016 31100 EST. PATIENT, LEVEL IV Diagnosis: Localized edema[ICD10: R60.0] Diagnosis: Shortness of breath[ICD10: R06.02] Salma Ballard MD, [facility] CPT-4: 10891 05/23/2016 ([id number]) 56555 EST. P ATIENT, LEVEL IV Diagnosis: Type 2 diabetes mellitus without complications[ICD10: E11.9] Diagnosis: Essential (primary) hypertension[ICD10: I10] Diagnosis: Chronic idiopathic constipation[ICD10: K59.04] Katty Ballard MD, C CPT-4: 95014 01/12/2016 08716 EST. PATIENT, LEVEL IV Diagnosis: Other acute sinusitis[ICD10: J01.80] Diagnosis: Other allergic rhinitis[ICD10: J30.89] Salma Ballard MD, [facility] CPT-4: 39548 12/14/2015 ([id number]) 77016 EST. P ATIENT, LEVEL IV Diagnosis: Essential (primary) hypertension[ICD10: I10] Diagnosis: Type 2 diabetes mellitus without complications[ICD10: E11.9] Diagnosis: Pain in right knee[ICD10: M25.561] Diagnosis: Pain in left knee[ICD10: M25.562] [facility] CPT- 4: 35844 07/09/2015 ([id number]) OFFICE VISI T NEW - LEVEL 4 Diagnosis: ESSENTIAL HYPERTENSION[ICD9: 401.9] Diagnosis: DIABETES TYPE II[ICD9: 250.00] Diagnosis: HYPERLIPIDEMIA[ICD9: 272.4] Diagnosis: HYPOTHYROIDISM[ICD9: 244.9] Katty Ballard MD, [facility] CPT-4: 53345 10/09/2014 Plan of Care Planned Activity Notes C odes Status Date Visit Plan: DM-stopped metformin du e to [...] allergy spray. 11/16/2018 Appointment: Asha Bernstein WPtel: [address] [place], [place] [phone] (30 min) [facility] 11/16/2018 Patient Education: Patient Medication Summary Completed [...] - she would like a referral to [facility] for diabetic education. Knee pain - post operative still with swelling - continue with current management. 09/13/2017 Appointment: Katty Ballard [facility]el[facility] (15 min) Moderate 09/13/2017 Patient Education: Patient [...] check. 02/16/2017 Appointment: Asha Bernstein WPtel: [phone] [phone] (15 min) Moderate 02/16/2017 Patient Education: Patient [...] to pharmacy 09/08/2016 Appointment: Katty Ballard WPtel: [facility] (15 min) Moderate 09/08/2016 Patient Education: Patient [...] peripheral edema. 05/23/2016 Appointment: Salma Garay WPtel: [phone] [phone] (30 min) Complex 05/23/2016 Patient Education: Patient Medication Summary Completed 05/23/2016 Patient Education: Obesity Completed 05/23/2016 Appointment: Katty Ballard WPtel[phone] (15 min) Moderate 01/13/2016 Visit Plan: Hypertension [...] not improving. 10/09/2014 Appointment: Katty Ballard WPtel: [address] [place], [place] [phone] [place] ([place]) New Patient 10/09/2014 Patient Education: Patient Medication Summary Completed 10/09/2014 Patient Education: Hypertension Completed 10/09/2014 Care Plan: MICROALBUMIN QUANTITATIVE LOINC : 74342-5 Ordered 10/09/2014 Care Plan: COMPLETE CBC AUTOMATED LOINC : 10883-0 Ordered 10/09/2014 Instructions Comment . Sinusitis - [...] - she would like a referral to [facility] for diabetic education. Knee pain - post [...] DM-due for hgb a1c -continue current treatment . Hypertension - wel l controlled - [...]
--- OUTSIDE RECORDS SUMMARY | 2019-12-03 12:44 | XMS REPORT | CCD ---
Author Author Danni Ballard Organization Katty Ballard MD, [facility] Address [address] [place] [address] Phone Care Team Providers Care Video Library Assistant Name Role Phone PP Unavailable CCM Unavailable Summary Purpose Interface Exchange Insurance Providers Payer name Policy type / Coverage type Covered democrat ID Effective Begin Date Effective End Date Blue Cross Blue [facility] e Cross/Blue Shield [id number] Unknown Unknown Family history Father Diagnosis Age At Onset Cancer Unknown Mother Diagnosis Age At Onset Diabetes mellitus Type 2 Unknown Stroke Unknown Hypertension Unknown Arthritis Unknown Osteoporosis Unknown kidney disease Unknown Coronary Artery Disease Unknown Social History Social History Element Codes Description Effective Dates Marital status Unknown M chiki Peter 10/09/2014 Number of children Unknown 2 10/09/[address]: 6884400 Quit over 10 years ago 10/09/[address]: 872267095 Never drinks alcohol 10/09/2014 Allergies, Adverse Reactions, Alerts Allergies, Adverse Reactions, Alerts data not found Past Medical History Illness Codes Condition Status Onset Date Resolved Date Essential (primary) hypertension ICD-9: 401.9 ICD-10: I10 Active 10/08/2014 Unknown Pain in left knee ICD-9: 719.46 ICD-10: M25.562 Active 07/08/2015 Unknown Pain in right knee ICD- 9: 719.46 ICD-10: M25.561 Active 07/08/2015 Unknown Type 2 diabetes lalito itus without complications ICD-9: 250.00 ICD-10: E11.9 Active 10/08/2014 Unknown Localized edema ICD-9: 782.3 ICD-10: R60.0 Active 05/22/2016 Unknown Shortness of breath ICD- 9: 786.05 ICD-10: R06.02 Active 05/22/2016 Unknown Chronic idiopathic c onstipation ICD-9: 564.00 ICD-10: K59.04 Active 01/11/2016 Unknown Other acute sinusitis ICD-9: 461.8 ICD-10: J01.80 Active 12/13/2015 Unknown Other allergic rhinitis ICD-9: 477.8 ICD-10: J30.89 Active 12/13/2015 Unknown Diabetes Unknown Active 10/09/2014 Unknow n [...] hypertension ICD-9: 401.9 ICD-10: I10 10/08/2014 Active Pain in left knee ICD-9: 719.46 ICD-10: M25.562 07/08/2015 Active Pain in right knee ICD- 9: 719.46 ICD-10: M25.561 07/08/2015 Active Type 2 diabetes lalito itus without complications ICD-9: 250.00 ICD-10: E11.9 10/08/2014 Active Localized edema ICD-9: 782.3 ICD-10: R60.0 05/22/2016 Active Shortness of breath ICD- 9: 786.05 ICD-10: R06.02 05/22/2016 Active Chronic idiopathic c onstipation ICD-9: 564.00 ICD-10: K59.04 01/11/2016 Active Other acute sinusitis ICD-9: 461.8 ICD-10: J01.80 12/13/2015 Active Other allergic rhinitis ICD-9: 477.8 ICD-10: J30.89 12/13/2015 Active Diabetes Unknown 10/09/2014 Active Hyperlipidemia Unknown 10/09/2014 Active Hypertension Unknown 10/09/2014 Active Hypothryroidism Unknown 10/09/2014 Active DIABETES TYPE II ICD-9: 250.00 10/08/2014 Active ESSENTIAL HYPERTENSION ICD-9: 401.9 10/08/2014 Active HYPERLIPIDEMIA ICD-9: 272.4 10/08/2014 Active HYPOTHYROIDISM ICD-9: 244.9 10/08/2014 Active Medications Medication Codes Instruc tions Start Date Stop Date Sta tus Fill Instructions triamterene 37.5 mg- hydrochlorothiazide 25 mg tablet RxNorm: 655467 TAKE 1 TABLET BY MOUTH ONCE DAILY 11/14/2016 04/12/2017 Active 11/14/2016 9:13:26 AM metformin 500 mg tablet RxNorm: 449336 1 Tablet(s) PO daily 10/17/2016 03/15/2017 Active Generic For:GLUCOPHAGE 500MG 10/29/2014 9:02:36 AM omeprazole 40 mg cap betty,delayed release RxNorm: 559745 TAKE 1 CAPSULE BY MACKENZIE TH DAILY 10/17/2016 02/13/2017 Ac tive Generic For:PRILOSEC 40MG 10/15/2016 8: 56:40 AM meloxicam 15 mg tablet RxNorm: 994898 1 Tablet(s) PO daily TAKE 1 TABLET BY MO UTH ONCE DAILY 09/19/2016 03/17/2017 Active Generic For:MOBIC 15MG 07/30 9:09:45 AM levothyroxine 50 mcg tablet RxNorm: 150616 TAKE 1 TABLET BY MOUT H DAILY 09/16/2016 12/14/2016 Ac tive Generic For:SYNTHROID 50MCG TAB 017 10:22:07 AM 09/15/2016 9:01:47 AM Lipitor 10 mg tablet RxNorm: 930557 TAKE 1 TABLET BY MOUTH DAILY 09/16/2016 2017 Active Generic For:LIPITOR 10MG 09/16/2016 10: 22:13 AM 09/15/2016 9:01:42 AM [employer] Ultra Test strips RxNorm: 1 Miscellaneous daily 09/08/2016 09/02/2017 Active Voltaren 1 % topical gel RxNorm: 908429 2 Gram(s) TOP QID 09/08/2016 11/06/2016 Inactive meloxicam 15 mg tablet RxNorm: 295798 TAKE 1 TABLET BY MOUTH ONCE DAILY 08/16/2016 09/18/2016 In active Generic For:MOBIC 15MG 08/16/2016 9:09: 45 AM triamterene 37.5 mg- hydrochlorothiazide 25 mg tablet RxNorm: 258846 TAKE 1 TABLET BY MOUTH ONCE DAILY 07/18/2016 11/13/2016 Inactive 07/18/2016 8:57:50 AM omeprazole 40 mg cap betty,delayed release RxNorm: 817378 TAKE 1 CAPSULE BY MACKENZIE TH DAILY 06/17/2016 10/14/2016 Inactive Generic For:PRILOSEC 40MG 06/17/2016 9: 30:36 AM levothyroxine 50 mcg tablet RxNorm: 685558 TAKE 1 TABLET BY MOUT H DAILY 06/17/2016 09/14/2016 In active Generic For:SYNTHROID 50MCG TAB 017 9:10:49 AM metformin 500 mg tablet RxNorm: 948619 1 Tablet(s) PO daily 05/24/2016 10/16/2016 Inactive Generic For:GLUCOPHAGE 500MG 10/29/2014 9:02:36 AM Lasix 20 mg tablet RxNorm: 515840 1 Tablet(s) PO daily 05/24/2016 05/26/2016 Inactive metformin 500 mg tablet RxNorm: 456429 1 Tablet(s) PO daily 05/23/2016 05/23/2016 Inactive Generic For:GLUCOPHAGE 500MG 10/29/2014 9:02:36 AM Lasix 20 mg tablet RxNorm: 275992 1 Tablet(s) PO daily 05/23/2016 05/23/2016 Inactive potassium chloride E R 10 mEq tablet,extended release RxNorm: 393972 1 Tablet(s) PO daily 05/23/2016 05/25/2016 Inactive meloxicam 15 mg tablet RxNorm: 133833 1 Tablet(s) PO daily 04/18/2016 08/15/2016 Inactive Lipitor 10 mg tablet RxNorm: 435990 TAKE 1 TABLET BY MOUTH DAILY 04/18/2016 08/15/2016 Inactive Generic For:LIPITOR 10MG 04/18/2016 9:1 5:59 AM triamterene 37.5 mg- hydrochlorothiazide 25 mg tablet RxNorm: 152861 TAKE 1 TABLET BY MOUTH ONCE DAILY 03/21/2016 07/17/2016 Inactive 03/19/2016 9:02:10 AM levothyroxine 50 mcg tablet RxNorm: 296095 TAKE 1 TABLET BY MOUT H DAILY 02/18/2016 06/16/2016 In active Generic For:SYNTHROID 50MCG TAB 016 9:03:15 AM omeprazole 40 mg cap ebtty,delayed release RxNorm: 847676 TAKE 1 CAPSULE BY MACKENZIE TH DAILY 02/18/2016 06/16/2016 Inactive Generic For:PRILOSEC 40MG 02/18/2016 9: 03:12 AM Movantik 25 mg tablet RxNorm: 5504194 1 Tablet(s) PO QAM with breakfast or sean ch 01/12/2016 09/07/2016 In active Flonase Allergy Reli ef 50 mcg/actuation nasal spray,suspension RxNorm: 2568313 1 [place] NASAL BID 12/14/2015 09/07/2016 Inactive Zithromax Z-Taj 250 mg tablet RxNorm: 219989 Tablet(s) PO UD 12/14/2015 01/11/2016 Inactive Lipitor 10 mg tablet RxNorm: 441773 TAKE 1 TABLET BY MOUTH DAILY 11/20/2015 04/17/2016 Inactive Generic For:LIPITOR 10MG 11/20/2015 9:1 1:10 AM triamterene 37.5 mg- hydrochlorothiazide 25 mg tablet RxNorm: 255208 TAKE 1 TABLET BY MOUTH ONCE DAILY 11/19/2015 03/17/2016 Inactive 11/18/2015 9:06:12 AM meloxicam 15 mg tablet RxNorm: 082850 1 Tablet(s) PO daily 10/21/2015 04/17/2016 Inactive levothyroxine 50 mcg tablet RxNorm: 804531 TAKE 1 TABLET BY MOUT H DAILY 10/21/2015 02/17/2016 In active Generic For:SYNTHROID 50MCG TAB 016 9:06:41 AM omeprazole 40 mg cap betty,delayed release RxNorm: 385734 TAKE 1 CAPSULE BY MACKENZIE TH DAILY 10/21/2015 02/17/2016 Inactive Generic For:PRILOSEC 40MG 10/21/2015 9: 06:53 AM triamterene 37.5 mg- hydrochlorothiazide 25 mg tablet RxNorm: 083149 Tablet(s) 1 Tablet(s) PO daily 07/23/2015 11/18/2015 Inactive [SAVINGS FOR NON-COVERED DR BARRIENTOS -- BIN:[id number], PCN: ASPROD1, Group: XXXXX, ID# XXXXXXX, Questions: . THIS IS NOT INSURANCE.] metformin 500 mg tablet RxNorm: 342044 1 Tablet(s) PO daily 07/10/2015 12/06/2015 Inactive Generic For:GLUCOPHAGE 500MG 10/29/2014 9:02:36 AM Voltaren 1 % topical gel RxNorm: 033006 4 Gram(s) TOP QID 07/09/2015 09/07/2016 Inactive bilateral knees metformin 500 mg tablet RxNorm: 975891 1 Tablet(s) PO daily TAKE 1 TABLET BY MO UTH TWICE DAILY 07/09/2015 07/09/2015 Inactive Generic For:GLUCOPHAGE 500M G 10/29/2014 9:02:36 AM Lipitor 10 mg tablet RxNorm: 179780 1 Tablet(s) PO daily 06/26/2015 11/19/2015 Inactive metformin 500 mg tablet RxNorm: 412859 1 Tablet(s) PO BID TAKE 1 TABLET BY MOUT H TWICE DAILY 06/26/2015 07/08/2015 Inactive Generic For:GLUCOPHAGE 500M G 10/29/2014 9:02:36 AM omeprazole 40 mg cap betty,delayed release RxNorm: 912783 TAKE 1 CAPSULE BY MACKENZIE TH DAILY 04/27/2015 10/20/2015 Inactive Generic For:PRILOSEC 40MG meloxicam 15 mg tablet RxNorm: 037164 1 Tablet(s) PO daily 03/30/2015 10/20/2015 Inactive triamterene 37.5 mg- hydrochlorothiazide 25 mg tablet RxNorm: 245494 Tablet(s) 1 Tablet(s) PO daily 03/30/2015 07/22/2015 Inactive [SAVINGS FOR NON-COVERED DR BARRIENTOS -- BIN:[id number], PCN: ASPROD1, Group: XXXXX, ID# XXXXXXX, Questions: . THIS IS NOT INSURANCE.] metformin 500 mg tablet RxNorm: 255505 1 Tablet(s) PO BID 02/26/2015 06/25/2015 Inactive levothyroxine 50 mcg tablet RxNorm: 394890 TAKE 1 TABLET BY MOUT H DAILY 02/26/2015 10/20/2015 In active Generic For:SYNTHROID 50MCG TAB 015 2:41:48 PM N O T I C E PRESCRIPTION PREVIOUSLY AUTHORIZED BY DOCTOR:RUFINO LIAO Lipitor 10 mg tablet RxNorm: 242398 1 Tablet(s) PO daily 02/26/2015 06/25/2015 Inactive omeprazole 40 mg cap betty,delayed release RxNorm: 20020609 1 Capsule(s) PO 01/01/2015 04/26/2015 In active [SAVINGS FOR NON-COVERED DRUGS -- BIN: 3585, PCN: ASPROD1, Group: XXXXX, ID# XXXXXXX, Questions: . THIS IS NOT INSURANCE.] triamterene 37.5 mg- hydrochlorothiazide 25 mg tablet RxNorm: 172053 1 Tablet(s) PO daily 12/02/2014 03/29/2015 Inactive [SAVINGS FOR NON-COVERED DR UGS -- BIN:[id number], PCN: ASPROD1, Group: XXXXX, ID# [id number], Questions: . THIS IS NOT INSURANCE.] metformin 500 mg tablet RxNorm: 209636 1 Tablet(s) PO BID TAKE 1 TABLET BY MOUT H TWICE DAILY 10/29/2014 06/25/2015 Inactive Generic For:GLUCOPHAGE 500M G 10/29/2014 9:02:36 AM metformin 500 mg tablet RxNorm: 399863 1 Tablet(s) PO BID 10/29/2014 10/29/2014 Inactive Lipitor 10 mg tablet RxNorm: 496185 1 Tablet(s) PO daily 10/27/2014 10/26/2014 Inactive Lipitor 10 mg tablet RxNorm: 630803 1 Tablet(s) PO daily 10/27/2014 02/23/2015 Inactive omeprazole 40 mg cap betty,delayed release RxNorm: 466374 1 Capsule(s) PO 09/02/2014 12/30/2014 In active [SAVINGS FOR NON-COVERED DRUGS -- BIN:3584, PCN: ASPROD1, Group: XXXXX, ID# XXXXXXX, Questions: . THIS IS NOT INSURANCE.] omeprazole 40 mg cap betty,delayed release RxNorm: 20020609 1 Capsule(s) PO 09/02/2014 09/01/2014 In active triamterene 37.5 mg- hydrochlorothiazide 25 mg tablet RxNorm: 625023 1 Tablet(s) PO daily 08/27/2014 08/26/2014 Inactive triamterene 37.5 mg- hydrochlorothiazide 25 mg tablet RxNorm: 002164 1 Tablet(s) PO daily 08/27/2014 12/01/2014 Inactive [SAVINGS FOR NON-COVERED DR BARRIENTOS -- BIN:142084, PCN: ASPROD1, Group: XXXXX, ID# [id number], Questions: . THIS IS NOT INSURANCE.] Multi Vitamin oral RxNorm: oral No Start Date Active meloxicam 15 mg tablet RxNorm: 983508 1 Tablet(s) PO daily No Start Date 03/29/2015 Inactive estradiol 2 mg tablet RxNorm: 191561 1 Tablet(s) PO daily No Start Date Active Vitamin D (with calc ium) oral RxNorm: 2418 oral No Sta rt Date Active Osteo Bi-Flex oral RxNorm: 6195818 oral No Start Date Active medroxyprogesterone 5 mg tablet RxNorm: 9777303 1 Tablet(s) PO daily No Start Date Active metformin 500 mg tablet RxNorm: 479105 1 Tablet(s) PO daily No Start Date 10/28/2014 Inactive levothyroxine 50 mcg tablet RxNorm: 105042 1 Tablet(s) PO daily No Start Date 02/25/2015 Inactive Medication Administered No Medication Administered data Immunizations No Immunization data Assessments Condition Codes Effectiv e Dates Pain in left knee ICD-10: M25.562 ICD-9: 719.46 09/08/2016 Essential (primary) hypertension ICD -10: I10 ICD-9: 401.9 09/08/2016 Pain in right knee ICD-10: M25.561 ICD-9: 719.46 09/08/2016 Type 2 diabetes mellitus without complications ICD-10: E11.9 ICD-9: 250.00 09/08/2016 Shortness of breath ICD-10: R06.02 ICD-9: 786.05 05/23/2016 Localized edema ICD-10: R60.0 ICD-9: 782.3 05/23/2016 Chronic idiopathic constipation ICD- 10: K59.04 ICD-9: 564.00 01/12/2016 Other acute sinusitis ICD-10: J01.80 ICD-9: 461.8 12/14/2015 Other allergic rhinitis ICD-10: J30. 89 ICD-9: 477.8 12/14/2015 DIABETES TYPE II ICD-9: 250.00 10/09/2014 HYPOTHYROIDISM ICD-9: 244.9 10/09/2014 HYPERLIPIDEMIA ICD-9: 272.4 10/09/2014 ESSENTIAL HYPERTENSION ICD-9: 401.9 10/09/2014 Reason For Visit Reason For Visit Effective Dates Notes edema 09/08/2016 edema 05/23/2016 knee pain 01/12/2016 sinus congestion 12/14/2015 knee pain 07/09/2015 diabetes mellitus 10/09/2014 Results Observation Observation Code Item Item Code Result Date Comp Metabolic Mwh830 NA 138 mEq/L 05/23/2016 Comp Metabolic Lwq058 K 4.0 mEq/L 05/23/2016 Comp Metabolic Phk704 CL 105 mEq/L 05/23/2016 Comp Metabolic Lpo691 CO2 25.0 mEq/L 05/23/2016 Comp Metabolic Mcm708 AN ION GAP 12 05/23/2016 Comp Metabolic Lqb359 GL UCOSE 89 mg/dL 05/23/2016 Comp Metabolic Jel524 Cr eat 1.0 mg/dL 05/23/2016 Comp Metabolic Zmr948 eG FR 63 ml/min/1.73m2 05/23 Comp Metabolic Aar463 BUN 18 mg/dL 05/23/2016 Comp Metabolic Utx693 B/ C Ratio 18.9 Ratio 05/23/2016 Comp Metabolic Hot112 CA LCIUM 9.1 mg/dL 05/23/2016 Comp Metabolic Txs543 AL K PHOS 67 U/L 05/23/2016 Comp Metabolic Vvq286 T(SGOT) 26 U/L 05/23/2016 Comp Metabolic Equ927 AL T(SGPT) 39 U/L 05/23/2016 Comp Metabolic Uzq940 BI LI T 0.5 mg/dL 05/23/2016 Comp Metabolic Cqu478 AL BUMIN 3.9 g/dL 05/23/2016 Comp Metabolic Beh661 TP RO 5.9 g/dL 05/23/2016 Comp Metabolic Qkl334 GL OB 2.0 g/dL 05/23/2016 Comp Metabolic Ipz498 A/ G Ratio 2.0 Ratio 05/23/2016 Comp Metabolic Qpq213 Os mo 277 mOsmo 05/23/2016 Cbc With Differential Ord2 WBC 7.23 K/ul 05/23/2016 Cbc With Differential Ord2 RBC 3.74 M/ul 05/23/2016 Cbc With Differential Ord2 HGB 11.4 g/dl 05/23/2016 Cbc With Differential Ord2 Neut% 65.0 % 05/23/2016 Cbc With Differential Ord2 HCT 35.2 % 05/23/2016 Cbc With Differential Ord2 Lymph% 23.2 % 05/23/2016 Cbc With Differential Ord2 MCV 94.1 fl 05/23/2016 Cbc With Differential Ord2 MCH 30.5 pg 05/23/2016 Cbc With Differential Ord2 [place]% 10.0 % 05/23/2016 Cbc With Differential Ord2 Eos% 1.5 % 05/23/2016 Cbc With Differential Ord2 MCHC 32.4 pg 05/23/2016 Cbc With Differential Ord2 Baso% 0.3 % 05/23/2016 Cbc With Differential Ord2 PLT 245 K/ul 05/23/2016 Cbc With Differential Ord2 RDW 14.4 % 05/23/2016 Cbc With Differential Ord2 Neut ABS# 4.70 K/ul 05/23/2016 Cbc With Differential Ord2 Lymph ABS# 1.68 K/ul 05/23/2016 Cbc With Differential Ord2 [place] ABS# 0.7 K/ul 05/23/2016 Cbc With Differential Ord2 Eos ABS# 0.1 K/ul 05/23/2016 Cbc With Differential Ord2 Baso ABS# 0.0 K/ul 05/23/2016 B Type Natriuretic Peptide Mrv9844 B-ELECTRIC UTILITY LINEWORKER 340.00 pg/ml 7 Lipid Ord30 CHOL 117 [...] 31.8 pg 07/07/2015 Cbc With Differential Ord2 [place]% 11.3 % 07/07/2015 Cbc With Differential Ord2 MCHC 33.6 pg 07/07/2015 Cbc With Differential Ord2 Eos% 3.5 % 07/07/2015 Cbc With Differential Ord2 Baso% 0.6 % 07/07/2015 Cbc With Differential Ord2 PLT 307 K/ul 07/07/2015 Cbc With Differential Ord2 Neut ABS# 2.81 K/ul 07/07/2015 Cbc With Differential Ord2 RDW 13.4 % 07/07/2015 Cbc With Differential Ord2 Lymph ABS# 1.53 K/ul 07/07/2015 Cbc With Differential Ord2 [place] ABS# 0.6 K/ul 07/07/2015 Cbc With Differential Ord2 Eos ABS# 0.2 K/ul 07/07/2015 Cbc With Differential Ord2 Baso ABS# 0.0 K/ul 07/07/2015 Cbc With Differential Ord2 New Analyzer Notice Please note new ref ranges s tarting 05-13-2015 due to implemntation of new five part differential hematolgy analyzer. 07/07/2015 Free T4 Ncp255 FREE T4 1.17 ng/dL 07/07/2015 Comp Metabolic Ich630 NA 137 mEq/L 07/07/2015 Comp Metabolic Fkk946 K 4.0 mEq/L 07/07/2015 Comp Metabolic Pap770 CL 100 mEq/L 07/07/2015 Comp Metabolic Gdc219 CO2 29.0 mEq/L 07/07/2015 Comp Metabolic Pga124 AN ION GAP 12 07/07/2015 Comp Metabolic Roq209 GL UCOSE 98 mg/dL 07/07/2015 Comp Metabolic Slc620 Cr eat 1.0 mg/dL 07/07/2015 Comp Metabolic Yls309 eG FR 62 ml/min/1.73m2 07/06 Comp Metabolic Okf231 BUN 16 mg/dL 07/07/2015 Comp Metabolic Mle281 B/ C Ratio 16.5 Ratio 07/07/2015 Comp Metabolic Oly463 CA LCIUM 9.5 mg/dL 07/07/2015 Comp Metabolic Lud406 AL K PHOS 47 U/L 07/07/2015 Comp Metabolic Mbw995 T(SGOT) 18 U/L 07/07/2015 Comp Metabolic Enm164 AL T(SGPT) 22 U/L 07/07/2015 Comp Metabolic Rfz640 BI LI T 0.5 mg/dL 07/07/2015 Comp Metabolic Pji956 AL BUMIN 4.2 g/dL 07/07/2015 Comp Metabolic Rqi939 TP RO 6.5 g/dL 07/07/2015 Comp Metabolic Zyg436 GL OB 2.3 g/dL 07/07/2015 Comp Metabolic Npo367 A/ G Ratio 1.8 Ratio 07/07/2015 Comp Metabolic Wvq817 Os mo 275 mOsmo 07/07/2015 %Hba1C Uyt598 % HbA1c 20579-2 5.7 % 07/07/2015 %Hba1C Syn349 Gluc Ave 117 mg/dL 07/07/2015 Tsh Ord6 hTSH II 2.32 uIU/mL 07/07/2015 Review of Systems System Result Effective Dates Constitutional No recent illness 09/08/2016 Constitutional No [...] No Procedures data Vital Signs Date Vital 09/08/2016 Blood Pressure 1: 138/86 Code: 8480-6 BMI: 32.2 Code: 90429-5 Heart Rate 1: 69 bpm Height: 5'3" SpO2: 99% Weight: 182 lbs 05/23/2016 Blood Pressure 1: 126/70 Code: 8480-6 BMI: 30.8 Code: 09068-7 Heart Rate 1: 63 bpm Height: 5'3" SpO2: 98% Weight: 174 lbs 01/12/2016 Blood Pressure 1: 140/72 Code: 8480-6 BMI: 29.8 Code: 48570-6 Heart Rate 1: 82 bpm Height: 5'3" SpO2: 97% Weight: 168 lbs 12/14/2015 Blood Pressure 1: 132/78 Code: 8480-6 BMI: 31.5 Code: 59997-5 Heart Rate 1: 71 bpm Height: 5'3" SpO2: 98% Weight: 178 lbs 07/09/2015 Blood Pressure 1: 128/80 Code: 8480-6 BMI: 30.6 Code: 25288-4 Heart Rate 1: 71 bpm Height: 5'3" SpO2: 99% Weight: 173 lbs 10/09/2014 Blood Pressure 1: 120/70 Code: 8480-6 BMI: 29.1 Code: 05349-8 Heart Rate 1: 68 bpm Height: 5'3" Weight: 164 lbs Functional Status No Functional Status data History of Present Illness Symptom Name Status Resu lt Effective Date Notes edema Onset and Resolution ongoing 09/08/2016 None [...] Encounters Encounter Performer Loca tion Codes Date ([id number]) 53500 EST. P ATIENT, LEVEL IV Diagnosis: Type 2 diabetes mellitus without complications[ICD10: E11.9] Diagnosis: Essential (primary) hypertension[ICD10: I10] Diagnosis: Pain in right knee[ICD10: M25.561] Diagnosis: Pain in left knee[ICD10: M25.562] Katty Ballard MD, [facility] CPT-4: 43562 09/08/2016 91749 EST. PATIENT, LEVEL IV Diagnosis: Localized edema[ICD10: R60.0] Diagnosis: Shortness of breath[ICD10: R06.02] Salma Ballard MD, [facility] CPT-4: 96128 05/23/2016 ([id number]) 35408 EST. P ATIENT, LEVEL IV Diagnosis: Type 2 diabetes mellitus without complications[ICD10: E11.9] Diagnosis: Essential (primary) hypertension[ICD10: I10] Diagnosis: Chronic idiopathic constipation[ICD10: K59.04] Katty Ballard MD, [facility] CPT-4: 83358 01/12/2016 [id number] EST. PATIENT, LEVEL IV Diagnosis: Other acute sinusitis[ICD10: J01.80] Diagnosis: Other allergic rhinitis[ICD10: J30.89] [facility] CPT-4: 19339 12/14/2015 ([id number]) 90701 EST. P ATIENT, LEVEL IV Diagnosis: Essential (primary) hypertension[ICD10: I10] Diagnosis: Type 2 diabetes mellitus without complications[ICD10: E11.9] Diagnosis: Pain in right knee[ICD10: M25.561] Diagnosis: Pain in left knee[ICD10: M25.562] [facility] CPT- 4: 42744 07/09/2015 ([id number]) OFFICE VISI T, NEW - LEVEL 4 Diagnosis: ESSENTIAL HYPERTENSION[ICD9: 401.9] Diagnosis: DIABETES TYPE II[ICD9: 250.00] Diagnosis: HYPERLIPIDEMIA[ICD9: 272.4] Diagnosis: HYPOTHYROIDISM[ICD9: 244.9] [facility] CPT-4: 35855 10/09/2014 Plan of Care Planned Activity Notes C odes Status Date Visit Plan: Hypertension - well controll ed - continue with current medications, continue with no added salt diet. Pt has been encouraged to exercise daily.The pt has been advised to call the office if there are any acute concerns about change in blood pressure readings at home.Diabetes Mellitus - controlled - per recent FSBS [...] glucose readings are starting to become less controlled.Knee pain - post operatively still with swelling - recommended changing meloxicam to 1/2 pill twice daily and start on voltaren gel - rx sent to pharmacy 09/08/2016 Appointment: Katty Ballard WPtel: [address] [place], [place] [id number] (15 min) Moderate 09/08/2016 Patient Education: Patient Medication Summary Completed 09/08/2016 Patient Education: Obesity Completed 09/08/2016 Patient Education: Hypertension Completed 09/08/2016 Visit Plan: Edema/intermittent shortness of breath - will check labs - pt has been advised to elevate legs to prevent dependent edema, compression has been recommended to help to naturally decrease peripheral edema. Diuretic use has been discussed and pt has been instructed in appropriate use of such medication as necessary to further attempt to reduce peripheral edema. 05/23/2016 Appointment: [facility] [phone] [id number] (30 min) Complex 05/23/2016 Patient Education: Patient Medication Summary Completed 05/23/2016 Patient Education: Obesity Completed 05/23/2016 Appointment: [facility] [phone] [id number] (15 min) Moderate 01/13/2016 Visit Plan: Hypertension - well controll ed - continue with current medications, continue with no added salt diet. Pt has been encouraged to exercise daily.The pt has been advised to call the office if there are any acute concerns about change in blood pressure readings at home.Diabetes Mellitus - controlled - per recent FSBS [...] glucose readings are starting to become less controlled.Chronic constipation from narcotic use - rx for movantik given to patient. 01/12/2016 Patient Education: Patient Medication Summary Completed 01/12/2016 Patient Education: Obesity Completed 01/12/2016 Patient Education: Hypertension Completed 01/12/2016 Visit Plan: Sinusitis - Pt has acute inf ection - pain in face, maxillary region, Pt informed to use decongestant, RX given to patient, sinus rinses also recommended. Call if symptoms do not show improvement.Allergies - chronic - recommended pt to use allergy medication as prescribed. Pt has been counseled as to the appropriate use of the medication. Pt to call if allergy symptoms are not controlled with the medication.If using nasal spray, instructions as follows: Nasal spray- use twice daily, one spray per nostril twice daily, after 30 minutes, rinse out nose with saline spray.. Use opposite hand per nostril to spray in the nasal steroid allergy spray. 12/14/2015 Patient Education: Patient Medication Summary Completed 12/14/2015 Patient Education: Obesity Completed 12/14/2015 Visit Plan: Hypertension - well controll ed - continue with current medications, continue with no added salt diet. Pt has been encouraged to exercise daily.The pt has been advised to call the office if there are any acute concerns about change in blood pressure readings at home.Diabetes Mellitus - controlled - per recent FSBS [...] glucose readings are starting to become less controlled.OA knees-RX for voltaren gel to use as directed 2015 Appointment: (30 min) Complex 07/09/2015 Patient Education: Patient Medication Summary Completed 07/09/2015 Patient Education: Obesity Completed 07/09/2015 Patient Education: Hypertension Completed 07/09/2015 Visit Plan: Hypertension - well controll ed - continue with current medications, continue with no added salt diet. Pt has been encouraged to exercise daily.The pt has been advised to call the office if there are any acute concerns about change in blood pressure readings at home.Diabetes Mellitus - controlled - per recent FSBS [...] glucose readings are starting to become less controlled.Hypothyroidism - pt with chronic hypothyroidism, continue with current medication, will monitor pt to signs or symptoms of lack of adequate supplementation. Pt is to continue with current dose of medication unless directed otherwise. Check labs at regular intervals wither q 3 months or q 6 months based on previous levels of control.Esophageal Reflux - the patient has been counseled against excessive intake of caffeine, spicy foods, peppermint, and cinnamon - all of which can exacerbate esophageal reflux.The patient is to take medications as prescribed and call the office if the symptoms are not improving. 10/09/2014 Appointment: Katty Ballard WPtel: [address] [place], [place] [id number] [place] ([place]) New Patient 10/09/2014 Patient Education: Patient Medication Summary Completed 10/09/2014 Patient Education: Hypertension Completed 10/09/2014 Care Plan: MICROALBUMIN QUANTITATIVE LOINC : 72264-5 Ordered 10/09/2014 Care Plan: COMPLETE CBC AUTOMATED LOINC : 14917-7 Ordered 10/09/2014 Instructions Comment . Sinusitis - [...] to further attempt to reduce peripheral edema. . Hypertension - wel l controlled - [...] if the symptoms are not improving. . Hypertension - wel l controlled - [...] - rx for movantik given to patient. . Hypertension - wel l controlled - [...]
--- OUTSIDE RECORDS SUMMARY | 2019-12-03 12:45 | XMS REPORT | CCD ---
Author Author Danni Ballard Organization Katty Ballard MD, [facility] Address [address] [place] [address] Phone Care Team Providers Care Customs Compliance Director Name Role Phone PP Unavailable CCM Unavailable Summary Purpose Interface Exchange Insurance Providers Payer name Policy type / Coverage type Covered republican ID Effective Begin Date Effective End Date Blue Cross Blue [facility] e Cross/Blue Shield [id number] Unknown Unknown Family history Father Diagnosis Age At Onset Cancer Unknown Mother Diagnosis Age At Onset Diabetes mellitus Type 2 Unknown Stroke Unknown Hypertension Unknown Arthritis Unknown Osteoporosis Unknown kidney disease Unknown Coronary Artery Disease Unknown Social History Social History Element Codes Description Effective Dates Marital status Unknown M chiki Peter 10/09/2014 Number of children Unknown 2 10/09/[address]: 3429821 Quit over 10 years ago 10/09/[address]: 109155179 Never drinks alcohol 10/09/2014 Allergies, Adverse Reactions, [...] Date Stop Date Sta tus Fill Instructions metformin 500 mg tablet RxNorm: 995371 1 Tablet(s) PO daily 10/17/2016 03/15/2017 Active Generic For:GLUCOPHAGE 500MG 10/29/2014 9:02:36 AM omeprazole 40 mg cap betty,delayed release RxNorm: 171822 TAKE 1 CAPSULE BY MACKENZIE TH DAILY 10/17/2016 02/13/2017 Ac tive Generic For:PRILOSEC 40MG 10/15/2016 8: 56:40 AM meloxicam 15 mg tablet RxNorm: 487201 1 Tablet(s) PO daily TAKE 1 TABLET BY MO UTH ONCE DAILY 09/19/2016 03/17/2017 Active Generic For:MOBIC 15MG 07/30 9:09:45 AM levothyroxine 50 mcg tablet RxNorm: 090202 TAKE 1 TABLET BY MOUT H DAILY 09/16/2016 12/14/2016 Ac tive Generic For:SYNTHROID 50MCG TAB 017 10:22:07 AM 09/15/2016 9:01:47 AM Lipitor 10 mg tablet RxNorm: 437711 TAKE 1 TABLET BY MOUTH DAILY 09/16/2016 2017 Active Generic For:LIPITOR 10MG 09/16/2016 10: 22:13 AM 09/15/2016 9:01:42 AM Voltaren 1 % topical gel RxNorm: 845377 2 Gram(s) TOP QID 09/08/2016 11/06/2016 Active OneTouch Ultra Test strips RxNorm: 1 Miscellaneous daily 09/08/2016 09/02/2017 Active meloxicam 15 mg tablet RxNorm: 012677 TAKE 1 TABLET BY MOUTH ONCE DAILY 08/16/2016 09/18/2016 In active Generic For:MOBIC 15MG 08/16/2016 9:09: 45 AM triamterene 37.5 mg- hydrochlorothiazide 25 mg tablet RxNorm: 301384 TAKE 1 TABLET BY MOUTH ONCE DAILY 07/18/2016 11/14/2016 Active 07/18/2016 8:57:50 AM omeprazole 40 mg cap betty,delayed release RxNorm: 388153 TAKE 1 CAPSULE BY MACKENZIE TH DAILY 06/17/2016 10/14/2016 Inactive Generic For:PRILOSEC 40MG 06/17/2016 9: 30:36 AM levothyroxine 50 mcg tablet RxNorm: 884380 TAKE 1 TABLET BY MOUT H DAILY 06/17/2016 09/14/2016 In active Generic For:SYNTHROID 50MCG TAB 017 9:10:49 AM metformin 500 mg tablet RxNorm: 928396 1 Tablet(s) PO daily 05/24/2016 10/16/2016 Inactive Generic For:GLUCOPHAGE 500MG 10/29/2014 9:02:36 AM Lasix 20 mg tablet RxNorm: 058755 1 Tablet(s) PO daily 05/24/2016 05/26/2016 Inactive metformin 500 mg tablet RxNorm: 714928 1 Tablet(s) PO daily 05/23/2016 05/23/2016 Inactive Generic For:GLUCOPHAGE 500MG 10/29/2014 9:02:36 AM Lasix 20 mg tablet RxNorm: 074093 1 Tablet(s) PO daily 05/23/2016 05/23/2016 Inactive potassium chloride E R 10 mEq tablet,extended release RxNorm: 261918 1 Tablet(s) PO daily 05/23/2016 05/25/2016 Inactive meloxicam 15 mg tablet RxNorm: 488049 1 Tablet(s) PO daily 04/18/2016 08/15/2016 Inactive Lipitor 10 mg tablet RxNorm: 642021 TAKE 1 TABLET BY MOUTH DAILY 04/18/2016 08/15/2016 Inactive Generic For:LIPITOR 10MG 04/18/2016 9:1 5:59 AM triamterene 37.5 mg- hydrochlorothiazide 25 mg tablet RxNorm: 218144 TAKE 1 TABLET BY MOUTH ONCE DAILY 03/21/2016 07/17/2016 Inactive 03/19/2016 9:02:10 AM levothyroxine 50 mcg tablet RxNorm: 164619 TAKE 1 TABLET BY MOUT H DAILY 02/18/2016 06/16/2016 In active Generic For:SYNTHROID 50MCG TAB 016 9:03:15 AM omeprazole 40 mg cap betty,delayed release RxNorm: 622722 TAKE 1 CAPSULE BY MACKENZIE TH DAILY 02/18/2016 06/16/2016 Inactive Generic For:PRILOSEC 40MG 02/18/2016 9: 03:12 AM Movantik 25 mg tablet RxNorm: 0298611 1 Tablet(s) PO QAM with breakfast or sean ch 01/12/2016 09/07/2016 In active Flonase Allergy Reli ef 50 mcg/actuation nasal spray,suspension RxNorm: 4146201 1 [place] NASAL BID 12/14/2015 09/07/2016 Inactive Zithromax Z-Taj 250 mg tablet RxNorm: 086392 Tablet(s) PO UD 12/14/2015 01/11/2016 Inactive Lipitor 10 mg tablet RxNorm: 483069 TAKE 1 TABLET BY MOUTH DAILY 11/20/2015 04/17/2016 Inactive Generic For:LIPITOR 10MG 11/20/2015 9:1 1:10 AM triamterene 37.5 mg- hydrochlorothiazide 25 mg tablet RxNorm: 545256 TAKE 1 TABLET BY MOUTH ONCE DAILY 11/19/2015 03/17/2016 Inactive 11/18/2015 9:06:12 AM meloxicam 15 mg tablet RxNorm: 650121 1 Tablet(s) PO daily 10/21/2015 04/17/2016 Inactive levothyroxine 50 mcg tablet RxNorm: 652060 TAKE 1 TABLET BY MOUT H DAILY 10/21/2015 02/17/2016 In active Generic For:SYNTHROID 50MCG TAB 016 9:06:41 AM omeprazole 40 mg cap betty,delayed release RxNorm: 300756 TAKE 1 CAPSULE BY MACKENZIE TH DAILY 10/21/2015 02/17/2016 Inactive Generic For:PRILOSEC 40MG 10/21/2015 9: 06:53 AM triamterene 37.5 mg- hydrochlorothiazide 25 mg tablet RxNorm: 936947 Tablet(s) 1 Tablet(s) PO daily 07/23/2015 11/18/2015 Inactive [SAVINGS FOR NON-COVERED DR BARRIENTOS -- BIN:093024, PCN: ASPROD1, Group: XXXXX, ID# [id number], Questions: . THIS IS NOT INSURANCE.] metformin 500 mg tablet RxNorm: 034028 1 Tablet(s) PO daily 07/10/2015 12/06/2015 Inactive Generic For:GLUCOPHAGE 500MG 10/29/2014 9:02:36 AM Voltaren 1 % topical gel RxNorm: 868345 4 Gram(s) TOP QID 07/09/2015 09/07/2016 Inactive bilateral knees metformin 500 mg tablet RxNorm: 993343 1 Tablet(s) PO daily TAKE 1 TABLET BY MO UTH TWICE DAILY 07/09/2015 07/09/2015 Inactive Generic For:GLUCOPHAGE 500M G 10/29/2014 9:02:36 AM Lipitor 10 mg tablet RxNorm: 771278 1 Tablet(s) PO daily 06/26/2015 11/19/2015 Inactive metformin 500 mg tablet RxNorm: 269635 1 Tablet(s) PO BID TAKE 1 TABLET BY MOUT H TWICE DAILY 06/26/2015 07/08/2015 Inactive Generic For:GLUCOPHAGE 500M G 10/29/2014 9:02:36 AM omeprazole 40 mg cap betty,delayed release RxNorm: 405012 TAKE 1 CAPSULE BY MACKENZIE TH DAILY 04/27/2015 10/20/2015 Inactive Generic For:PRILOSEC 40MG meloxicam 15 mg tablet RxNorm: 619195 1 Tablet(s) PO daily 03/30/2015 10/20/2015 Inactive triamterene 37.5 mg- hydrochlorothiazide 25 mg tablet RxNorm: 449302 Tablet(s) 1 Tablet(s) PO daily 03/30/2015 07/22/2015 Inactive [SAVINGS FOR NON-COVERED DR BARRIENTOS -- BIN:124100, PCN: ASPROD1, Group: XXXXX, ID# [id number], Questions: . THIS IS NOT INSURANCE.] metformin 500 mg tablet RxNorm: 071884 1 Tablet(s) PO BID 02/26/2015 06/25/2015 Inactive levothyroxine 50 mcg tablet RxNorm: 060618 TAKE 1 TABLET BY MOUT H DAILY 02/26/2015 10/20/2015 In active Generic For:SYNTHROID 50MCG TAB 015 2:41:48 PM N O T I C E PRESCRIPTION PREVIOUSLY AUTHORIZED BY DOCTOR:RUFINO LIAO Lipitor 10 mg tablet RxNorm: 499330 1 Tablet(s) PO daily 02/26/2015 06/25/2015 Inactive omeprazole 40 mg cap betty,delayed release RxNorm: 043557 1 Capsule(s) PO 01/01/2015 04/26/2015 In active [SAVINGS FOR NON-COVERED DRUGS -- BIN: 3585, PCN: ASPROD1, Group: XXXXX, ID# XXXXXXX, Questions: . THIS IS NOT INSURANCE.] triamterene 37.5 mg- hydrochlorothiazide 25 mg tablet RxNorm: 350466 1 Tablet(s) PO daily 12/02/2014 03/29/2015 Inactive [SAVINGS FOR NON-COVERED DR UGS -- BIN:956445, PCN: ASPROD1, Group: XXXXX, ID# [id number], Questions: . THIS IS NOT INSURANCE.] metformin 500 mg tablet RxNorm: 199540 1 Tablet(s) PO BID TAKE 1 TABLET BY MOUT H TWICE DAILY 10/29/2014 06/25/2015 Inactive Generic For:GLUCOPHAGE 500M G 10/29/2014 9:02:36 AM metformin 500 mg tablet RxNorm: 011931 1 Tablet(s) PO BID 10/29/2014 10/29/2014 Inactive Lipitor 10 mg tablet RxNorm: 010963 1 Tablet(s) PO daily 10/27/2014 10/26/2014 Inactive Lipitor 10 mg tablet RxNorm: 372430 1 Tablet(s) PO daily 10/27/2014 02/23/2015 Inactive omeprazole 40 mg cap betty,delayed release RxNorm: 247585 1 Capsule(s) PO 09/02/2014 12/30/2014 In active [SAVINGS FOR NON-COVERED DRUGS -- BIN:3584, PCN: ASPROD1, Group: XXXXX, ID# [id number], Questions: . THIS IS NOT INSURANCE.] omeprazole 40 mg cap betty,delayed release RxNorm: 770806 1 Capsule(s) PO 09/02/2014 09/01/2014 In active triamterene 37.5 mg- hydrochlorothiazide 25 mg tablet RxNorm: 168291 1 Tablet(s) PO daily 08/27/2014 08/26/2014 Inactive triamterene 37.5 mg- hydrochlorothiazide 25 mg tablet RxNorm: 116981 1 Tablet(s) PO daily 08/27/2014 12/01/2014 Inactive [SAVINGS FOR NON-COVERED DR BARRIENTOS -- BIN:388262, PCN: ASPROD1, Group: XXXXX, ID# [id number], Questions: . THIS IS NOT INSURANCE.] Multi Vitamin oral RxNorm: oral No Start Date Active meloxicam 15 mg tablet RxNorm: 601920 1 Tablet(s) PO daily No Start Date 03/29/2015 Inactive estradiol 2 mg tablet RxNorm: 063555 1 Tablet(s) PO daily No Start Date Active Vitamin D (with calc ium) oral RxNorm: 2418 oral No Sta rt Date Active Osteo Bi-Flex oral RxNorm: 0262417 oral No Start Date Active medroxyprogesterone 5 mg tablet RxNorm: 5953060 1 Tablet(s) PO daily No Start Date Active metformin 500 mg tablet RxNorm: 039483 1 Tablet(s) PO daily No Start Date 10/28/2014 Inactive levothyroxine 50 mcg tablet RxNorm: 119874 1 Tablet(s) PO daily No Start Date [...] Item Item Code Result Date Comp Metabolic Svt568 NA 138 mEq/L 05/23/2016 Comp Metabolic Qdv776 K 4.0 mEq/L 05/23/2016 Comp Metabolic Ixl320 CL 105 mEq/L 05/23/2016 Comp Metabolic Tdw184 CO2 25.0 mEq/L 05/23/2016 Comp Metabolic Dla488 AN ION GAP 12 05/23/2016 Comp Metabolic Igo378 GL UCOSE 89 mg/dL 05/23/2016 Comp Metabolic Ner086 Cr eat 1.0 mg/dL 05/23/2016 Comp Metabolic Kax657 eG FR 63 ml/min/1.73m2 05/23 Comp Metabolic Wml756 BUN 18 mg/dL 05/23/2016 Comp Metabolic Wqn670 B/ C Ratio 18.9 Ratio 05/23/2016 Comp Metabolic Xxm733 CA LCIUM 9.1 mg/dL 05/23/2016 Comp Metabolic Ymq116 AL K PHOS 67 U/L 05/23/2016 Comp Metabolic Mqq380 T(SGOT) 26 U/L 05/23/2016 Comp Metabolic Ckx604 AL T(SGPT) 39 U/L 05/23/2016 Comp Metabolic Lpa721 BI LI T 0.5 mg/dL 05/23/2016 Comp Metabolic Qxb429 AL BUMIN 3.9 g/dL 05/23/2016 Comp Metabolic Pln495 TP RO 5.9 g/dL 05/23/2016 Comp Metabolic Puh551 GL OB 2.0 g/dL 05/23/2016 Comp Metabolic Cmi468 A/ G Ratio 2.0 Ratio 05/23/2016 Comp Metabolic Rba930 Os mo 277 mOsmo 05/23/2016 Cbc With Differential Ord2 WBC 7.23 K/ul 05/23/2016 Cbc With Differential Ord2 RBC 3.74 M/ul 05/23/2016 Cbc With Differential Ord2 HGB 11.4 g/dl 05/23/2016 Cbc With Differential Ord2 Neut% 65.0 % 05/23/2016 Cbc With Differential Ord2 HCT 35.2 % 05/23/2016 Cbc With Differential Ord2 MCV 94.1 fl 05/23/2016 Cbc With Differential Ord2 Lymph% 23.2 % 05/23/2016 Cbc With Differential Ord2 MCH 30.5 pg 05/23/2016 Cbc With Differential Ord2 Young% 10.0 % 05/23/2016 Cbc With Differential Ord2 [...] 1.68 K/ul 05/23/2016 Cbc With Differential Ord2 Young ABS# 0.7 K/ul 05/23/2016 Cbc With Differential Ord2 Eos ABS# 0.1 K/ul 05/23/2016 Cbc With Differential Ord2 Baso ABS# 0.0 K/ul 05/23/2016 B Type Natriuretic Peptide Vzf2826 B-APPRAISAL SPECIALIST 340.00 pg/ml 7 Lipid Ord30 CHOL 117 mg/dL 07/07/2015 Lipid Ord30 HDL 39.0 mg/dl 07/07/2015 Lipid Ord30 TRIG 67 mg/dL 07/07/2015 Lipid Ord30 LDL 65 mg/dL 07/07/2015 Lipid Ord30 C/HDL 3.0 Ratio 07/07/2015 Cbc With Differential Ord2 WBC 5.13 K/ul 07/07/2015 Cbc With Differential Ord2 RBC 4.47 M/ul 07/07/2015 Cbc With Differential Ord2 HGB 14.2 g/dl 07/07/2015 Cbc With Differential Ord2 Neut% 54.8 % 07/07/2015 Cbc With Differential Ord2 HCT 42.2 % 07/07/2015 Cbc With Differential Ord2 Lymph% 29.8 % 07/07/2015 Cbc With Differential Ord2 MCV 94.4 fl 07/07/2015 Cbc With Differential Ord2 MCH 31.8 pg 07/07/2015 Cbc With Differential Ord2 Young% 11.3 % 07/07/2015 Cbc With Differential Ord2 [...] 1.53 K/ul 07/07/2015 Cbc With Differential Ord2 Young ABS# 0.6 K/ul 07/07/2015 Cbc With Differential Ord2 Eos ABS# 0.2 K/ul 07/07/2015 Cbc With Differential Ord2 Baso ABS# 0.0 K/ul 07/07/2015 Cbc With Differential Ord2 New Analyzer Notice Please note new ref ranges s tarting 05-13-2015 due to implemntation of new five part differential hematolgy analyzer. 07/07/2015 Free T4 Adj330 FREE T4 1.17 ng/dL 07/07/2015 Comp Metabolic Aiz560 NA 137 mEq/L 07/07/2015 Comp Metabolic Wox234 K 4.0 mEq/L 07/07/2015 Comp Metabolic Puu745 CL 100 mEq/L 07/07/2015 Comp Metabolic Qmq016 CO2 29.0 mEq/L 07/07/2015 Comp Metabolic Qmj101 AN ION GAP 12 07/07/2015 Comp Metabolic Eit789 GL UCOSE 98 mg/dL 07/07/2015 Comp Metabolic Tjw746 Cr eat 1.0 mg/dL 07/07/2015 Comp Metabolic Dxq785 eG FR 62 ml/min/1.73m2 07/06 Comp Metabolic Gwz589 BUN 16 mg/dL 07/07/2015 Comp Metabolic Jcw049 B/ C Ratio 16.5 Ratio 07/07/2015 Comp Metabolic Grx030 CA LCIUM 9.5 mg/dL 07/07/2015 Comp Metabolic Rta878 AL K PHOS 47 U/L 07/07/2015 Comp Metabolic Txp940 T(SGOT) 18 U/L 07/07/2015 Comp Metabolic Gxi262 AL T(SGPT) 22 U/L 07/07/2015 Comp Metabolic Ohe755 BI LI T 0.5 mg/dL 07/07/2015 Comp Metabolic Mwn169 AL BUMIN 4.2 g/dL 07/07/2015 Comp Metabolic Wth688 TP RO 6.5 g/dL 07/07/2015 Comp Metabolic Rdc651 GL OB 2.3 g/dL 07/07/2015 Comp Metabolic Otq622 A/ G Ratio 1.8 Ratio 07/07/2015 Comp Metabolic Ina156 Os mo 275 mOsmo 07/07/2015 %Hba1C Tuk920 % HbA1c 30437-8 5.7 % 07/07/2015 %Hba1C Oeo973 Gluc Ave 117 mg/dL 07/07/2015 Tsh Ord6 [...] 1: 138/86 Code: 8480-6 BMI: 32.2 Code: 97772-4 Heart Rate 1: 69 bpm Height: 5'3" SpO2: 99% Weight: 182 lbs 05/23/2016 Blood Pressure 1: 126/70 Code: 8480-6 BMI: 30.8 Code: 05122-4 Heart Rate 1: 63 bpm Height: 5'3" SpO2: 98% Weight: 174 lbs 01/12/2016 Blood Pressure 1: 140/72 Code: 8480-6 BMI: 29.8 Code: 86886-8 Heart Rate 1: 82 bpm Height: 5'3" SpO2: 97% Weight: 168 lbs 12/14/2015 Blood Pressure 1: 132/78 Code: 8480-6 BMI: 31.5 Code: 02377-1 Heart Rate 1: 71 bpm Height: 5'3" SpO2: 98% Weight: 178 lbs 07/09/2015 Blood Pressure 1: 128/80 Code: 8480-6 BMI: 30.6 Code: 64725-6 Heart Rate 1: 71 bpm Height: 5'3" SpO2: 99% Weight: 173 lbs 10/09/2014 Blood Pressure 1: 120/70 Code: 8480-6 BMI: 29.1 Code: 82914-1 Heart Rate 1: 68 bpm Height: 5'3" [...] Encounters Encounter Performer Loca tion Codes Date ([id number]) [id number] EST. P ATIENT, LEVEL IV Diagnosis: Type 2 diabetes mellitus without complications[ICD10: E11.9] Diagnosis: Essential (primary) hypertension[ICD10: I10] Diagnosis: Pain in right knee[ICD10: M25.561] Diagnosis: Pain in left knee[ICD10: M25.562] Katty Ballard MD, [facility] CPT-4: 96421 09/08/2016 [id number] EST. PATIENT, LEVEL IV Diagnosis: Localized edema[ICD10: R60.0] Diagnosis: Shortness of breath[ICD10: R06.02] Salma Ballard MD, [facility] CPT-4: 51779 05/23/2016 ([id number] EST. P ATIENT, LEVEL IV Diagnosis: Type 2 diabetes mellitus without complications[ICD10: E11.9] Diagnosis: Essential (primary) hypertension[ICD10: I10] Diagnosis: Chronic idiopathic constipation[ICD10: K59.04] Katty Ballard MD, [facility] CPT-4: 03317 01/12/2016 [id number] EST. PATIENT, LEVEL IV Diagnosis: Other acute sinusitis[ICD10: J01.80] Diagnosis: Other allergic rhinitis[ICD10: J30.89] Salma Ballard MD, [facility] CPT-4: 43018 12/14/2015 ([id number]) [id number] EST. P [facility], LEVEL IV Diagnosis: Essential (primary) hypertension[ICD10: I10] Diagnosis: Type 2 diabetes mellitus without complications[ICD10: E11.9] Diagnosis: Pain in right knee[ICD10: M25.561] Diagnosis: Pain in left knee[ICD10: M25.562] Asha Ballard MD, [facility] CPT- 4: 03280 07/09/2015 ([id number]) OFFICE [facility] 4 Diagnosis: ESSENTIAL HYPERTENSION[ICD9: 401.9] Diagnosis: DIABETES TYPE II[ICD9: 250.00] Diagnosis: HYPERLIPIDEMIA[ICD9: 272.4] Diagnosis: HYPOTHYROIDISM[ICD9: 244.9] Katty Ballard MD, [facility] CPT-4: 91470 10/09/2014 Plan of Care Planned Activity Notes C odes Status Date Appointment: Katty Ballard [facility]Ptel[facility] (15 min) Moderate 09/08/2016 Patient Education: Patient Medication Summary Completed 09/08/2016 Patient Education: Obesity Completed 09/08/2016 Patient Education: Hypertension Completed 09/08/2016 Appointment: Salma Garay WPtel: [facility] (30 min) Complex 05/23/2016 Patient Education: Patient Medication Summary Completed 05/23/2016 Patient Education: Obesity Completed 05/23/2016 Appointment: Katty Ballard WPtel: [facility] (15 min) Moderate 01/13/2016 Patient Education: Patient Medication Summary Completed 01/12/2016 Patient Education: Obesity Completed 01/12/2016 Patient Education: Hypertension Completed 01/12/2016 Patient Education: Patient Medication Summary Completed 12/14/2015 Patient Education: Obesity Completed 12/14/2015 Appointment: (30 min) Complex 07/09/2015 Patient Education: Patient Medication Summary Completed 07/09/2015 Patient Education: Obesity Completed 07/09/2015 Patient Education: Hypertension Completed 07/09/2015 Appointment: [facility] Ballard [facility]Ptel[facility] [phone] [facility] [place] New Patient 10/09/2014 Patient Education: Patient Medication Summary Completed 10/09/2014 Patient Education: Hypertension Completed 10/09/2014 Care Plan: MICROALBUMIN QUANTITATIVE LOINC : 86809-2 Ordered 10/09/2014 Care Plan: COMPLETE CBC AUTOMATED LOINC : 22030-2 Ordered 10/09/2014 Instructions No Instructions
--- OUTSIDE RECORDS SUMMARY | 2019-12-03 12:46 | XMS REPORT | CCD ---
Author Author Danni Ballard Organization Katty Ballard MD, [facility] Address [address] [place] [address] Phone Care Team Providers Care Room Service Clerk Name Role Phone PP Unavailable CCM Unavailable Summary Purpose Interface Exchange Insurance Providers Payer name Policy type / Coverage type Covered green party ID Effective Begin Date Effective End Date Blue Cross Blue [facility] e Cross/Blue Shield [id number] Unknown Unknown Family history Father Diagnosis Age At Onset Cancer Unknown Mother Diagnosis Age At Onset Diabetes mellitus Type 2 Unknown Stroke Unknown Hypertension Unknown Arthritis Unknown Osteoporosis Unknown kidney disease Unknown Coronary Artery Disease Unknown Social History Social History Element Codes Description Effective Dates Marital status Unknown M chiki Peter 10/09/2014 Number of children Unknown 2 10/09/[address]: 4317600 Quit over 10 years ago 10/09/[address]: 007240712 Never drinks alcohol 10/09/2014 Allergies, Adverse Reactions, [...] Fill Instructions metformin 500 mg tablet RxNorm: 481571 1 Tablet(s) PO daily 10/17/2016 03/15/2017 Active Generic For:GLUCOPHAGE 500MG 10/29/2014 9:02:36 AM meloxicam 15 mg tablet RxNorm: 469539 1 Tablet(s) PO daily TAKE 1 TABLET BY MO UTH ONCE DAILY 09/19/2016 03/17/2017 Active Generic For:MOBIC 15MG 07/30 9:09:45 AM levothyroxine 50 mcg tablet RxNorm: 537704 TAKE 1 TABLET BY MOUT H DAILY 09/16/2016 12/14/2016 Ac tive Generic For:SYNTHROID 50MCG TAB 017 10:22:07 AM 09/15/2016 9:01:47 AM Lipitor 10 mg tablet RxNorm: 431730 TAKE 1 TABLET BY MOUTH DAILY 09/16/2016 2017 Active Generic For:LIPITOR 10MG 09/16/2016 10: 22:13 AM 09/15/2016 9:01:42 AM Voltaren 1 % topical gel RxNorm: 735479 2 Gram(s) TOP QID 09/08/2016 11/06/2016 Active OneTouch Ultra Test strips RxNorm: 1 Miscellaneous daily 09/08/2016 09/02/2017 Active meloxicam 15 mg tablet RxNorm: 703299 TAKE 1 TABLET BY MOUTH ONCE DAILY 08/16/2016 09/18/2016 In active Generic For:MOBIC 15MG 08/16/2016 9:09: 45 AM triamterene 37.5 mg- hydrochlorothiazide 25 mg tablet RxNorm: 159880 TAKE 1 TABLET BY MOUTH ONCE DAILY 07/18/2016 11/14/2016 Active 07/18/2016 8:57:50 AM omeprazole 40 mg cap betty,delayed release RxNorm: 607150 TAKE 1 CAPSULE BY MACKENZIE TH DAILY 06/17/2016 10/14/2016 Inactive Generic For:PRILOSEC 40MG 06/17/2016 9: 30:36 AM levothyroxine 50 mcg tablet RxNorm: 022380 TAKE 1 TABLET BY MOUT H DAILY 06/17/2016 09/14/2016 In active Generic For:SYNTHROID 50MCG TAB 017 9:10:49 AM metformin 500 mg tablet RxNorm: 207463 1 Tablet(s) PO daily 05/24/2016 10/16/2016 Inactive Generic For:GLUCOPHAGE 500MG 10/29/2014 9:02:36 AM Lasix 20 mg tablet RxNorm: 999055 1 Tablet(s) PO daily 05/24/2016 05/26/2016 Inactive metformin 500 mg tablet RxNorm: 295145 1 Tablet(s) PO daily 05/23/2016 05/23/2016 Inactive Generic For:GLUCOPHAGE 500MG 10/29/2014 9:02:36 AM Lasix 20 mg tablet RxNorm: 875385 1 Tablet(s) PO daily 05/23/2016 05/23/2016 Inactive potassium chloride E R 10 mEq tablet,extended release RxNorm: 108408 1 Tablet(s) PO daily 05/23/2016 05/25/2016 Inactive meloxicam 15 mg tablet RxNorm: 312115 1 Tablet(s) PO daily 04/18/2016 08/15/2016 Inactive Lipitor 10 mg tablet RxNorm: 441500 TAKE 1 TABLET BY MOUTH DAILY 04/18/2016 08/15/2016 Inactive Generic For:LIPITOR 10MG 04/18/2016 9:1 5:59 AM triamterene 37.5 mg- hydrochlorothiazide 25 mg tablet RxNorm: 260633 TAKE 1 TABLET BY MOUTH ONCE DAILY 03/21/2016 07/17/2016 Inactive 03/19/2016 9:02:10 AM levothyroxine 50 mcg tablet RxNorm: 429138 TAKE 1 TABLET BY MOUT H DAILY 02/18/2016 06/16/2016 In active Generic For:SYNTHROID 50MCG TAB 016 9:03:15 AM omeprazole 40 mg cap betty,delayed release RxNorm: 593421 TAKE 1 CAPSULE BY MACKENZIE TH DAILY 02/18/2016 06/16/2016 Inactive Generic For:PRILOSEC 40MG 02/18/2016 9: 03:12 AM Movantik 25 mg tablet RxNorm: 9308459 1 Tablet(s) PO QAM with breakfast or sean ch 01/12/2016 09/07/2016 In active Flonase Allergy Reli ef 50 mcg/actuation nasal spray,suspension RxNorm: 5838177 1 [place] NASAL BID 12/14/2015 09/07/2016 Inactive Zithromax Z-Taj 250 mg tablet RxNorm: 239056 Tablet(s) PO UD 12/14/2015 01/11/2016 Inactive Lipitor 10 mg tablet RxNorm: 259847 TAKE 1 TABLET BY MOUTH DAILY 11/20/2015 04/17/2016 Inactive Generic For:LIPITOR 10MG 11/20/2015 9:1 1:10 AM triamterene 37.5 mg- hydrochlorothiazide 25 mg tablet RxNorm: 420210 TAKE 1 TABLET BY MOUTH ONCE DAILY 11/19/2015 03/17/2016 Inactive 11/18/2015 9:06:12 AM meloxicam 15 mg tablet RxNorm: 667053 1 Tablet(s) PO daily 10/21/2015 04/17/2016 Inactive levothyroxine 50 mcg tablet RxNorm: 288171 TAKE 1 TABLET BY MOUT H DAILY 10/21/2015 02/17/2016 In active Generic For:SYNTHROID 50MCG TAB 016 9:06:41 AM omeprazole 40 mg cap betty,delayed release RxNorm: 967945 TAKE 1 CAPSULE BY MACKENZIE TH DAILY 10/21/2015 02/17/2016 Inactive Generic For:PRILOSEC 40MG 10/21/2015 9: 06:53 AM triamterene 37.5 mg- hydrochlorothiazide 25 mg tablet RxNorm: 381888 Tablet(s) 1 Tablet(s) PO daily 07/23/2015 11/18/2015 Inactive [SAVINGS FOR NON-COVERED DR BARRIENTOS -- BIN:[id number], PCN: ASPROD1, Group: XXXXX, ID# [id number], Questions: . THIS IS NOT INSURANCE.] metformin 500 mg tablet RxNorm: 478855 1 Tablet(s) PO daily 07/10/2015 12/06/2015 Inactive Generic For:GLUCOPHAGE 500MG 10/29/2014 9:02:36 AM Voltaren 1 % topical gel RxNorm: 334581 4 Gram(s) TOP QID 07/09/2015 09/07/2016 Inactive bilateral knees metformin 500 mg tablet RxNorm: 494428 1 Tablet(s) PO daily TAKE 1 TABLET BY MO UTH TWICE DAILY 07/09/2015 07/09/2015 Inactive Generic For:GLUCOPHAGE 500M G 10/29/2014 9:02:36 AM Lipitor 10 mg tablet RxNorm: 566990 1 Tablet(s) PO daily 06/26/2015 11/19/2015 Inactive metformin 500 mg tablet RxNorm: 021390 1 Tablet(s) PO BID TAKE 1 TABLET BY MOUT H TWICE DAILY 06/26/2015 07/08/2015 Inactive Generic For:GLUCOPHAGE 500M G 10/29/2014 9:02:36 AM omeprazole 40 mg cap betty,delayed release RxNorm: 685184 TAKE 1 CAPSULE BY MACKENZIE TH DAILY 04/27/2015 10/20/2015 Inactive Generic For:PRILOSEC 40MG meloxicam 15 mg tablet RxNorm: 471984 1 Tablet(s) PO daily 03/30/2015 10/20/2015 Inactive triamterene 37.5 mg- hydrochlorothiazide 25 mg tablet RxNorm: 673424 Tablet(s) 1 Tablet(s) PO daily 03/30/2015 07/22/2015 Inactive [SAVINGS FOR NON-COVERED DR FLOYD -- BIN:061724, PCN: ASPROD1, Group: XXXXX, ID# [id number], Questions: . THIS IS NOT INSURANCE.] metformin 500 mg tablet RxNorm: 398183 1 Tablet(s) PO BID 02/26/2015 06/25/2015 Inactive levothyroxine 50 mcg tablet RxNorm: 975068 TAKE 1 TABLET BY MOUT H DAILY 02/26/2015 10/20/2015 In active Generic For:SYNTHROID 50MCG TAB 015 2:41:48 PM N O T I C E PRESCRIPTION PREVIOUSLY AUTHORIZED BY DOCTOR:RUFINO LIAO Lipitor 10 mg tablet RxNorm: 456369 1 Tablet(s) PO daily 02/26/2015 06/25/2015 Inactive omeprazole 40 mg cap betty,delayed release RxNorm: 474989 1 Capsule(s) PO 01/01/2015 04/26/2015 In active [SAVINGS FOR NON-COVERED DRUGS -- BIN:00 3585, PCN: ASPROD1, Group: XXXXX, ID# [id number], Questions: . THIS IS NOT INSURANCE.] triamterene 37.5 mg- hydrochlorothiazide 25 mg tablet RxNorm: 919732 1 Tablet(s) PO daily 12/02/2014 03/29/2015 Inactive [SAVINGS FOR NON-COVERED DR UGS -- BIN:676679, PCN: ASPROD1, Group: XXXXX, ID# [id number], Questions: . THIS IS NOT INSURANCE.] metformin 500 mg tablet RxNorm: 178626 1 Tablet(s) PO BID TAKE 1 TABLET BY MOUT H TWICE DAILY 10/29/2014 06/25/2015 Inactive Generic For:GLUCOPHAGE 500M G 10/29/2014 9:02:36 AM metformin 500 mg tablet RxNorm: 476777 1 Tablet(s) PO BID 10/29/2014 10/29/2014 Inactive Lipitor 10 mg tablet RxNorm: 508408 1 Tablet(s) PO daily 10/27/2014 10/26/2014 Inactive Lipitor 10 mg tablet RxNorm: 035442 1 Tablet(s) PO daily 10/27/2014 02/23/2015 Inactive omeprazole 40 mg cap betty,delayed release RxNorm: 927389 1 Capsule(s) PO 09/02/2014 12/30/2014 In active [SAVINGS FOR NON-COVERED DRUGS -- BIN:00 3585, PCN: ASPROD1, Group: XXXXX, ID# [id number], Questions: . THIS IS NOT INSURANCE.] omeprazole 40 mg cap betty,delayed release RxNorm: 749651 1 Capsule(s) PO 09/02/2014 09/01/2014 In active triamterene 37.5 mg- hydrochlorothiazide 25 mg tablet RxNorm: 263302 1 Tablet(s) PO daily 08/27/2014 08/26/2014 Inactive triamterene 37.5 mg- hydrochlorothiazide 25 mg tablet RxNorm: 840256 1 Tablet(s) PO daily 08/27/2014 12/01/2014 Inactive [SAVINGS FOR NON-COVERED DR UGS -- BIN:997136, PCN: ASPROD1, Group: XXXXX, ID# [id number], Questions: . THIS IS NOT INSURANCE.] Multi Vitamin oral RxNorm: oral No Start Date Active meloxicam 15 mg tablet RxNorm: 541393 1 Tablet(s) PO daily No Start Date 03/29/2015 Inactive estradiol 2 mg tablet RxNorm: 483719 1 Tablet(s) PO daily No Start Date Active Vitamin D (with calc ium) oral RxNorm: 2418 oral No Sta rt Date Active Osteo Bi-Flex oral RxNorm: 6119032 oral No Start Date Active medroxyprogesterone 5 mg tablet RxNorm: 5181986 1 Tablet(s) PO daily No Start Date Active metformin 500 mg tablet RxNorm: 042937 1 Tablet(s) PO daily No Start Date 10/28/2014 Inactive levothyroxine 50 mcg tablet RxNorm: 853909 1 Tablet(s) PO daily No Start Date [...] Item Item Code Result Date Comp Metabolic Uhc542 NA 138 mEq/L 05/23/2016 Comp Metabolic Msb574 K 4.0 mEq/L 05/23/2016 Comp Metabolic Dok312 CL 105 mEq/L 05/23/2016 Comp Metabolic Oxk959 CO2 25.0 mEq/L 05/23/2016 Comp Metabolic Dkt468 AN ION GAP 12 05/23/2016 Comp Metabolic Epu095 GL UCOSE 89 mg/dL 05/23/2016 Comp Metabolic Deo758 Cr eat 1.0 mg/dL 05/23/2016 Comp Metabolic Wwg664 eG FR 63 ml/min/1.73m2 05/23 Comp Metabolic Xdc323 BUN 18 mg/dL 05/23/2016 Comp Metabolic Pnb649 B/ C Ratio 18.9 Ratio 05/23/2016 Comp Metabolic Ytu962 CA LCIUM 9.1 mg/dL 05/23/2016 Comp Metabolic Hlf914 AL K PHOS 67 U/L 05/23/2016 Comp Metabolic Igg227 T(SGOT) 26 U/L 05/23/2016 Comp Metabolic Sai066 AL T(SGPT) 39 U/L 05/23/2016 Comp Metabolic Kag092 BI LI T 0.5 mg/dL 05/23/2016 Comp Metabolic Hxp201 AL BUMIN 3.9 g/dL 05/23/2016 Comp Metabolic Leb293 TP RO 5.9 g/dL 05/23/2016 Comp Metabolic Oci308 GL OB 2.0 g/dL 05/23/2016 Comp Metabolic Dzj671 A/ G Ratio 2.0 Ratio 05/23/2016 Comp Metabolic Xeu610 Os mo 277 mOsmo 05/23/2016 Cbc With [...] 30.5 pg 05/23/2016 Cbc With Differential Ord2 [place]% 10.0 % 05/23/2016 Cbc With Differential Ord2 [...] 1.68 K/ul 05/23/2016 Cbc With Differential Ord2 [place] ABS# 0.7 K/ul 05/23/2016 Cbc With Differential Ord2 Eos ABS# 0.1 K/ul 05/23/2016 Cbc With Differential Ord2 Baso ABS# 0.0 K/ul 05/23/2016 B Type Natriuretic Peptide Xgk2315 B-DEHYDROGENATION OPERATOR 340.00 pg/ml 7 Lipid Ord30 CHOL [...] 54.8 % 07/07/2015 Cbc With Differential Ord2 Lymph% 29.8 % 07/07/2015 Cbc With Differential Ord2 MCV 94.4 fl 07/07/2015 Cbc With Differential Ord2 [place]% 11.3 % 07/07/2015 Cbc With Differential Ord2 MCH 31.8 pg 07/07/2015 Cbc With Differential Ord2 MCHC 33.6 pg 07/07/2015 Cbc With Differential Ord2 Eos% 3.5 % 07/07/2015 Cbc With Differential Ord2 PLT 307 K/ul 07/07/2015 Cbc With Differential Ord2 Baso% 0.6 % 07/07/2015 Cbc With Differential Ord2 Neut ABS# 2.81 K/ul 07/07/2015 Cbc With Differential Ord2 RDW 13.4 % 07/07/2015 Cbc With Differential Ord2 Lymph ABS# 1.53 K/ul 07/07/2015 Cbc With Differential Ord2 [place] ABS# 0.6 K/ul 07/07/2015 Cbc With Differential Ord2 Eos ABS# 0.2 K/ul 07/07/2015 Cbc With Differential Ord2 Baso ABS# 0.0 K/ul 07/07/2015 Cbc With Differential Ord2 New Analyzer Notice Please note new ref ranges s tarting 05-13-2015 due to implemntation of new five part differential hematolgy analyzer. 07/07/2015 Free T4 Osu844 FREE T4 1.17 ng/dL 07/07/2015 Comp Metabolic Ssz154 NA 137 mEq/L 07/07/2015 Comp Metabolic Ryo872 K 4.0 mEq/L 07/07/2015 Comp Metabolic Rer058 CL 100 mEq/L 07/07/2015 Comp Metabolic Cjr773 CO2 29.0 mEq/L 07/07/2015 Comp Metabolic Anc551 AN ION GAP 12 07/07/2015 Comp Metabolic Gny435 GL UCOSE 98 mg/dL 07/07/2015 Comp Metabolic Moq115 Cr eat 1.0 mg/dL 07/07/2015 Comp Metabolic Jbo313 eG FR 62 ml/min/1.73m2 07/06 Comp Metabolic Dns176 BUN 16 mg/dL 07/07/2015 Comp Metabolic Spf998 B/ C Ratio 16.5 Ratio 07/07/2015 Comp Metabolic Ssa103 CA LCIUM 9.5 mg/dL 07/07/2015 Comp Metabolic Yrm601 AL K PHOS 47 U/L 07/07/2015 Comp Metabolic Ilw953 T(SGOT) 18 U/L 07/07/2015 Comp Metabolic Nyp721 AL T(SGPT) 22 U/L 07/07/2015 Comp Metabolic Ofw579 BI LI T 0.5 mg/dL 07/07/2015 Comp Metabolic Rgv358 AL BUMIN 4.2 g/dL 07/07/2015 Comp Metabolic Urw148 TP RO 6.5 g/dL 07/07/2015 Comp Metabolic Jwt379 GL OB 2.3 g/dL 07/07/2015 Comp Metabolic Tlf152 A/ G Ratio 1.8 Ratio 07/07/2015 Comp Metabolic Fat206 Os mo 275 mOsmo 07/07/2015 %Hba1C Suc924 % HbA1c 43994-5 5.7 % 07/07/2015 %Hba1C Vau907 Gluc Ave 117 mg/dL 07/07/2015 Tsh Ord6 [...] 1: 138/86 Code: 8480-6 BMI: 32.2 Code: 56261-2 Heart Rate 1: 69 bpm Height: 5'3" SpO2: 99% Weight: 182 lbs 05/23/2016 Blood Pressure 1: 126/70 Code: 8480-6 BMI: 30.8 Code: 13797-9 Heart Rate 1: 63 bpm Height: 5'3" SpO2: 98% Weight: 174 lbs 01/12/2016 Blood Pressure 1: 140/72 Code: 8480-6 BMI: 29.8 Code: 05397-2 Heart Rate 1: 82 bpm Height: 5'3" SpO2: 97% Weight: 168 lbs 12/14/2015 Blood Pressure 1: 132/78 Code: 8480-6 BMI: 31.5 Code: 40857-9 Heart Rate 1: 71 bpm Height: 5'3" SpO2: 98% Weight: 178 lbs 07/09/2015 Blood Pressure 1: 128/80 Code: 8480-6 BMI: 30.6 Code: 29964-6 Heart Rate 1: 71 bpm Height: 5'3" SpO2: 99% Weight: 173 lbs 10/09/2014 Blood Pressure 1: 120/70 Code: 8480-6 BMI: 29.1 Code: 54465-6 Heart Rate 1: 68 bpm Height: 5'3" [...] Encounters Encounter Performer Loca tion Codes Date ([id number]) 62815 EST. P ATIENT, LEVEL IV Diagnosis: Type 2 diabetes mellitus without complications[ICD10: E11.9] Diagnosis: Essential (primary) hypertension[ICD10: I10] Diagnosis: Pain in right knee[ICD10: M25.561] Diagnosis: Pain in left knee[ICD10: M25.562] Katty Ballard MD, [facility] CPT-4: 49092 09/08/2016 [id number] EST. PATIENT, LEVEL IV Diagnosis: Localized edema[ICD10: R60.0] Diagnosis: Shortness of breath[ICD10: R06.02] Salma Ballard MD, [facility] CPT-4: 77970 05/23/2016 ([id number]) 24100 EST. P ATIENT, LEVEL IV Diagnosis: Type 2 diabetes mellitus without complications[ICD10: E11.9] Diagnosis: Essential (primary) hypertension[ICD10: I10] Diagnosis: Chronic idiopathic constipation[ICD10: K59.04] Katty Ballard MD, [facility] CPT-4: 27500 01/12/2016 [id number] EST. PATIENT, LEVEL IV Diagnosis: Other acute sinusitis[ICD10: J01.80] Diagnosis: Other allergic rhinitis[ICD10: J30.89] Salma Ballard MD, [facility] CPT-4: 06708 12/14/2015 ([id number] EST. P ATIENT, LEVEL IV Diagnosis: Essential (primary) hypertension[ICD10: I10] Diagnosis: Type 2 diabetes mellitus without complications[ICD10: E11.9] Diagnosis: Pain in right knee[ICD10: M25.561] Diagnosis: Pain in left knee[ICD10: M25.562] [facility] CPT- 4: 52828 07/09/2015 ([id number]) OFFICE [facility] 4 Diagnosis: ESSENTIAL HYPERTENSION[ICD9: 401.9] Diagnosis: DIABETES TYPE II[ICD9: 250.00] Diagnosis: HYPERLIPIDEMIA[ICD9: 272.4] Diagnosis: HYPOTHYROIDISM[ICD9: 244.9] [facility] CPT-4: 29998 10/09/2014 Plan of Care Planned Activity Notes C odes Status Date Appointment: Katty Ballard WPtel: [phone] (15 min) Moderate 09/08/2016 Patient Education: Patient Medication Summary Completed 09/08/2016 Patient Education: Obesity Completed 09/08/2016 Patient Education: Hypertension Completed 09/08/2016 Appointment: Salma Garay WPtel: [facility] (30 min) Complex 05/23/2016 Patient Education: Patient Medication Summary Completed 05/23/2016 Patient Education: Obesity Completed 05/23/2016 Appointment: Katty Ballard WPtel: [phone] (15 min) Moderate 01/13/2016 Patient Education: Patient Medication Summary Completed 01/12/2016 Patient Education: Obesity Completed 01/12/2016 Patient Education: Hypertension Completed 01/12/2016 Patient Education: Patient Medication Summary Completed 12/14/2015 Patient Education: Obesity Completed 12/14/2015 Appointment: (30 min) Complex 07/09/2015 Patient Education: Patient Medication Summary Completed 07/09/2015 Patient Education: Obesity Completed 07/09/2015 Patient Education: Hypertension Completed 07/09/2015 App[facility]ment: [facility] [phone] [facility] [place] New Patient 10/09/2014 Patient Education: Patient Medication Summary Completed 10/09/2014 Patient Education: Hypertension Completed 10/09/2014 Care Plan: MICROALBUMIN QUANTITATIVE LOINC : 37057-4 Ordered 10/09/2014 Care Plan: COMPLETE CBC AUTOMATED LOINC : 07685-7 Ordered 10/09/2014 Instructions No Instructions
--- OUTSIDE RECORDS SUMMARY | 2019-12-03 12:47 | XMS REPORT | CCD ---
Author Author Danni Ballard Organization Katty Ballard MD, [facility] Address [address] [place] [address] Phone Care Team Providers Care Ship Pilot Name Role Phone PP Unavailable CCM Unavailable Summary Purpose Interface Exchange Insurance Providers Payer name Policy type / Coverage type Covered constitution party ID Effective Begin Date Effective End Date WPS Medicare Part B Medicare Part B [id number] 2018 Unknown [employer] Medicare Part B [id number] 2018 Unknown Family history Father Diagnosis Age At Onset Cancer Unknown Mother Diagnosis Age At Onset Diabetes mellitus Type 2 Unknown Stroke Unknown Hypertension Unknown Arthritis Unknown Osteoporosis Unknown kidney disease Unknown Coronary Artery Disease Unknown Social History Social History Element Codes Description Effective Dates Marital status Unknown M chiki Peter 10/09/2014 Number of children Unknown 2 10/09/[address]: 3438622 Quit over 10 years ago 10/09/[address]: 777933927 Never drinks alcohol 10/09/2014 Allergies, Adverse Reactions, Alerts Substance Reaction Codes Entered Date Inactivated Date Status amoxicillin RxNorm: 723 10/09/2014 N o Inactive Date Active SULFA (SULFONAMIDE A NTIBIOTICS) Unknown 10/09/2014 No Inactive Date Active Past Medical History Illness Codes Condition Status Onset Date Resolved Date Acute upper respirat ory infection, unspecified ICD-9: 465.9 ICD-10: J06.9 Active 05/18/2018 Unknown Essential (primary) hypertension ICD-9: 401.9 ICD-10: I10 Active 10/08/2014 Unknown Hypothyroidism, unsp ecified ICD-9: 244.9 ICD-10: E03.9 Active 05/18/2018 Unknown Mixed hyperlipidemia ICD-9: 272.4 ICD-10: E78.2 Active 05/18/2018 Unknown Type 2 diabetes lalito itus without complications ICD-9: 250.00 ICD-10: E11.9 Active 10/08/2014 Unknown Other obesity due to excess calories [...] 564.00 ICD-10: K59.04 Active 01/11/2016 Unknown Other allergic rhinitis ICD-9: 477.8 ICD-10: [...] Codes Effectiv e Dates Condition Status Acute upper respirat ory infection, unspecified ICD-9: 465.9 ICD-10: J06.9 05/18/2018 Active Essential (primary) hypertension ICD-9: 401.9 ICD-10: I10 10/08/2014 Active Hypothyroidism, unsp ecified ICD-9: 244.9 ICD-10: E03.9 05/18/2018 Active Mixed hyperlipidemia ICD-9: 272.4 ICD-10: E78.2 05/18/2018 Active Type 2 diabetes lalito itus without complications ICD-9: 250.00 ICD-10: E11.9 10/08/2014 Active Other obesity due to excess calories [...] ICD-9: 564.00 ICD-10: K59.04 01/11/2016 Active Other allergic rhinitis ICD-9: 477.8 ICD-10: [...] Fill Instructions meloxicam 15 mg tablet RxNorm: 486712 TAKE 1 TABLET BY MOUTH ONCE DAILY 07/09/2018 01/04/2019 Ac tive Generic For:MOBIC 15MG 07/07/2018 11:11 :46 AM triamterene 37.5 mg- hydrochlorothiazide 25 mg tablet RxNorm: 656617 TAKE 1 TABLET BY MOUTH ONCE DAILY 07/09/2018 01/04/2019 Active 07/07/2018 11:12:05 AM levothyroxine 50 mcg tablet RxNorm: 994930 TAKE 1 TABLET BY MOUT H DAILY 07/09/2018 01/04/2019 Ac tive Generic For:SYNTHROID 50MCG TAB 019 11:12:00 AM omeprazole 40 mg cap betty,delayed release RxNorm: 263165 TAKE 1 CAPSULE BY MACKENZIE TH DAILY 07/09/2018 01/04/2019 Ac tive Generic For:PRILOSEC 40MG 07/07/2018 11 :11:38 AM Lipitor 10 mg tablet RxNorm: 903791 TAKE 1 TABLET BY MOUTH DAILY 07/09/2018 01/04/2019 Active Generic For:LIPITOR 10MG 07/07/2018 11: 12:19 AM Zithromax Z-Taj 250 mg tablet RxNorm: 190801 1 Tablet(s) PO UD 05/18/2018 05/22/2018 Inactive metformin 500 mg tablet RxNorm: 850056 TAKE 1 TABLET BY MOUTH ONCE DAILY 02/07/2018 05/21/2018 In active Generic For:GLUCOPHAGE 500MG 02/07/2018 9:07:34 AM levothyroxine 50 mcg tablet RxNorm: 495152 TAKE 1 TABLET BY MOUT H DAILY 02/07/2018 06/06/2018 In active Generic For:SYNTHROID 50MCG TAB 018 9:07:42 AM meloxicam 15 mg tablet RxNorm: 547887 TAKE 1 TABLET BY MOUTH ONCE DAILY 02/07/2018 07/06/2018 In active Generic For:MOBIC 15MG 02/07/2018 9:07: 30 AM omeprazole 40 mg cap betty,delayed release RxNorm: 586970 TAKE 1 CAPSULE BY MACKENZIE TH DAILY 02/07/2018 07/06/2018 Inactive Generic For:PRILOSEC 40MG 02/07/2018 9: 07:37 AM Lipitor 10 mg tablet RxNorm: 085269 TAKE 1 TABLET BY MOUTH DAILY 11/09/2017 06/06/2018 Inactive Generic For:LIPITOR 10MG 11/09/2017 9:0 1:12 AM triamterene 37.5 mg- hydrochlorothiazide 25 mg tablet RxNorm: 326642 TAKE 1 TABLET BY MOUTH ONCE DAILY 11/09/2017 06/06/2018 Inactive 11/09/2017 9:01:09 AM levothyroxine 50 mcg tablet RxNorm: 776266 TAKE 1 TABLET BY MOUT H DAILY 10/10/2017 02/06/2018 In active Generic For:SYNTHROID 50MCG TAB 018 8:57:50 AM omeprazole 40 mg cap betty,delayed release RxNorm: 064190 TAKE 1 CAPSULE BY MACKENZIE TH DAILY 10/10/2017 02/06/2018 Inactive Generic For:PRILOSEC 40MG 10/10/2017 8: 57:46 AM Voltaren 1 % topical gel RxNorm: 049350 4 Gram(s) TOP QID - a pply 4 times daily to bilateral knees 09/13/2017 11/11/2017 Inactive levothyroxine 50 mcg tablet RxNorm: 994833 TAKE 1 TABLET BY MOUT H DAILY 09/11/2017 10/09/2017 In active Generic For:SYNTHROID 50MCG TAB 018 9:04:26 AM metformin 500 mg tablet RxNorm: 784994 TAKE 1 TABLET BY MOUTH ONCE DAILY 08/11/2017 02/06/2018 In active Generic For:GLUCOPHAGE 500MG 08/11/2017 8:56:05 AM meloxicam 15 mg tablet RxNorm: 300246 TAKE 1 TABLET BY MOUTH ONCE DAILY 08/11/2017 02/06/2018 In active Generic For:MOBIC 15MG 08/11/2017 8:56: 02 AM omeprazole 40 mg cap betty,delayed release RxNorm: 311892 TAKE 1 CAPSULE BY MACKENZIE TH DAILY 06/12/2017 10/09/2017 Inactive Generic For:PRILOSEC 40MG 06/12/2017 8: 56:49 AM Lipitor 10 mg tablet RxNorm: 872895 TAKE 1 TABLET BY MOUTH DAILY 2017 11/08/2017 Inactive Generic For:LIPITOR 10MG 2017 9:0 4:16 AM triamterene 37.5 mg- hydrochlorothiazide 25 mg tablet RxNorm: 991764 TAKE 1 TABLET BY MOUTH ONCE DAILY 2017 04/12/2017 Inactive 2017 9:04:19 AM triamterene 37.5 mg- hydrochlorothiazide 25 mg tablet RxNorm: 436727 TAKE 1 TABLET BY MOUTH ONCE DAILY 2017 10/09/2017 Inactive 2017 9:04:19 AM metformin 500 mg tablet RxNorm: 138675 TAKE 1 TABLET BY MOUTH ONCE DAILY 03/14/2017 08/10/2017 In active Generic For:GLUCOPHAGE 500MG 03/14/2017 9:16:18 AM levothyroxine 50 mcg tablet RxNorm: 200774 TAKE 1 TABLET BY MOUT H DAILY 03/14/2017 09/09/2017 In active Generic For:SYNTHROID 50MCG TAB 017 9:16:23 AM Zithromax Z-Taj 250 mg tablet RxNorm: 551420 1 Tablet(s) PO daily 02/16/2017 02/20/2017 Inactive omeprazole 40 mg cap betty,delayed release RxNorm: 908735 TAKE 1 CAPSULE BY MACKENZIE TH DAILY 02/13/2017 06/11/2017 Inactive Generic For:PRILOSEC 40MG 02/13/2017 8: 55:14 AM meloxicam 15 mg tablet RxNorm: 376553 TAKE 1 TABLET BY MOUTH ONCE DAILY 02/13/2017 08/10/2017 In active Generic For:MOBIC 15MG 02/13/2017 8:55: 10 AM levothyroxine 50 mcg tablet RxNorm: 304537 TAKE 1 TABLET BY MOUT H DAILY-- NEED TO GET LABS CHECKED FOR FURTHER REFILLS 01/05/2017 03/05/2017 Inactive Generic For:SYNTHROID 50MCG TAB 01/05/2017 4:36:06 PM levothyroxine 50 mcg tablet RxNorm: 160870 TAKE 1 TABLET BY MOUT H DAILY 12/14/2016 01/04/2017 In active Generic For:SYNTHROID 50MCG TAB 017 9:02:20 AM triamterene 37.5 mg- hydrochlorothiazide 25 mg tablet RxNorm: 508083 TAKE 1 TABLET BY MOUTH ONCE DAILY 11/14/2016 04/12/2017 Inactive 11/14/2016 9:13:26 AM metformin 500 mg tablet RxNorm: 848225 1 Tablet(s) PO daily 10/17/2016 03/13/2017 Inactive Generic For:GLUCOPHAGE 500MG 10/29/2014 9:02:36 AM omeprazole 40 mg cap betty,delayed release RxNorm: 388357 TAKE 1 CAPSULE BY MACKENZIE TH DAILY 10/17/2016 02/12/2017 Inactive Generic For:PRILOSEC 40MG 10/15/2016 8: 56:40 AM meloxicam 15 mg tablet RxNorm: 866601 1 Tablet(s) PO daily TAKE 1 TABLET BY MO UTH ONCE DAILY 09/19/2016 02/12/2017 Inactive Generic For:MOBIC 15MG 9:09:45 AM levothyroxine 50 mcg tablet RxNorm: 723861 TAKE 1 TABLET BY MOUT H DAILY 09/16/2016 12/13/2016 In active Generic For:SYNTHROID 50MCG TAB 017 10:22:07 AM 09/15/2016 9:01:47 AM Lipitor 10 mg tablet RxNorm: 118065 TAKE 1 TABLET BY MOUTH DAILY 09/16/2016 04/12/2017 Inactive Generic For:LIPITOR 10MG 09/16/2016 10: 22:13 AM 09/15/2016 9:01:42 AM [email or web address] Ultra Test strips RxNorm: 1 Miscellaneous daily 09/08/2016 09/02/2017 Inactive Voltaren 1 % topical gel RxNorm: 747382 2 Gram(s) TOP QID 09/08/2016 11/06/2016 Inactive meloxicam 15 mg tablet RxNorm: 429091 TAKE 1 TABLET BY MOUTH ONCE DAILY 08/16/2016 09/18/2016 In active Generic For:MOBIC 15MG 08/16/2016 9:09: 45 AM triamterene 37.5 mg- hydrochlorothiazide 25 mg tablet RxNorm: 156643 TAKE 1 TABLET BY MOUTH ONCE DAILY 07/18/2016 11/13/2016 Inactive 07/18/2016 8:57:50 AM omeprazole 40 mg cap betty,delayed release RxNorm: 975760 TAKE 1 CAPSULE BY MACKENZIE TH DAILY 06/17/2016 10/14/2016 Inactive Generic For:PRILOSEC 40MG 06/17/2016 9: 30:36 AM levothyroxine 50 mcg tablet RxNorm: 960916 TAKE 1 TABLET BY MOUT H DAILY 06/17/2016 09/14/2016 In active Generic For:SYNTHROID 50MCG TAB 017 9:10:49 AM metformin 500 mg tablet RxNorm: 252955 1 Tablet(s) PO daily 05/24/2016 10/16/2016 Inactive Generic For:GLUCOPHAGE 500MG 10/29/2014 9:02:36 AM Lasix 20 mg tablet RxNorm: 116577 1 Tablet(s) PO daily 05/24/2016 05/26/2016 Inactive metformin 500 mg tablet RxNorm: 878353 1 Tablet(s) PO daily 05/23/2016 05/23/2016 Inactive Generic For:GLUCOPHAGE 500MG 10/29/2014 9:02:36 AM Lasix 20 mg tablet RxNorm: 175355 1 Tablet(s) PO daily 05/23/2016 05/23/2016 Inactive potassium chloride E R 10 mEq tablet,extended release RxNorm: 660115 1 Tablet(s) PO daily 05/23/2016 05/25/2016 Inactive meloxicam 15 mg tablet RxNorm: 135935 1 Tablet(s) PO daily 04/18/2016 08/15/2016 Inactive Lipitor 10 mg tablet RxNorm: 252417 TAKE 1 TABLET BY MOUTH DAILY 04/18/2016 08/15/2016 Inactive Generic For:LIPITOR 10MG 04/18/2016 9:1 5:59 AM triamterene 37.5 mg- hydrochlorothiazide 25 mg tablet RxNorm: 673507 TAKE 1 TABLET BY MOUTH ONCE DAILY 03/21/2016 07/17/2016 Inactive 03/19/2016 9:02:10 AM levothyroxine 50 mcg tablet RxNorm: 125761 TAKE 1 TABLET BY MOUT H DAILY 02/18/2016 06/16/2016 In active Generic For:SYNTHROID 50MCG TAB 016 9:03:15 AM omeprazole 40 mg cap betty,delayed release RxNorm: 294715 TAKE 1 CAPSULE BY MACKENZIE TH DAILY 02/18/2016 06/16/2016 Inactive Generic For:PRILOSEC 40MG 02/18/2016 9: 03:12 AM Movantik 25 mg tablet RxNorm: 4576789 1 Tablet(s) PO QAM with breakfast or sean ch 01/12/2016 09/07/2016 In active Flonase Allergy Reli ef 50 mcg/actuation nasal spray,suspension RxNorm: 8819284 1 [place] NASAL BID 12/14/2015 09/07/2016 Inactive Zithromax Z-Taj 250 mg tablet RxNorm: 725718 Tablet(s) PO UD 12/14/2015 01/11/2016 Inactive Lipitor 10 mg tablet RxNorm: 948078 TAKE 1 TABLET BY MOUTH DAILY 11/20/2015 04/17/2016 Inactive Generic For:LIPITOR 10MG 11/20/2015 9:1 1:10 AM triamterene 37.5 mg- hydrochlorothiazide 25 mg tablet RxNorm: 421693 TAKE 1 TABLET BY MOUTH ONCE DAILY 11/19/2015 03/17/2016 Inactive 11/18/2015 9:06:12 AM meloxicam 15 mg tablet RxNorm: 458495 1 Tablet(s) PO daily 10/21/2015 04/17/2016 Inactive levothyroxine 50 mcg tablet RxNorm: 202990 TAKE 1 TABLET BY MOUT H DAILY 10/21/2015 02/17/2016 In active Generic For:SYNTHROID 50MCG TAB 016 9:06:41 AM omeprazole 40 mg cap betty,delayed release RxNorm: 212146 TAKE 1 CAPSULE BY MACKENZIE TH DAILY 10/21/2015 02/17/2016 Inactive Generic For:PRILOSEC 40MG 10/21/2015 9: 06:53 AM triamterene 37.5 mg- hydrochlorothiazide 25 mg tablet RxNorm: 627342 Tablet(s) 1 Tablet(s) PO daily 07/23/2015 11/18/2015 Inactive [SAVINGS FOR NON-COVERED DR BARRIENTOS -- BIN:[id number], PCN: ASPROD1, Group: XXXXX, ID# XXXXXXX, Questions: . THIS IS NOT INSURANCE.] metformin 500 mg tablet RxNorm: 558734 1 Tablet(s) PO daily 07/10/2015 12/06/2015 Inactive Generic For:GLUCOPHAGE 500MG 10/29/2014 9:02:36 AM Voltaren 1 % topical gel RxNorm: 122448 4 Gram(s) TOP QID 07/09/2015 09/07/2016 Inactive bilateral knees metformin 500 mg tablet RxNorm: 883114 1 Tablet(s) PO daily TAKE 1 TABLET BY MO UTH TWICE DAILY 07/09/2015 07/09/2015 Inactive Generic For:GLUCOPHAGE 500M G 10/29/2014 9:02:36 AM Lipitor 10 mg tablet RxNorm: 418910 1 Tablet(s) PO daily 06/26/2015 11/19/2015 Inactive metformin 500 mg tablet RxNorm: 709419 1 Tablet(s) PO BID TAKE 1 TABLET BY MOUT H TWICE DAILY 06/26/2015 07/08/2015 Inactive Generic For:GLUCOPHAGE 500M G 10/29/2014 9:02:36 AM omeprazole 40 mg cap betty,delayed release RxNorm: 056359 TAKE 1 CAPSULE BY MACKENZIE TH DAILY 04/27/2015 10/20/2015 Inactive Generic For:PRILOSEC 40MG meloxicam 15 mg tablet RxNorm: 013663 1 Tablet(s) PO daily 03/30/2015 10/20/2015 Inactive triamterene 37.5 mg- hydrochlorothiazide 25 mg tablet RxNorm: 261041 Tablet(s) 1 Tablet(s) PO daily 03/30/2015 07/22/2015 Inactive [SAVINGS FOR NON-COVERED DR UGS -- BIN:[id number], PCN: ASPROD1, Group: XXXXX, ID# XXXXXXX, Questions: . THIS IS NOT INSURANCE.] metformin 500 mg tablet RxNorm: 243253 1 Tablet(s) PO BID 02/26/2015 06/25/2015 Inactive levothyroxine 50 mcg tablet RxNorm: 441110 TAKE 1 TABLET BY MOUT H DAILY 02/26/2015 10/20/2015 In active Generic For:SYNTHROID 50MCG TAB 015 2:41:48 PM N O T I C E PRESCRIPTION PREVIOUSLY AUTHORIZED BY DOCTOR:RUFINO LIAO Lipitor 10 mg tablet RxNorm: 710623 1 Tablet(s) PO daily 02/26/2015 06/25/2015 Inactive omeprazole 40 mg cap betty,delayed release RxNorm: 735614 1 Capsule(s) PO 01/01/2015 04/26/2015 In active [SAVINGS FOR NON-COVERED DRUGS -- BIN:00 3585, PCN: ASPROD1, Group: XXXXX, ID# XXXXXXX, Questions: . THIS IS NOT INSURANCE.] triamterene 37.5 mg- hydrochlorothiazide 25 mg tablet RxNorm: 010714 1 Tablet(s) PO daily 12/02/2014 03/29/2015 Inactive [SAVINGS FOR NON-COVERED DR UGS -- BIN:[id number], PCN: ASPROD1, Group: XXXXX, ID# XXXXXXX, Questions: . THIS IS NOT INSURANCE.] metformin 500 mg tablet RxNorm: 266296 1 Tablet(s) PO BID TAKE 1 TABLET BY MOUT H TWICE DAILY 10/29/2014 06/25/2015 Inactive Generic For:GLUCOPHAGE 500M G 10/29/2014 9:02:36 AM metformin 500 mg tablet RxNorm: 653135 1 Tablet(s) PO BID 10/29/2014 10/29/2014 Inactive Lipitor 10 mg tablet RxNorm: 314261 1 Tablet(s) PO daily 10/27/2014 10/26/2014 Inactive Lipitor 10 mg tablet RxNorm: 611432 1 Tablet(s) PO daily 10/27/2014 02/23/2015 Inactive omeprazole 40 mg cap betty,delayed release RxNorm: 934634 1 Capsule(s) PO 09/02/2014 12/30/2014 In active [SAVINGS FOR NON-COVERED DRUGS -- BIN:00 3585, PCN: ASPROD1, Group: XXXXX, ID# XXXXXXX, Questions: . THIS IS NOT INSURANCE.] omeprazole 40 mg cap betty,delayed release RxNorm: 725804 1 Capsule(s) PO 09/02/2014 09/01/2014 In active triamterene 37.5 mg- hydrochlorothiazide 25 mg tablet RxNorm: 828494 1 Tablet(s) PO daily 08/27/2014 08/26/2014 Inactive triamterene 37.5 mg- hydrochlorothiazide 25 mg tablet RxNorm: 451800 1 Tablet(s) PO daily 08/27/2014 12/01/2014 Inactive [SAVINGS FOR NON-COVERED DR UGS -- BIN:[id number], PCN: ASPROD1, Group: XXXXX, ID# XXXXXXX, Questions: . THIS IS NOT INSURANCE.] Multi Vitamin oral RxNorm: oral No Start Date Active Aspirin Low Dose 81 mg tablet,delayed release RxNorm: 039356 1 Tablet(s) PO daily No Start Date Active estradiol 2 mg tablet RxNorm: 218257 1 Tablet(s) PO daily No Start Date Active Vitamin D (with calc ium) oral RxNorm: 2418 oral No Sta rt Date Active medroxyprogesterone 5 mg tablet RxNorm: 2748857 1 Tablet(s) PO daily No Start Date Active meloxicam 15 mg tablet RxNorm: 566006 1 Tablet(s) PO daily No Start Date 02/06/2018 Inactive metformin 500 mg tablet RxNorm: 477570 1 Tablet(s) PO daily No Start Date 10/28/2014 Inactive Osteo Bi-Flex oral RxNorm: 5901478 oral No Start Date 02/15/2017 Inactive levothyroxine 50 mcg tablet RxNorm: 447649 1 Tablet(s) PO daily No Start Date 02/25/2015 Inactive Medication Administered No Medication Administered data Immunizations Vaccine Codes Date Status SHINGARIX CVX: 121 06/01 completed Influenza CVX: 141 03/02 completed Assessments Condition Codes Effectiv e Dates Mixed hyperlipidemia ICD-10: E78.2 ICD-9: 272.4 05/18/2018 Hypothyroidism, unspecified ICD-10: E03.9 ICD-9: 244.9 05/18/2018 Essential (primary) hypertension ICD -10: I10 ICD-9: 401.9 05/18/2018 Type 2 diabetes mellitus without complications ICD-10: E11.9 ICD-9: 250.00 05/18/2018 Acute upper respiratory infection, unspecified ICD-10: [...] ICD- 10: K59.04 ICD-9: 564.00 01/12/2016 Other allergic rhinitis ICD-10: J30. 89 ICD-9: 477.8 12/14/2015 DIABETES TYPE II ICD-9: 250.00 10/09/2014 HYPOTHYROIDISM ICD-9: 244.9 10/09/2014 HYPERLIPIDEMIA ICD-9: 272.4 10/09/2014 ESSENTIAL HYPERTENSION ICD-9: 401.9 10/09/2014 Reason For Visit Reason For Visit Effective Dates Notes cough 05/18/2018 hypertension 09/13/2017 hypertension 02/16/2017 edema 09/08/2016 edema 05/23/2016 knee pain 01/12/2016 sinus congestion 12/14/2015 knee pain 07/09/2015 diabetes mellitus 10/09/2014 Results Observation Observation Code Item Item Code Result Date Free T4 Nmz382 FREE T4 1.09 ng/dL 05/18/2018 Lipid Ord30 [...] 31.2 pg 05/18/2018 Cbc With Differential Ord2 [place]% 9.2 % 05/18/2018 Cbc With Differential Ord2 [...] 2.00 K/ul 05/18/2018 Cbc With Differential Ord2 [place] ABS# 0.6 K/ul 05/18/2018 Cbc With Differential Ord2 Eos ABS# 0.2 K/ul 05/18/2018 Cbc With Differential Ord2 Baso ABS# 0.0 K/ul 05/18/2018 %Hba1C Kec338 % HbA1c 31620-8 6.1 % 05/18/2018 %Hba1C Dxg649 Gluc Ave 128 mg/dL 05/18/2018 Comp Metabolic Dym056 NA 139 mEq/L 05/18/2018 Comp Metabolic Ujz425 K 3.8 mEq/L 05/18/2018 Comp Metabolic Cht112 CL 100 mEq/L 05/18/2018 Comp Metabolic Gwm782 CO2 29.0 mEq/L 05/18/2018 Comp Metabolic Trs822 AN ION GAP 14 05/18/2018 Comp Metabolic Urj936 GL UCOSE 100 mg/dL 05/18/2018 Comp Metabolic Tft179 Cr eat 1.2 mg/dL 05/18/2018 Comp Metabolic Fxj823 eG FR 49 ml/min/1.73m2 05/18 Comp Metabolic Owl446 BUN 17 mg/dL 05/18/2018 Comp Metabolic Ivg104 B/ C Ratio 14.5 Ratio 05/18/2018 Comp Metabolic Ilu943 CA LCIUM 10.0 mg/dL 05/18/2018 Comp Metabolic Ccx916 AL K PHOS 75 U/L 05/18/2018 Comp Metabolic Wed506 T(SGOT) 16 U/L 05/18/2018 Comp Metabolic Cvr840 AL T(SGPT) 15 U/L 05/18/2018 Comp Metabolic Dfd861 BI LI T 0.7 mg/dL 05/18/2018 Comp Metabolic Abk366 AL BUMIN 4.4 g/dL 05/18/2018 Comp Metabolic Nyv364 TP RO 6.8 g/dL 05/18/2018 Comp Metabolic Ghx365 GL OB 2.4 g/dL 05/18/2018 Comp Metabolic Txr932 A/ G Ratio 1.8 Ratio 05/18/2018 Comp Metabolic Wzh219 Os mo 279 mOsmo 05/18/2018 Comp Metabolic Flo164 NA 138 mEq/L 09/14/2017 Comp Metabolic Smn871 K 3.8 mEq/L 09/14/2017 Comp Metabolic Sts899 CL 101 mEq/L 09/14/2017 Comp Metabolic Ffu559 CO2 26.0 mEq/L 09/14/2017 Comp Metabolic Vvo558 AN ION GAP 15 09/14/2017 Comp Metabolic Dic294 GL UCOSE 120 mg/dL 09/14/2017 Comp Metabolic Vis365 Cr eat 1.0 mg/dL 09/14/2017 Comp Metabolic Iag705 eG FR 61 ml/min/1.73m2 09/14 Comp Metabolic Wcc117 BUN 18 mg/dL 09/14/2017 Comp Metabolic Ydm486 B/ C Ratio 18.6 Ratio 09/14/2017 Comp Metabolic Wvu189 CA LCIUM 9.7 mg/dL 09/14/2017 Comp Metabolic Arq908 AL K PHOS 63 U/L 09/14/2017 Comp Metabolic Qbu019 T(SGOT) 18 U/L 09/14/2017 Comp Metabolic Sdf610 AL T(SGPT) 20 U/L 09/14/2017 Comp Metabolic Moc965 BI LI T 0.5 mg/dL 09/14/2017 Comp Metabolic Rfh970 AL BUMIN 4.3 g/dL 09/14/2017 Comp Metabolic Zxw657 TP RO 6.7 g/dL 09/14/2017 Comp Metabolic Lgu235 GL OB 2.4 g/dL 09/14/2017 Comp Metabolic Tzg759 A/ G Ratio 1.8 Ratio 09/14/2017 Comp Metabolic Dxi961 Os mo 279 mOsmo 09/14/2017 Lipid Ord30 CHOL 180 mg/dL 09/14/2017 Lipid Ord30 HDL 53.0 mg/dl 09/14/2017 Lipid Ord30 TRIG 126 mg/dL 09/14/2017 Lipid Ord30 LDL 102 mg/dL 09/14/2017 Lipid Ord30 C/HDL 3.4 Ratio 09/14/2017 Microalbumin Myp705 Micr oAlb <0.7 mg/dL 09/14/2017 %Hba1C Ivh872 % HbA1c 72708-1 6.0 % 09/14/2017 %Hba1C Kta008 Gluc Ave 126 mg/dL 09/14/2017 Free T4 Dtl227 FREE T4 0.98 ng/dL 09/14/2017 Cbc With [...] 31.3 pg 09/14/2017 Cbc With Differential Ord2 [place]% 9.4 % 09/14/2017 Cbc With Differential Ord2 [...] 1.94 K/ul 09/14/2017 Cbc With Differential Ord2 [place] ABS# 0.7 K/ul 09/14/2017 Cbc With Differential Ord2 Eos ABS# 0.2 K/ul 09/14/2017 Cbc With Differential Ord2 Baso ABS# 0.0 K/ul 09/14/2017 Tsh Ord6 TSH (3rd IS) 2.64 uIU/mL 09/14/2017 Comp Metabolic Icl313 NA 138 mEq/L 05/23/2016 Comp Metabolic Gpb681 K 4.0 mEq/L 05/23/2016 Comp Metabolic Rwi893 CL 105 mEq/L 05/23/2016 Comp Metabolic Ubx199 CO2 25.0 mEq/L 05/23/2016 Comp Metabolic Siy533 AN ION GAP 12 05/23/2016 Comp Metabolic Qzq671 GL UCOSE 89 mg/dL 05/23/2016 Comp Metabolic Rde026 Cr eat 1.0 mg/dL 05/23/2016 Comp Metabolic Lzm103 eG FR 63 ml/min/1.73m2 05/23 Comp Metabolic Sjm271 BUN 18 mg/dL 05/23/2016 Comp Metabolic Llt492 B/ C Ratio 18.9 Ratio 05/23/2016 Comp Metabolic Omi302 CA LCIUM 9.1 mg/dL 05/23/2016 Comp Metabolic Ygq313 AL K PHOS 67 U/L 05/23/2016 Comp Metabolic Zqr094 T(SGOT) 26 U/L 05/23/2016 Comp Metabolic Mik755 AL T(SGPT) 39 U/L 05/23/2016 Comp Metabolic Yhi448 BI LI T 0.5 mg/dL 05/23/2016 Comp Metabolic Ppt795 AL BUMIN 3.9 g/dL 05/23/2016 Comp Metabolic Nso669 TP RO 5.9 g/dL 05/23/2016 Comp Metabolic Ubf705 GL OB 2.0 g/dL 05/23/2016 Comp Metabolic Pck638 A/ G Ratio 2.0 Ratio 05/23/2016 Comp Metabolic Ndg418 Os mo 277 mOsmo 05/23/2016 Cbc With [...] 30.5 pg 05/23/2016 Cbc With Differential Ord2 [place]% 10.0 % 05/23/2016 Cbc With Differential Ord2 [...] 1.68 K/ul 05/23/2016 Cbc With Differential Ord2 [place] ABS# 0.7 K/ul 05/23/2016 Cbc With Differential Ord2 Eos ABS# 0.1 K/ul 05/23/2016 Cbc With Differential Ord2 Baso ABS# 0.0 K/ul 05/23/2016 B Type Natriuretic Peptide Rfn1034 B-SAFETY INSTRUCTOR 340.00 pg/ml 7 Lipid Ord30 CHOL 117 [...] 31.8 pg 07/07/2015 Cbc With Differential Ord2 [place]% 11.3 % 07/07/2015 Cbc With Differential Ord2 [...] 1.53 K/ul 07/07/2015 Cbc With Differential Ord2 [place] ABS# 0.6 K/ul 07/07/2015 Cbc With Differential Ord2 Eos ABS# 0.2 K/ul 07/07/2015 Cbc With Differential Ord2 Baso ABS# 0.0 K/ul 07/07/2015 Cbc With Differential Ord2 New Analyzer Notice Please note new ref ranges s tarting 05-13-2015 due to implemntation of new five part differential hematolgy analyzer. 07/07/2015 Free T4 Khp948 FREE T4 1.17 ng/dL 07/07/2015 Comp Metabolic Gms466 NA 137 mEq/L 07/07/2015 Comp Metabolic Ebn662 K 4.0 mEq/L 07/07/2015 Comp Metabolic Mtj200 CL 100 mEq/L 07/07/2015 Comp Metabolic Gni077 CO2 29.0 mEq/L 07/07/2015 Comp Metabolic Yup304 AN ION GAP 12 07/07/2015 Comp Metabolic Zkv859 GL UCOSE 98 mg/dL 07/07/2015 Comp Metabolic Bnb372 Cr eat 1.0 mg/dL 07/07/2015 Comp Metabolic Jzu736 eG FR 62 ml/min/1.73m2 07/06 Comp Metabolic Fig501 BUN 16 mg/dL 07/07/2015 Comp Metabolic Hvj180 B/ C Ratio 16.5 Ratio 07/07/2015 Comp Metabolic Hsh436 CA LCIUM 9.5 mg/dL 07/07/2015 Comp Metabolic Mfb499 AL K PHOS 47 U/L 07/07/2015 Comp Metabolic Pim602 T(SGOT) 18 U/L 07/07/2015 Comp Metabolic Shx459 AL T(SGPT) 22 U/L 07/07/2015 Comp Metabolic Lli295 BI LI T 0.5 mg/dL 07/07/2015 Comp Metabolic Bif003 AL BUMIN 4.2 g/dL 07/07/2015 Comp Metabolic Vzw198 TP RO 6.5 g/dL 07/07/2015 Comp Metabolic Dmg101 GL OB 2.3 g/dL 07/07/2015 Comp Metabolic Hef626 A/ G Ratio 1.8 Ratio 07/07/2015 Comp Metabolic Idg319 Os mo 275 mOsmo 07/07/2015 %Hba1C Ybw762 % HbA1c 08238-2 5.7 % 07/07/2015 %Hba1C Dyz441 Gluc Ave 117 mg/dL 07/07/2015 Tsh Ord6 hTSH II 2.32 uIU/mL 07/07/2015 Review of Systems System Result Effective Dates Constitutional recent illness 05/18/2018 Constitutional No anorexia [...] No Procedures data Vital Signs Date Vital 05/18/2018 Blood Pressure 1: 128/76 Code: 8480-6 BMI: 34.4 Code: 84230-8 Heart Rate 1: 67 bpm Height: 5'3" SpO2: 97% Temperature: 37.0 (C ) / 98.6 (F) Weight: 194 lbs 09/13/2017 Blood Pressure 1: 140/78 Code: 8480-6 BMI: 35.4 Code: 74954-4 Heart Rate 1: 71 bpm Height: 5'3" SpO2: 97% Weight: 200 lbs 02/16/2017 Blood Pressure 1: 138/76 Code: 8480-6 BMI: 34.4 Code: 42828-7 Heart Rate 1: 66 bpm Height: 5'3" SpO2: 99% Weight: 194 lbs 09/08/2016 Blood Pressure 1: 138/86 Code: 8480-6 BMI: 32.2 Code: 67216-4 Heart Rate 1: 69 bpm Height: 5'3" SpO2: 99% Weight: 182 lbs 05/23/2016 Blood Pressure 1: 126/70 Code: 8480-6 BMI: 30.8 Code: 81805-3 Heart Rate 1: 63 bpm Height: 5'3" SpO2: 98% Weight: 174 lbs 01/12/2016 Blood Pressure 1: 140/72 Code: 8480-6 BMI: 29.8 Code: 87768-1 Heart Rate 1: 82 bpm Height: 5'3" SpO2: 97% Weight: 168 lbs 12/14/2015 Blood Pressure 1: 132/78 Code: 8480-6 BMI: 31.5 Code: 28729-1 Heart Rate 1: 71 bpm Height: 5'3" SpO2: 98% Weight: 178 lbs 07/09/2015 Blood Pressure 1: 128/80 Code: 8480-6 BMI: 30.6 Code: 27195-7 Heart Rate 1: 71 bpm Height: 5'3" SpO2: 99% Weight: 173 lbs 10/09/2014 Blood Pressure 1: 120/70 Code: 8480-6 BMI: 29.1 Code: 99519-7 Heart Rate 1: 68 bpm Height: 5'3" Weight: 164 lbs Functional Status No Functional Status data History of Present Illness Symptom Name Status Resu lt Effective Date Notes Location in the throat 05/18/2018 None Quality [...] mellitus Quality chronic 09/13/2017 None 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 P ATIENT, LEVEL IV Diagnosis: Essential (primary) hypertension[ICD10: I10] Diagnosis: Acute upper respiratory infection, unspecified[ICD10: J06.9] Diagnosis: Mixed hyperlipidemia[ICD10: E78.2] Diagnosis: Hypothyroidism, unspecified[ICD10: E03.9] Diagnosis: Type 2 diabetes mellitus without complications[ICD10: E11.9] Asha Ballard MD, [facility] CPT-4: 06977 05/18/2018 [id number]) [id number] EST. P ATIENT, LEVEL IV Diagnosis: Type 2 diabetes mellitus without complications[ICD10: E11.9] Diagnosis: Essential (primary) hypertension[ICD10: I10] Diagnosis: Other obesity due to excess calories[ICD10: E66.09] Katty Ballard MD, [facility] CPT-4: 72895 09/13/2017 [id number]) [id number] EST. P ATIENT, LEVEL IV Diagnosis: Type 2 diabetes mellitus without complications[ICD10: E11.9] Diagnosis: Essential (primary) hypertension[ICD10: I10] Diagnosis: Other acute sinusitis[ICD10: J01.80] Diagnosis: Other obesity due to excess calories[ICD10: E66.09] Asha Ballard MD, [facility] CPT-4: 10800 02/16/[id number]) 24240 EST. P ATIENT, LEVEL IV Diagnosis: Type 2 diabetes mellitus without complications[ICD10: E11.9] Diagnosis: Essential (primary) hypertension[ICD10: I10] Diagnosis: Pain in right knee[ICD10: M25.561] Diagnosis: Pain in left knee[ICD10: M25.562] Katty Ballard MD, [facility] CPT-4: 80752 09/08/2016 [id number] EST. PATIENT, LEVEL IV Diagnosis: Localized edema[ICD10: R60.0] Diagnosis: Shortness of breath[ICD10: R06.02] Salma Ballard MD, [facility] CPT-4: 18734 05/23/2016 ([id number]) 63992 EST. P ATIENT, LEVEL IV Diagnosis: Type 2 diabetes mellitus without complications[ICD10: E11.9] Diagnosis: Essential (primary) hypertension[ICD10: I10] Diagnosis: Chronic idiopathic constipation[ICD10: K59.04] Katty Ballard MD, [facility] CPT-4: 47086 01/12/2016 [id number] EST. PATIENT, LEVEL IV Diagnosis: Other acute sinusitis[ICD10: J01.80] Diagnosis: Other allergic rhinitis[ICD10: J30.89] Salma Ballard MD, [facility] CPT-4: 99223 12/14/2015 ([id number]) 41276 EST. P ATIENT, LEVEL IV Diagnosis: Essential (primary) hypertension[ICD10: I10] Diagnosis: Type 2 diabetes mellitus without complications[ICD10: E11.9] Diagnosis: Pain in right knee[ICD10: M25.561] Diagnosis: Pain in left knee[ICD10: M25.562] Asha Ballard MD, [facility] CPT- 4: 51045 07/09/2015 ([id number]) OFFICE VISI T, [facility] - LEVEL 4 Diagnosis: ESSENTIAL HYPERTENSION[ICD9: 401.9] Diagnosis: DIABETES TYPE II[ICD9: 250.00] Diagnosis: HYPERLIPIDEMIA[ICD9: 272.4] Diagnosis: HYPOTHYROIDISM[ICD9: 244.9] Katty Ballard MD, [facility] CPT-4: 94465 10/09/2014 Plan of Care Planned Activity Notes C odes Status Date Visit Plan: Hypertension - well con trolled [...] current management. 09/13/2017 [phone] [place] ([facility] [place]) Moderate 09/13/2017 Patient Education: Patient [...] check. 02/16/2017 [phone] [place] [place] (15 min) Moderate 02/16/2017 Patient Education: [...] to pharmacy 09/08/2016 Appointment: Katty Ballard WPtel: [phone] [facility] (15 min) Moderate 09/08/2016 Patient Education: Patient [...] peripheral edema. 05/23/2016 Appointment: Salma Garay [facility]el[facility] [place] (30 min) Complex 05/23/2016 Patient Education: Patient Medication Summary Completed 05/23/2016 Patient Education: Obesity Completed 05/23/2016 Appointment: [phone] [place] [place] (15 min) Moderate 01/13/2016 Visit Plan: [...] not improving. 10/09/2014 Appointment: Kat[facility] Ballard [facility] [place] [place] ([place] New Patient 10/09/2014 Patient Education: Patient Medication Summary Completed 10/09/2014 Patient Education: Hypertension Completed 10/09/2014 Care Plan: MICROALBUMIN QUANTITATIVE LOINC : 41723-1 Ordered 10/09/2014 Care Plan: COMPLETE CBC AUTOMATED LOINC : 21129-0 Ordered 10/09/2014 Instructions Comment . Sinusitis - [...]
--- OUTSIDE RECORDS SUMMARY | 2019-12-03 12:48 | XMS REPORT | CCD ---
Author Author Danni Ballard Organization Katty Ballard MD, [facility] Address [address] [place] [address] Phone Care Team Providers Care Twister Doffer Name Role Phone PP Unavailable CCM Unavailable Summary Purpose Interface Exchange Insurance Providers Payer name Policy type / Coverage type Covered libertarian ID Effective Begin Date Effective End Date WPS Medicare Part B Medicare Part B [id number] 2018 Unknown [employer] Medicare Part B [id number] 2018 Unknown Family history Father Diagnosis Age At Onset Cancer Unknown Mother Diagnosis Age At Onset Diabetes mellitus Type 2 Unknown Stroke Unknown Hypertension Unknown Arthritis Unknown Osteoporosis Unknown kidney disease Unknown Coronary Artery Disease Unknown Social History Social History Element Codes Description Effective Dates Marital status Unknown M chiki Peter 10/09/2014 Number of children Unknown 2 10/09/[address]: 4550987 Quit over 10 years ago 10/09/[address]: 664100525 Never drinks alcohol 10/09/2014 Allergies, Adverse Reactions, [...] Fill Instructions meloxicam 15 mg tablet RxNorm: 525411 TAKE 1 TABLET BY MOUTH ONCE DAILY 07/09/2018 01/04/2019 Ac tive Generic For:MOBIC 15MG 07/07/2018 11:11 :46 AM triamterene 37.5 mg- hydrochlorothiazide 25 mg tablet RxNorm: 188014 TAKE 1 TABLET BY MOUTH ONCE DAILY 07/09/2018 01/04/2019 Active 07/07/2018 11:12:05 AM levothyroxine 50 mcg tablet RxNorm: 643547 TAKE 1 TABLET BY MOUT H DAILY 07/09/2018 01/04/2019 Ac tive Generic For:SYNTHROID 50MCG TAB 019 11:12:00 AM omeprazole 40 mg cap betty,delayed release RxNorm: 202054 TAKE 1 CAPSULE BY MACKENZIE TH DAILY 07/09/2018 01/04/2019 Ac tive Generic For:PRILOSEC 40MG 07/07/2018 11 :11:38 AM Lipitor 10 mg tablet RxNorm: 213834 TAKE 1 TABLET BY MOUTH DAILY 07/09/2018 01/04/2019 Active Generic For:LIPITOR 10MG 07/07/2018 11: 12:19 AM Zithromax Z-Taj 250 mg tablet RxNorm: 747021 1 Tablet(s) PO UD 05/18/2018 05/22/2018 Inactive metformin 500 mg tablet RxNorm: 769449 TAKE 1 TABLET BY MOUTH ONCE DAILY 02/07/2018 05/21/2018 In active Generic For:GLUCOPHAGE 500MG 02/07/2018 9:07:34 AM levothyroxine 50 mcg tablet RxNorm: 433740 TAKE 1 TABLET BY MOUT H DAILY 02/07/2018 06/06/2018 In active Generic For:SYNTHROID 50MCG TAB 018 9:07:42 AM meloxicam 15 mg tablet RxNorm: 412488 TAKE 1 TABLET BY MOUTH ONCE DAILY 02/07/2018 07/06/2018 In active Generic For:MOBIC 15MG 02/07/2018 9:07: 30 AM omeprazole 40 mg cap betty,delayed release RxNorm: 718785 TAKE 1 CAPSULE BY MACKENZIE TH DAILY 02/07/2018 07/06/2018 Inactive Generic For:PRILOSEC 40MG 02/07/2018 9: 07:37 AM Lipitor 10 mg tablet RxNorm: 334847 TAKE 1 TABLET BY MOUTH DAILY 11/09/2017 06/06/2018 Inactive Generic For:LIPITOR 10MG 11/09/2017 9:0 1:12 AM triamterene 37.5 mg- hydrochlorothiazide 25 mg tablet RxNorm: 086464 TAKE 1 TABLET BY MOUTH ONCE DAILY 11/09/2017 06/06/2018 Inactive 11/09/2017 9:01:09 AM levothyroxine 50 mcg tablet RxNorm: 850302 TAKE 1 TABLET BY MOUT H DAILY 10/10/2017 02/06/2018 In active Generic For:SYNTHROID 50MCG TAB 018 8:57:50 AM omeprazole 40 mg cap betty,delayed release RxNorm: 335924 TAKE 1 CAPSULE BY MACKENZIE TH DAILY 10/10/2017 02/06/2018 Inactive Generic For:PRILOSEC 40MG 10/10/2017 8: 57:46 AM Voltaren 1 % topical gel RxNorm: 820190 4 Gram(s) TOP QID - a pply 4 times daily to bilateral knees 09/13/2017 11/11/2017 Inactive levothyroxine 50 mcg tablet RxNorm: 137508 TAKE 1 TABLET BY MOUT H DAILY 09/11/2017 10/09/2017 In active Generic For:SYNTHROID 50MCG TAB 018 9:04:26 AM metformin 500 mg tablet RxNorm: 185847 TAKE 1 TABLET BY MOUTH ONCE DAILY 08/11/2017 02/06/2018 In active Generic For:GLUCOPHAGE 500MG 08/11/2017 8:56:05 AM meloxicam 15 mg tablet RxNorm: 505606 TAKE 1 TABLET BY MOUTH ONCE DAILY 08/11/2017 02/06/2018 In active Generic For:MOBIC 15MG 08/11/2017 8:56: 02 AM omeprazole 40 mg cap betty,delayed release RxNorm: 372178 TAKE 1 CAPSULE BY MACKENZIE TH DAILY 06/12/2017 10/09/2017 Inactive Generic For:PRILOSEC 40MG 06/12/2017 8: 56:49 AM Lipitor 10 mg tablet RxNorm: 090543 TAKE 1 TABLET BY MOUTH DAILY 2017 11/08/2017 Inactive Generic For:LIPITOR 10MG 2017 9:0 4:16 AM triamterene 37.5 mg- hydrochlorothiazide 25 mg tablet RxNorm: 429126 TAKE 1 TABLET BY MOUTH ONCE DAILY 2017 04/12/2017 Inactive 2017 9:04:19 AM triamterene 37.5 mg- hydrochlorothiazide 25 mg tablet RxNorm: 377120 TAKE 1 TABLET BY MOUTH ONCE DAILY 2017 10/09/2017 Inactive 2017 9:04:19 AM metformin 500 mg tablet RxNorm: 363875 TAKE 1 TABLET BY MOUTH ONCE DAILY 03/14/2017 08/10/2017 In active Generic For:GLUCOPHAGE 500MG 03/14/2017 9:16:18 AM levothyroxine 50 mcg tablet RxNorm: 362024 TAKE 1 TABLET BY MOUT H DAILY 03/14/2017 09/09/2017 In active Generic For:SYNTHROID 50MCG TAB 017 9:16:23 AM Zithromax Z-Taj 250 mg tablet RxNorm: 180720 1 Tablet(s) PO daily 02/16/2017 02/20/2017 Inactive omeprazole 40 mg cap betty,delayed release RxNorm: 866033 TAKE 1 CAPSULE BY MACKENZIE TH DAILY 02/13/2017 06/11/2017 Inactive Generic For:PRILOSEC 40MG 02/13/2017 8: 55:14 AM meloxicam 15 mg tablet RxNorm: 500615 TAKE 1 TABLET BY MOUTH ONCE DAILY 02/13/2017 08/10/2017 In active Generic For:MOBIC 15MG 02/13/2017 8:55: 10 AM levothyroxine 50 mcg tablet RxNorm: 105204 TAKE 1 TABLET BY MOUT H DAILY-- NEED TO GET LABS CHECKED FOR FURTHER REFILLS 01/05/2017 03/05/2017 Inactive Generic For:SYNTHROID 50MCG TAB 01/05/2017 4:36:06 PM levothyroxine 50 mcg tablet RxNorm: 340956 TAKE 1 TABLET BY MOUT H DAILY 12/14/2016 01/04/2017 In active Generic For:SYNTHROID 50MCG TAB 017 9:02:20 AM triamterene 37.5 mg- hydrochlorothiazide 25 mg tablet RxNorm: 742042 TAKE 1 TABLET BY MOUTH ONCE DAILY 11/14/2016 04/12/2017 Inactive 11/14/2016 9:13:26 AM metformin 500 mg tablet RxNorm: 881314 1 Tablet(s) PO daily 10/17/2016 03/13/2017 Inactive Generic For:GLUCOPHAGE 500MG 10/29/2014 9:02:36 AM omeprazole 40 mg cap betty,delayed release RxNorm: 178379 TAKE 1 CAPSULE BY MACKENZIE TH DAILY 10/17/2016 02/12/2017 Inactive Generic For:PRILOSEC 40MG 10/15/2016 8: 56:40 AM meloxicam 15 mg tablet RxNorm: 225007 1 Tablet(s) PO daily TAKE 1 TABLET BY MO UTH ONCE DAILY 09/19/2016 02/12/2017 Inactive Generic For:MOBIC 15MG 9:09:45 AM levothyroxine 50 mcg tablet RxNorm: 735662 TAKE 1 TABLET BY MOUT H DAILY 09/16/2016 12/13/2016 In active Generic For:SYNTHROID 50MCG TAB 017 10:22:07 AM 09/15/2016 9:01:47 AM Lipitor 10 mg tablet RxNorm: 035429 TAKE 1 TABLET BY MOUTH DAILY 09/16/2016 04/12/2017 Inactive Generic For:LIPITOR 10MG 09/16/2016 10: 22:13 AM 09/15/2016 9:01:42 AM Feedo Ultra Test strips RxNorm: 1 Miscellaneous daily 09/08/2016 09/02/2017 Inactive Voltaren 1 % topical gel RxNorm: 389717 2 Gram(s) TOP QID 09/08/2016 11/06/2016 Inactive meloxicam 15 mg tablet RxNorm: 420940 TAKE 1 TABLET BY MOUTH ONCE DAILY 08/16/2016 09/18/2016 In active Generic For:MOBIC 15MG 08/16/2016 9:09: 45 AM triamterene 37.5 mg- hydrochlorothiazide 25 mg tablet RxNorm: 324411 TAKE 1 TABLET BY MOUTH ONCE DAILY 07/18/2016 11/13/2016 Inactive 07/18/2016 8:57:50 AM omeprazole 40 mg cap betty,delayed release RxNorm: 162018 TAKE 1 CAPSULE BY MACKENZIE TH DAILY 06/17/2016 10/14/2016 Inactive Generic For:PRILOSEC 40MG 06/17/2016 9: 30:36 AM levothyroxine 50 mcg tablet RxNorm: 599110 TAKE 1 TABLET BY MOUT H DAILY 06/17/2016 09/14/2016 In active Generic For:SYNTHROID 50MCG TAB 017 9:10:49 AM metformin 500 mg tablet RxNorm: 135100 1 Tablet(s) PO daily 05/24/2016 10/16/2016 Inactive Generic For:GLUCOPHAGE 500MG 10/29/2014 9:02:36 AM Lasix 20 mg tablet RxNorm: 779079 1 Tablet(s) PO daily 05/24/2016 05/26/2016 Inactive metformin 500 mg tablet RxNorm: 302470 1 Tablet(s) PO daily 05/23/2016 05/23/2016 Inactive Generic For:GLUCOPHAGE 500MG 10/29/2014 9:02:36 AM Lasix 20 mg tablet RxNorm: 159860 1 Tablet(s) PO daily 05/23/2016 05/23/2016 Inactive potassium chloride E R 10 mEq tablet,extended release RxNorm: 399606 1 Tablet(s) PO daily 05/23/2016 05/25/2016 Inactive meloxicam 15 mg tablet RxNorm: 498574 1 Tablet(s) PO daily 04/18/2016 08/15/2016 Inactive Lipitor 10 mg tablet RxNorm: 790320 TAKE 1 TABLET BY MOUTH DAILY 04/18/2016 08/15/2016 Inactive Generic For:LIPITOR 10MG 04/18/2016 9:1 5:59 AM triamterene 37.5 mg- hydrochlorothiazide 25 mg tablet RxNorm: 695202 TAKE 1 TABLET BY MOUTH ONCE DAILY 03/21/2016 07/17/2016 Inactive 03/19/2016 9:02:10 AM levothyroxine 50 mcg tablet RxNorm: 113275 TAKE 1 TABLET BY MOUT H DAILY 02/18/2016 06/16/2016 In active Generic For:SYNTHROID 50MCG TAB 016 9:03:15 AM omeprazole 40 mg cap betty,delayed release RxNorm: 561855 TAKE 1 CAPSULE BY MACKENZIE TH DAILY 02/18/2016 06/16/2016 Inactive Generic For:PRILOSEC 40MG 02/18/2016 9: 03:12 AM Movantik 25 mg tablet RxNorm: 2047334 1 Tablet(s) PO QAM with breakfast or sean ch 01/12/2016 09/07/2016 In active Flonase Allergy Reli ef 50 mcg/actuation nasal spray,suspension RxNorm: 6524168 1 Emmalena NASAL BID 12/14/2015 09/07/2016 Inactive Zithromax Z-Taj 250 mg tablet RxNorm: 651283 Tablet(s) PO UD 12/14/2015 01/11/2016 Inactive Lipitor 10 mg tablet RxNorm: 016750 TAKE 1 TABLET BY MOUTH DAILY 11/20/2015 04/17/2016 Inactive Generic For:LIPITOR 10MG 11/20/2015 9:1 1:10 AM triamterene 37.5 mg- hydrochlorothiazide 25 mg tablet RxNorm: 651774 TAKE 1 TABLET BY MOUTH ONCE DAILY 11/19/2015 03/17/2016 Inactive 11/18/2015 9:06:12 AM meloxicam 15 mg tablet RxNorm: 333409 1 Tablet(s) PO daily 10/21/2015 04/17/2016 Inactive levothyroxine 50 mcg tablet RxNorm: 382782 TAKE 1 TABLET BY MOUT H DAILY 10/21/2015 02/17/2016 In active Generic For:SYNTHROID 50MCG TAB 016 9:06:41 AM omeprazole 40 mg cap betty,delayed release RxNorm: 933207 TAKE 1 CAPSULE BY MACKENZIE TH DAILY 10/21/2015 02/17/2016 Inactive Generic For:PRILOSEC 40MG 10/21/2015 9: 06:53 AM triamterene 37.5 mg- hydrochlorothiazide 25 mg tablet RxNorm: 274057 Tablet(s) 1 Tablet(s) PO daily 07/23/2015 11/18/2015 Inactive [SAVINGS FOR NON-COVERED DR BARRIENTOS -- BIN:[id number], PCN: ASPROD1, Group: XXXXX, ID# XXXXXXX, Questions: . THIS IS NOT INSURANCE.] metformin 500 mg tablet RxNorm: 932822 1 Tablet(s) PO daily 07/10/2015 12/06/2015 Inactive Generic For:GLUCOPHAGE 500MG 10/29/2014 9:02:36 AM Voltaren 1 % topical gel RxNorm: 643426 4 Gram(s) TOP QID 07/09/2015 09/07/2016 Inactive bilateral knees metformin 500 mg tablet RxNorm: 543752 1 Tablet(s) PO daily TAKE 1 TABLET BY MO UTH TWICE DAILY 07/09/2015 07/09/2015 Inactive Generic For:GLUCOPHAGE 500M G 10/29/2014 9:02:36 AM Lipitor 10 mg tablet RxNorm: 439455 1 Tablet(s) PO daily 06/26/2015 11/19/2015 Inactive metformin 500 mg tablet RxNorm: 579755 1 Tablet(s) PO BID TAKE 1 TABLET BY MOUT H TWICE DAILY 06/26/2015 07/08/2015 Inactive Generic For:GLUCOPHAGE 500M G 10/29/2014 9:02:36 AM omeprazole 40 mg cap betty,delayed release RxNorm: 904807 TAKE 1 CAPSULE BY MACKENZIE TH DAILY 04/27/2015 10/20/2015 Inactive Generic For:PRILOSEC 40MG meloxicam 15 mg tablet RxNorm: 611039 1 Tablet(s) PO daily 03/30/2015 10/20/2015 Inactive triamterene 37.5 mg- hydrochlorothiazide 25 mg tablet RxNorm: 128504 Tablet(s) 1 Tablet(s) PO daily 03/30/2015 07/22/2015 Inactive [SAVINGS FOR NON-COVERED DR UGS -- BIN:947765, PCN: ASPROD1, Group: XXXXX, ID# XXXXXXX, Questions: . THIS IS NOT INSURANCE.] metformin 500 mg tablet RxNorm: 749289 1 Tablet(s) PO BID 02/26/2015 06/25/2015 Inactive levothyroxine 50 mcg tablet RxNorm: 010018 TAKE 1 TABLET BY MOUT H DAILY 02/26/2015 10/20/2015 In active Generic For:SYNTHROID 50MCG TAB 015 2:41:48 PM N O T I C E PRESCRIPTION PREVIOUSLY AUTHORIZED BY DOCTOR:RUFINO LIAO Lipitor 10 mg tablet RxNorm: 395388 1 Tablet(s) PO daily 02/26/2015 06/25/2015 Inactive omeprazole 40 mg cap betty,delayed release RxNorm: 091494 1 Capsule(s) PO 01/01/2015 04/26/2015 In active [SAVINGS FOR NON-COVERED DRUGS -- BIN:00 3585, PCN: ASPROD1, Group: XXXXX, ID# XXXXXXX, Questions: . THIS IS NOT INSURANCE.] triamterene 37.5 mg- hydrochlorothiazide 25 mg tablet RxNorm: 995105 1 Tablet(s) PO daily 12/02/2014 03/29/2015 Inactive [SAVINGS FOR NON-COVERED DR UGS -- BIN:[id number], PCN: ASPROD1, Group: XXXXX, ID# XXXXXXX, Questions: . THIS IS NOT INSURANCE.] metformin 500 mg tablet RxNorm: 384470 1 Tablet(s) PO BID TAKE 1 TABLET BY MOUT H TWICE DAILY 10/29/2014 06/25/2015 Inactive Generic For:GLUCOPHAGE 500M G 10/29/2014 9:02:36 AM metformin 500 mg tablet RxNorm: 601128 1 Tablet(s) PO BID 10/29/2014 10/29/2014 Inactive Lipitor 10 mg tablet RxNorm: 530158 1 Tablet(s) PO daily 10/27/2014 10/26/2014 Inactive Lipitor 10 mg tablet RxNorm: 992313 1 Tablet(s) PO daily 10/27/2014 02/23/2015 Inactive omeprazole 40 mg cap betty,delayed release RxNorm: 446885 1 Capsule(s) PO 09/02/2014 12/30/2014 In active [SAVINGS FOR NON-COVERED DRUGS -- BIN:00 3585, PCN: ASPROD1, Group: XXXXX, ID# XXXXXXX, Questions: . THIS IS NOT INSURANCE.] omeprazole 40 mg cap betty,delayed release RxNorm: 551330 1 Capsule(s) PO 09/02/2014 09/01/2014 In active triamterene 37.5 mg- hydrochlorothiazide 25 mg tablet RxNorm: 803223 1 Tablet(s) PO daily 08/27/2014 08/26/2014 Inactive triamterene 37.5 mg- hydrochlorothiazide 25 mg tablet RxNorm: 086607 1 Tablet(s) PO daily 08/27/2014 12/01/2014 Inactive [SAVINGS FOR NON-COVERED DR UGS -- BIN:807096, PCN: ASPROD1, Group: XXXXX, ID# XXXXXXX, Questions: . THIS IS NOT INSURANCE.] Multi Vitamin oral RxNorm: oral No Start Date Active Aspirin Low Dose 81 mg tablet,delayed release RxNorm: 943044 1 Tablet(s) PO daily No Start Date Active estradiol 2 mg tablet RxNorm: 028743 1 Tablet(s) PO daily No Start Date Active Vitamin D (with calc ium) oral RxNorm: 2418 oral No Sta rt Date Active medroxyprogesterone 5 mg tablet RxNorm: 8070617 1 Tablet(s) PO daily No Start Date Active meloxicam 15 mg tablet RxNorm: 900730 1 Tablet(s) PO daily No Start Date 02/06/2018 Inactive metformin 500 mg tablet RxNorm: 755925 1 Tablet(s) PO daily No Start Date 10/28/2014 Inactive Osteo Bi-Flex oral RxNorm: 6700329 oral No Start Date 02/15/2017 Inactive levothyroxine 50 mcg tablet RxNorm: 922195 1 Tablet(s) PO daily No Start Date [...] Item Item Code Result Date Free T4 Wxs405 FREE T4 1.09 ng/dL 05/18/2018 Lipid Ord30 [...] 31.2 pg 05/18/2018 Cbc With Differential Ord2 Moca% 9.2 % 05/18/2018 Cbc With Differential Ord2 [...] 2.00 K/ul 05/18/2018 Cbc With Differential Ord2 Moca ABS# 0.6 K/ul 05/18/2018 Cbc With Differential Ord2 Eos ABS# 0.2 K/ul 05/18/2018 Cbc With Differential Ord2 Baso ABS# 0.0 K/ul 05/18/2018 %Hba1C Lsw472 % HbA1c 97000-8 6.1 % 05/18/2018 %Hba1C Hml033 Gluc Ave 128 mg/dL 05/18/2018 Comp Metabolic Mtj325 NA 139 mEq/L 05/18/2018 Comp Metabolic Hii232 K 3.8 mEq/L 05/18/2018 Comp Metabolic Lok222 CL 100 mEq/L 05/18/2018 Comp Metabolic Aoe741 CO2 29.0 mEq/L 05/18/2018 Comp Metabolic Hqt286 AN ION GAP 14 05/18/2018 Comp Metabolic Qsy562 GL UCOSE 100 mg/dL 05/18/2018 Comp Metabolic Vwu763 Cr eat 1.2 mg/dL 05/18/2018 Comp Metabolic Djd023 eG FR 49 ml/min/1.73m2 05/18 Comp Metabolic Zwc587 BUN 17 mg/dL 05/18/2018 Comp Metabolic Oru677 B/ C Ratio 14.5 Ratio 05/18/2018 Comp Metabolic Oad721 CA LCIUM 10.0 mg/dL 05/18/2018 Comp Metabolic Amw105 AL K PHOS 75 U/L 05/18/2018 Comp Metabolic Kbr357 T(SGOT) 16 U/L 05/18/2018 Comp Metabolic Mqx046 AL T(SGPT) 15 U/L 05/18/2018 Comp Metabolic Jnt789 BI LI T 0.7 mg/dL 05/18/2018 Comp Metabolic Cqs026 AL BUMIN 4.4 g/dL 05/18/2018 Comp Metabolic Mxn924 TP RO 6.8 g/dL 05/18/2018 Comp Metabolic Ewv095 GL OB 2.4 g/dL 05/18/2018 Comp Metabolic Unb154 A/ G Ratio 1.8 Ratio 05/18/2018 Comp Metabolic Fhp168 Os mo 279 mOsmo 05/18/2018 Comp Metabolic Mgf160 NA 138 mEq/L 09/14/2017 Comp Metabolic Iqj590 K 3.8 mEq/L 09/14/2017 Comp Metabolic Gur640 CL 101 mEq/L 09/14/2017 Comp Metabolic Rph921 CO2 26.0 mEq/L 09/14/2017 Comp Metabolic Xjm074 AN ION GAP 15 09/14/2017 Comp Metabolic Mkc604 GL UCOSE 120 mg/dL 09/14/2017 Comp Metabolic Quc401 Cr eat 1.0 mg/dL 09/14/2017 Comp Metabolic Kcx779 eG FR 61 ml/min/1.73m2 09/14 Comp Metabolic Snx536 BUN 18 mg/dL 09/14/2017 Comp Metabolic Hyo871 B/ C Ratio 18.6 Ratio 09/14/2017 Comp Metabolic Zua042 CA LCIUM 9.7 mg/dL 09/14/2017 Comp Metabolic Srf432 AL K PHOS 63 U/L 09/14/2017 Comp Metabolic Pun115 T(SGOT) 18 U/L 09/14/2017 Comp Metabolic Mxm986 AL T(SGPT) 20 U/L 09/14/2017 Comp Metabolic Osd612 BI LI T 0.5 mg/dL 09/14/2017 Comp Metabolic Agl658 AL BUMIN 4.3 g/dL 09/14/2017 Comp Metabolic Uwz461 TP RO 6.7 g/dL 09/14/2017 Comp Metabolic Hlt207 GL OB 2.4 g/dL 09/14/2017 Comp Metabolic Hdb645 A/ G Ratio 1.8 Ratio 09/14/2017 Comp Metabolic Wnh074 Os mo 279 mOsmo 09/14/2017 Lipid Ord30 CHOL 180 mg/dL 09/14/2017 Lipid Ord30 HDL 53.0 mg/dl 09/14/2017 Lipid Ord30 TRIG 126 mg/dL 09/14/2017 Lipid Ord30 LDL 102 mg/dL 09/14/2017 Lipid Ord30 C/HDL 3.4 Ratio 09/14/2017 Microalbumin Oyj972 Micr oAlb <0.7 mg/dL 09/14/2017 %Hba1C Rzx480 % HbA1c 33244-6 6.0 % 09/14/2017 %Hba1C Pan096 Gluc Ave 126 mg/dL 09/14/2017 Free T4 Ghk670 FREE T4 0.98 ng/dL 09/14/2017 Cbc With [...] 31.3 pg 09/14/2017 Cbc With Differential Ord2 Moca% 9.4 % 09/14/2017 Cbc With Differential Ord2 [...] 1.94 K/ul 09/14/2017 Cbc With Differential Ord2 Moca ABS# 0.7 K/ul 09/14/2017 Cbc With Differential Ord2 Eos ABS# 0.2 K/ul 09/14/2017 Cbc With Differential Ord2 Baso ABS# 0.0 K/ul 09/14/2017 Tsh Ord6 TSH (3rd IS) 2.64 uIU/mL 09/14/2017 Comp Metabolic Dmx553 NA 138 mEq/L 05/23/2016 Comp Metabolic Dra874 K 4.0 mEq/L 05/23/2016 Comp Metabolic Dph005 CL 105 mEq/L 05/23/2016 Comp Metabolic Juu952 CO2 25.0 mEq/L 05/23/2016 Comp Metabolic Exg165 AN ION GAP 12 05/23/2016 Comp Metabolic Kba235 GL UCOSE 89 mg/dL 05/23/2016 Comp Metabolic Qix814 Cr eat 1.0 mg/dL 05/23/2016 Comp Metabolic Wvz288 eG FR 63 ml/min/1.73m2 05/23 Comp Metabolic Jmh539 BUN 18 mg/dL 05/23/2016 Comp Metabolic Oxt274 B/ C Ratio 18.9 Ratio 05/23/2016 Comp Metabolic Tkg186 CA LCIUM 9.1 mg/dL 05/23/2016 Comp Metabolic Bln109 AL K PHOS 67 U/L 05/23/2016 Comp Metabolic Jai105 T(SGOT) 26 U/L 05/23/2016 Comp Metabolic Sdr069 AL T(SGPT) 39 U/L 05/23/2016 Comp Metabolic Fzk031 BI LI T 0.5 mg/dL 05/23/2016 Comp Metabolic Yed579 AL BUMIN 3.9 g/dL 05/23/2016 Comp Metabolic Wmj572 TP RO 5.9 g/dL 05/23/2016 Comp Metabolic Umt155 GL OB 2.0 g/dL 05/23/2016 Comp Metabolic Mox853 A/ G Ratio 2.0 Ratio 05/23/2016 Comp Metabolic Ivi467 Os mo 277 mOsmo 05/23/2016 Cbc With [...] 30.5 pg 05/23/2016 Cbc With Differential Ord2 Moca% 10.0 % 05/23/2016 Cbc With Differential Ord2 [...] 1.68 K/ul 05/23/2016 Cbc With Differential Ord2 Moca ABS# 0.7 K/ul 05/23/2016 Cbc With Differential Ord2 Eos ABS# 0.1 K/ul 05/23/2016 Cbc With Differential Ord2 Baso ABS# 0.0 K/ul 05/23/2016 B Type Natriuretic Peptide Onx3082 B-SYSTEMS MECHANIC 340.00 pg/ml 7 Lipid Ord30 CHOL 117 [...] 31.8 pg 07/07/2015 Cbc With Differential Ord2 Moca% 11.3 % 07/07/2015 Cbc With Differential Ord2 [...] 1.53 K/ul 07/07/2015 Cbc With Differential Ord2 Moca ABS# 0.6 K/ul 07/07/2015 Cbc With Differential Ord2 Eos ABS# 0.2 K/ul 07/07/2015 Cbc With Differential Ord2 Baso ABS# 0.0 K/ul 07/07/2015 Cbc With Differential Ord2 New Analyzer Notice Please note new ref ranges s tarting 05-13-2015 due to implemntation of new five part differential hematolgy analyzer. 07/07/2015 Free T4 Wlo240 FREE T4 1.17 ng/dL 07/07/2015 Comp Metabolic Gva446 NA 137 mEq/L 07/07/2015 Comp Metabolic Tof078 K 4.0 mEq/L 07/07/2015 Comp Metabolic Wti843 CL 100 mEq/L 07/07/2015 Comp Metabolic Bzh420 CO2 29.0 mEq/L 07/07/2015 Comp Metabolic Ngg995 AN ION GAP 12 07/07/2015 Comp Metabolic Jyf090 GL UCOSE 98 mg/dL 07/07/2015 Comp Metabolic Jgl079 Cr eat 1.0 mg/dL 07/07/2015 Comp Metabolic Kwd855 eG FR 62 ml/min/1.73m2 07/06 Comp Metabolic Emm466 BUN 16 mg/dL 07/07/2015 Comp Metabolic Hzz494 B/ C Ratio 16.5 Ratio 07/07/2015 Comp Metabolic Qea841 CA LCIUM 9.5 mg/dL 07/07/2015 Comp Metabolic Ekd785 AL K PHOS 47 U/L 07/07/2015 Comp Metabolic Fia547 T(SGOT) 18 U/L 07/07/2015 Comp Metabolic Oex419 AL T(SGPT) 22 U/L 07/07/2015 Comp Metabolic Ktj237 BI LI T 0.5 mg/dL 07/07/2015 Comp Metabolic Xfh852 AL BUMIN 4.2 g/dL 07/07/2015 Comp Metabolic Spq705 TP RO 6.5 g/dL 07/07/2015 Comp Metabolic Cql085 GL OB 2.3 g/dL 07/07/2015 Comp Metabolic Zog938 A/ G Ratio 1.8 Ratio 07/07/2015 Comp Metabolic Ufu098 Os mo 275 mOsmo 07/07/2015 %Hba1C Fny209 % HbA1c 39422-5 5.7 % 07/07/2015 %Hba1C Azp291 Gluc Ave 117 mg/dL 07/07/2015 Tsh Ord6 [...] 1: 128/76 Code: 8480-6 BMI: 34.4 Code: 50129-6 Heart Rate 1: 67 bpm Height: 5'3" SpO2: 97% Temperature: 37.0 (C ) / 98.6 (F) Weight: 194 lbs 09/13/2017 Blood Pressure 1: 140/78 Code: 8480-6 BMI: 35.4 Code: 27072-6 Heart Rate 1: 71 bpm Height: 5'3" SpO2: 97% Weight: 200 lbs 02/16/2017 Blood Pressure 1: 138/76 Code: 8480-6 BMI: 34.4 Code: 45323-9 Heart Rate 1: 66 bpm Height: 5'3" SpO2: 99% Weight: 194 lbs 09/08/2016 Blood Pressure 1: 138/86 Code: 8480-6 BMI: 32.2 Code: 87796-7 Heart Rate 1: 69 bpm Height: 5'3" SpO2: 99% Weight: 182 lbs 05/23/2016 Blood Pressure 1: 126/70 Code: 8480-6 BMI: 30.8 Code: 13539-3 Heart Rate 1: 63 bpm Height: 5'3" SpO2: 98% Weight: 174 lbs 01/12/2016 Blood Pressure 1: 140/72 Code: 8480-6 BMI: 29.8 Code: 24780-0 Heart Rate 1: 82 bpm Height: 5'3" SpO2: 97% Weight: 168 lbs 12/14/2015 Blood Pressure 1: 132/78 Code: 8480-6 BMI: 31.5 Code: 67643-4 Heart Rate 1: 71 bpm Height: 5'3" SpO2: 98% Weight: 178 lbs 07/09/2015 Blood Pressure 1: 128/80 Code: 8480-6 BMI: 30.6 Code: 45974-2 Heart Rate 1: 71 bpm Height: 5'3" SpO2: 99% Weight: 173 lbs 10/09/2014 Blood Pressure 1: 120/70 Code: 8480-6 BMI: 29.1 Code: 46088-9 Heart Rate 1: 68 bpm Height: 5'3" [...] mellitus Quality chronic 09/13/2017 None hypothyroid 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 P ATIENT, LEVEL IV Diagnosis: Essential (primary) hypertension[ICD10: I10] Diagnosis: Acute upper respiratory infection, unspecified[ICD10: J06.9] Diagnosis: Mixed hyperlipidemia[ICD10: E78.2] Diagnosis: Hypothyroidism, unspecified[ICD10: E03.9] Diagnosis: Type 2 diabetes mellitus without complications[ICD10: E11.9] Asha Ballard MD, [facility] CPT-4: 76420 05/18/2018 [id number]) [id number] EST. P ATIENT, LEVEL IV Diagnosis: Type 2 diabetes mellitus without complications[ICD10: E11.9] Diagnosis: Essential (primary) hypertension[ICD10: I10] Diagnosis: Other obesity due to excess calories[ICD10: E66.09] Katty Ballard MD, [facility] CPT-4: 70856 09/13/2017 [id number]) [id number] EST. P ATIENT, LEVEL IV Diagnosis: Type 2 diabetes mellitus without complications[ICD10: E11.9] Diagnosis: Essential (primary) hypertension[ICD10: I10] Diagnosis: Other acute sinusitis[ICD10: J01.80] Diagnosis: Other obesity due to excess calories[ICD10: E66.09] Asha Ballard MD, [facility] CPT-4: 15947 02/16/2017 [id number]) 14790 EST. P ATIENT, LEVEL IV Diagnosis: Type 2 diabetes mellitus without complications[ICD10: E11.9] Diagnosis: Essential (primary) hypertension[ICD10: I10] Diagnosis: Pain in right knee[ICD10: M25.561] Diagnosis: Pain in left knee[ICD10: M25.562] Katty Ballard MD, [facility] CPT-4: 32917 09/08/2016 [id number] EST. PATIENT, LEVEL IV Diagnosis: Localized edema[ICD10: R60.0] Diagnosis: Shortness of breath[ICD10: R06.02] Salma Ballard MD, [facility] CPT-4: 95605 05/23/2016 ([id number]) 97330 EST. P ATIENT, LEVEL IV Diagnosis: Type 2 diabetes mellitus without complications[ICD10: E11.9] Diagnosis: Essential (primary) hypertension[ICD10: I10] Diagnosis: Chronic idiopathic constipation[ICD10: K59.04] Katty Ballard MD, [facility] CPT-4: 68893 01/12/2016 92335 EST. PATIENT, LEVEL IV Diagnosis: Other acute sinusitis[ICD10: J01.80] Diagnosis: Other allergic rhinitis[ICD10: J30.89] Salma Ballard MD, [facility] CPT-4: 35123 12/14/2015 ([id number]) [id number] EST. P ATIENT, LEVEL IV Diagnosis: Essential (primary) hypertension[ICD10: I10] Diagnosis: Type 2 diabetes mellitus without complications[ICD10: E11.9] Diagnosis: Pain in right knee[ICD10: M25.561] Diagnosis: Pain in left knee[ICD10: M25.562] Asha Ballard MD, [facility] CPT- 4: 04799 07/09/2015 ([id number]) OFFICE VISI T, [facility] - LEVEL 4 Diagnosis: ESSENTIAL HYPERTENSION[ICD9: 401.9] Diagnosis: DIABETES TYPE II[ICD9: 250.00] Diagnosis: HYPERLIPIDEMIA[ICD9: 272.4] Diagnosis: HYPOTHYROIDISM[ICD9: 244.9] Katty Ballard MD, [facility] CPT-4: 41566 10/09/2014 Plan of Care Planned Activity Notes [...] - she would like a referral to [facility] for diabetic education. Knee pain - post operative still with swelling - continue with current management. 09/13/2017 App[facility]ment[id number] ([facility] min) Moderate 09/13/2017 Patient Education: Patient [...] check. 02/16/2017 [phone] [phone] [place] (15 min) Moderate 02/16/2017 Patient [...] to pharmacy 09/08/2016 Appointment: Katty Ballard WPtel: [phone] [facility] (15 min) Moderate 09/08/2016 Patient Education: Patient [...] peripheral edema. 05/23/2016 Appointment: Salma Garay WPtel[facility] (30 min) Complex 05/23/2016 Patient Education: Patient Medication Summary Completed 05/23/2016 Patient Education: Obesity Completed 05/23/2016 Appointment: [phone] [facility] [place] (15 min) Moderate 01/13/2016 Visit Plan: [...] not improving. 10/09/2014 Appointment: Katty Ballard WPtel[facility] [place] [facility] New Patient 10/09/2014 Patient Education: Patient Medication Summary Completed 10/09/2014 Patient Education: Hypertension Completed 10/09/2014 Care Plan: MICROALBUMIN QUANTITATIVE LOINC : 20149-9 Ordered 10/09/2014 Care Plan: COMPLETE CBC AUTOMATED LOINC : 25882-9 Ordered 10/09/2014 Instructions Comment . Sinusitis - [...] - she would like a referral to [facility] for diabetic education. Knee pain [...]
--- OUTSIDE RECORDS SUMMARY | 2019-12-03 12:49 | XMS REPORT | CCD ---
Author Author Danni Ballard Organization Katty Ballard MD, [facility] Address [address] [place] [address] Phone Care Team Providers Care Sloop Captain Name Role Phone PP Unavailable CCM Unavailable Summary Purpose Interface Exchange Insurance Providers Payer name Policy type / Coverage type Covered constitution party ID Effective Begin Date Effective End Date WPS Medicare Part B Medicare Part B [id number] 2018 Unknown [employer] Medicare Part B [id number] 2018 Unknown Family history Father Diagnosis Age At Onset Cancer Unknown Mother Diagnosis Age At Onset Diabetes mellitus Type 2 Unknown Stroke Unknown Hypertension Unknown Arthritis Unknown Osteoporosis Unknown kidney disease Unknown Coronary Artery Disease Unknown Social History Social History Element Codes Description Effective Dates Marital status Unknown M chiki Peter 10/09/2014 Number of children Unknown 2 10/09/[address]: 5902812 Quit over 10 years ago 10/09/[address]: 419665541 Never drinks alcohol 10/09/2014 Allergies, Adverse Reactions, [...] Date Stop Date Sta tus Fill Instructions Zithromax Z-Taj 250 mg tablet RxNorm: 082991 1 Tablet(s) PO UD 05/18/2018 05/22/2018 Active metformin 500 mg tablet RxNorm: 042133 TAKE 1 TABLET BY MOUTH ONCE DAILY 02/07/2018 07/06/2018 Ac tive Generic For:GLUCOPHAGE 500MG 02/07/2018 9:07:34 AM levothyroxine 50 mcg tablet RxNorm: 797143 TAKE 1 TABLET BY MOUT H DAILY 02/07/2018 06/06/2018 Ac tive Generic For:SYNTHROID 50MCG TAB 018 9:07:42 AM meloxicam 15 mg tablet RxNorm: 614480 TAKE 1 TABLET BY MOUTH ONCE DAILY 02/07/2018 07/06/2018 Ac tive Generic For:MOBIC 15MG 02/07/2018 9:07: 30 AM omeprazole 40 mg cap betty,delayed release RxNorm: 254345 TAKE 1 CAPSULE BY MACKENZIE TH DAILY 02/07/2018 07/06/2018 Ac tive Generic For:PRILOSEC 40MG 02/07/2018 9: 07:37 AM Lipitor 10 mg tablet RxNorm: 260698 TAKE 1 TABLET BY MOUTH DAILY 11/09/2017 06/06/2018 Active Generic For:LIPITOR 10MG 11/09/2017 9:0 1:12 AM triamterene 37.5 mg- hydrochlorothiazide 25 mg tablet RxNorm: 195005 TAKE 1 TABLET BY MOUTH ONCE DAILY 11/09/2017 06/06/2018 Active 11/09/2017 9:01:09 AM levothyroxine 50 mcg tablet RxNorm: 291902 TAKE 1 TABLET BY MOUT H DAILY 10/10/2017 02/06/2018 In active Generic For:SYNTHROID 50MCG TAB 018 8:57:50 AM omeprazole 40 mg cap betty,delayed release RxNorm: 418575 TAKE 1 CAPSULE BY MACKENZIE TH DAILY 10/10/2017 02/06/2018 Inactive Generic For:PRILOSEC 40MG 10/10/2017 8: 57:46 AM Voltaren 1 % topical gel RxNorm: 603236 4 Gram(s) TOP QID - a pply 4 times daily to bilateral knees 09/13/2017 11/11/2017 Inactive levothyroxine 50 mcg tablet RxNorm: 715529 TAKE 1 TABLET BY MOUT H DAILY 09/11/2017 10/09/2017 In active Generic For:SYNTHROID 50MCG TAB 018 9:04:26 AM metformin 500 mg tablet RxNorm: 279902 TAKE 1 TABLET BY MOUTH ONCE DAILY 08/11/2017 02/06/2018 In active Generic For:GLUCOPHAGE 500MG 08/11/2017 8:56:05 AM meloxicam 15 mg tablet RxNorm: 126832 TAKE 1 TABLET BY MOUTH ONCE DAILY 08/11/2017 02/06/2018 In active Generic For:MOBIC 15MG 08/11/2017 8:56: 02 AM omeprazole 40 mg cap betty,delayed release RxNorm: 338322 TAKE 1 CAPSULE BY MACKENZIE TH DAILY 06/12/2017 10/09/2017 Inactive Generic For:PRILOSEC 40MG 06/12/2017 8: 56:49 AM Lipitor 10 mg tablet RxNorm: 836109 TAKE 1 TABLET BY MOUTH DAILY 2017 11/08/2017 Inactive Generic For:LIPITOR 10MG 2017 9:0 4:16 AM triamterene 37.5 mg- hydrochlorothiazide 25 mg tablet RxNorm: 978159 TAKE 1 TABLET BY MOUTH ONCE DAILY 2017 04/12/2017 Inactive 2017 9:04:19 AM triamterene 37.5 mg- hydrochlorothiazide 25 mg tablet RxNorm: 255935 TAKE 1 TABLET BY MOUTH ONCE DAILY 2017 10/09/2017 Inactive 2017 9:04:19 AM metformin 500 mg tablet RxNorm: 877767 TAKE 1 TABLET BY MOUTH ONCE DAILY 03/14/2017 08/10/2017 In active Generic For:GLUCOPHAGE 500MG 03/14/2017 9:16:18 AM levothyroxine 50 mcg tablet RxNorm: 189043 TAKE 1 TABLET BY MOUT H DAILY 03/14/2017 09/09/2017 In active Generic For:SYNTHROID 50MCG TAB 017 9:16:23 AM Zithromax Z-Taj 250 mg tablet RxNorm: 013417 1 Tablet(s) PO daily 02/16/2017 02/20/2017 Inactive omeprazole 40 mg cap betty,delayed release RxNorm: 375049 TAKE 1 CAPSULE BY MACKENZIE TH DAILY 02/13/2017 06/11/2017 Inactive Generic For:PRILOSEC 40MG 02/13/2017 8: 55:14 AM meloxicam 15 mg tablet RxNorm: 005861 TAKE 1 TABLET BY MOUTH ONCE DAILY 02/13/2017 08/10/2017 In active Generic For:MOBIC 15MG 02/13/2017 8:55: 10 AM levothyroxine 50 mcg tablet RxNorm: 650275 TAKE 1 TABLET BY MOUT H DAILY-- NEED TO GET LABS CHECKED FOR FURTHER REFILLS 01/05/2017 03/05/2017 Inactive Generic For:SYNTHROID 50MCG TAB 01/05/2017 4:36:06 PM levothyroxine 50 mcg tablet RxNorm: 817308 TAKE 1 TABLET BY MOUT H DAILY 12/14/2016 01/04/2017 In active Generic For:SYNTHROID 50MCG TAB 017 9:02:20 AM triamterene 37.5 mg- hydrochlorothiazide 25 mg tablet RxNorm: 800522 TAKE 1 TABLET BY MOUTH ONCE DAILY 11/14/2016 04/12/2017 Inactive 11/14/2016 9:13:26 AM metformin 500 mg tablet RxNorm: 337054 1 Tablet(s) PO daily 10/17/2016 03/13/2017 Inactive Generic For:GLUCOPHAGE 500MG 10/29/2014 9:02:36 AM omeprazole 40 mg cap betty,delayed release RxNorm: 456445 TAKE 1 CAPSULE BY MACKENZIE TH DAILY 10/17/2016 02/12/2017 Inactive Generic For:PRILOSEC 40MG 10/15/2016 8: 56:40 AM meloxicam 15 mg tablet RxNorm: 626811 1 Tablet(s) PO daily TAKE 1 TABLET BY MO UTH ONCE DAILY 09/19/2016 02/12/2017 Inactive Generic For:MOBIC 15MG 9:09:45 AM levothyroxine 50 mcg tablet RxNorm: 292595 TAKE 1 TABLET BY MOUT H DAILY 09/16/2016 12/13/2016 In active Generic For:SYNTHROID 50MCG TAB 017 10:22:07 AM 09/15/2016 9:01:47 AM Lipitor 10 mg tablet RxNorm: 948864 TAKE 1 TABLET BY MOUTH DAILY 09/16/2016 04/12/2017 Inactive Generic For:LIPITOR 10MG 09/16/2016 10: 22:13 AM 09/15/2016 9:01:42 AM LongaccessTouch Ultra Test strips RxNorm: 1 Miscellaneous daily 09/08/2016 09/02/2017 Inactive Voltaren 1 % topical gel RxNorm: 976018 2 Gram(s) TOP QID 09/08/2016 11/06/2016 Inactive meloxicam 15 mg tablet RxNorm: 395641 TAKE 1 TABLET BY MOUTH ONCE DAILY 08/16/2016 09/18/2016 In active Generic For:MOBIC 15MG 08/16/2016 9:09: 45 AM triamterene 37.5 mg- hydrochlorothiazide 25 mg tablet RxNorm: 819332 TAKE 1 TABLET BY MOUTH ONCE DAILY 07/18/2016 11/13/2016 Inactive 07/18/2016 8:57:50 AM omeprazole 40 mg cap betty,delayed release RxNorm: 402456 TAKE 1 CAPSULE BY MACKENZIE TH DAILY 06/17/2016 10/14/2016 Inactive Generic For:PRILOSEC 40MG 06/17/2016 9: 30:36 AM levothyroxine 50 mcg tablet RxNorm: 477576 TAKE 1 TABLET BY MOUT H DAILY 06/17/2016 09/14/2016 In active Generic For:SYNTHROID 50MCG TAB 017 9:10:49 AM metformin 500 mg tablet RxNorm: 940799 1 Tablet(s) PO daily 05/24/2016 10/16/2016 Inactive Generic For:GLUCOPHAGE 500MG 10/29/2014 9:02:36 AM Lasix 20 mg tablet RxNorm: 807113 1 Tablet(s) PO daily 05/24/2016 05/26/2016 Inactive metformin 500 mg tablet RxNorm: 848569 1 Tablet(s) PO daily 05/23/2016 05/23/2016 Inactive Generic For:GLUCOPHAGE 500MG 10/29/2014 9:02:36 AM Lasix 20 mg tablet RxNorm: 045339 1 Tablet(s) PO daily 05/23/2016 05/23/2016 Inactive potassium chloride E R 10 mEq tablet,extended release RxNorm: 410022 1 Tablet(s) PO daily 05/23/2016 05/25/2016 Inactive meloxicam 15 mg tablet RxNorm: 710149 1 Tablet(s) PO daily 04/18/2016 08/15/2016 Inactive Lipitor 10 mg tablet RxNorm: 012527 TAKE 1 TABLET BY MOUTH DAILY 04/18/2016 08/15/2016 Inactive Generic For:LIPITOR 10MG 04/18/2016 9:1 5:59 AM triamterene 37.5 mg- hydrochlorothiazide 25 mg tablet RxNorm: 783294 TAKE 1 TABLET BY MOUTH ONCE DAILY 03/21/2016 07/17/2016 Inactive 03/19/2016 9:02:10 AM levothyroxine 50 mcg tablet RxNorm: 379537 TAKE 1 TABLET BY MOUT H DAILY 02/18/2016 06/16/2016 In active Generic For:SYNTHROID 50MCG TAB 016 9:03:15 AM omeprazole 40 mg cap betty,delayed release RxNorm: 751371 TAKE 1 CAPSULE BY MACKENZIE TH DAILY 02/18/2016 06/16/2016 Inactive Generic For:PRILOSEC 40MG 02/18/2016 9: 03:12 AM Movantik 25 mg tablet RxNorm: 9693629 1 Tablet(s) PO QAM with breakfast or sean ch 01/12/2016 09/07/2016 In active Flonase Allergy Reli ef 50 mcg/actuation nasal spray,suspension RxNorm: 4495785 1 [place]oll NASAL BID 12/14/2015 09/07/2016 Inactive Zithromax Z-Taj 250 mg tablet RxNorm: 323652 Tablet(s) PO UD 12/14/2015 01/11/2016 Inactive Lipitor 10 mg tablet RxNorm: 779650 TAKE 1 TABLET BY MOUTH DAILY 11/20/2015 04/17/2016 Inactive Generic For:LIPITOR 10MG 11/20/2015 9:1 1:10 AM triamterene 37.5 mg- hydrochlorothiazide 25 mg tablet RxNorm: 644681 TAKE 1 TABLET BY MOUTH ONCE DAILY 11/19/2015 03/17/2016 Inactive 11/18/2015 9:06:12 AM meloxicam 15 mg tablet RxNorm: 038552 1 Tablet(s) PO daily 10/21/2015 04/17/2016 Inactive levothyroxine 50 mcg tablet RxNorm: 839037 TAKE 1 TABLET BY MOUT H DAILY 10/21/2015 02/17/2016 In active Generic For:SYNTHROID 50MCG TAB 016 9:06:41 AM omeprazole 40 mg cap betty,delayed release RxNorm: 402587 TAKE 1 CAPSULE BY MACKENZIE TH DAILY 10/21/2015 02/17/2016 Inactive Generic For:PRILOSEC 40MG 10/21/2015 9: 06:53 AM triamterene 37.5 mg- hydrochlorothiazide 25 mg tablet RxNorm: 964441 Tablet(s) 1 Tablet(s) PO daily 07/23/2015 11/18/2015 Inactive [SAVINGS FOR NON-COVERED DR BARRIENTOS -- BIN:[id number], PCN: ASPROD1, Group: XXXXX, ID# XXXXXXX, Questions: . THIS IS NOT INSURANCE.] metformin 500 mg tablet RxNorm: 889469 1 Tablet(s) PO daily 07/10/2015 12/06/2015 Inactive Generic For:GLUCOPHAGE 500MG 10/29/2014 9:02:36 AM Voltaren 1 % topical gel RxNorm: 918210 4 Gram(s) TOP QID 07/09/2015 09/07/2016 Inactive bilateral knees metformin 500 mg tablet RxNorm: 688849 1 Tablet(s) PO daily TAKE 1 TABLET BY MO UTH TWICE DAILY 07/09/2015 07/09/2015 Inactive Generic For:GLUCOPHAGE 500M G 10/29/2014 9:02:36 AM Lipitor 10 mg tablet RxNorm: 056961 1 Tablet(s) PO daily 06/26/2015 11/19/2015 Inactive metformin 500 mg tablet RxNorm: 163567 1 Tablet(s) PO BID TAKE 1 TABLET BY MOUT H TWICE DAILY 06/26/2015 07/08/2015 Inactive Generic For:GLUCOPHAGE 500M G 10/29/2014 9:02:36 AM omeprazole 40 mg cap betty,delayed release RxNorm: 474769 TAKE 1 CAPSULE BY MACKENZIE TH DAILY 04/27/2015 10/20/2015 Inactive Generic For:PRILOSEC 40MG meloxicam 15 mg tablet RxNorm: 841617 1 Tablet(s) PO daily 03/30/2015 10/20/2015 Inactive triamterene 37.5 mg- hydrochlorothiazide 25 mg tablet RxNorm: 023658 Tablet(s) 1 Tablet(s) PO daily 03/30/2015 07/22/2015 Inactive [SAVINGS FOR NON-COVERED DR BARRIENTOS -- BIN:139004, PCN: ASPROD1, Group: XXXXX, ID# XXXXXXX, Questions: . THIS IS NOT INSURANCE.] metformin 500 mg tablet RxNorm: 254277 1 Tablet(s) PO BID 02/26/2015 06/25/2015 Inactive levothyroxine 50 mcg tablet RxNorm: 506811 TAKE 1 TABLET BY MOUT H DAILY 02/26/2015 10/20/2015 In active Generic For:SYNTHROID 50MCG TAB 015 2:41:48 PM N O T I C E PRESCRIPTION PREVIOUSLY AUTHORIZED BY DOCTOR:RUFINO LIAO Lipitor 10 mg tablet RxNorm: 287200 1 Tablet(s) PO daily 02/26/2015 06/25/2015 Inactive omeprazole 40 mg cap betty,delayed release RxNorm: 875455 1 Capsule(s) PO 01/01/2015 04/26/2015 In active [SAVINGS FOR NON-COVERED DRUGS -- BIN: 3585, PCN: ASPROD1, Group: XXXXX, ID# XXXXXXX, Questions: . THIS IS NOT INSURANCE.] triamterene 37.5 mg- hydrochlorothiazide 25 mg tablet RxNorm: 004646 1 Tablet(s) PO daily 12/02/2014 03/29/2015 Inactive [SAVINGS FOR NON-COVERED DR UGS -- BIN:046168, PCN: ASPROD1, Group: XXXXX, ID# XXXXXXX, Questions: . THIS IS NOT INSURANCE.] metformin 500 mg tablet RxNorm: 297742 1 Tablet(s) PO BID TAKE 1 TABLET BY MOUT H TWICE DAILY 10/29/2014 06/25/2015 Inactive Generic For:GLUCOPHAGE 500M G 10/29/2014 9:02:36 AM metformin 500 mg tablet RxNorm: 302105 1 Tablet(s) PO BID 10/29/2014 10/29/2014 Inactive Lipitor 10 mg tablet RxNorm: 708051 1 Tablet(s) PO daily 10/27/2014 10/26/2014 Inactive Lipitor 10 mg tablet RxNorm: 143276 1 Tablet(s) PO daily 10/27/2014 02/23/2015 Inactive omeprazole 40 mg cap betty,delayed release RxNorm: 365496 1 Capsule(s) PO 09/02/2014 12/30/2014 In active [SAVINGS FOR NON-COVERED DRUGS -- BIN: 3585, PCN: ASPROD1, Group: XXXXX, ID# XXXXXXX, Questions: . THIS IS NOT INSURANCE.] omeprazole 40 mg cap betty,delayed release RxNorm: 608396 1 Capsule(s) PO 09/02/2014 09/01/2014 In active triamterene 37.5 mg- hydrochlorothiazide 25 mg tablet RxNorm: 588812 1 Tablet(s) PO daily 08/27/2014 08/26/2014 Inactive triamterene 37.5 mg- hydrochlorothiazide 25 mg tablet RxNorm: 276560 1 Tablet(s) PO daily 08/27/2014 12/01/2014 Inactive [SAVINGS FOR NON-COVERED DR BARRIENTOS -- [facility]:[id number], PCN: ASPROD1, Group: XXXXX, ID# XXXXXXX, Questions: . THIS IS NOT INSURANCE.] Multi Vitamin oral RxNorm: oral No Start Date Active Aspirin Low Dose 81 mg tablet,delayed release RxNorm: 102432 1 Tablet(s) PO daily No Start Date Active estradiol 2 mg tablet RxNorm: 680892 1 Tablet(s) PO daily No Start Date Active Vitamin D (with calc ium) oral RxNorm: 2418 oral No Sta rt Date Active medroxyprogesterone 5 mg tablet RxNorm: 4753655 1 Tablet(s) PO daily No Start Date Active meloxicam 15 mg tablet RxNorm: 152385 1 Tablet(s) PO daily No Start Date 02/06/2018 Inactive metformin 500 mg tablet RxNorm: 594819 1 Tablet(s) PO daily No Start Date 10/28/2014 Inactive Osteo Bi-Flex oral RxNorm: 2182063 oral No Start Date 02/15/2017 Inactive levothyroxine 50 mcg tablet RxNorm: 833408 1 Tablet(s) PO daily No Start Date 02/25/2015 Inactive Medication Administered No Medication Administered data Immunizations Vaccine Codes Date Status Influenza CVX: 141 03/02 completed Assessments Condition [...] Item Item Code Result Date Comp Metabolic Qep395 NA 138 mEq/L 09/14/2017 Comp Metabolic Faj529 K 3.8 mEq/L 09/14/2017 Comp Metabolic Xce417 CL 101 mEq/L 09/14/2017 Comp Metabolic Nvm124 CO2 26.0 mEq/L 09/14/2017 Comp Metabolic Dgx168 AN ION GAP 15 09/14/2017 Comp Metabolic Nfk188 GL UCOSE 120 mg/dL 09/14/2017 Comp Metabolic Vgs487 Cr eat 1.0 mg/dL 09/14/2017 Comp Metabolic Lmo639 eG FR 61 ml/min/1.73m2 09/14 Comp Metabolic Eaa721 BUN 18 mg/dL 09/14/2017 Comp Metabolic Idy883 B/ C Ratio 18.6 Ratio 09/14/2017 Comp Metabolic Vjk544 CA LCIUM 9.7 mg/dL 09/14/2017 Comp Metabolic Nql737 AL K PHOS 63 U/L 09/14/2017 Comp Metabolic Rlh601 T(SGOT) 18 U/L 09/14/2017 Comp Metabolic Cwy453 AL T(SGPT) 20 U/L 09/14/2017 Comp Metabolic Vuv606 BI LI T 0.5 mg/dL 09/14/2017 Comp Metabolic Ldp481 AL BUMIN 4.3 g/dL 09/14/2017 Comp Metabolic Wav314 TP RO 6.7 g/dL 09/14/2017 Comp Metabolic Uyt402 GL OB 2.4 g/dL 09/14/2017 Comp Metabolic Pfb956 A/ G Ratio 1.8 Ratio 09/14/2017 Comp Metabolic Vil768 Os mo 279 mOsmo 09/14/2017 Lipid Ord30 CHOL 180 mg/dL 09/14/2017 Lipid Ord30 HDL 53.0 mg/dl 09/14/2017 Lipid Ord30 TRIG 126 mg/dL 09/14/2017 Lipid Ord30 LDL 102 mg/dL 09/14/2017 Lipid Ord30 C/HDL 3.4 Ratio 09/14/2017 Microalbumin Gkv978 Micr oAlb <0.7 mg/dL 09/14/2017 %Hba1C Avv095 % HbA1c 88481-0 6.0 % 09/14/2017 %Hba1C Mxv680 Gluc Ave 126 mg/dL 09/14/2017 Free T4 Pdk048 FREE T4 0.98 ng/dL 09/14/2017 Cbc With [...] 31.3 pg 09/14/2017 Cbc With Differential Ord2 [place]% 9.4 % 09/14/2017 Cbc With Differential Ord2 [...] 1.94 K/ul 09/14/2017 Cbc With Differential Ord2 [place] ABS# 0.7 K/ul 09/14/2017 Cbc With Differential Ord2 Eos ABS# 0.2 K/ul 09/14/2017 Cbc With Differential Ord2 Baso ABS# 0.0 K/ul 09/14/2017 Tsh Ord6 TSH (3rd IS) 2.64 uIU/mL 09/14/2017 Comp Metabolic Owx994 NA 138 mEq/L 05/23/2016 Comp Metabolic Bzq367 K 4.0 mEq/L 05/23/2016 Comp Metabolic Ili945 CL 105 mEq/L 05/23/2016 Comp Metabolic Rvn395 CO2 25.0 mEq/L 05/23/2016 Comp Metabolic Fkz936 AN ION GAP 12 05/23/2016 Comp Metabolic Zmx857 GL UCOSE 89 mg/dL 05/23/2016 Comp Metabolic Qct714 Cr eat 1.0 mg/dL 05/23/2016 Comp Metabolic Odx831 eG FR 63 ml/min/1.73m2 05/23 Comp Metabolic Nip040 BUN 18 mg/dL 05/23/2016 Comp Metabolic Hrd678 B/ C Ratio 18.9 Ratio 05/23/2016 Comp Metabolic Jpd465 CA LCIUM 9.1 mg/dL 05/23/2016 Comp Metabolic Zvo762 AL K PHOS 67 U/L 05/23/2016 Comp Metabolic Hmf411 T(SGOT) 26 U/L 05/23/2016 Comp Metabolic Wzx339 AL T(SGPT) 39 U/L 05/23/2016 Comp Metabolic Ygb352 BI LI T 0.5 mg/dL 05/23/2016 Comp Metabolic Rin050 AL BUMIN 3.9 g/dL 05/23/2016 Comp Metabolic Jlh936 TP RO 5.9 g/dL 05/23/2016 Comp Metabolic Fao137 GL OB 2.0 g/dL 05/23/2016 Comp Metabolic Vdy570 A/ G Ratio 2.0 Ratio 05/23/2016 Comp Metabolic Gmv437 Os mo 277 mOsmo 05/23/2016 Cbc With [...] 30.5 pg 05/23/2016 Cbc With Differential Ord2 [place]% 10.0 % 05/23/2016 Cbc With Differential Ord2 [...] 1.68 K/ul 05/23/2016 Cbc With Differential Ord2 [place] ABS# 0.7 K/ul 05/23/2016 Cbc With Differential Ord2 Eos ABS# 0.1 K/ul 05/23/2016 Cbc With Differential Ord2 Baso ABS# 0.0 K/ul 05/23/2016 B Type Natriuretic Peptide Fdl5931 B-BED SETTER 340.00 pg/ml 7 Lipid Ord30 CHOL 117 [...] 31.8 pg 07/07/2015 Cbc With Differential Ord2 [place]% 11.3 % 07/07/2015 Cbc With Differential Ord2 [...] 1.53 K/ul 07/07/2015 Cbc With Differential Ord2 [place] ABS# 0.6 K/ul 07/07/2015 Cbc With Differential Ord2 Eos ABS# 0.2 K/ul 07/07/2015 Cbc With Differential Ord2 Baso ABS# 0.0 K/ul 07/07/2015 Cbc With Differential Ord2 New Analyzer Notice Please note new ref ranges s tarting 05-13-2015 due to implemntation of new five part differential hematolgy analyzer. 07/07/2015 Free T4 Ayg754 FREE T4 1.17 ng/dL 07/07/2015 Comp Metabolic Iex724 NA 137 mEq/L 07/07/2015 Comp Metabolic Ext177 K 4.0 mEq/L 07/07/2015 Comp Metabolic Mcb148 CL 100 mEq/L 07/07/2015 Comp Metabolic Ilf440 CO2 29.0 mEq/L 07/07/2015 Comp Metabolic Qmv557 AN ION GAP 12 07/07/2015 Comp Metabolic Sel641 GL UCOSE 98 mg/dL 07/07/2015 Comp Metabolic Wfz754 Cr eat 1.0 mg/dL 07/07/2015 Comp Metabolic Cpb986 eG FR 62 ml/min/1.73m2 07/06 Comp Metabolic Oah145 BUN 16 mg/dL 07/07/2015 Comp Metabolic Rwr035 B/ C Ratio 16.5 Ratio 07/07/2015 Comp Metabolic Ggn154 CA LCIUM 9.5 mg/dL 07/07/2015 Comp Metabolic Ryl846 AL K PHOS 47 U/L 07/07/2015 Comp Metabolic Zhw810 T(SGOT) 18 U/L 07/07/2015 Comp Metabolic Epc324 AL T(SGPT) 22 U/L 07/07/2015 Comp Metabolic Tga692 BI LI T 0.5 mg/dL 07/07/2015 Comp Metabolic Tdk866 AL BUMIN 4.2 g/dL 07/07/2015 Comp Metabolic Dcw726 TP RO 6.5 g/dL 07/07/2015 Comp Metabolic Lqw273 GL OB 2.3 g/dL 07/07/2015 Comp Metabolic Aqm948 A/ G Ratio 1.8 Ratio 07/07/2015 Comp Metabolic Tkl845 Os mo 275 mOsmo 07/07/2015 %Hba1C Qry599 % HbA1c 36102-4 5.7 % 07/07/2015 %Hba1C Aqp110 Gluc Ave 117 mg/dL 07/07/2015 Tsh Ord6 [...] 1: 128/76 Code: 8480-6 BMI: 34.4 Code: 75392-4 Heart Rate 1: 67 bpm Height: 5'3" SpO2: 97% Temperature: 37.0 (C ) / 98.6 (F) Weight: 194 lbs 09/13/2017 Blood Pressure 1: 140/78 Code: 8480-6 BMI: 35.4 Code: 34343-4 Heart Rate 1: 71 bpm Height: 5'3" SpO2: 97% Weight: 200 lbs 02/16/2017 Blood Pressure 1: 138/76 Code: 8480-6 BMI: 34.4 Code: 23313-3 Heart Rate 1: 66 bpm Height: 5'3" SpO2: 99% Weight: 194 lbs 09/08/2016 Blood Pressure 1: 138/86 Code: 8480-6 BMI: 32.2 Code: 63860-2 Heart Rate 1: 69 bpm Height: 5'3" SpO2: 99% Weight: 182 lbs 05/23/2016 Blood Pressure 1: 126/70 Code: 8480-6 BMI: 30.8 Code: 48851-1 Heart Rate 1: 63 bpm Height: 5'3" SpO2: 98% Weight: 174 lbs 01/12/2016 Blood Pressure 1: 140/72 Code: 8480-6 BMI: 29.8 Code: 82058-1 Heart Rate 1: 82 bpm Height: 5'3" SpO2: 97% Weight: 168 lbs 12/14/2015 Blood Pressure 1: 132/78 Code: 8480-6 BMI: 31.5 Code: 41502-0 Heart Rate 1: 71 bpm Height: 5'3" SpO2: 98% Weight: 178 lbs 07/09/2015 Blood Pressure 1: 128/80 Code: 8480-6 BMI: 30.6 Code: 99628-9 Heart Rate 1: 71 bpm Height: 5'3" SpO2: 99% Weight: 173 lbs 10/09/2014 Blood Pressure 1: 120/70 Code: 8480-6 BMI: 29.1 Code: 56709-2 Heart Rate 1: 68 bpm Height: 5'3" [...] mellitus Quality chronic 09/13/2017 None hypothyroid Quality vegetable preparer marie 09/13/2017 None diabetes mellitus Glucose monitoring [...] Encounters Encounter Performer Loca tion Codes Date [id number]) [id number] EST. P ATIENT, LEVEL IV Diagnosis: Essential (primary) hypertension[ICD10: I10] Diagnosis: Acute upper respiratory infection, unspecified[ICD10: J06.9] Diagnosis: Mixed hyperlipidemia[ICD10: E78.2] Diagnosis: Hypothyroidism, unspecified[ICD10: E03.9] Diagnosis: Type 2 diabetes mellitus without complications[ICD10: E11.9] Asha Ballard MD, [facility] CPT-4: 62218 05/18/2018 [id number]) 14164 EST. P ATIENT, LEVEL IV Diagnosis: Type 2 diabetes mellitus without complications[ICD10: E11.9] Diagnosis: Essential (primary) hypertension[ICD10: I10] Diagnosis: Other obesity due to excess calories[ICD10: E66.09] Katty Ballard MD, [facility] CPT-4: 44081 09/13/2017 [id number]) 25581 EST. P ATIENT, LEVEL IV Diagnosis: Type 2 diabetes mellitus without complications[ICD10: E11.9] Diagnosis: Essential (primary) hypertension[ICD10: I10] Diagnosis: Other acute sinusitis[ICD10: J01.80] Diagnosis: Other obesity due to excess calories[ICD10: E66.09] Asha Ballard MD, [facility] CPT-4: 75284 02/16/2017 [id number]) 68323 EST. P ATIENT, LEVEL IV Diagnosis: Type 2 diabetes mellitus without complications[ICD10: E11.9] Diagnosis: Essential (primary) hypertension[ICD10: I10] Diagnosis: Pain in right knee[ICD10: M25.561] Diagnosis: Pain in left knee[ICD10: M25.562] Katty Ballard MD, [facility] CPT-4: 49601 09/08/2016 [id number] EST. PATIENT, LEVEL IV Diagnosis: Localized edema[ICD10: R60.0] Diagnosis: Shortness of breath[ICD10: R06.02] Salma Ballard MD, [facility] CPT-4: 92294 05/23/2016 ([id number]) 08131 EST. P ATIENT, LEVEL IV Diagnosis: Type 2 diabetes mellitus without complications[ICD10: E11.9] Diagnosis: Essential (primary) hypertension[ICD10: I10] Diagnosis: Chronic idiopathic constipation[ICD10: K59.04] Katty Ballard MD, [facility] CPT-4: 85381 01/12/2016 [id number] EST. PATIENT, LEVEL IV Diagnosis: Other acute sinusitis[ICD10: J01.80] Diagnosis: Other allergic rhinitis[ICD10: J30.89] Salma Ballard MD, [facility] CPT-4: 28319 12/14/2015 ([id number]) 12219 EST. P ATIENT, LEVEL IV Diagnosis: Essential (primary) hypertension[ICD10: I10] Diagnosis: Type 2 diabetes mellitus without complications[ICD10: E11.9] Diagnosis: Pain in right knee[ICD10: M25.561] Diagnosis: Pain in left knee[ICD10: M25.562] Asha Ballard MD, [facility] CPT- 4: 88718 07/09/2015 ([id number]) OFFICE VISI T, [facility] - LEVEL 4 Diagnosis: ESSENTIAL HYPERTENSION[ICD9: 401.9] Diagnosis: DIABETES TYPE II[ICD9: 250.00] Diagnosis: HYPERLIPIDEMIA[ICD9: 272.4] Diagnosis: HYPOTHYROIDISM[ICD9: 244.9] Katty Ballard MD, [facility] CPT-4: 91015 10/09/2014 Plan of Care Planned Activity Notes [...] Completed 05/18/2018 Patient Education: Diabetes Completed 05/18/2018 Care Plan: Comp Metabolic Pending 05/18/2018 Care Plan: Cbc With Differential Pending 05/18/2018 Care Plan: %Hba1C RICO C : 34189-9 Pending 05/18/2018 Care Plan: Tsh Pending 05/18/2018 Care Plan: Lipid Pending 05/18/2018 Care Plan: Free T4 Pending 05/18/2018 Visit Plan: Hypertension - well con [...] would like a referral to [facility] for diabetic education. Knee pain - post operative still with swelling - continue with current management. 09/13/2017 Appointment: Katty Ballard WPtel: [phone] [id number] (15 min) Moderate 09/13/2017 Patient Education: Patient [...] check. 02/16/2017 App[facility]ment: [id number] [place] (15 min) Moderate 02/16/2017 Patient Education: [...] to pharmacy 09/08/2016 Appointment: Katty Ballard WPtel: [id number] (15 min) Moderate 09/08/2016 Patient Education: Patient [...] peripheral edema. 05/23/2016 Appointment: Salma Garay WPtel: [id number] (30 min) Complex 05/23/2016 Patient Education: Patient Medication Summary Completed 05/23/2016 Patient Education: Obesity Completed 05/23/2016 Appointment: Katty Ballard WPtel: [id number] (15 min) Moderate 01/13/2016 Visit Plan: Hypertension [...] not improving. 10/09/2014 Appointment: Katty Ballard WPtel: [address] [place], [place] [id number] [place] (S) New Patient 10/09/2014 Patient Education: Patient Medication Summary Completed 10/09/2014 Patient Education: Hypertension Completed 10/09/2014 Care Plan: MICROALBUMIN QUANTITATIVE LOINC : 14398-6 Ordered 10/09/2014 Care Plan: COMPLETE CBC AUTOMATED LOINC : 13715-9 Ordered 10/09/2014 Instructions Comment . Sinusitis - [...] would like a referral to [facility] for diabetic education. Knee pain - post [...]
--- OUTSIDE RECORDS SUMMARY | 2019-12-03 12:50 | XMS REPORT | CCD ---
Author Author Danni Ballard Organization Katty Ballard MD, [facility] Address [address] [place] [address] Phone Care Team Providers [facility] Manager Name Role Phone PP Unavailable CCM Unavailable Summary Purpose Interface Exchange Insurance Providers Payer name Policy type / Coverage type Covered constitution party ID Effective Begin Date Effective End Date Blue Cross [facility] e Cross/Blue Shield [id number] Unknown Unknown Family history Father Diagnosis Age At Onset Cancer Unknown Mother Diagnosis Age At Onset Diabetes mellitus Type 2 Unknown Stroke Unknown Hypertension Unknown Arthritis Unknown Osteoporosis Unknown kidney disease Unknown Coronary Artery Disease Unknown Social History Social History Element Codes Description Effective Dates Marital status Unknown Reji Peter 10/09/2014 Number of children Unknown 2 10/09/[address]: 0251343 Quit over 10 years ago 10/09/[address]: 003373752 Never drinks alcohol 10/09/2014 Allergies, Adverse Reactions, Alerts Allergies, Adverse Reactions, Alerts data not found Past Medical History Illness Codes Condition Status Onset Date Resolved Date Essential (primary) hypertension ICD-9: 401.9 ICD-10: I10 Active 10/08/2014 Unknown Other acute sinusitis ICD-9: 461.8 ICD-10: J01.80 Active 12/13/2015 Unknown Other obesity due to excess calories ICD-9: 278.00 ICD-10: E66.09 Active 02/16/2017 Unknown Type 2 diabetes lalito itus without complications ICD-9: 250.00 ICD-10: E11.9 Active 10/08/2014 Unknown Pain in left knee [...] ICD-9: 401.9 ICD-10: I10 10/08/2014 Active Other acute sinusitis ICD-9: 461.8 ICD-10: J01.80 12/13/2015 Active Other obesity due to excess calories ICD-9: 278.00 ICD-10: E66.09 02/16/2017 Active Type 2 diabetes lalito itus without complications ICD-9: 250.00 ICD-10: E11.9 10/08/2014 Active Pain in left knee ICD-9: [...] Date Stop Date Sta tus Fill Instructions omeprazole 40 mg cap betty,delayed release RxNorm: 141513 TAKE 1 CAPSULE BY MACKENZIE TH DAILY 06/12/2017 10/09/2017 Ac tive Generic For:PRILOSEC 40MG 06/12/2017 8: 56:49 AM Lipitor 10 mg tablet RxNorm: 738483 TAKE 1 TABLET BY MOUTH DAILY 2017 11/08/2017 Active Generic For:LIPITOR 10MG 2017 9:0 4:16 AM triamterene 37.5 mg- hydrochlorothiazide 25 mg tablet RxNorm: 785308 TAKE 1 TABLET BY MOUTH ONCE DAILY 2017 10/09/2017 Active 2017 9:04:19 AM triamterene 37.5 mg- hydrochlorothiazide 25 mg tablet RxNorm: 970932 TAKE 1 TABLET BY MOUTH ONCE DAILY 2017 04/12/2017 Inactive 2017 9:04:19 AM metformin 500 mg tablet RxNorm: 728819 TAKE 1 TABLET BY MOUTH ONCE DAILY 03/14/2017 08/10/2017 Ac tive Generic For:GLUCOPHAGE 500MG 03/14/2017 9:16:18 AM levothyroxine 50 mcg tablet RxNorm: 419086 TAKE 1 TABLET BY MOUT H DAILY 03/14/2017 09/09/2017 Ac tive Generic For:SYNTHROID 50MCG TAB 017 9:16:23 AM Zithromax Z-Taj 250 mg tablet RxNorm: 268904 1 Tablet(s) PO daily 02/16/2017 02/20/2017 Inactive meloxicam 15 mg tablet RxNorm: 105966 TAKE 1 TABLET BY MOUTH ONCE DAILY 02/13/2017 08/11/2017 Ac tive Generic For:MOBIC 15MG 02/13/2017 8:55: 10 AM omeprazole 40 mg cap betty,delayed release RxNorm: 039517 TAKE 1 CAPSULE BY MACKENZIE TH DAILY 02/13/2017 06/11/2017 Inactive Generic For:PRILOSEC 40MG 02/13/2017 8: 55:14 AM levothyroxine 50 mcg tablet RxNorm: 060937 TAKE 1 TABLET BY MOUT H DAILY-- NEED TO GET LABS CHECKED FOR FURTHER REFILLS 01/05/2017 03/05/2017 Inactive Generic For:SYNTHROID 50MCG TAB 01/05/2017 4:36:06 PM levothyroxine 50 mcg tablet RxNorm: 294316 TAKE 1 TABLET BY MOUT H DAILY 12/14/2016 01/04/2017 In active Generic For:SYNTHROID 50MCG TAB 017 9:02:20 AM triamterene 37.5 mg- hydrochlorothiazide 25 mg tablet RxNorm: 951228 TAKE 1 TABLET BY MOUTH ONCE DAILY 11/14/2016 04/12/2017 Inactive 11/14/2016 9:13:26 AM metformin 500 mg tablet RxNorm: 340647 1 Tablet(s) PO daily 10/17/2016 03/13/2017 Inactive Generic For:GLUCOPHAGE 500MG 10/29/2014 9:02:36 AM omeprazole 40 mg cap betty,delayed release RxNorm: 090637 TAKE 1 CAPSULE BY MACKENZIE TH DAILY 10/17/2016 02/12/2017 Inactive Generic For:PRILOSEC 40MG 10/15/2016 8: 56:40 AM meloxicam 15 mg tablet RxNorm: 253983 1 Tablet(s) PO daily TAKE 1 TABLET BY MO UTH ONCE DAILY 09/19/2016 02/12/2017 Inactive Generic For:MOBIC 15MG 9:09:45 AM levothyroxine 50 mcg tablet RxNorm: 329228 TAKE 1 TABLET BY MOUT H DAILY 09/16/2016 12/13/2016 In active Generic For:SYNTHROID 50MCG TAB 017 10:22:07 AM 09/15/2016 9:01:47 AM Lipitor 10 mg tablet RxNorm: 903737 TAKE 1 TABLET BY MOUTH DAILY 09/16/2016 04/12/2017 Inactive Generic For:LIPITOR 10MG 09/16/2016 10: 22:13 AM 09/15/2016 9:01:42 AM WebvantaTouch Ultra Test strips RxNorm: 1 Miscellaneous daily 09/08/2016 09/02/2017 Active Voltaren 1 % topical gel RxNorm: 895536 2 Gram(s) TOP QID 09/08/2016 11/06/2016 Inactive meloxicam 15 mg tablet RxNorm: 933483 TAKE 1 TABLET BY MOUTH ONCE DAILY 08/16/2016 09/18/2016 In active Generic For:MOBIC 15MG 08/16/2016 9:09: 45 AM triamterene 37.5 mg- hydrochlorothiazide 25 mg tablet RxNorm: 088003 TAKE 1 TABLET BY MOUTH ONCE DAILY 07/18/2016 11/13/2016 Inactive 07/18/2016 8:57:50 AM omeprazole 40 mg cap betty,delayed release RxNorm: 582177 TAKE 1 CAPSULE BY MACKENZIE TH DAILY 06/17/2016 10/14/2016 Inactive Generic For:PRILOSEC 40MG 06/17/2016 9: 30:36 AM levothyroxine 50 mcg tablet RxNorm: 066389 TAKE 1 TABLET BY MOUT H DAILY 06/17/2016 09/14/2016 In active Generic For:SYNTHROID 50MCG TAB 017 9:10:49 AM metformin 500 mg tablet RxNorm: 519254 1 Tablet(s) PO daily 05/24/2016 10/16/2016 Inactive Generic For:GLUCOPHAGE 500MG 10/29/2014 9:02:36 AM Lasix 20 mg tablet RxNorm: 852588 1 Tablet(s) PO daily 05/24/2016 05/26/2016 Inactive metformin 500 mg tablet RxNorm: 575408 1 Tablet(s) PO daily 05/23/2016 05/23/2016 Inactive Generic For:GLUCOPHAGE 500MG 10/29/2014 9:02:36 AM Lasix 20 mg tablet RxNorm: 625335 1 Tablet(s) PO daily 05/23/2016 05/23/2016 Inactive potassium chloride E R 10 mEq tablet,extended release RxNorm: 923720 1 Tablet(s) PO daily 05/23/2016 05/25/2016 Inactive meloxicam 15 mg tablet RxNorm: 426824 1 Tablet(s) PO daily 04/18/2016 08/15/2016 Inactive Lipitor 10 mg tablet RxNorm: 450556 TAKE 1 TABLET BY MOUTH DAILY 04/18/2016 08/15/2016 Inactive Generic For:LIPITOR 10MG 04/18/2016 9:1 5:59 AM triamterene 37.5 mg- hydrochlorothiazide 25 mg tablet RxNorm: 375934 TAKE 1 TABLET BY MOUTH ONCE DAILY 03/21/2016 07/17/2016 Inactive 03/19/2016 9:02:10 AM levothyroxine 50 mcg tablet RxNorm: 106022 TAKE 1 TABLET BY MOUT H DAILY 02/18/2016 06/16/2016 In active Generic For:SYNTHROID 50MCG TAB 016 9:03:15 AM omeprazole 40 mg cap betty,delayed release RxNorm: 968759 TAKE 1 CAPSULE BY MACKENZIE TH DAILY 02/18/2016 06/16/2016 Inactive Generic For:PRILOSEC 40MG 02/18/2016 9: 03:12 AM Movantik 25 mg tablet RxNorm: 9209254 1 Tablet(s) PO QAM with breakfast or sean ch 01/12/2016 09/07/2016 In active Flonase Allergy Reli ef 50 mcg/actuation nasal spray,suspension RxNorm: 8888895 1 [place] NASAL BID 12/14/2015 09/07/2016 Inactive Zithromax Z-Taj 250 mg tablet RxNorm: 790915 Tablet(s) PO UD 12/14/2015 01/11/2016 Inactive Lipitor 10 mg tablet RxNorm: 837601 TAKE 1 TABLET BY MOUTH DAILY 11/20/2015 04/17/2016 Inactive Generic For:LIPITOR 10MG 11/20/2015 9:1 1:10 AM triamterene 37.5 mg- hydrochlorothiazide 25 mg tablet RxNorm: 456324 TAKE 1 TABLET BY MOUTH ONCE DAILY 11/19/2015 03/17/2016 Inactive 11/18/2015 9:06:12 AM meloxicam 15 mg tablet RxNorm: 054791 1 Tablet(s) PO daily 10/21/2015 04/17/2016 Inactive levothyroxine 50 mcg tablet RxNorm: 699319 TAKE 1 TABLET BY MOUT H DAILY 10/21/2015 02/17/2016 In active Generic For:SYNTHROID 50MCG TAB 016 9:06:41 AM omeprazole 40 mg cap betty,delayed release RxNorm: 414166 TAKE 1 CAPSULE BY MACKENZIE TH DAILY 10/21/2015 02/17/2016 Inactive Generic For:PRILOSEC 40MG 10/21/2015 9: 06:53 AM triamterene 37.5 mg- hydrochlorothiazide 25 mg tablet RxNorm: 193798 Tablet(s) 1 Tablet(s) PO daily 07/23/2015 11/18/2015 Inactive [SAVINGS FOR NON-COVERED DR UGS -- BIN:[id number], PCN: ASPROD1, Group: XXXXX, ID# XXXXXXX, Questions: . THIS IS NOT INSURANCE.] metformin 500 mg tablet RxNorm: 560431 1 Tablet(s) PO daily 07/10/2015 12/06/2015 Inactive Generic For:GLUCOPHAGE 500MG 10/29/2014 9:02:36 AM Voltaren 1 % topical gel RxNorm: 637786 4 Gram(s) TOP QID 07/09/2015 09/07/2016 Inactive bilateral knees metformin 500 mg tablet RxNorm: 316777 1 Tablet(s) PO daily TAKE 1 TABLET BY MO [facility] TWICE DAILY 07/09/2015 07/09/2015 Inactive Generic For:GLUCOPHAGE 500M G 10/29/2014 9:02:36 AM Lipitor 10 mg tablet RxNorm: 094094 1 Tablet(s) PO daily 06/26/2015 11/19/2015 Inactive metformin 500 mg tablet RxNorm: 702843 1 Tablet(s) PO BID TAKE 1 TABLET BY [facility] TWICE DAILY 06/26/2015 07/08/2015 Inactive Generic For:GLUCOPHAGE 500M G 10/29/2014 9:02:36 AM omeprazole 40 mg cap betty,delayed release RxNorm: 444838 TAKE 1 CAPSULE BY MACKENZIE TH DAILY 04/27/2015 10/20/2015 Inactive Generic For:PRILOSEC 40MG meloxicam 15 mg tablet RxNorm: 504764 1 Tablet(s) PO daily 03/30/2015 10/20/2015 Inactive triamterene 37.5 mg- hydrochlorothiazide 25 mg tablet RxNorm: 587921 Tablet(s) 1 Tablet(s) PO daily 03/30/2015 07/22/2015 Inactive [SAVINGS FOR NON-COVERED DR UGS -- BIN:[id number], PCN: ASPROD1, Group: XXXXX, ID# [id number], Questions: . THIS IS NOT INSURANCE.] metformin 500 mg tablet RxNorm: 938118 1 Tablet(s) PO BID 02/26/2015 06/25/2015 Inactive levothyroxine 50 mcg tablet RxNorm: 099388 TAKE 1 TABLET BY MOUT H DAILY 02/26/2015 10/20/2015 In active Generic For:SYNTHROID 50MCG TAB 015 2:41:48 PM N O T I C E PRESCRIPTION PREVIOUSLY AUTHORIZED BY DOCTOR:RUFINO LIAO Lipitor 10 mg tablet RxNorm: 937914 1 Tablet(s) PO daily 02/26/2015 06/25/2015 Inactive omeprazole 40 mg cap betty,delayed release RxNorm: 404506 1 Capsule(s) PO 01/01/2015 04/26/2015 In active [SAVINGS FOR NON-COVERED DRUGS -- BIN:00 3585, PCN: ASPROD1, Group: XXXXX, ID# [id number], Questions: . THIS IS NOT INSURANCE.] triamterene 37.5 mg- hydrochlorothiazide 25 mg tablet RxNorm: 714655 1 Tablet(s) PO daily 12/02/2014 03/29/2015 Inactive [SAVINGS FOR NON-COVERED DR UGS -- BIN:128360, PCN: ASPROD1, Group: XXXXX, ID# [id number], Questions: . THIS IS NOT INSURANCE.] metformin 500 mg tablet RxNorm: 276045 1 Tablet(s) PO BID TAKE 1 TABLET BY MOUT H TWICE DAILY 10/29/2014 06/25/2015 Inactive Generic For:GLUCOPHAGE 500M G 10/29/2014 9:02:36 AM metformin 500 mg tablet RxNorm: 734713 1 Tablet(s) PO BID 10/29/2014 10/29/2014 Inactive Lipitor 10 mg tablet RxNorm: 116432 1 Tablet(s) PO daily 10/27/2014 10/26/2014 Inactive Lipitor 10 mg tablet RxNorm: 436593 1 Tablet(s) PO daily 10/27/2014 02/23/2015 Inactive omeprazole 40 mg cap betty,delayed release RxNorm: 725353 1 Capsule(s) PO 09/02/2014 12/30/2014 In active [SAVINGS FOR NON-COVERED DRUGS -- BIN:00 3585, PCN: ASPROD1, Group: XXXXX, ID# [id number], Questions: . THIS IS NOT INSURANCE.] omeprazole 40 mg cap betty,delayed release RxNorm: 592022 1 Capsule(s) PO 09/02/2014 09/01/2014 In active triamterene 37.5 mg- hydrochlorothiazide 25 mg tablet RxNorm: 891027 1 Tablet(s) PO daily 08/27/2014 08/26/2014 Inactive triamterene 37.5 mg- hydrochlorothiazide 25 mg tablet RxNorm: 253803 1 Tablet(s) PO daily 08/27/2014 12/01/2014 Inactive [SAVINGS FOR NON-COVERED DR UGS -- BIN:[id number], PCN: ASPROD1, Group: XXXXX, ID# [id number], Questions: . THIS IS NOT INSURANCE.] Multi Vitamin oral RxNorm: oral No Start Date Active meloxicam 15 mg tablet RxNorm: 214769 1 Tablet(s) PO daily No Start Date 03/29/2015 Inactive Aspirin Low Dose 81 mg tablet,delayed release RxNorm: 028296 1 Tablet(s) PO daily No Start Date Active estradiol 2 mg tablet RxNorm: 397433 1 Tablet(s) PO daily No Start Date Active Vitamin D (with calc ium) oral RxNorm: 2418 oral No Sta rt Date Active medroxyprogesterone 5 mg tablet RxNorm: 7846425 1 Tablet(s) PO daily No Start Date Active metformin 500 mg tablet RxNorm: 556167 1 Tablet(s) PO daily No Start Date 10/28/2014 Inactive Osteo Bi-Flex oral RxNorm: 2437965 oral No Start Date 02/15/2017 Inactive levothyroxine 50 mcg tablet RxNorm: 796550 1 Tablet(s) PO daily No Start Date 02/25/2015 Inactive Medication Administered No Medication Administered data Immunizations No Immunization data Assessments Condition Codes Effectiv e Dates Other acute sinusitis ICD-10: J01.80 ICD-9: 461.8 02/16/2017 Other obesity due to excess calories ICD-10: E66.09 ICD-9: 278.00 02/16/2017 Essential (primary) hypertension ICD -10: I10 ICD-9: 401.9 02/16/2017 Type 2 diabetes mellitus without complications ICD-10: E11.9 ICD-9: 250.00 02/16/2017 Pain in left knee ICD-10: M25.562 [...] Reason For Visit Effective Dates Notes hypertension 02/16/2017 edema 09/08/2016 edema 05/23/2016 knee pain 01/12/2016 sinus congestion 12/14/2015 knee pain 07/09/2015 diabetes mellitus 10/09/2014 Results Observation Observation Code Item Item Code Result Date Comp Metabolic Uza533 NA 138 mEq/L 05/23/2016 Comp Metabolic Gyr047 K 4.0 mEq/L 05/23/2016 Comp Metabolic Cil536 CL 105 mEq/L 05/23/2016 Comp Metabolic Ngi088 CO2 25.0 mEq/L 05/23/2016 Comp Metabolic Cqm978 AN ION GAP 12 05/23/2016 Comp Metabolic Vcq759 GL UCOSE 89 mg/dL 05/23/2016 Comp Metabolic Cmz535 Cr eat 1.0 mg/dL 05/23/2016 Comp Metabolic Bnu333 eG FR 63 ml/min/1.73m2 05/23 Comp Metabolic Wmn393 BUN 18 mg/dL 05/23/2016 Comp Metabolic Cyk165 B/ C Ratio 18.9 Ratio 05/23/2016 Comp Metabolic Qlx301 CA LCIUM 9.1 mg/dL 05/23/2016 Comp Metabolic Tkb628 AL K PHOS 67 U/L 05/23/2016 Comp Metabolic Igi234 T(SGOT) 26 U/L 05/23/2016 Comp Metabolic Sbr869 AL T(SGPT) 39 U/L 05/23/2016 Comp Metabolic Vdg167 BI LI T 0.5 mg/dL 05/23/2016 Comp Metabolic Bgu944 AL BUMIN 3.9 g/dL 05/23/2016 Comp Metabolic Prn077 TP RO 5.9 g/dL 05/23/2016 Comp Metabolic Jzy595 GL OB 2.0 g/dL 05/23/2016 Comp Metabolic Kqu365 A/ G Ratio 2.0 Ratio 05/23/2016 Comp Metabolic Bju858 Os mo 277 mOsmo 05/23/2016 Cbc With [...] 23.2 % 05/23/2016 Cbc With Differential Ord2 [place]% 10.0 % 05/23/2016 Cbc With Differential Ord2 MCH 30.5 pg 05/23/2016 Cbc With Differential Ord2 Eos% 1.5 % 05/23/2016 Cbc With Differential Ord2 MCHC 32.4 pg 05/23/2016 Cbc With Differential Ord2 PLT 245 K/ul 05/23/2016 Cbc With Differential Ord2 Baso% 0.3 % 05/23/2016 Cbc With Differential Ord2 RDW 14.4 % 05/23/2016 Cbc With Differential Ord2 Neut ABS# 4.70 K/ul 05/23/2016 Cbc With Differential Ord2 Lymph ABS# 1.68 K/ul 05/23/2016 Cbc With Differential Ord2 [place] ABS# 0.7 K/ul 05/23/2016 Cbc With Differential Ord2 Eos ABS# 0.1 K/ul 05/23/2016 Cbc With Differential Ord2 Baso ABS# 0.0 K/ul 05/23/2016 B Type Natriuretic Peptide Itd3308 B-[employer]ULTANT 340.00 pg/ml 7 Lipid Ord30 CHOL 117 [...] 31.8 pg 07/07/2015 Cbc With Differential Ord2 [place]% 11.3 % 07/07/2015 Cbc With Differential Ord2 Eos% 3.5 % 07/07/2015 Cbc With Differential Ord2 MCHC 33.6 pg 07/07/2015 Cbc With Differential Ord2 PLT 307 K/ul 07/07/2015 Cbc With Differential Ord2 Baso% 0.6 % 07/07/2015 Cbc With Differential Ord2 Neut ABS# 2.81 K/ul 07/07/2015 Cbc With Differential Ord2 RDW 13.4 % 07/07/2015 Cbc With Differential Ord2 Lymph ABS# 1.53 K/ul 07/07/2015 Cbc With Differential Ord2 [place] ABS# 0.6 K/ul 07/07/2015 Cbc With Differential Ord2 Eos ABS# 0.2 K/ul 07/07/2015 Cbc With Differential Ord2 Baso ABS# 0.0 K/ul 07/07/2015 Cbc With Differential Ord2 New Analyzer Notice Please note new ref ranges s tarting 05-13-2015 due to implemntation of new five part differential hematolgy analyzer. 07/07/2015 Free T4 Kzg565 FREE T4 1.17 ng/dL 07/07/2015 Comp Metabolic Nim967 NA 137 mEq/L 07/07/2015 Comp Metabolic Mqu363 K 4.0 mEq/L 07/07/2015 Comp Metabolic Opa428 CL 100 mEq/L 07/07/2015 Comp Metabolic Gpv145 CO2 29.0 mEq/L 07/07/2015 Comp Metabolic Eof515 AN ION GAP 12 07/07/2015 Comp Metabolic Ale770 GL UCOSE 98 mg/dL 07/07/2015 Comp Metabolic Web232 Cr eat 1.0 mg/dL 07/07/[address] eG FR 62 ml/min/1.73m2 07/06 Comp Metabolic Poe809 BUN 16 mg/dL 07/07/2015 Comp Metabolic Vxa758 B/ C Ratio 16.5 Ratio 07/07/2015 Comp Metabolic Kih142 CA LCIUM 9.5 mg/dL 07/07/2015 Comp Metabolic Nwk467 AL K PHOS 47 U/L 07/07/2015 Comp Metabolic Vpn280 T(SGOT) 18 U/L 07/07/2015 Comp Metabolic Zeb250 AL T(SGPT) 22 U/L 07/07/2015 Comp Metabolic Yvu645 BI LI T 0.5 mg/dL 07/07/2015 Comp Metabolic Lqs477 AL BUMIN 4.2 g/dL 07/07/2015 Comp Metabolic Fpu273 TP RO 6.5 g/dL 07/07/2015 Comp Metabolic Uxw914 GL OB 2.3 g/dL 07/07/2015 Comp Metabolic Crx012 A/ G Ratio 1.8 Ratio 07/07/2015 Comp Metabolic Txj895 Os mo 275 mOsmo 07/07/2015 %Hba1C Hlz234 % HbA1c 55122-1 5.7 % 07/07/2015 %Hba1C Jqr905 Gluc Ave 117 mg/dL 07/07/2015 Tsh Ord6 hTSH II 2.32 uIU/mL 07/07/2015 Review of Systems System Result Effective Dates Constitutional recent illness 02/16/2017 Constitutional No anorexia [...] No Procedures data Vital Signs Date Vital 02/16/2017 Blood Pressure 1: 138/76 Code: 8480-6 BMI: 34.4 Code: 34437-5 Heart Rate 1: 66 bpm Height: 5'3" SpO2: 99% Weight: 194 lbs 09/08/2016 Blood Pressure 1: 138/86 Code: 8480-6 BMI: 32.2 Code: 13839-0 Heart Rate 1: 69 bpm Height: 5'3" SpO2: 99% Weight: 182 lbs 05/23/2016 Blood Pressure 1: 126/70 Code: 8480-6 BMI: 30.8 Code: 96598-3 Heart Rate 1: 63 bpm Height: 5'3" SpO2: 98% Weight: 174 lbs 01/12/2016 Blood Pressure 1: 140/72 Code: 8480-6 BMI: 29.8 Code: 80793-7 Heart Rate 1: 82 bpm Height: 5'3" SpO2: 97% Weight: 168 lbs 12/14/2015 Blood Pressure 1: 132/78 Code: 8480-6 BMI: 31.5 Code: 98652-9 Heart Rate 1: 71 bpm Height: 5'3" SpO2: 98% Weight: 178 lbs 07/09/2015 Blood Pressure 1: 128/80 Code: 8480-6 BMI: 30.6 Code: 46386-4 Heart Rate 1: 71 bpm Height: 5'3" SpO2: 99% Weight: 173 lbs 10/09/2014 Blood Pressure 1: 120/70 Code: 8480-6 BMI: 29.1 Code: 18040-6 Heart Rate 1: 68 bpm Height: 5'3" Weight: 164 lbs Functional Status No Functional Status data History of Present Illness Symptom Name Status Resu lt Effective Date Notes hypertension Quality elvi heena hypertension 02/16/2017 None [...] Encounters Encounter Performer Loca tion Codes Date ([id number]) 11173 EST. P ATIENT, LEVEL IV Diagnosis: Type 2 diabetes mellitus without complications[ICD10: E11.9] Diagnosis: Essential (primary) hypertension[ICD10: I10] Diagnosis: Other acute sinusitis[ICD10: J01.80] Diagnosis: Other obesity due to excess calories[ICD10: E66.09] Asha Ballard MD, [facility] CPT-4: 52011 02/16/2017 ([id number]) 05604 EST. P ATIENT, LEVEL IV Diagnosis: Type 2 diabetes mellitus without complications[ICD10: E11.9] Diagnosis: Essential (primary) hypertension[ICD10: I10] Diagnosis: Pain in right knee[ICD10: M25.561] Diagnosis: Pain in left knee[ICD10: M25.562] Katty Ballard MD, [facility] CPT-4: 88296 09/08/2016 14513 EST. PATIENT, LEVEL IV Diagnosis: Localized edema[ICD10: R60.0] Diagnosis: Shortness of breath[ICD10: R06.02] Salma Ballard MD, [facility] CPT-4: 70084 05/23/2016 ([id number]) 33569 EST. P ATIENT, LEVEL IV Diagnosis: Type 2 diabetes mellitus without complications[ICD10: E11.9] Diagnosis: Essential (primary) hypertension[ICD10: I10] Diagnosis: Chronic idiopathic constipation[ICD10: K59.04] Katty Ballard MD, [facility] CPT-4: 67210 01/12/2016 [id number] EST. PATIENT, LEVEL IV Diagnosis: Other acute sinusitis[ICD10: J01.80] Diagnosis: Other allergic rhinitis[ICD10: J30.89] Salma Ballard MD, [facility] CPT-4: 19830 12/14/2015 ([id number]) 78768 EST. P ATIENT, LEVEL IV Diagnosis: Essential (primary) hypertension[ICD10: I10] Diagnosis: Type 2 diabetes mellitus without complications[ICD10: E11.9] Diagnosis: Pain in right knee[ICD10: M25.561] Diagnosis: Pain in left knee[ICD10: M25.562] [facility] CPT- 4: 95355 07/09/2015 ([id number]) OFFICE [facility] - LEVEL 4 Diagnosis: ESSENTIAL HYPERTENSION[ICD9: 401.9] Diagnosis: DIABETES TYPE II[ICD9: 250.00] Diagnosis: HYPERLIPIDEMIA[ICD9: 272.4] Diagnosis: HYPOTHYROIDISM[ICD9: 244.9] [facility] CPT-4: 78068 10/09/2014 Plan of Care Planned Activity Notes C odes Status Date Visit Plan: Diabetes Mellitus - con trolled [...] weight check. 02/16/2017 Appointment: Asha Bernstein WPtel: [address] [place], [place] [phone] (15 min) Moderate 02/16/2017 Patient Education: Patient [...] pharmacy 09/08/2016 Appointment: Katty Ballard WPtel: [phone] [id number] (15 min) Moderate 09/08/2016 Patient [...] peripheral edema. 05/23/2016 Appointment: Salma Garay WPtel: [phone] [facility] (30 min) Complex 05/23/2016 Patient Education: Patient Medication Summary Completed 05/23/2016 Patient Education: Obesity Completed 05/23/2016 Appointment: Katty Ballard WPtel: [phone] [id number] (15 min) Moderate 01/13/2016 Visit Plan: Hypertension [...] improving. 10/09/2014 [phone] [place] [facility] New Patient 10/09/2014 Patient Education: Patient Medication Summary Completed 10/09/2014 Patient Education: Hypertension Completed 10/09/2014 Care Plan: MICROALBUMIN QUANTITATIVE LOINC : 93419-7 Ordered 10/09/2014 Care Plan: COMPLETE CBC AUTOMATED LOINC : 19353-4 Ordered 10/09/2014 Instructions Comment . Sinusitis - [...]
--- OUTSIDE RECORDS SUMMARY | 2019-12-03 12:50 | XMS REPORT | Continuity of Care Document ---
Author Organization Unknown Address Unknown Phone Unavailable Allergies Active Description Code Type Severity Reaction Onset Reported/Identified Relationship to Patient Clinical Status Yes Sulfa (Sulfonamide Antibiotics) [id number] Drug Allergy Moderate RASH 2015 Yes amoxicillin [id number] Drug Aller gy Unknown RASH 12/15/2015 Yes amoxicillin [id number] Drug Aller gy Mild RASH 11/27/2019 Medications There is no data. Problems Date Dx Coded Attending Type Code Diagnosis Diagnosed By 03/30/1003 DARINEL HAYS DO Ot K21. 9 GASTRO-ESOPHAGEAL REFLUX DISEASE WITHOUT 03/30/1003 DARINEL HAYS DO Ot Z01.812 ENCOUNTER FOR PREPROCEDURAL LABORATORY E 03/30/1003 DARINEL HAYS DO Ot Z12. 11 ENCOUNTER FOR SCREENING FOR MALIGNANT NE 03/30/1003 DARINEL HAYS DO Ot Z20.828 CONTACT W AND EXPOSURE TO OTH VIRAL COMM 03/30/1003 DARINEL HAYS DO Ot Z86.010 PERSONAL HISTORY OF COLONIC POLYPS 03/30/1639 FESTUS ARROYO Ot Z47. 1 AFTERCARE FOLLOWING JOINT REPLACEMENT CANALES 03/30/1639 FESTUS ARROYO Ot Z96.653 PRESENCE OF ARTIFICIAL KNEE JOINT, BILAT 03/30/1699 FESTUS ARROYO Ot Z47. 1 AFTERCARE FOLLOWING JOINT REPLACEMENT CANALES 03/30/1699 FESTUS ARROYO Ot Z96.653 PRESENCE OF ARTIFICIAL KNEE JOINT, BILAT 09/15/2010 Ot 327.23 OBS TRUCTIVE SLEEP APNEA (ADULT) (PEDIATR 09/15/2010 Ot 327.51 PER IODIC LIMB MOVEMENT DISORDER 11/26/2010 Ot 327.23 OBS TRUCTIVE SLEEP APNEA (ADULT) (PEDIATR 12/28/2012 WILMAN RODRIGUEZ MD Ot 621.0 POLYP OF CORPUS UTERI 12/28/2012 WILMAN RODRIGUEZ MD Ot 626.8 MENSTRUAL DISORDER NEC 12/28/2012 JENNIFER RAMIREZ, WILMAN Estrada Ot V58.69 OTH MED,LT,CURRENT USE 04/18/2014 Ot V76.12 04/18/2014 Ot V76.12 04/18/2014 Ot 244.8 04/18/2014 Ot 782.3 04/18/2014 Ot 791.9 04/18/2014 Ot V76.12 04/18/2014 Ot 793.89 04/18/2014 Ot V76.12 04/18/2014 Ot 610.0 04/18/2014 JENNIFER RAMIREZ, WILMAN Estrada Ot 285.9 04/18/2014 JENNIFER RAMIREZ, WILMAN Estrada Ot 625.8 04/18/2014 JENNIFER RAMIREZ, WILMAN Estrada Ot V72.63 04/18/2014 JENNIFER RAMIREZ, WILMAN Estrada Ot V72.81 04/18/2014 JENNIFER RAMIREZ, WILMAN Estrada Ot V74.8 04/18/2014 JENNIFER RAMIREZ, WILMAN Estrada Ot 793.81 04/18/2014 JENNIFER RAMIREZ, WILMAN Estrada Ot V76.12 04/18/2014 JENNIFER RAMIREZ, WILMAN Estrada Ot 793.80 04/23/2014 JENNIFER RAMIREZ, WILMAN Estrada Ot V76.12 04/23/2014 JENNIFER RAMIREZ, WILMAN Estrada Ot V76.12 05/08/2014 JENNIFER RAMIREZ, WILMAN Estrada Ot V76.12 12/15/2015 Ot 244.8 ACQU IRED HYPOTHYROID NEC 12/15/2015 Ot 782.3 EDEMA 12/15/2015 Ot 791.9 ABN URINE FINDINGS NEC 12/15/2015 Ot V76.12 OTH SCREEN MAMMO- MALIGN NEOPLASM OF NICOLETET 12/15/2015 Ot 793.89 OTH (ABN) FINDINGS ON RADIOLOGICAL EXAMI 12/15/2015 Ot V76.12 OTH SCREEN MAMMO- MALIGN NEOPLASM OF NICOLETTE 12/15/2015 Ot 610.0 RADHA TARY CYST OF BREAST 12/15/2015 JENNIFER RAMIREZ, WILMAN Estrada Ot 285.9 ANEMIA NOS 12/15/2015 JENNIFER RAMIREZ, WILMAN Estrada Ot 625.8 FEM GENITAL SYMPTOMS NEC 12/15/2015 WILMAN RODRIGUEZ MD Ot V72.63 PRE-PROCEDURAL LABORATORY EXAMINATION 12/15/2015 WILMAN RODRIGUEZ MD Ot V72.81 MWZZ-[id number] CARDIOVASCULAR 12/15/2015 WILMAN RODRIGUEZ MD, Ot V74.8 SCREEN-BACTERIAL DIS NEC 12/15/2015 WILMAN RODRIGUEZ MD Ot 793.81 MAMMOGRAPHIC MICROCLACIFICATION 12/15/2015 WILMAN RODRIGUEZ MD, Ot V76.12 OTH SCREEN MAMMO-MALIGN NEOPLASM OF NICOLETTE 12/15/2015 WILMAN RODRIGUEZ MD Ot 793.80 UNSPEC ABNORMAL MAMMOGRAM 12/15/2015 WILMAN RODRIGUEZ MD, Ot V76.12 OTH SCREEN MAMMO-MALIGN NEOPLASM OF N[place]LETTE 12/15/2015 Ot 244.8 ACQU IRED HYPOTHYROID NEC 12/15/2015 Ot 782.3 EDEMA 12/15/2015 Ot 791.9 ABN URINE FINDINGS NEC 12/15/2015 Ot V76.12 OTH SCREEN MAMMO- MALIGN NEOPLASM OF N[place]LETTE 12/15/2015 Ot 793.89 OTH (ABN) FINDINGS ON RADIOLOGICAL EXAMI 12/15/2015 Ot V76.12 OTH SCREEN MAMMO- MALIGN NEOPLASM OF N[place]LETTE 12/15/2015 Ot 610.0 RADHA TARY CYST OF BREAST 12/15/2015 WILMAN RODRIGUEZ MD Ot 285.9 ANEMIA NOS 12/15/2015 WILMAN RODRIGUEZ MD Ot 625.8 FEM GENITAL SYMPTOMS NEC 12/15/2015 WILMAN RODRIGUEZ MD Ot V72.63 PRE-PROCEDURAL LABORATORY EXAMINATION 12/15/2015 WILMAN RODRIGUEZ MD Ot V72.81 UCIY-[id number]-YAUXIHZFH CARDIOVASCULAR 12/15/2015 WILMAN RODRIGUEZ MD Ot V74.8 SCREEN-BACTERIAL DIS NEC 12/15/2015 WILMAN RODRIGUEZ MD Ot 793.81 MAMMOGRAPHIC MICROCLACIFICATION 12/15/2015 WILMAN RODRIGUEZ MD, Ot V76.12 OTH SCREEN MAMMO-MALIGN NEOPLASM OF N[place]LETTE 12/15/2015 WILMAN RODRIGUEZ MD Ot 793.80 UNSPEC ABNORMAL MAMMOGRAM 12/15/2015 WILMAN RODRIGUEZ MD, Ot V76.12 OTH SCREEN MAMMO-MALIGN NEOPLASM OF [place]LETTE 12/15/2015 REYMUNDO JIMENEZ MD Ot M17.0 BILATERAL PRIMARY OSTEOARTHRITIS OF KNEE 12/15/2015 REYMUNDO JIMENEZ MD Ot R53.83 OTHER FATIGUE 12/15/2015 REYMUNDO JIMENEZ MD Ot R82.90 UNSPECIFIED ABNORMAL FINDINGS IN URINE 12/15/2015 REYMUNDO JIMENEZ MD Ot Z01.812 ENCOUNTER FOR PREPROCEDURAL LABORATORY E 12/15/2015 REYMUNDO JIMENEZ MD Ot Z01.818 ENCOUNTER FOR OTHER PREPROCEDURAL EXAMIN 12/15/2015 REYMUNDO JIMENEZ MD Ot Z11.2 ENCOUNTER FOR SCREENING FOR OTHER BACTER 12/15/2015 WILMAN RODRIGUEZ MD, Ot Z12.31 ENCNTR SCREEN MAMMOGRAM FOR MALIGNANT NE 12/16/2015 WILMAN RODRIGUEZ MD, Ot Z12.31 ENCNTR SCREEN MAMMOGRAM FOR MALIGNANT NE 12/16/2015 REYMUNDO JIMENEZ MD Ot M17.0 BILATERAL PRIMARY OSTEOARTHRITIS OF KNEE 12/16/2015 REYMUNDO JIMENEZ MD Ot R53.83 OTHER FATIGUE 12/16/2015 REYMUNDO JIMENEZ MD Ot R82.90 UNSPECIFIED ABNORMAL FINDINGS IN URINE 12/16/2015 REYMUNDO JIMENEZ MD Ot Z01.812 ENCOUNTER FOR PREPROCEDURAL LABORATORY E 12/16/2015 REYMUNDO JIMENEZ MD Ot Z01.818 ENCOUNTER FOR OTHER PREPROCEDURAL EXAMIN 12/16/2015 REYMUNDO JIMENEZ MD Ot Z11.2 ENCOUNTER FOR SCREENING FOR OTHER BACTER 12/26/2015 REYMUNDO JIMENEZ MD Ot E03.9 HYPOTHYROIDISM, UNSPECIFIED 12/26/2015 REYMUNDO JIMENEZ MD Ot E11.9 TYPE 2 DIABETES MELLITUS WITHOUT COMPLIC 12/26/2015 REYMUNDO JIMENEZ MD Ot G47.30 SLEEP APNEA, UNSPECIFIED 12/26/2015 REYMUNDO JIMENEZ MD Ot I1 0 ESSENTIAL (PRIMARY) HYPERTENSION 12/26/2015 REYMUNDO JIMENEZ MD Ot K21.9 GASTRO-ESOPHAGEAL REFLUX DISEASE WITHOUT 12/26/2015 REYMUNDO JIMENEZ MD Ot M17.0 BILATERAL PRIMARY OSTEOARTHRITIS OF KNEE 12/26/2015 BARBARA RAMIREZ, REYMUNDO Ramires Ot Z87.891 PERSONAL HISTORY OF NICOTINE DEPENDENCE 12/31/2015 JENNIFER RAMIREZ, WILMAN Natalie Ot Z12.31 ENCNTR SCREEN MAMMOGRAM FOR MALIGNANT NE 01/29/2016 FESTUS ARROYO PHOTOENGRAVING SKETCH MAKER Ot Z47. 1 AFTERCARE FOLLOWING JOINT REPLACEMENT CANALES 01/29/2016 FESTUS ARROYO PHOTOENGRAVING SKETCH MAKER Ot Z96.653 PRESENCE OF ARTIFICIAL KNEE JOINT, BILAT 02/02/2016 FESTUS ARROYO PHOTOENGRAVING SKETCH MAKER Ot Z47. 1 AFTERCARE FOLLOWING JOINT REPLACEMENT CANALES 02/02/2016 FESTUS ARROYO PHOTOENGRAVING SKETCH MAKER Ot Z96.653 PRESENCE OF ARTIFICIAL KNEE JOINT, BILAT 03/21/2016 FESTUS ARROYO PHOTOENGRAVING SKETCH MAKER Ot Z47. 1 AFTERCARE FOLLOWING JOINT REPLACEMENT CANALES 03/21/2016 FESTUS ARROYO PHOTOENGRAVING SKETCH MAKER Ot Z96.653 PRESENCE OF ARTIFICIAL KNEE JOINT, BILAT 2016 FESTUS ARROYO PHOTOENGRAVING SKETCH MAKER Ot Z47. 1 AFTERCARE FOLLOWING JOINT REPLACEMENT CANALES 2016 FESTUS ARROYO PHOTOENGRAVING SKETCH MAKER Ot Z96.653 PRESENCE OF ARTIFICIAL KNEE JOINT, BILAT 05/01/2016 FESTUS ARROYO PHOTOENGRAVING SKETCH MAKER Ot Z47. 1 AFTERCARE FOLLOWING JOINT REPLACEMENT CANALES 05/01/2016 FESTUS ARROYO PHOTOENGRAVING SKETCH MAKER Ot Z96.653 PRESENCE OF ARTIFICIAL KNEE JOINT, BILAT 05/04/2016 FESTUS ARROYO PHOTOENGRAVING SKETCH MAKER Ot Z47. 1 AFTERCARE FOLLOWING JOINT REPLACEMENT CANALES 05/04/2016 FESTUS ARROYO PHOTOENGRAVING SKETCH MAKER Ot Z96.653 PRESENCE OF ARTIFICIAL KNEE JOINT, BILAT 05/08/2016 FESTUS ARROYO PHOTOENGRAVING SKETCH MAKER Ot Z47. 1 AFTERCARE FOLLOWING JOINT REPLACEMENT CANALES 05/08/2016 FESTUS ARROYO PHOTOENGRAVING SKETCH MAKER Ot Z96.653 PRESENCE OF ARTIFICIAL KNEE JOINT, BILAT 05/09/2016 FESTUS ARROYO PHOTOENGRAVING SKETCH MAKER Ot Z47. 1 AFTERCARE FOLLOWING JOINT REPLACEMENT CANALES 05/09/2016 FESTUS ARROYO PHOTOENGRAVING SKETCH MAKER Ot Z96.653 PRESENCE OF ARTIFICIAL KNEE JOINT, BILAT 06/08/2016 FESTUS ARROYO PHOTOENGRAVING SKETCH MAKER Ot Z47. 1 AFTERCARE FOLLOWING JOINT REPLACEMENT CANALES 06/08/2016 FESTUS ARROYO PHOTOENGRAVING SKETCH MAKER Ot Z96.653 PRESENCE OF ARTIFICIAL KNEE JOINT, BILAT 06/15/2016 FESTUS ARROYO PHOTOENGRAVING SKETCH MAKER Ot Z47. 1 AFTERCARE FOLLOWING JOINT REPLACEMENT CANALES 06/15/2016 FESTUS ARROYO PHOTOENGRAVING SKETCH MAKER Ot Z96.653 PRESENCE OF ARTIFICIAL KNEE JOINT, BILAT 06/23/2016 FESTUS ARROYO PHOTOENGRAVING SKETCH MAKER Ot Z47. 1 AFTERCARE FOLLOWING JOINT REPLACEMENT CANALES 06/23/2016 FESTUS ARROYO PHOTOENGRAVING SKETCH MAKER Ot Z96.653 PRESENCE OF ARTIFICIAL KNEE JOINT, BILAT 07/15/2016 FESTUS ARROYO PHOTOENGRAVING SKETCH MAKER Ot Z47. 1 AFTERCARE FOLLOWING JOINT REPLACEMENT CANALES 07/15/2016 FESTUS ARROYO PHOTOENGRAVING SKETCH MAKER Ot Z96.653 PRESENCE OF ARTIFICIAL KNEE JOINT, BILAT 09/15/2016 BARBARA RAMIREZ, REYMUNDO P Ot M25.461 EFFUSION, RIGHT KNEE 09/15/2016 BARBARA RAMIREZ, REYMUNDO P Ot M25.462 EFFUSION, LEFT KNEE 09/15/2016 BARBARA RAMIREZ, REYMUNDO P Ot Z96.659 PRESENCE OF UNSPECIFIED ARTIFICIAL KNEE 09/28/2016 BARBARA RAMIREZ, REYMUNDO P Ot M25.461 EFFUSION, RIGHT KNEE 09/28/2016 BARBARA RAMIREZ, REYMUNDO P Ot M25.462 EFFUSION, LEFT KNEE 09/28/2016 BARBARA RAMIREZ, REYMUNDO P Ot Z96.659 PRESENCE OF UNSPECIFIED ARTIFICIAL KNEE 10/27/2016 BARBARA RAMIREZ, REYMUNDO P Ot M25.461 EFFUSION, RIGHT KNEE 10/27/2016 BARBARA RAMIREZ, REYMUNDO P Ot M25.462 EFFUSION, LEFT KNEE 10/27/2016 BARBARA RAMIREZ, REYMUNDO P Ot Z96.653 PRESENCE OF ARTIFICIAL KNEE JOINT, BILAT 11/15/2016 BARBARA RAMIREZ, REYMUNDO P Ot Z47.1 AFTERCARE FOLLOWING JOINT REPLACEMENT CANALES 11/15/2016 REYMUNDO JIMENEZ MD Ot Z96.652 PRESENCE OF LEFT ARTIFICIAL KNEE JOINT 12/21/2016 BARBARA RAMIREZ, REYMUNDO P Ot Z47.1 AFTERCARE FOLLOWING JOINT REPLACEMENT CANALES 12/21/2016 REYMUNDO JIMENEZ MD Ot Z96.652 PRESENCE OF LEFT ARTIFICIAL KNEE JOINT 01/04/2017 REYMUNDO JIMENEZ MD Ot Z47.1 AFTERCARE FOLLOWING JOINT REPLACEMENT CANALES 01/04/2017 BARBARA RAMIREZ, REYMUNDO Ramires Ot Z96.652 PRESENCE OF LEFT ARTIFICIAL KNEE JOINT 02/23/2017 WILMAN RODRIGUEZ MD, Ot Z12.31 ENCNTR SCREEN MAMMOGRAM FOR MALIGNANT NE 03/09/2017 WILMAN RODRIGUEZ MD, Ot Z12.31 ENCNTR SCREEN MAMMOGRAM FOR MALIGNANT NE 03/27/2017 WILMAN RODRIGUEZ MD, Ot D64.9 ANEMIA, UNSPECIFIED 03/27/2017 WILMAN RODRIGUEZ MD, Ot N93.8 OTHER SPECIFIED ABNORMAL UTERINE AND VAG 03/27/2017 WILMAN RODRIGUEZ MD, Ot N95.0 POSTMENOPAUSAL BLEEDING 03/27/2017 WILMAN RODRIGUEZ MD, Ot R19.09 OTHER INTRA-ABDOMINAL AND PELVIC SWELLIN 03/27/2017 WILMAN RODRIGUEZ MD, Ot Z01.818 ENCOUNTER FOR OTHER PREPROCEDURAL EXAMIN 03/27/2017 WILMAN RODRIGUEZ MD, Ot Z11.2 ENCOUNTER FOR SCREENING FOR OTHER BACTER 03/31/2017 WILMAN RODRIGUEZ MD, Ot E03.9 HYPOTHYROIDISM, UNSPECIFIED 03/31/2017 WILMAN RODRIGUEZ MD, Ot E11.9 TYPE 2 DIABETES MELLITUS WITHOUT COMPLIC 03/31/2017 WILMAN RODRIGUEZ MD, Ot E78.5 HYPERLIPIDEMIA, UNSPECIFIED 03/31/2017 WILMAN RODRIGUEZ MD, Ot G47.33 OBSTRUCTIVE SLEEP APNEA (ADULT) (PEDIATR 03/31/2017 WILMAN RODRIGUEZ MD, Ot I10 ESSENTIAL (PRIMARY) HYPERTENSION 03/31/2017 WILMAN RODRIGUEZ MD, Ot K21.9 GASTRO-ESOPHAGEAL REFLUX DISEASE WITHOUT 03/31/2017 WILMAN RODRIGUEZ MD, Ot N84.1 POLYP OF CERVIX UTERI 03/31/2017 WILMAN RODRIGUEZ MD, Ot N92.0 EXCESSIVE AND FREQUENT MENSTRUATION WITH 03/31/2017 WILMAN RODRIGUEZ MD, Ot Z79.82 SOLAR BUSINESS DEVELOPER (CURRENT) USE OF ASPIRIN 03/31/2017 WILMAN RODRIGUEZ MD, Ot Z79.84 ASSISTED (CURRENT) USE OF ORAL HYPOGLYC 03/31/2017 WILMAN RODRIGUEZ MD, Ot Z79.899 OTHER SOLAR BUSINESS DEVELOPER (CURRENT) DRUG THERAPY 03/31/2017 WILMAN RODRIGUEZ MD, Ot Z88.1 ALLERGY STATUS TO OTHER ANTIBIOTIC AGENT 03/31/2017 WILMAN RODRIGUEZ MD, Ot Z88.2 ALLERGY STATUS TO SULFONAMIDES STATUS 03/31/2017 WILMAN RODRIGUEZ MD, Ot Z96.651 PRESENCE OF RIGHT ARTIFICIAL KNEE JOINT 03/31/2017 WILMAN RODRIGUEZ MD, Ot Z96.652 PRESENCE OF LEFT ARTIFICIAL KNEE JOINT 04/04/2017 WILMAN RODRIGUEZ MD, Ot E03.9 HYPOTHYROIDISM, UNSPECIFIED 04/04/2017 WILMAN RODRIGUEZ MD, Ot E11.9 TYPE 2 DIABETES MELLITUS WITHOUT COMPLIC 04/04/2017 WILMAN RODRIGUEZ MD, Ot E78.5 HYPERLIPIDEMIA, UNSPECIFIED 04/04/2017 WILMAN RODRIGUEZ MD, Ot G47.33 OBSTRUCTIVE SLEEP APNEA (ADULT) (PEDIATR 04/04/2017 WILMAN RODRIGUEZ MD, Ot I10 ESSENTIAL (PRIMARY) HYPERTENSION 04/04/2017 WILMAN RODRIGUEZ MD, Ot K21.9 GASTRO-ESOPHAGEAL REFLUX DISEASE WITHOUT 04/04/2017 WILMAN RODRIGUEZ MD, Ot N84.1 POLYP OF CERVIX UTERI 04/04/2017 WILMAN RODRIGUEZ MD, Ot N92.0 EXCESSIVE AND FREQUENT MENSTRUATION WITH 04/04/2017 WILMAN RODRIGUEZ MD, Ot Z79.82 ASSISTED (CURRENT) USE OF ASPIRIN 04/04/2017 WILMAN RODRIGUEZ MD, Ot Z79.84 SOLAR BUSINESS DEVELOPER (CURRENT) USE OF ORAL HYPOGLYC 04/04/2017 WILMAN RODRIGUEZ MD, Ot Z79.899 OTHER ASSISTED (CURRENT) DRUG THERAPY 04/04/2017 WILMAN RODRIGUEZ MD, Ot Z88.1 ALLERGY STATUS TO OTHER ANTIBIOTIC AGENT 04/04/2017 WILMAN RODRIGUEZ MD, Ot Z88.2 ALLERGY STATUS TO SULFONAMIDES STATUS 04/04/2017 WILMAN RODRIGUEZ MD, Ot Z96.651 PRESENCE OF RIGHT ARTIFICIAL KNEE JOINT 04/04/2017 WILMAN RODRIGUEZ MD, Ot Z96.652 PRESENCE OF LEFT ARTIFICIAL KNEE JOINT 04/06/2017 WILMAN RODRIGUEZ MD, Ot E03.9 HYPOTHYROIDISM, UNSPECIFIED 04/06/2017 WILMAN RODRIGUEZ MD, Ot E11.9 TYPE 2 DIABETES MELLITUS WITHOUT COMPLIC 04/06/2017 WILMAN RODRIGUEZ MD, Ot E78.5 HYPERLIPIDEMIA, UNSPECIFIED 04/06/2017 WILMAN RODRIGUEZ MD, Ot G47.33 OBSTRUCTIVE SLEEP APNEA (ADULT) (PEDIATR 04/06/2017 WILMAN RODRIGUEZ MD, Ot I10 ESSENTIAL (PRIMARY) HYPERTENSION 04/06/2017 WILMAN RODRIGUEZ MD, Ot K21.9 GASTRO-ESOPHAGEAL REFLUX DISEASE WITHOUT 04/06/2017 WILMAN RODRIGUEZ MD, Ot N84.1 POLYP OF CERVIX UTERI 04/06/2017 WILMAN RODRIGUEZ MD, Ot N92.0 EXCESSIVE AND FREQUENT MENSTRUATION WITH 04/06/2017 WILMAN RODRIGUEZ MD, Ot Z79.82 SOLAR BUSINESS DEVELOPER (CURRENT) USE OF ASPIRIN 04/06/2017 WILMAN RODRIGUEZ MD, Ot Z79.84 SOLAR BUSINESS DEVELOPER (CURRENT) USE OF ORAL HYPOGLYC 04/06/2017 WILMAN RODRIGUEZ MD, Ot Z79.899 OTHER ASSISTED (CURRENT) DRUG THERAPY 04/06/2017 WILMAN RODRIGUEZ MD, Ot Z88.1 ALLERGY STATUS TO OTHER ANTIBIOTIC AGENT 04/06/2017 WILMAN RODRIGUEZ MD, Ot Z88.2 ALLERGY STATUS TO SULFONAMIDES STATUS 04/06/2017 WILMAN RODRIGUEZ MD, Ot Z96.651 PRESENCE OF RIGHT ARTIFICIAL KNEE JOINT 04/06/2017 WILMAN RODRIGUEZ MD, Ot Z96.652 PRESENCE OF LEFT ARTIFICIAL KNEE JOINT 04/25/2017 WILMAN RODRIGUEZ MD, Ot E03.9 HYPOTHYROIDISM, UNSPECIFIED 04/25/2017 WILMAN RODRIGUEZ MD, Ot E11.9 TYPE 2 DIABETES MELLITUS WITHOUT COMPLIC 04/25/2017 WILMAN RODRIGUEZ MD, Ot E78.5 HYPERLIPIDEMIA, UNSPECIFIED 04/25/2017 WILMAN RODRIGUEZ MD, Ot G47.33 OBSTRUCTIVE SLEEP APNEA (ADULT) (PEDIATR 04/25/2017 WILMAN RODRIGUEZ MD, Ot I10 ESSENTIAL (PRIMARY) HYPERTENSION 04/25/2017 WILMAN RODRIGUEZ MD, Ot K21.9 GASTRO-ESOPHAGEAL REFLUX DISEASE WITHOUT 04/25/2017 WILMAN RODRIGUEZ MD, Ot N84.1 POLYP OF CERVIX UTERI 04/25/2017 WILMAN RODRIGUEZ MD, Ot N92.0 EXCESSIVE AND FREQUENT MENSTRUATION WITH 04/25/2017 WILMAN RODRIGUEZ MD, Ot Z79.82 SOLAR BUSINESS DEVELOPER (CURRENT) USE OF ASPIRIN 04/25/2017 WILMAN RODRIGUEZ MD, Ot Z79.84 SOLAR BUSINESS DEVELOPER (CURRENT) USE OF ORAL HYPOGLYC 04/25/2017 WILMAN RODRIGUEZ MD, Ot Z79.899 OTHER ASSISTED (CURRENT) DRUG THERAPY 04/25/2017 WILMAN RODRIGUEZ MD, Ot Z88.1 ALLERGY STATUS TO OTHER ANTIBIOTIC AGENT 04/25/2017 WILMAN RODRIGUEZ MD, Ot Z88.2 ALLERGY STATUS TO SULFONAMIDES STATUS 04/25/2017 WILMAN RODRIGUEZ MD, Ot Z96.651 PRESENCE OF RIGHT ARTIFICIAL KNEE JOINT 04/25/2017 WILMAN RODRIGUEZ MD, Ot Z96.652 PRESENCE OF LEFT ARTIFICIAL KNEE JOINT 03/21/2018 WILMAN RODRIGUEZ MD, Ot Z12.31 ENCNTR SCREEN MAMMOGRAM FOR MALIGNANT NE 04/05/2018 WILMAN RODRIGUEZ MD, Ot Z12.31 ENCNTR SCREEN MAMMOGRAM FOR MALIGNANT NE 09/18/2018 WILMAN RODRIGUEZ MD Ot 793.81 MAMMOGRAPHIC MICROCLACIFICATION 09/18/2018 WILMAN RODRIGUEZ MD, Ot V76.12 OT SCREEN MAMMO-MALIGN NEOPLASM OF NICOLETTE 09/18/2018 WILMAN RODRIGUEZ MD, Ot 793.80 UNSPEC ABNORMAL MAMMOGRAM 09/18/2018 WILMAN RODRIGUEZ MD, Ot V76.12 OT SCREEN MAMMO-MALIGN NEOPLASM OF [place]LETTE 09/18/2018 WILMAN RODRIGUEZ MD, Ot Z12.31 ENCNTR SCREEN MAMMOGRAM FOR MALIGNANT NE 09/18/2018 BARBARA RAMIREZ, REYMUNDO Ramires Ot M25.461 EFFUSION, RIGHT KNEE 09/18/2018 BARBARA RAMIREZ, REYMUNDO Ramires Ot M25.462 EFFUSION, LEFT KNEE 09/18/2018 REYMUNDO JIMENEZ MD Ot Z96.653 PRESENCE OF ARTIFICIAL KNEE JOINT, BILAT 09/18/2018 WILMAN RODRIGUEZ MD, Ot Z12.31 ENCNTR SCREEN MAMMOGRAM FOR MALIGNANT NE 05/21/2019 WILMAN RODRIGUEZ MD, Ot Z12.31 ENCNTR SCREEN MAMMOGRAM FOR MALIGNANT NE 05/24/2019 WILMAN RODRIGUEZ MD, Ot Z12.31 ENCNTR SCREEN MAMMOGRAM FOR MALIGNANT NE 05/24/2019 WILMAN RODRIGUEZ MD, Ot Z12.31 ENCNTR SCREEN MAMMOGRAM FOR MALIGNANT NE 05/27/2019 WILMAN RODRIGUEZ MD, Ot Z12.31 ENCNTR SCREEN MAMMOGRAM FOR MALIGNANT NE 05/30/2019 WILMAN RODRIGUEZ MD, Ot Z12.31 ENCNTR SCREEN MAMMOGRAM FOR MALIGNANT NE 06/24/2019 WILMAN RODRIGUEZ MD, Ot Z12.31 ENCNTR SCREEN MAMMOGRAM FOR MALIGNANT NE 10/22/2019 W E11.9 Type 2 diabetes mellitus without complications [facility] 10/22/2019 W E89.0 Post -surgical hypothyroidism [facility] 10/22/2019 W I10 Essent ial (primary) hypertension [facility] 10/22/2019 W K21.9 David ro-esophageal reflux disease without esophagitis [facility] 10/22/2019 W K59.04 Chr onic idiopathic constipation [facility] 11/28/2019 DARINEL HAYS DO Ot K21. 9 GASTRO-ESOPHAGEAL REFLUX DISEASE WITHOUT 11/28/2019 DARINEL HAYS DO Ot Z01.812 ENCOUNTER FOR PREPROCEDURAL LABORATORY E 11/28/2019 DARINEL HAYS DO Ot Z12. 11 ENCOUNTER FOR SCREENING FOR MALIGNANT NE 11/28/2019 DARINEL HAYS DO Ot Z20.828 CONTACT W AND EXPOSURE TO OTH VIRAL COMM 11/28/2019 DARINEL HAYS DO Ot Z86.010 PERSONAL HISTORY OF COLONIC POLYPS 12/03/2019 JENNIFER RAMIREZ, WILMAN Estrada Ot Z12.31 ENCNTR SCREEN MAMMOGRAM FOR MALIGNANT NE 12/03/2019 WILMAN RODRIGUEZ MD, Ot Z12.31 ENCNTR SCREEN MAMMOGRAM FOR MALIGNANT NE Procedures Code Description Performed By Per formed On [id number] RE PLACE OF R KNEE JT WITH SYNTH SUB, RAYMOND 12/23/[id number] OF L KNEE JT WITH SYNTH SUB, RAYMOND 12/23/2015 Results Test Result Range Methicillin resistant Staphylococcus aur eus (MRSA) screening culture - 12/15/15 08:30 Methicillin resistant Staphylococcus aureus (MRSA) scr eening culture NEG NRG Complete blood count (CBC) with automate d white blood cell (WBC) differential - 12/15/15 08:35 Blood leukocytes automated count (number/volume) 6.1 10*3/uL 4.3-11.0 Blood erythrocytes automated count (number/volume) 4.88 10*6/uL 4.35-5.85 Venous blood hemoglobin measurement (mass/volume) 15.7 g/dL 11.5-16.0 Blood hematocrit (volume fraction) 45 % 35-52 Automated erythrocyte mean corpuscular volume 92 [ foz_us] 80-99 Automated erythrocyte mean corpuscular h emoglobin (mass per erythrocyte) 32 pg 25-34 Automated erythrocyte mean corpuscular h emoglobin concentration measurement (mass/volume) 35 g/dL 32-36 Automated erythrocyte distribution width ratio 12. 8 % 10.0- 14.5 Automated blood platelet count (count/volume) 265 10*3/uL 130-400 Automated blood platelet mean volume measurement 10.3 [foz_us] 7.4-10.4 Automated blood neutrophils/100 leukocytes 58 % 42-75 Automated blood lymphocytes/100 leukocytes 28 % 12-44 Blood monocytes/100 leukocytes 10 % 0-12 Automated blood eosinophils/100 leukocytes 3 % 0-10 Automated blood basophils/100 leukocytes 0 % 0-10 Blood neutrophils automated count (number/volume) 3.6 10*3 1.8-7.8 Blood lymphocytes automated count (number/volume) 1.7 10*3 1.0-4.0 Blood monocytes automated count (number/volume) 0. 6 10*3 0.0-1.0 Automated eosinophil count 0.2 10*3/uL 0 .0-0.3 Automated blood basophil count (count/volume) 0.0 10*3/uL 0.0-0.1 Comprehensive metabolic panel - 12/15/15 08:35 Serum or plasma sodium measurement (moles/volume) 140 mmol/L 135-145 Serum or plasma potassium measurement (moles/volume) 3.8 mmol/L 3.6-5.0 Serum or plasma chloride measurement (moles/volume) 105 mmol/L 98-107 Carbon dioxide 25 mmol/L 21-32 Serum or plasma anion gap determination (moles/volume) 10 mmol/L 5-14 Serum or plasma urea nitrogen measurement (mass/volume ) 16 mg/dL 7-18 Serum or plasma creatinine measurement (mass/volume) 0.95 mg/dL 0.60-1.30 Serum or plasma urea nitrogen/creatinine mass ratio 17 NRG Serum or plasma creatinine measurement w ith calculation of estimated glomerular filtration rate 60 NRG Serum or plasma glucose measurement (mass/volume) 105 mg/dL 70-105 Serum or plasma calcium measurement (mass/volume) 9.4 mg/dL 8.5-10.1 Serum or plasma total bilirubin measurement (mass/volu me) 0.8 mg/dL 0.1-1.0 Serum or plasma alkaline phosphatase bianca surement (enzymatic activity/volume) 53 U/L 40-136 Serum or plasma aspartate aminotransfera se measurement (enzymatic activity/volume) 23 U/L 5-34 Serum or plasma alanine aminotransferase measurement (enzymatic activity/volume) 29 U/L 0-55 Serum or plasma protein measurement (mass/volume) 6.7 g/dL 6.4-8.2 Serum or plasma albumin measurement (mass/volume) 4.4 g/dL 3.2-4.5 PT panel in platelet poor plasma by coag ulation assay - 12/15/15 08:35 Prothrombin time (PT) in platelet poor plasma by coagu lation assay 12.5 s 12.2-14.7 INR in platelet poor plasma or blood by coagulation as say 1.0 0.8-1.4 Erythrocyte sedimentation rate by sreedhar gren method - 12/15/15 08:35 Erythrocyte sedimentation rate by westergren method 4 mm 0- 30 Blood type T Indirect antibody screen pa drea - 12/15/15 08:35 ABO+Rh group OP NRG Blood group antibody screen NEGATIVE NR G Complete urinalysis with reflex to cultu re - 12/15/15 08:40 Urine color determination YELLOW NRG Urine clarity determination CLEAR NR G Urine pH measurement by test strip 6 5-9 Specific gravity of urine by test strip 1.015 1.016-1.022 Urine protein assay by test strip, semi-quantitative NEGATIVE NEGATIVE Urine glucose detection by automated test strip NE GATIVE NEGATIVE Erythrocytes detection in urine sediment by light micr oscopy NEGATIVE NEGATIVE Urine ketones detection by automated test strip NE GATIVE NEGATIVE Urine nitrite detection by test strip NEGATIVE NEGATIVE Urine total bilirubin detection by test strip NEGA TIVE NEGATIVE Urine urobilinogen measurement by automated test strip (mass/volume) 1 mg/dL NORMAL Urine leukocyte esterase detection by dipstick 2+ NEGATIVE Automated urine sediment erythrocyte cou nt by microscopy (number/high power field) NONE NRG Automated urine sediment leukocyte count by microscopy (number/high power field) [HPF] NRG Bacteria detection in urine sediment by light microsco py FEW NRG Squamous epithelial cells detection in u rine sediment by light microscopy 25-50 NRG Crystals detection in urine sediment by light microsco py NONE NRG Casts detection in urine sediment by light microscopy NONE NRG Mucus detection in urine sediment by light microscopy SMALL NRG Complete urinalysis with reflex to culture YES NRG Bacterial urine culture - 12/15/15 08:40 URINE CULTURE RESULTS 10,000/ML - 100,000/ML NRG Blood type T Indirect antibody screen [facility] 12/23/15 06:20 ABO+Rh group OP NRG Transfusion band number [id number] NRG Blood group antibody screen NEGATIVE NR G Capillary blood glucose measurement by g lucometer (mass/volume) - 12/23/15 06:24 Capillary blood glucose measurement by glucometer (mas s/volume) 98 mg/dL 70-110 Capillary blood glucose measurement by g lucometer (mass/volume) - 12/23/15 10:39 Capillary blood glucose measurement by glucometer (mas s/volume) 117 mg/dL 70-110 Whole blood hemoglobin and hematocrit [facility] 12/24/15 05:10 Venous blood hemoglobin measurement (mass/volume) 10.6 g/dL 11.5-16.0 Blood hematocrit (volume fraction) 31 % 35-52 Whole blood hemoglobin and hematocrit [facility] 12/25/15 05:58 Venous blood hemoglobin measurement (mass/volume) 9.3 g/dL 11.5-16.0 Blood hematocrit (volume fraction) 27 % 35-52 Whole blood hemoglobin and hematocrit [facility] 12/26/15 05:50 Venous blood hemoglobin measurement (mass/volume) 9.4 g/dL 11.5-16.0 Blood hematocrit (volume fraction) 27 % 35-52 Complete blood count (CBC) with automate d white blood cell (WBC) differential - 09/14/16 11:53 Blood leukocytes automated count (number/volume) 7.3 10*3/uL 4.3-11.0 Blood erythrocytes automated count (number/volume) 4.56 10*6/uL 4.35-5.85 Venous blood hemoglobin measurement (mass/volume) 14.3 g/dL 11.5-16.0 Blood hematocrit (volume fraction) 42 % 35-52 Automated erythrocyte mean corpuscular volume 91 [ foz_us] 80-99 Automated erythrocyte mean corpuscular h emoglobin (mass per erythrocyte) 31 pg 25-34 Automated erythrocyte mean corpuscular h emoglobin concentration measurement (mass/volume) 35 g/dL 32-36 Automated erythrocyte distribution width ratio 13. 3 % 10.0- 14.5 Automated blood platelet count (count/volume) 267 10*3/uL 130-400 Automated blood platelet mean volume measurement 10.0 [foz_us] 7.4-10.4 Automated blood neutrophils/100 leukocytes 55 % 42-75 Automated blood lymphocytes/100 leukocytes 34 % 12-44 Blood monocytes/100 leukocytes 9 % 0-12 Automated blood eosinophils/100 leukocytes 3 % 0-10 Automated blood basophils/100 leukocytes 0 % 0-10 Blood neutrophils automated count (number/volume) 4.0 10*3 1.8-7.8 Blood lymphocytes automated count (number/volume) 2.4 10*3 1.0-4.0 Blood monocytes automated count (number/volume) 0. 6 10*3 0.0-1.0 Automated eosinophil count 0.2 10*3/uL 0 .0-0.3 Automated blood basophil count (count/volume) 0.0 10*3/uL 0.0-0.1 Serum or plasma C reactive protein measu rement (mass/volume) - 09/14/16 11:53 Serum or plasma C reactive protein measurement (mass/v olume) 0.13 mg/dL 0.00-0.50 Erythrocyte sedimentation rate by sreedhar gren method - 09/14/16 11:53 Erythrocyte sedimentation rate by westergren method 9 mm 0- 30 Methicillin resistant Staphylococcus aur eus (MRSA) screening culture - 03/27/17 13:22 Methicillin resistant Staphylococcus aureus (MRSA) scr eening culture NEG NRG Capillary blood glucose measurement by g lucometer (mass/volume) - 03/31/17 11:06 Capillary blood glucose measurement by glucometer (mas s/volume) 90 mg/dL 70-110 LIPID PANEL - 11/10/17 09:54 CHOLESTEROL, TOTAL 185 mg/dL <200 HDL CHOLESTEROL 51 mg/dL >50 TRIGLYCERIDES 156 mg/dL <150 LDL-CHOLESTEROL 107 mg/dL (calc) NRG CHOL/HDLC RATIO 3.6 (calc) <5.0 NON HDL CHOLESTEROL 134 mg/dL (calc) <13 0 [facility] - 04/16/19 08:59 GLUCOSE 116 mg/dL 65-99 UREA NITROGEN (BUN) 17 mg/dL 7-25 CREATININE 1.08 mg/dL 0.50-0.99 eGFR NON-AFR. WELSH 53 mL/min/1.73m2 > OR = 60 eGFR 62 mL/min/1.73m2 > OR = 60 BUN/CREATININE RATIO 16 (calc) 6-22 SODIUM 140 mmol/L 135-146 POTASSIUM 3.9 mmol/L 3.5-5.3 CHLORIDE 101 mmol/L 98-110 CARBON DIOXIDE 24 mmol/L 20-32 CALCIUM 10.0 mg/dL 8.6-10.4 PROTEIN, TOTAL 7.2 g/dL 6.1-8.1 ALBUMIN 4.4 g/dL 3.6-5.1 GLOBULIN 2.8 g/dL (calc) 1.9-3.7 ALBUMIN/GLOBULIN RATIO 1.6 (calc) 1.0-2. 5 BILIRUBIN, TOTAL 0.5 mg/dL 0.2-1.2 ALKALINE PHOSPHATASE 101 U/L 33-130 AST 17 U/L 10-35 ALT 16 U/L 6-29 [facility] - 07/01/19 08:57 GLUCOSE 118 mg/dL 65-99 UREA NITROGEN (BUN) 18 mg/dL 7-25 CREATININE 1.32 mg/dL 0.50-0.99 eGFR NON-AFR. WELSH 42 mL/min/1.73m2 > OR = 60 eGFR 49 mL/min/1.73m2 > OR = 60 BUN/CREATININE RATIO 14 (calc) 6-22 SODIUM 140 mmol/L 135-146 POTASSIUM 3.9 mmol/L 3.5-5.3 CHLORIDE 102 mmol/L 98-110 CARBON DIOXIDE 27 mmol/L 20-32 CALCIUM 9.8 mg/dL 8.6-10.4 PROTEIN, TOTAL 6.8 g/dL 6.1-8.1 ALBUMIN 4.4 g/dL 3.6-5.1 GLOBULIN 2.4 g/dL (calc) 1.9-3.7 ALBUMIN/GLOBULIN RATIO 1.8 (calc) 1.0-2. 5 BILIRUBIN, TOTAL 0.6 mg/dL 0.2-1.2 ALKALINE PHOSPHATASE 104 U/L 37-153 AST 19 U/L 10-35 ALT 17 U/L 6-29 Coronavirus SARS-CoV-2 SO 2018 0 07:14 Coronavirus Ab [Units/volume] in Serum NOT DETECTE D Not Detecte Encounters ACCT No. Visit Date/Time Discharge Status Pt. Type Provider Facility Loc./Unit Complaint [id number] 05/21/2019 15:40:00 05/21/2019 23:59: 59 CLS Outpatient [facility] [id number] 07/01/2019 09:00:00 Document Registration [id number] 04/16/2019 08:20:00 Document Registration [id number] 11/10/2017 09:00:00 Document Registration [id number] 12/03/2019 09:27:00 020 11:20:00 DIS Outpatient HAYS DARINEL FLOOD [facility] ENDO EPIGASTRIC PAIN,SCREENI NG [id number] 11/28/2019 05:33:00 020 10:04:00 DIS Outpatient DARINEL HAYS DO [facility] PREOP EPIGASTRIC PAIN,SCREENI NG [id number] 05/24/2019 10:47:00 020 23:59:59 CLS Outpatient WILMAN RODRIGUEZ MD [facility] RAD SCREENING [id number] 03/20/2018 07:55:00 018 23:59:59 CLS Outpatient WILMAN RODRIGUEZ MD [facility] RAD SCREENING [id number] 03/31/2017 10:56:00 017 15:00:00 DIS Outpatient WILMAN RODRIGUEZ MD [facility] SDC PELVIC MASS; PO ST MENOPAUSAL BLEEDING [id number] 03/27/2017 13:03:00 017 13:26:00 DIS Outpatient WILMAN RODRIGUEZ MD [facility] PREOP PELVIC MASS; PO ST MENOPAUSAL BLEEDING [id number] 02/22/2017 08:36:00 017 23:59:59 CLS Outpatient WILMAN RODRIGUEZ MD [facility] RAD ROUTINE [id number] 01/04/2017 15:30:00 017 23:59:59 CLS Outpatient REYMUNDO JIMENEZ MD [facility] REHAB S/P KNEE ARTHROPLASTY LEFT; BILATERAL KNEES [id number] 09/14/2016 11:43:00 017 23:59:59 CLS Outpatient REYMUNDO JIMENEZ MD [facility] LAB KNEE SWELLING [id number] 06/23/2016 15:45:00 017 16:40:00 DIS Outpatient FESTUS ARROYO [facility] REHAB S/P B TKR [id number] 2016 15:11:00 017 00:01:00 DIS Outpatient FESTUS ARROYO [facility] REHAB S/P B TKR [id number] 01/29/2016 13:47:00 016 17:00:00 DIS Outpatient FESTUS ARROYO [facility] REHAB S/P B TKR [id number] 12/23/2015 05:47:00 10:30:00 DIS Inpatient REYMUNDO JIMENEZ MD [facility] 4TH BILATERAL SOA KNEES [id number] 12/15/2015 07:29:00 23:59:59 CLS Outpatient WILMAN RODRIGUEZ MD [facility] RAD ROUTINE SCREENI NG [id number] 12/15/2015 07:49:00 13:24:00 DIS Outpatient REYMUNDO JIMENEZ MD [facility] PREOP BILATERAL SOA KNEES [id number] 04/18/2014 07:42:00 23:59:59 CLS Outpatient WILMAN RODRIGUEZ MD [facility] RAD FOLLOW UP [id number] 04/15/2013 07:40:00 23:59:59 CLS Outpatient WILMAN RODRIGUEZ MD [facility] RAD ABNORMAL MAMMO [id number] 04/03/2013 07:20:00 23:59:59 CLS Outpatient WILMAN RODRIGUEZ MD [facility] RAD SCREENING [id number] 12/28/2012 13:00:00 18:15:00 DIS Outpatient WILMAN RODRIGUEZ MD [facility] SDC UTERINE MASS [id number] 12/25/2012 11:52:00 23:59:59 CLS Outpatient WILMAN RODRIGUEZ MD [facility] PREOP UTERINE MASS [id number] 04/18/2014 07:43:00 Document Registration [id number] 04/18/2014 07:43:00 Document Registration [id number] 03/13/2012 07:48:00 Document Registration [id number] 03/01/2012 07:19:00 Document Registration [id number] 02/23/2011 07:12:00 Document Registration [id number] 11/25/2010 21:15:00 Document Registration [id number] 09/14/2010 20:01:00 Document Registration [id number] 09/10/2010 11:23:00 Document Registration [id number] 02/04/2010 07:12:00 Document Registration [id number] 12/25/2008 07:26:00 Document Registration [id number] 02/16/2017 12:18:15 02/16/2017 23:59:5 9 [facility] Outpatient
--- NOTE | 2019-12-03 14:10 | OPERATIVE REPORT ---
DATE OF SERVICE: 12/03/2019 PREOPERATIVE DIAGNOSES: Epigastric abdominal pain, gastroesophageal reflux disease, history of colon polyps. POSTOPERATIVE DIAGNOSES: Diverticulosis, moderate hiatal hernia. PROCEDURE: EGD with biopsies, colonoscopy. SURGEON: Darinel Becerra DO ANESTHESIA: Per MDA. ESTIMATED BLOOD LOSS: None. COMPLICATIONS: None. SPECIMENS: Antrum, GE junction. INDICATIONS: The patient is a 64-year-old female who has been having some epigastric abdominal pain and GERD symptoms. She has a history of colon polyps needing screening colonoscopy. She understands risks and benefits of procedure and wished to proceed with procedure. Consent was signed in the chart. DESCRIPTION OF PROCEDURE: The patient was taken to the endoscopy suite, placed in left lateral recumbent position. Timeout was performed. Scope was inserted in mouth, down the esophagus, stomach and into the duodenum without difficulty. There were no polyps, masses or ulcerations within the duodenum. Scope was slowly retracted back into the stomach, which was further insufflated. No polyps, masses or ulcerations. Biopsy of the antrum was obtained. Scope was retroflexed noting a moderate sized hiatal hernia, no other pathology. Scope was returned to its normal position, slowly withdrawn to distal esophagus. No polyps, masses or ulcerations. Biopsy of the GE junction was obtained. Scope was then slowly retracted back to completely remove noting no other pathology. Digital rectal exam was performed. There were no palpable polyps, masses or ulcerations. Scope was inserted in the rectum, advanced all the way to cecum with minimal difficulty. Prep was adequate. Scope was then slowly retracted back. There were no polyps, masses or ulcerations within the cecum, ascending, transverse, descending and sigmoid colon. Throughout the entire colon, minimal amount of diverticulosis present. Once in the rectum, scope was retroflexed noting no other pathology. Scope was returned to its normal position, slowly withdrawn until completely removed. The patient tolerated procedure well without any complications. She was taken to recovery room in stable condition. RECOMMENDATIONS: The patient to continue on current medications. We will await biopsy results. The patient recommended high fiber diet due to diverticulosis. The patient will need repeat colonoscopy per screening guidelines. Recommendation per guidelines would be repeat colonoscopy in 5 years due to history of polyps if she has any issues before that be seen at that time. Job ID: [id number] DocumentID: [id number] Dictated Date: 12/03/2019 10:56:35 Sole Tacker Date: 12/03/2019 14:09:30 Dictated By: DARINEL BECERRA DO
--- NOTE | 2019-12-03 15:18 | Anesthesia-General Post-Op ---
MAC Patient Condition Mental Status/LOC: Same as Preop Cardiovascular: Satisfactory Nausea/Vomiting: Absent Respiratory: Satisfactory Pain: Controlled Complications: Absent Post Op Complications Complications None Follow Up Care/Instructions Patient Instructions None needed. Anesthesiology Discharge Order Discharge Order Patient was seen after the procedure and she was doing well, no complaints, stable vital signs, no apparent adverse anesthesia problems. LEMUEL QUICK DO Dec 03, 2019 15:18
== END 2019-12-03 11:20 | disposition home or self-care (01) ==
LOC: ENDO 09:27
PROVIDERS: ATTEND Surgery
DX: Z12.11 Encounter for screening for malignant neoplasm of colon (principal); K21.0 Gastro-esophageal reflux disease with esophagitis; K57.30 Diverticulosis of large intestine without perforation or abscess without bleeding; K44.9 Diaphragmatic hernia without obstruction or gangrene; I10 Essential (primary) hypertension; G47.33 Obstructive sleep apnea (adult) (pediatric); K21.9 Gastro-esophageal reflux disease without esophagitis; E03.9 Hypothyroidism, unspecified; E11.9 Type 2 diabetes mellitus without complications; M06.9 Rheumatoid arthritis, unspecified; E66.9 Obesity, unspecified; Z68.31 Body mass index [BMI] 31.0-31.9, adult; Z79.899 Other long term (current) drug therapy; Z88.2 Allergy status to sulfonamides; Z88.1 Allergy status to other antibiotic agents; Z86.010 Personal history of colon polyps; Z87.891 Personal history of nicotine dependence
CPT/HCPCS: 43239; G0105

== ENCOUNTER → 2020-10-13 | Outpatient (CLI) | payer MEDICARE, OTHER ==
--- NOTE | 2020-10-13 12:26 | Diagnostic Imaging Report ---
Indication: Routine screening. Comparison is made with prior mammogram from 05/24/2019 and 03/20/2018. 2-D and 3-D bilateral screening mammography was performed with CAD. Both breasts are heterogeneously dense, limiting the sensitivity of mammography. The parenchymal pattern is stable. No dominant mass or malignant appearing microcalcifications are seen. Occasional benign appearing calcifications are noted. Axillae are unremarkable. IMPRESSION: BI-RADS Category 2 No mammographic features suspicious for malignancy are identified. ACR BI-RADS Category 2: Benign findings. Result letter will be mailed to the patient. Note: At least 10% of breast cancer is not imaged by mammography. Dictated by: Dictated on workstation # [id number]
== END ==
LOC: RAD 08:36
PROVIDERS: ATTEND Obstetrics & Gynecology
DX: Z12.31 Encounter for screening mammogram for malignant neoplasm of breast (principal)
CPT/HCPCS: 77063; 77067

== ENCOUNTER → 2020-12-31 | Outpatient (CLI) | payer MEDICARE, OTHER ==
[~2020-12-31] MED LIST changes: -OMEP40CA27 PO; +OMEP40CA6 PO
== END ==
LOC: PREOP 09:08
PROVIDERS: ATTEND Obstetrics & Gynecology
DX: Z01.818 Encounter for other preprocedural examination (principal)

== ENCOUNTER → 2022-01-14 | Outpatient (CLI) | payer MEDICARE, OTHER ==
[~2022-01-14] MED LIST changes: -ESTR2TAB PO; +ESTR2TAB3 PO; -TRIA1CAP4 PO; +TRIA1CAP84 PO
--- NOTE | 2022-01-14 11:54 | Diagnostic Imaging Report ---
Indication: Routine screening. Comparison is made with prior mammogram 10/13/2020 and 05/24/2019. 2-D and 3-D bilateral screening mammography was performed with CAD. CAD is utilized. The current study was also evaluated with a Computer Aided Detection (CAD) system. Both breasts are heterogeneously dense, limiting the sensitivity of mammography. Occasional benign calcifications are noted. No mass or malignant appearing microcalcifications are seen. Axillae are unremarkable. IMPRESSION: BI-RADS Category 2 No mammographic features suspicious for malignancy are identified. ACR BI-RADS Category 2: Benign findings. Result letter will be mailed to the patient. Note: At least 10% of breast cancer is not imaged by mammography. Dictated by: Dictated on workstation # [id number]
== END ==
LOC: RAD 08:55
PROVIDERS: ATTEND Obstetrics & Gynecology
DX: Z12.31 Encounter for screening mammogram for malignant neoplasm of breast (principal)
CPT/HCPCS: 77063; 77067

== ENCOUNTER → 2023-02-02 | Outpatient (CLI) | payer MEDICARE ==
--- NOTE | 2023-02-02 13:20 | Diagnostic Imaging Report ---
PROCEDURE: Pelvic comp/transvaginal sonogram. TECHNIQUE: Complete transabdominal and transvaginal pelvic ultrasound was performed. In addition, limited pelvic Doppler was performed. INDICATION: Vaginal discharge. Uterus is anteverted measuring 8.3 x 4.8 x 6.7 cm. There is an anterior fibroid on the right side measuring approximately 19 mm in size. Cervical nabothian cyst is noted. Endometrium is thickened at 12 mm. This appears to be due to moderate amount of fluid in the endometrial canal. Left ovary cannot be visualized due to overlying bowel gas. Right ovary measures 0.9 x 1.3 x 1.5 cm. There is blood flow to the right ovary. No adnexal mass or free fluid is detected. IMPRESSION: 1. Uterine fibroid. 2. Moderate fluid in the endometrial canal. No other significant abnormality is detected. Dictated by: Dictated on workstation # [id number]
== END ==
LOC: RAD 10:35
PROVIDERS: ATTEND Nurse Practitioner Women's Health
DX: D25.9 Leiomyoma of uterus, unspecified (principal); N89.8 Other specified noninflammatory disorders of vagina
CPT/HCPCS: 76830; 76856

== ENCOUNTER → 2023-02-02 | Outpatient (CLI) | payer MEDICARE ==
--- NOTE | 2023-02-02 13:25 | Diagnostic Imaging Report ---
INDICATION: Routine screening. Comparison is made with prior mammogram from 01/14/2022 and 10/13/2020. 2-D and 3-D bilateral screening mammography was performed with CAD. Both breasts are heterogeneously dense, limiting the sensitivity of mammography. The parenchymal pattern is stable. No mass or malignant-appearing microcalcifications are seen. There are benign calcifications bilaterally. Axillae are unremarkable. IMPRESSION: No mammographic features suspicious for malignancy are identified. ACR BI-RADS Category 2: Benign findings. Result letter will be mailed to the patient. Note: At least 10% of breast cancer is not imaged by mammography. BI-RADS Category 2 Dictated by: Dictated on workstation # [id number]
== END ==
LOC: RAD 10:34
PROVIDERS: ATTEND Nurse Practitioner Women's Health
DX: Z12.31 Encounter for screening mammogram for malignant neoplasm of breast (principal)
CPT/HCPCS: 77063; 77067

== ENCOUNTER 2023-02-22 10:31 | Outpatient (CLI) | payer MEDICARE ==
[~2023-02-22] VITALS: Ht 160 cm; Wt 88.7 kg
[2023-02-22] MEDS ORDERED: PANT40GR PO (14:36)
[2023-02-22] MEDS ORDERED: BACI1TAB24 PO (14:36)
[2023-02-22] MEDS ORDERED: B6/F1CAP PO (14:36)
[2023-02-22] MEDS ORDERED: GLIP5TAB13 PO (14:54)
== END 2023-02-23 13:05 | disposition home or self-care (01) ==
LOC: PREOP 10:31
PROVIDERS: ATTEND Obstetrics & Gynecology
DX: Z01.818 Encounter for other preprocedural examination (principal)

== ENCOUNTER 2023-02-27 05:54 | Day surgery (SDC) | payer MEDICARE ==
[~2023-02-27] VITALS: Ht 160 cm; Wt 88.7 kg
[2023-02-27] VITALS (11 sets, daily range): BP systolic 114–142; BP diastolic 64–82
[~2023-02-27 05:54] MED LIST changes: +B6/F1CAP PO; +BACI1TAB24 PO; +GLIP5TAB13 PO; +PANT40GR PO
[2023-02-27] MEDS ORDERED: LACTATED RINGERS 1,000 ML 1,000 ML IV PRN (06:00)
--- NOTE | 2023-02-27 07:19 | Progress Note-Pre Operative ---
Pre-Operative Progress Note Date H&P Reviewed: Feb 27, 2023 Time H&P Reviewed: 07:00 History & Physical: H&P Reviewed, No changes noted Pre-Operative Diagnosis: Postmenopausal bleeding plan D&C hysteroscopy RONNY CASTANEDA DO Feb 27, 2023 07:19
--- NOTE | 2023-02-27 07:22 | OB/GYN Operative Report ---
Operative Report Date of Procedure:Feb 27, 2023 Preoperative Diagnosis: Postmenopausal bleeding Postoperative Diagnosis: Same plus endometrial polyp Name of the Procedure: D&C hysteroscopy Surgeon: Ronny Castaneda Die Machine Operator(s): [none] Anesthesia: General LMA Indications for Procedure: This 67-year-old female presented for postmenopausal bleeding. She had thickened endometrium on ultrasound and we attempted to do an endometrial biopsy. She had no endometrial cells on EMB in the office So it was decided to proceed to a D&C with hysteroscopy. We discussed the risk benefits and alternatives of this procedure In detail. The patient had her questions answered to her satisfaction signed consents and is ready to proceed. Findings of the Procedure: Endometrial polyp Complications: None Disposition: Counts correct x2 patient taken to recovery room in stable condition Description of the Procedure: Informed consent was obtained and signed and patient was taken to the OR Ethan. 1 placed under general LMA anesthesia placed in the dorsolithotomy position prepped and draped usual sterile fashion. A timeout was performed. A pelvic exam under anesthesia revealed a normal-sized uterus no adnexal masses. The bladder was drained for 25 cc. A weighted speculum was placed into the posterior vaginal vault and a single-tooth tenaculum was used to grasp antilipid the cervix. Uterus sounded to 8 cm the os was dilated to allow passage of the hysteroscope the hysteroscope using sterile water as a fluid medium was then inserted into the uterine cavity without any difficulty. The ostia were seen bilaterally and there is noted to be a polyp at the lower end of the uterine cavity. The tissue appeared to be rough. The hysteroscope was then removed and Using an endometrial curette endometrial curettings were obtained until there was good uterine cry. The endometrial curettings were sent to pathology for further analysis.The single-tooth and weighted speculum were then removed and all my counts were correct x2. The patient tolerated the procedure well and was taken to recovery room in stable condition. All my counts were correct x2. EBL was 25 cc FLUIDS were 600 cc and URINE OUTPUT was 25 cc. RONNY CASTANEDA DO Feb 27, 2023 07:22
--- NOTE | 2023-02-27 07:23 | Discharge Inst-Simple/Standard ---
Discharge Inst-Standard Reconcile Patient Problems Problems Reviewed?: Yes Discharge Medications New, Converted or Re-Newed RX: Other Patient Instructions/Follow Up Plan of Care/Instructions/FU: Follow-up in 1 week. Pelvic rest (nothing in the vagina: No tampons, douches or intercourse) Activity as Tolerated: Yes Discharge Diet: Regular Diet Return to The Hospital For: Increased pain, temperature over 101.4 F or increased bleeding ORNNY CASTANEDA DO Feb 27, 2023 07:23
[2023-02-27] MEDS ORDERED: fentaNYL INJECTION 100 MCG/2 ML VIAL ONE (07:24)
[2023-02-27] MEDS ORDERED: ONDANSETRON INJECTION 4 MG/2 ML (SDV) ONE (07:58)
[2023-02-27] MEDS ORDERED: SEVOFLURANE (ULTANE) 15 ML INHAL SOLN ONE (07:58)
[2023-02-27] MEDS ORDERED: proPOfol INJECTION 200 MG/20 ML VIAL IV ONE (07:58)
[2023-02-27] MEDS ORDERED: LIDOCAINE PF 2% 5 ML VIAL ONE (07:59)
[2023-02-27] MEDS ORDERED: KETOROLAC INJ 30 MG/ML VIAL ONE (08:10)
[2023-02-27] MEDS ORDERED: IBUP-1773 PO (08:12)
[2023-02-27] MEDS ORDERED: ONDANSETRON INJECTION 4 MG/2 ML (SDV) IVP PRN (08:15)
[2023-02-27] MEDS ORDERED: morphine INJ 10 MG/ML 1ML (SYR OR VIAL) IVP ONE (08:15)
[2023-02-27] MEDS ORDERED: fentaNYL INJECTION 100 MCG/2 ML VIAL IVP ONE (08:15)
--- NOTE | 2023-02-27 08:16 | Anesthesia-General Post-Op ---
General Patient Condition Mental Status/LOC: Same as Preop Cardiovascular: Satisfactory Nausea/Vomiting: Absent Respiratory: Satisfactory Pain: Controlled Complications: Absent Post Op Complications Complications None Follow Up Care/Instructions Patient Instructions None needed. Anesthesia/Patient Condition Patient Condition Patient is doing well, no complaints, stable vital signs, no apparent adverse anesthesia problems. No complications reported per nursing. SAMIRA NIX CRNA Feb 27, 2023 08:16
== END 2023-02-27 10:12 | disposition home or self-care (01) ==
LOC: SDC 05:54
PROVIDERS: ATTEND Obstetrics & Gynecology
DX: N84.0 Polyp of corpus uteri (principal); N95.0 Postmenopausal bleeding; G47.33 Obstructive sleep apnea (adult) (pediatric); Z87.891 Personal history of nicotine dependence
CPT/HCPCS: 87081